=== PATIENT | female | born 1965 | race Caucasian/White ===

== ENCOUNTER 2017-05-17 16:46 | Inpatient (IN) | payer OTHER, MEDICAID, MEDICARE ==
[~2017-05-17] VITALS: Ht 165.1 cm; Wt 69.5 kg
[2017-05-17] VITALS (8 sets, daily range): BP systolic 84–124; BP diastolic 50–63; PULSE 72–106; RESP 16–18; TEMP 98.8; O2SAT 90–98
[~2017-05-17 16:46] MED LIST: AMINOCAPROIC ACID INJ 250 MG/ML 20 ML VIAL IV ONE; AMIT50TA3 PO; ARMO120T PO; ARMO60TA PO; CALCIUM CHLORIDE 10% SOLN 1 GRAM/10 ML SYR IV ONE; HEPARIN SODIUM - SQ 10,000 UNITS/ML VIAL SQ ONE; LYRI150C PO; MAGNESIUM SULFATE 1000 MG/2 ML VIAL (PED) IV ONE; MORP1TAB27 PO; NITROGLYCERIN 50 MG/DEXTROSE 5% SOLN 250 ML BTL IV ONE; OXYC30TA PO; PHENYLEPH/NS 1000 MCG/10 ML SYR IV ONE; PHENYLEPHRINE HCL 10 MG/ML VIAL IV ONE; PROTAMINE SULFATE 250 MG/25 ML VIAL IV ONE; SODIUM BICARBONATE 8.4% INJ 50 MEQ/50 ML SYR IV ONE; VECURONIUM BROMIDE 10 MG VIAL IV ONE; ePHEDrine/NS 25 MG/5 ML SYR IV ONE
[2017-05-17] MEDS ORDERED: FLUT1SPR5 EACH NARE (17:21)
[2017-05-17] MEDS ORDERED: SYMB160A INH (17:21)
--- NOTE | 2017-05-17 17:39 | PD ---
HPI Chief Complaint: Respiratory Symptoms Time Seen by Provider: 17:28 Travel History International Travel<30 days: No Contact w/Intl Traveler<30days: No Traveled to known affect area: No History of Present Illness HPI 52-year-old female with a history of COPD presents to the emergency room for evaluation of blood-tinged sputum for the past 2 days. States she does have a cough but it is no worse than her typical cough. She noticed that whenever she coughs there is brownish-red blood-tinged sputum. Patient smokes 1.5 pack cigarettes per day. She denies chest pain, shortness breath, difficulty breathing, fever, chills, nausea, vomiting, or upper respiratory symptoms. She has history of fibromyalgia and takes amitriptyline, morphine ER, oxycodone, and Lyrica. PFSH Past Medical History Arthritis: Yes Blood Disorders: No Anxiety: Yes Depression: Yes Cancer: No Cardiovascular Problems: No Cerebrovascular Accident: Yes (JUL 2016) Diabetes: No Diminished Hearing: No Endocrine: Yes Fibromyalgia: Yes Gastrointestinal Disorders: No Genitourinary: No Hepatitis: No Hiatal Hernia: No Immune Disorder: No Implanted Vascular Access Dvce: No Kidney Stones: No Musculoskeletal: Yes (degenerative disc disease "L4,L5 S1,bone on bone"; NEEDS RT HIP REPLACE ) Neurologic: Yes (NEUROPATHY/FIBROMYALGIA) Psychiatric: No Reproductive: No Respiratory: Yes (COPD) Immunizations Current: Yes Renal Failure: No Thyroid Disease: Yes (HYPERTHYROIDISM) Influenza Vaccination: No ?: Not Menopausal: Yes : 3 Para: 1 : 2 Past Surgical History Abdominal Surgery: Yes (appendectomy) AICD: No Appendectomy: Yes Cardiac Surgery: No Section: Yes (2005) Ear Surgery: No Endocrine Surgery: No Eye Surgery: No Genitourinary Surgery: No Gynecologic Surgery: Yes (c section) Joint Replacement: No Neurologic Surgery: No Oral Surgery: Yes Pacemaker: No Thoracic Surgery: No Tonsillectomy: Yes Other Surgery: Yes Social History Alcohol Use: No Tobacco Use: Yes (08/22 PPD) Substance Use: No Allergies-Medications (Allergen,Severity, Reaction): Coded Allergies: No Known Allergies (Verified , 05/17/17) Reported Meds & Prescriptions Reported Meds & Active Scripts Active Reported Symbicort Inh (Budesonide/Formoterol Fumarate) 160-4.5 Mcg/Act Aero 2 Puff INH Q12HR Flonase Nasal [place] (Fluticasone Nasal [place]) 50 Mcg/Act [place] 100 Mcg EACH NARE BID Amitriptyline (Amitriptyline HCl) 50 Mg Tab 50 Mg PO BID [place] Thyroid (Thyroid) 60 Mg Tab 60 Mg PO DAILY Lyrica (Pregabalin) 150 Mg Cap 150 Mg PO TID Morphine ER (Morphine Sulfate) 100 Mg Tab 100 Mg PO Q8H [place] Thyroid (Thyroid) 120 Mg Tab 120 Mg PO DAILY Oxycodone (Oxycodone HCl) 30 Mg Tab 30 Mg PO FIVE TIMES A DAY Review of Systems Except as stated in HPI: all other systems reviewed are Neg Physical Exam Narrative GENERAL: Well-nourished, well-developed female in no acute distress. Afebrile. Ambulatory. SKIN: Focused skin assessment warm/dry. HEAD: Normocephalic. EYES: No scleral icterus. No injection or drainage. NECK: Supple, trachea midline. No JVD or lymphadenopathy. ENT: Mucosa pink and moist. No erythema or exudates. No uvular edema. No uvular , palatal, or tonsillar deviation. Airway patent. Nasal turbinates appear normal without nasal blood, purulent drainage or septal hematoma. EARS: Bilateral pinnae and external canals appear within normal limits. Bilateral tympanic membranes without erythema, dullness or perforation. CARDIOVASCULAR: Regular rate and rhythm without murmurs, gallops, or rubs. RESPIRATORY: Breath sounds equal bilaterally. No accessory muscle use. No crackles, rales, wheezes. Mild rhonchi on the left lower lung field. Data Data Last Documented VS Vital Signs Date Time Temp Pulse Resp B/P (MAP) Pulse Ox O2 Delivery O2 Flow Rate FiO2 05/17/17 19:18 84 18 98/57 (71) 95 Room Air 05/17/17 16:52 98.8 Orders Orders Complete Blood Count With Diff (05/17/17 17:28) Comprehensive Metabolic Panel (05/17/17 17:28) D-Dimer (05/17/17 17:28) Act Partial Throm Time (Ptt) (05/17/17 17:28) Prothrombin Time / Inr (Pt) (05/17/17 17:28) Iv Access Insert/Monitor (05/17/17 17:28) Ecg Monitoring (05/17/17 17:28) Oximetry (05/17/17 17:28) Chest, Pa & Lat (05/17/17 17:28) Ct Pulmonary Angiogram (05/17/17 18:32) Iohexol 350 Inj (Omnipaque 350 Inj) (05/17/17 19:05) Electrocardiogram (05/17/17 19:43) B-Type Natriuretic Peptide (05/17/17 19:43) Troponin I (05/17/17 18:00) Admit Order (Ed Use Only) (05/17/17 20:47) Labs Laboratory Tests Test 05/17/17 18:00 White Blood Count 7.8 TH/MM3 Red Blood Count 4.04 MIL/MM3 Hemoglobin 11.7 GM/DL Hematocrit 36.0 % Mean Corpuscular Volume 88.9 FL Mean Corpuscular Hemoglobin 29.0 PG Mean Corpuscular Hemoglobin Concent 32.6 % Red Cell Distribution Width 13.5 % Platelet Count 328 TH/MM3 Mean Platelet Volume 8.0 FL Neutrophils (%) (Auto) 68.4 % Lymphocytes (%) (Auto) 23.3 % Monocytes (%) (Auto) 5.2 % Eosinophils (%) (Auto) 1.6 % Basophils (%) (Auto) 1.5 % Neutrophils # (Auto) 5.4 TH/MM3 Lymphocytes # (Auto) 1.8 TH/MM3 Monocytes # (Auto) 0.4 TH/MM3 Eosinophils # (Auto) 0.1 TH/MM3 Basophils # (Auto) 0.1 TH/MM3 CBC Comment DIFF FINAL Differential Comment Prothrombin Time 11.3 SEC Prothromb Time International Ratio 1.0 RATIO Activated Partial Thromboplast Time 26.8 SEC D-Dimer Quantitative (PE/DVT) 1.46 MG/L FEU Blood Urea Nitrogen 4 MG/DL Creatinine 0.52 MG/DL Random Glucose 95 MG/DL Total Protein 7.8 GM/DL Albumin 3.1 GM/DL Calcium Level 8.9 MG/DL Alkaline Phosphatase 85 U/L Aspartate Amino Transf (AST/SGOT) 21 U/L Alanine Aminotransferase (ALT/SGPT) 16 U/L Total Bilirubin 0.2 MG/DL Sodium Level 137 MEQ/L Potassium Level 3.9 MEQ/L Chloride Level 102 MEQ/L Carbon Dioxide Level 27.7 MEQ/L Anion Gap 7 MEQ/L Estimat Glomerular Filtration Rate 124 ML/MIN Troponin I LESS THAN 0.02 NG/ML B-Type Natriuretic Peptide 40 PG/ML MDM Medical Decision Making Medical Screen Exam Complete: Yes Emergency Medical Condition: Yes Medical Record Reviewed: Yes Differential Diagnosis PE, pneumonia, allergies, or respiratory infection, nosebleed, tumor Narrative Course 52-year-old female presents to the emergency room for evaluation of hemoptysis for the past 2 days. Patient has chronic cough and history of COPD. States her cough is no worse than normal. She denies fever, chills, nausea, vomiting, chest pain, shortness of breath, or difficulty breathing. She is slightly tachycardic. CBC and CMP are completely unremarkable. D-dimer is elevated at 1.46. Chest x-ray shows possible pneumonia in the left lung field. Given patient's tachycardia and elevated d-dimer, CTA was ordered. CT shows no evidence of PE but there is a large filling defect of 3.9 cm in the left atrium , presumably thrombus. There are bilateral perihilar infiltrates most likely pulmonary edema. Pulmonary hemorrhage and infectious as well as inflammatory etiologies are not excludable. At this time EKG, BNP, and troponin were ordered. EKG shows. BNP and troponin are unremarkable. Care was transferred to Dr. Iglesias. Please see his note for disposition. Diagnosis Primary Impression: Hemoptysis Additional Impression: Left atrial mass Condition: Stable Ayse Holman May 17, 2017 17:39
--- NOTE | 2017-05-17 17:57 | RADRPT ---
EXAM DATE/TIME: 05/17/2017 17:40 [facility] COMPARISON: CHEST SINGLE AP, August 13, 2016, 21:18. INDICATIONS : Hemoptysis for 2 days MEDICAL HISTORY : None. SURGICAL HISTORY : None. ENCOUNTER: Initial ACUITY: 2 days PAIN SCORE: 0/10 LOCATION: Bilateral chest FINDINGS: The exam demonstrates basilar infiltrate on the left concerning for a pneumonia. There are chronic-ap pearing interstitial changes throughout the remainder of the pulmonary parenchyma. The heart is edward l in size. The mediastinal contours are within normal limits. CONCLUSION: 1. Left basilar infiltrate concerning for a pneumonia. John Robertson MD on May 17, 2017 at 17:55 Board Certified Radiologist. This report was verified electronically.
[2017-05-17 18:09] LABS: AUTOMATED NEUTROPHIL # 5.4 TH/MM3 (1.8-7.7); BASOPHIL # 0.1 TH/MM3 (0-0.2); BASOPHIL % 1.5 % (0.0-2.0); EOSINOPHIL # 0.1 TH/MM3 (0-0.4); EOSINOPHIL % 1.6 % (0.0-4.0); HEMO FLAGS DIFF FINAL; LYMPH % 23.3 % (9.0-44.0); LYMPHOCYTE # 1.8 TH/MM3 (1.0-4.8); MEAN CELL VOLUME 88.9 FL (80.0-100.0); MEAN CORPUSCULAR HGB CONC 32.6 % (32.0-36.0); MONO % 5.2 % (0.0-8.0); NEUT % 68.4 % (16.0-70.0); PLATELET COUNT 328 TH/MM3 (150-450); RED BLOOD COUNT 4.04 MIL/MM3 (4.00-5.30); RED CELL DISTRIBUTION WIDTH 13.5 % (11.6-17.2); WHITE BLOOD COUNT 7.8 TH/MM3 (4.0-11.0)
[2017-05-17 18:18] LABS: CHLORIDE 102 MEQ/L (98-107); POTASSIUM 3.9 MEQ/L (3.5-5.1); SODIUM (NA) 137 MEQ/L (136-145)
[2017-05-17 18:22] LABS: ANION GAP 7 MEQ/L (5-15); BICARBONATE 27.7 MEQ/L (21.0-32.0); BLOOD UREA NITROGEN 4 MG/DL (7-18)
[2017-05-17 18:25] LABS: ALT (GPT) 16 U/L (10-53); APTT (PATIENT) 26.8 SEC (24.3-30.1); AST (GOT) 21 U/L (15-37); GLOMERULAR FILTRATION RATE 124 ML/MIN (>89); PROTHROMBIN TIME - PATIENT 11.3 SEC (9.8-11.6)
[2017-05-17 18:26] LABS: TOTAL BILIRUBIN ADULT 0.2 MG/DL (0.2-1.0)
[2017-05-17 18:28] LABS: ALKALINE PHOSPHATASE 85 U/L (45-117)
[2017-05-17] MEDS ORDERED: IOHEXOL 350 MG/ML 10 ML VIAL (for RAD DIAG) IVCONTRAST ONE (19:05)
--- NOTE | 2017-05-17 19:20 | RADRPT ---
EXAM DATE/TIME: 05/17/2017 19:00 [facility] COMPARISON: CHEST PA & LAT, May 17, 2017, 17:40. INDICATIONS : Blood in phlegm. Elevated d-dimer. IV CONTRAST: 65 cc Omnipaque 350 (iohexol) IV RADIATION DOSE: 6.76 CTDIvol (mGy) MEDICAL HISTORY : Chronic obstructive pulmonary disease. SURGICAL HISTORY : None. ENCOUNTER: Initial ACUITY: 1 day PAIN SCALE: 0/10 LOCATION: chest TECHNIQUE: Volumetric scanning of the chest was performed using a pulmonary embolism protocol MIP images were re constructed. Using automated exposure control and adjustment of the mA and/or kV according to patien t size, radiation dose was kept as low as reasonably achievable to obtain optimal diagnostic quality images. DICOM format image data is available electronically for review and comparison. Follow-up recommendations for detected pulmonary nodules are based at a minimum on nodule size and pa tient risk factors according to Fleischner Society Guidelines. FINDINGS: There is no pulmonary embolus. Perihilar predominant bilateral alveolar infiltrates are present, nonspecific but could be on the bas is of pulmonary edema or hemorrhage. No pleural effusion. No pneumothorax. There is a 3.9 cm filling defect in the left atrium. Normal heart size. No perceptible coronary a rtery calcification. Esophagus appears patulous. There is no mediastinal, hilar or axillary lymphadenopathy. CONCLUSION: 1. No pulmonary embolus. 2. Large filling defect in the left atrium, presumably thrombus. 3. Bilateral perihilar infiltrates most likely pulmonary edema. Pulmonary hemorrhage and infectious a s well as inflammatory etiologies are not excludable. 4. Patulous appearing esophagus. Popeye Curran MD on May 17, 2017 at 19:16 Board Certified Radiologist. This report was verified electronically.
--- NOTE | 2017-05-17 19:57 | PD ---
HPI Chief Complaint: Respiratory Symptoms Time Seen by Provider: 17:28 Travel History International Travel<30 days: No Contact w/Intl Traveler<30days: No Traveled to known affect area: No History of Present Illness HPI This 52-year-old female came to the emergency department because she noted she was coughing up some blood. This started yesterday. She has not been short of breath. 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 She walks with a walker. She has no history of heart disease. She smokes one to one and a half packs of cigarettes per day. She does have a history of neuropathy in her legs. She says she had a stroke last July. She is not on any blood thinners. She has no history of heart disease. She does take pain medications. She says her legs are always cold due to bad circulation PFSH Past Medical History Arthritis: Yes Blood Disorders: No Anxiety: Yes Depression: Yes Cancer: No Cardiovascular Problems: No Cerebrovascular Accident: Yes (JUL 2016) Diabetes: No Diminished Hearing: No Endocrine: Yes Fibromyalgia: Yes Gastrointestinal Disorders: No Genitourinary: No Hepatitis: No Hiatal Hernia: No Immune Disorder: No Implanted Vascular Access Dvce: No Kidney Stones: No Musculoskeletal: Yes (degenerative disc disease "L4,L5 S1,bone on bone"; NEEDS RT HIP REPLACE ) Neurologic: Yes (NEUROPATHY/FIBROMYALGIA) Psychiatric: No Reproductive: No Respiratory: Yes (COPD) Immunizations Current: Yes Renal Failure: No Thyroid Disease: Yes (HYPERTHYROIDISM) Influenza Vaccination: No ?: Not Menopausal: Yes : 3 Para: 1 : 2 Past Surgical History Abdominal Surgery: Yes (appendectomy) AICD: No Appendectomy: Yes Cardiac Surgery: No Section: Yes (2005) Ear Surgery: No Endocrine Surgery: No Eye Surgery: No Genitourinary Surgery: No Gynecologic Surgery: Yes (c section) Joint Replacement: No Neurologic Surgery: No Oral Surgery: Yes Pacemaker: No Thoracic Surgery: No Tonsillectomy: Yes Other Surgery: Yes Social History Alcohol Use: No Tobacco Use: Yes (08/22 PPD) Substance Use: No Allergies-Medications (Allergen,Severity, Reaction): Coded Allergies: No Known Allergies (Verified , 05/17/17) Reported Meds & Prescriptions Reported Meds & Active Scripts Active Reported Symbicort Inh (Budesonide/Formoterol Fumarate) 160-4.5 Mcg/Act Aero 2 Puff INH Q12HR Flonase Nasal [place] (Fluticasone Nasal [place]) 50 Mcg/Act [place] 100 Mcg EACH NARE BID Amitriptyline (Amitriptyline HCl) 50 Mg Tab 50 Mg PO BID [place] Thyroid (Thyroid) 60 Mg Tab 60 Mg PO DAILY Lyrica (Pregabalin) 150 Mg Cap 150 Mg PO TID Morphine ER (Morphine Sulfate) 100 Mg Tab 100 Mg PO Q8H [place] Thyroid (Thyroid) 120 Mg Tab 120 Mg PO DAILY Oxycodone (Oxycodone HCl) 30 Mg Tab 30 Mg PO FIVE TIMES A DAY Review of Systems General / Constitutional: No: Fever, Chills Eyes: No: Diploplia HENT: No: Headaches, Vertigo Cardiovascular: No: Chest Pain or Discomfort, Palpitations Respiratory: Positive: Cough, Hemoptysis, No: Shortness of Breath Gastrointestinal: No: Vomiting, Diarrhea Genitourinary: No: Urgency, Frequency Neurologic: No: Weakness, Dizziness Physical Exam Narrative GENERAL: Well-developed female SKIN: Focused skin assessment warm/dry. HEAD: Atraumatic. Normocephalic. EYES: Pupils equal and round. No scleral icterus. No injection or drainage. ENT: No nasal bleeding or discharge. Mucous membranes pink and moist. NECK: Trachea midline. No JVD. CARDIOVASCULAR: Regular rate and rhythm. No murmur appreciated. RESPIRATORY: No accessory muscle use. Clear to auscultation. Breath sounds equal bilaterally. GASTROINTESTINAL: Abdomen soft, non-tender, nondistended. Hepatic and splenic margins not palpable. MUSCULOSKELETAL: No obvious deformities. No clubbing. Right leg is slightly dusky. There are good bilateral pedal pulses NEUROLOGICAL: Awake and alert. No obvious cranial nerve deficits. Motor grossly within normal limits. Normal speech. PSYCHIATRIC: Appropriate mood and affect; insight and judgment normal. Data Data Last Documented VS Vital Signs Date Time Temp Pulse Resp B/P (MAP) Pulse Ox O2 Delivery O2 Flow Rate FiO2 05/17/17 19:18 84 18 98/57 (71) 95 Room Air 05/17/17 16:52 98.8 Orders Orders Complete Blood Count With Diff (05/17/17 17:28) Comprehensive Metabolic Panel (05/17/17 17:28) D-Dimer (05/17/17 17:28) Act Partial Throm Time (Ptt) (05/17/17 17:28) Prothrombin Time / Inr (Pt) (05/17/17 17:28) Iv Access Insert/Monitor (05/17/17 17:28) Ecg Monitoring (05/17/17 17:28) Oximetry (05/17/17 17:28) Chest, Pa & Lat (05/17/17 17:28) Ct Pulmonary Angiogram (05/17/17 18:32) Iohexol 350 Inj (Omnipaque 350 Inj) (05/17/17 19:05) Electrocardiogram (05/17/17 19:43) B-Type Natriuretic Peptide (05/17/17 19:43) Troponin I (05/17/17 18:00) Labs Laboratory Tests Test 05/17/17 18:00 White Blood Count 7.8 TH/MM3 Red Blood Count 4.04 MIL/MM3 Hemoglobin 11.7 GM/DL Hematocrit 36.0 % Mean Corpuscular Volume 88.9 FL Mean Corpuscular Hemoglobin 29.0 PG Mean Corpuscular Hemoglobin Concent 32.6 % Red Cell Distribution Width 13.5 % Platelet Count 328 TH/MM3 Mean Platelet Volume 8.0 FL Neutrophils (%) (Auto) 68.4 % Lymphocytes (%) (Auto) 23.3 % Monocytes (%) (Auto) 5.2 % Eosinophils (%) (Auto) 1.6 % Basophils (%) (Auto) 1.5 % Neutrophils # (Auto) 5.4 TH/MM3 Lymphocytes # (Auto) 1.8 TH/MM3 Monocytes # (Auto) 0.4 TH/MM3 Eosinophils # (Auto) 0.1 TH/MM3 Basophils # (Auto) 0.1 TH/MM3 CBC Comment DIFF FINAL Differential Comment Prothrombin Time 11.3 SEC Prothromb Time International Ratio 1.0 RATIO Activated Partial Thromboplast Time 26.8 SEC D-Dimer Quantitative (PE/DVT) 1.46 MG/L FEU Blood Urea Nitrogen 4 MG/DL Creatinine 0.52 MG/DL Random Glucose 95 MG/DL Total Protein 7.8 GM/DL Albumin 3.1 GM/DL Calcium Level 8.9 MG/DL Alkaline Phosphatase 85 U/L Aspartate Amino Transf (AST/SGOT) 21 U/L Alanine Aminotransferase (ALT/SGPT) 16 U/L Total Bilirubin 0.2 MG/DL Sodium Level 137 MEQ/L Potassium Level 3.9 MEQ/L Chloride Level 102 MEQ/L Carbon Dioxide Level 27.7 MEQ/L Anion Gap 7 MEQ/L Estimat Glomerular Filtration Rate 124 ML/MIN Troponin I LESS THAN 0.02 NG/ML B-Type Natriuretic Peptide 40 PG/ML MDM Medical Decision Making Medical Screen Exam Complete: Yes Emergency Medical Condition: Yes Medical Record Reviewed: Yes Differential Diagnosis Differential includes hemoptysis, pneumonia, PE, tumor Narrative Course Chest x-ray shows left basilar infiltrate concerning for pneumonia. D-dimer has been ordered and came back at 1.46. Because of the elevation in the d- dimer a CT pulmonary angiogram was ordered. It shows no pulmonary embolus. There is a large filling defect in the left atrium which is 3.9 cm in size which may represent thrombus. There are bilateral perihilar infiltrates most likely pulmonary edema, pulmonary hemorrhage and infectious as well as inflammatory etiologies are not excludable. I have reviewed the patient's previous charts and there has not been a previous CT scan of the thorax nor has she had an echocardiogram. Case discussed with Dr. BRITO and she will be admitted to [facility]. Also discussed the case with Dr. Garcia. Anticoagulation will be withheld at this time Diagnosis Primary Impression: Hemoptysis Additional Impression: Left atrial mass Admitting Information Admitting Physician Requests: Admit Disposition: 01 DISCHARGE HOME Condition: Stable Miko Velazquez MD May 17, 2017 19:57
[2017-05-18] VITALS (60 sets, daily range): BP systolic 89–139; BP diastolic 51–89; PULSE 70–113; RESP 9–58; TEMP 98; O2SAT 79–100
[2017-05-18] MEDS: CHLORHEXIDINE GLUCONATE 2 % 1 PACK (2 CLOTHS) TOP SCH (00:12)
[2017-05-18] MEDS ORDERED: SENNOSIDES 8.6 MG TAB PO PRN (01:00)
[2017-05-18] MEDS ORDERED: ONDANSETRON HCL 4 MG/2 ML VIAL IV PUSH PRN ×2 (01:00→10:30)
[2017-05-18] MEDS ORDERED: CHLORHEXIDINE GLUCONATE 2 % 1 PACK (2 CLOTHS) TOP PRN (01:00)
[2017-05-18] MEDS ORDERED: LACTULOSE SYRUP 20 GM/30 ML CUP PO PRN (01:00)
[2017-05-18] MEDS ORDERED: MISCELLANEOUS NURSING INFORMATION XX SCH (01:00)
[2017-05-18] MEDS ORDERED: RESP: ALBUTEROL 2.5 MG/IPRATROPIUM 0.5 MG NEB (PRN) INH (01:00)
[2017-05-18] MEDS ORDERED: SODIUM CHLOR 0.9% 1000 ML INJ 1,000 ML IV SCH ×3 (01:00→10:21)
[2017-05-18] MEDS ORDERED: BISACODYL 10 MG SUPP RECTAL PRN (01:00)
[2017-05-18] MEDS ORDERED: MAGNESIUM HYDROXIDE SUSP 30 ML CUP PO PRN (01:00)
[2017-05-18] MEDS: MORPHINE SULFATE 100 MG CONTROLLED RELEASE TAB PO SCH ×3 (01:00→16:49)
[2017-05-18] MEDS ORDERED: SODIUM CHLORIDE 0.9% FLUSH 10 ML FLUSH PRN (01:00)
[2017-05-18] MEDS ORDERED: MORPHINE SULFATE 4 MG/ML INJ IV PUSH PRN (01:00)
[2017-05-18] MEDS ORDERED: ACETAMINOPHEN 325 MG TAB PO PRN (01:00)
--- NOTE | 2017-05-18 01:00 | HHI.HP ---
[facility] Service Critical Care Medicine Primary Care Physician Oseas Lizarraga MD Admission Diagnosis HEMOPTYSIS, LEFT ATRIAL MASS Diagnosis: Travel History International Travel<30 Days: No Contact w/Intl Traveler <30 Da: No Traveled to Known Affected Are: No History of Present Illness 52-year-old female with a history of COPD , chronic pain disease, fibromyalgia, presents to the emergency room for evaluation of blood-tinged sputum for the past 2 days. States she does have a cough but it is no worse than her typical cough. Her sputum has been recently brownish-red blood-tinged sputum. Patient smokes 1.5 pack cigarettes per day. She denies chest pain, shortness breath, difficulty breathing, fever, chills, nausea, vomiting, or upper respiratory symptoms. She has history of fibromyalgia and takes amitriptyline, morphine ER , oxycodone, and Lyrica. Review of Systems Constitutional: DENIES: Diaphoretic episodes, Fatigue, Fever, Weight gain, Weight loss, Chills, Dizziness, Change in appetite, Night Sweats Endocrine: DENIES: Abnorml menstrual pattern, Heat/cold intolerance, Polydipsia , Polyuria, Polyphagia Eyes: DENIES: Blurred vision, Diplopia, Eye inflammation, Eye pain, Vision loss , Photosensitivity, Double Vision Ears, nose, mouth, throat: DENIES: Tinnitus, Hearing loss, Vertigo, Nasal discharge, Oral lesions, Throat pain, Hoarseness, Ear Pain, Running Nose, Epistaxis, Sinus Pain, Toothache, Odynophagia Respiratory: COMPLAINS OF: Cough, Hemoptysis, Sputum production, DENIES: Apneas , Snoring, Wheezing, Shortness of breath Cardiovascular: DENIES: Chest pain, Palpitations, Syncope, Dyspnea on Exertion , PND, Lower Extremity Edema, Orthopnea, Claudication Gastrointestinal: DENIES: Abdominal pain, Black stools, Bloody stools, Constipation, Diarrhea, Nausea, Vomiting, Difficulty Swallowing, Anorexia Genitourinary: DENIES: Abnormal vaginal bleeding, Dysmenorrhea, Dyspareunia, Sexual dysfunction, Urinary frequency, Urinary incontinence, Urgency, Hematuria , Dysuria, Nocturia, Vaginal discharge Musculoskeletal: DENIES: Joint pain, Muscle aches, Stiffness, Joint Swelling, Back pain, Neck pain Integumentary: DENIES: Abnormal pigmentation, Pruritus, Rash, Nail changes, Breast masses, Breast skin changes, Nipple discharge Hematologic/lymphatic: DENIES: Bruising, Lymphadenopathy Immunologic/allergic: DENIES: Eczema, Urticaria Neurologic: DENIES: Abnormal gait, Headache, Localized weakness, Paresthesias, Seizures, Speech Problems, Tremor, Poor Balance Psychiatric: DENIES: Anxiety, Confusion, Mood changes, Depression, Hallucinations, Agitation, Suicidal Ideation, Homicidal Ideation, Delusions Past Family Social History Allergies: Coded Allergies: No Known Allergies (Verified , 05/17/17) Past Medical History Fibromyalgia COPD Chronic pain syndrome Hypothyroidism Tobacco use disorder Past Surgical History Back surgery Reported Medications Reported Meds & Active Scripts Active Reported Symbicort Inh (Budesonide/Formoterol Fumarate) 160-4.5 Mcg/Act Aero 2 Puff INH Q12HR Flonase Nasal [place] (Fluticasone Nasal [place]) 50 Mcg/Act [place] 100 Mcg EACH NARE BID Amitriptyline (Amitriptyline HCl) 50 Mg Tab 50 Mg PO BID [place] Thyroid (Thyroid) 60 Mg Tab 60 Mg PO DAILY Lyrica (Pregabalin) 150 Mg Cap 150 Mg PO TID Morphine ER (Morphine Sulfate) 100 Mg Tab 100 Mg PO Q8H [place] Thyroid (Thyroid) 120 Mg Tab 120 Mg PO DAILY Oxycodone (Oxycodone HCl) 30 Mg Tab 30 Mg PO FIVE TIMES A DAY Active Ordered Medications Current Medications Medications (Trade) Dose Ordered Sig/Wendy Route PRN Reason Start Time Stop Time Status Last Admin Dose Admin Amitriptyline HCl (Elavil) 50 mg BID PO 05/18/17 09:00 Budesonide/ Formoterol Fumarate (Symbicort 160-4.5 Inh) 2 puff Q12HR INH 05/18/17 09:00 Morphine Sulfate (Oramorph Sr) 100 mg Q8H PO 05/18/17 01:00 Pregabalin (Lyrica) 150 mg TID PO 05/18/17 09:00 Thyroid ([place] Thyroid) 60 mg DAILY PO 05/18/17 09:00 Thyroid ([place] Thyroid) 120 mg DAILY PO 05/18/17 09:00 Fluticasone Propionate (Flonase David Spr) 2 spray BID EACH NARE 05/18/17 09:00 Oxycodone HCl (Roxicodone) 30 mg 5 TIMES A DAY PO 05/18/17 06:00 Sodium Chloride 1,000 ml @ 84 mls/hr [id number] IV 05/18/17 01:00 05/18/17 02:12 Sodium Chloride (NS Flush) 2 ml UNSCH PRN .XX FLUSH AFTER USING IV ACCESS 05/18/17 01:00 Sodium Chloride (NS Flush) 2 ml BID .XX 05/18/17 09:00 Acetaminophen (Tylenol) 650 mg Q6H PRN PO PAIN 1-10 AND/OR FEVER >101F 05/18/17 01:00 Morphine Sulfate (Morphine Inj) 2 mg Q2H PRN IV PUSH PAIN SCALE 6 TO 10 05/18/17 01:00 Ondansetron HCl (Zofran Inj) 4 mg Q6H PRN IV PUSH NAUSEA OR VOMITING 05/18/17 01:00 Albuterol/ Ipratropium (Duoneb Neb) 1 ampule Q2HR NEB PRN INH WHEEZING 05/18/17 01:00 Miscellaneous Information 1 [id number] XX 05/18/17 01:00 05/18/17 01:00 Chlorhexidine Gluconate (Chlorhexidine 2% Cloth) 3 pack Taper DAILY@04 TOP 05/18/17 04:00 05/14/18 03:59 05/18/17 00:12 Chlorhexidine Gluconate (Chlorhexidine 2% Cloth) 3 pack UNSCH PRN TOP HYGIENIC CARE 05/18/17 01:00 Senna/Docusate Sodium (Tere-Colace) 1 tab BID PO 05/18/17 09:00 Magnesium Hydroxide (Milk Of Magnesia Liq) 30 ml Q12H PRN PO MILD - MODERATE CONSTIPATION 05/18/17 01:00 Sennosides (Senokot) 17.2 mg Q12H PRN PO MODERATE - SEVERE CONSTIPATION 05/18/17 01:00 Bisacodyl (Dulcolax Supp) 10 mg DAILY PRN RECTAL SEVERE CONSITIPATION 05/18/17 01:00 Lactulose (Lactulose Liq) 30 ml DAILY PRN PO SEVERE CONSITIPATION 05/18/17 01:00 Family History No family history significant for coronary coronary artery disease or cancer Social History Smokes one half pack per day lifelong Denies history of alcohol or illicit drug abuse Physical Exam Vital Signs Vital Signs Date Time Temp Pulse Resp B/P (MAP) Pulse Ox O2 Delivery O2 Flow Rate FiO2 05/17/17 23:50 84 18 105/63 (77) 100 05/17/17 22:20 72 16 84/53 (63) 98 Nasal Cannula 2.00 05/17/17 21:58 16 90 Nasal Cannula 2.00 05/17/17 21:48 80 18 86/50 (62) 94 Room Air 05/17/17 19:18 84 18 98/57 (71) 95 Room Air 05/17/17 18:08 92 18 93/58 (70) 94 Room Air 05/17/17 18:05 18 95 Room Air 05/17/17 17:21 18 Room Air 05/17/17 16:52 98.8 106 16 124/57 (79) 96 Physical Exam GENERAL: Well-nourished, well-developed patient. SKIN: Warm and dry. HEAD: Normocephalic. EYES: No scleral icterus. No injection or drainage. NECK: Supple, trachea midline. No JVD or lymphadenopathy. CARDIOVASCULAR: Regular rate and rhythm without murmurs, gallops, or rubs. RESPIRATORY: Breath sounds equal bilaterally. No accessory muscle use. GASTROINTESTINAL: Abdomen soft, non-tender, nondistended. MUSCULOSKELETAL: No cyanosis, or edema. BACK: Nontender without obvious deformity. NEURO EXAM: GCS: M 6 V 5 E 4 Mental Status: The patient is alert and oriented to person, place, and time with normal speech. Cranial Nerves: Pupils are round, reactive to light. Extraocular movements are intact without ptosis. Hearing is normal bilaterally. Voice is normal. Tongue protrudes midline and moves symmetrically. Reflexes: Biceps, patellar, and Achilles are 2/4 bilaterally. No clonus. Sensation: Sensation is intact bilaterally to pain and light touch. Two-point discrimination is intact. Laboratory Laboratory Tests Test 05/17/17 18:00 White Blood Count 7.8 Red Blood Count 4.04 Hemoglobin 11.7 Hematocrit 36.0 Mean Corpuscular Volume 88.9 Mean Corpuscular Hemoglobin 29.0 Mean Corpuscular Hemoglobin Concent 32.6 Red Cell Distribution Width 13.5 Platelet Count 328 Mean Platelet Volume 8.0 Neutrophils (%) (Auto) 68.4 Lymphocytes (%) (Auto) 23.3 Monocytes (%) (Auto) 5.2 Eosinophils (%) (Auto) 1.6 Basophils (%) (Auto) 1.5 Neutrophils # (Auto) 5.4 Lymphocytes # (Auto) 1.8 Monocytes # (Auto) 0.4 Eosinophils # (Auto) 0.1 Basophils # (Auto) 0.1 CBC Comment DIFF FINAL Differential Comment Prothrombin Time 11.3 Prothromb Time International Ratio 1.0 Activated Partial Thromboplast Time 26.8 D-Dimer Quantitative (PE/DVT) 1.46 Blood Urea Nitrogen 4 Creatinine 0.52 Random Glucose 95 Total Protein 7.8 Albumin 3.1 Calcium Level 8.9 Alkaline Phosphatase 85 Aspartate Amino Transf (AST/SGOT) 21 Alanine Aminotransferase (ALT/SGPT) 16 Total Bilirubin 0.2 Sodium Level 137 Potassium Level 3.9 Chloride Level 102 Carbon Dioxide Level 27.7 Anion Gap 7 Estimat Glomerular Filtration Rate 124 Troponin I LESS THAN 0.02 B-Type Natriuretic Peptide 40 Result Diagram: 05/17/17 1800 05/17/17 1800 Imaging Last [address] Angiography 05/17/17 1832 Signed Impressions: Service Date/Time: Wednesday, May 17, 2017 19:00 - CONCLUSION: 1. No pulmonary embolus. 2. Large filling defect in the left atrium, presumably thrombus. 3. Bilateral perihilar infiltrates most likely pulmonary edema. Pulmonary hemorrhage and infectious as well as inflammatory etiologies are not excludable. 4. Patulous appearing esophagus. Popeye Curran MD Chest X-Ray 05/17/17 1728 Signed Impressions: Service Date/Time: Wednesday, May 17, 2017 17:40 - CONCLUSION: 1. Left basilar infiltrate concerning for a pneumonia. John Robertson MD Caprini VTE Risk Assessment Caprini VTE Risk Assessment: No/Low Risk (score <= 1) Caprini Risk Assessment Model Point Value = 1 Point Value = 2 Point Value = 3 Point Value = 5 Age 41-60 Minor surgery BMI > 25 kg/m2 Swollen legs Varicose veins or History of unexplained or recurrent spontaneous Oral contraceptives or hormone replacement Sepsis (< 1 month) Serious lung disease, including pneumonia (< 1 month) Abnormal pulmonary function Acute myocardial infarction Congestive heart failure (< 1 month) History of inflammatory bowel disease Medical patient at bed rest Age 61-74 Arthroscopic surgery Major open surgery (> 45 min) Laparoscopic surgery (> 45 min) Malignancy Confined to bed (> 72 hours) Immobilizing plaster cast Central venous access Age >= 75 History of VTE Family history of VTE Factor V Leiden Prothrombin [id number] Lupus anticoagulant Anticardiolipin antibodies Elevated serum homocysteine Heparin-induced thrombocytopenia Other congenital or acquired thrombophilia Stroke (< 1 month) Elective arthroplasty Hip, pelvis, or leg fracture Acute spinal cord injury (< 1 month) Prophylaxis Regimen Total Risk Factor Score Risk Level Prophylaxis Regimen 0-1 Low Early ambulation 2 Moderate Order ONE of the following: *Sequential Compression Device (SCD) *Heparin 5000 units SQ BID 3-4 Higher Order ONE of the following medications: *Heparin 5000 units SQ TID *Enoxaparin/Lovenox 40 mg SQ daily (WT < 150 kg, CrCl > 30 mL/min) *Enoxaparin/Lovenox 30 mg SQ daily (WT < 150 kg, CrCl > 10-29 mL/min) *Enoxaparin/Lovenox 30 mg SQ BID (WT < 150 kg, CrCl > 30 mL/min) AND/OR *Sequential Compression Device (SCD) 5 or more Highest Order ONE of the following medications: *Heparin 5000 units SQ TID (Preferred with Epidurals) *Enoxaparin/Lovenox 40 mg SQ daily (WT < 150 kg, CrCl > 30 mL/min) *Enoxaparin/Lovenox 30 mg SQ daily (WT < 150 kg, CrCl > 10-29 mL/min) *Enoxaparin/Lovenox 30 mg SQ BID (WT < 150 kg, CrCl > 30 mL/min) AND *Sequential Compression Device (SCD) Assessment and Plan Assessment and Plan Atrial thrombus - Case discussed with Dr. Yun by ED attending - No anticoagulation at this time concerning of hemoptysis - Further management per cardiology Hemoptysis - Underlying pulmonary infarcts - Pulmonary consult COPD - DuoNeb's scheduled and when necessary - No steroids at this time Fibromyalgia - Amitriptyline Chronic pain syndrome - Morphine and oxycodone DVT GI prophylaxis - Teds SCDs - Pepcid - No pharmacological DVT prophylaxis due to hemoptysis Critical Care: The total critical care time was 35 minutes. Time to perform other separately billable procedures was not included in the critical care time. Montana Boone MD May 18, 2017 01:00
--- NOTE | 2017-05-18 07:39 | EKG ---
Date Performed: 05/17/2017 Time Performed: 20:07:07 PTAGE: 52 years EKG: Sinus rhythm LEFT ATRIAL ENLARGEMENT ABNORMAL ECG Since PREVIOUS TRACING , no significant change noted PREVIOUS TRACIN11/16/2015 23.48 DOCTOR: Roopa Patel Interpretating Date/Time 05/18/2017 07:37:50
--- NOTE | 2017-05-18 08:37 | MB ---
cc: LEANN CARROLL M.D. DATE OF CONSULTATION: 05/18/2017 REASON FOR CONSULTATION Evaluation left atrial mass. HISTORY OF PRESENT ILLNESS Graciela Dolan is a 52-year-old woman with COPD, one and a half pack per day ongoing smoking history. She came in with some cough and blood-tinged sputum. Denies any chest pain. She states she had a stroke in July but I do not see any records confirming that. History of fibromyalgia on amitriptyline, she has horrible back pain. She states she is not able to put her legs out straight when she lies down. Echo is just done and shows an obvious large left atrial myxoma and I am planning to go ahead and do a cardiac cath on her this morning. She has no typical angina. Denies any major problems of shortness of breath but she does use an inhaler daily. MEDICATION Pain medications, Lyrica. PAST MEDICAL HISTORY 1. COPD. 2. Fibromyalgia. 3. Chronic pain syndrome. 4. Hypothyroidism. 5. Tobacco use disorder. PAST SURGICAL HISTORY 1. Back surgery. 2. Appendectomy. 3. L4, L5 laminectomy. 4. . REVIEW OF SYSTEMS She has severe hip and back pain. SOCIAL HISTORY She is . Denies alcohol. Smokes one and half packs per day. Has one child. MEDICATIONS PRIOR TO ADMISSION 1. Symbicort. 2. Flonase. 3. Amitriptyline. 4. [place] Thyroid. 5. Lyrica. 6. Oxycodone. FAMILY HISTORY Negative for heart disease. PHYSICAL EXAMINATION GENERAL: Well-developed, well-nourished female, in no acute distress. VITAL SIGNS: Charted. HEENT: Exam unremarkable. NECK: No JVD or bruits. CHEST: Shows a few expiratory wheezes. CARDIAC: S1-S2, regular rate and rhythm without murmurs, gallops. ABDOMEN: Soft, nontender. No masses, organomegaly. EXTREMITIES: No clubbing, cyanosis or edema. NEUROLOGIC: She is alert and oriented and nonfocal. LABORATORY DATA Testing at this point shows hematocrit 36, creatinine 0.52. Troponins negative x2. IMAGING STUDIES CT scan shows no pulmonary embolism, bilateral perihilar infiltrates, most likely pulmonary edema, patulous appearing esophagus. Echo shows a very large myxoma, possible that it is intermittently obstructing the mitral valve orifice. 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 Cannot Confirm the prior stroke history, I am not sure if that is accurate or not. She needs a heart catheterization, CT surgery consult. Informed consent was obtained for cardiac cath this morning. I am going to go ahead and get this arranged now. Will go ahead and consult CT surgery. Informed consent has been obtained. MD GALA Mukherjee/TLL /8:08 AM /8:16 AM
[2017-05-18] MEDS ORDERED: MIDAZOLAM HCL 2 MG/2 ML VIAL ONE ×2 (08:47→09:23)
[2017-05-18] MEDS ORDERED: HEPARIN SODIUM - IV 10,000 UNITS/10 ML VIAL ONE (08:47)
[2017-05-18] MEDS ORDERED: NITROGLYCERIN INJ 5 ML ONE (08:47)
[2017-05-18] MEDS ORDERED: VERAPAMIL HCL 5 MG/2 ML VIAL ONE (08:47)
[2017-05-18] MEDS ORDERED: HEPARIN-NS/PF INJ 500 ML ONE (08:47)
[2017-05-18] MEDS: THYROID 60 MG TAB PO SCH ×2 (09:00→11:26)
[2017-05-18] MEDS: SODIUM CHLORIDE 0.9% FLUSH 10 ML FLUSH SCH ×2 (09:00→21:00)
[2017-05-18] MEDS: DOCUSATE SODIUM 50 MG/SENNA 8.6 MG TAB PO SCH ×2 (10:19→21:10)
[2017-05-18] MEDS: PREGABALIN 75 MG CAP PO SCH ×3 (10:19→16:50)
[2017-05-18] MEDS ORDERED: MISC INFORMATION XX ONE (10:30)
[2017-05-18] MEDS ORDERED: BACITRACIN OINT 0.9 GM PKT TOP ONE (10:30)
--- NOTE | 2017-05-18 10:31 | CATHPROC ---
[facility] HIS Report Study Information Study Number Admission Scheduled Start Study Start [id number] May 17 2017 8:49PM 05/18/2017 May 18 2017 8:28AM [facility] Service Cardiac Catheterization Admit Source Facility Department Emergency department [facility] - Technical Data Analyst Physician and Clinical Staff Initial Hussein Zuñiga Vocational Ed Instructor So Hannon,RN Recorder Juan Ricketts,RT(R) Scrub Alex Bernal RCIS(BS) Procedures Performed Procedure Location (Site) Vessel Name Coronary Angiograms LCA Left Coronary Coronary Angiograms RCA Right Coronary Equipment Time Primary Care Coordinator Description Size Mfg Part Number Used/Scraped TRANSDUCER, TRUWAVE [id number] 09:11 GALEANO ALONZO * Used W/STOCKCOCK *[id number] *[id number] *[id number] 09:58 DAIG/ST. MIKEY MEDICAL ANGIOSEAL, FR6 VIP FR 6 Used *[id number] 09:11 MALLINCKRODT SYRINGE, ANGIOMAT 150ML 150ML *[id number] Used 2SUB [id number] 09:11 Prime Grid PACK, CCL CUSTOM * Used *[id number] 09:11 Prime Grid SUPPORT, ARTERIAL ADULT 74545 *[id number] Used [id number] 09:11 Cuculus PACER PEN, SKIN DUAL W/ RULER * Used *[id number] 09:48 Lotaris MEDICAL SHEATH, FR6.5 PRELUDE 11CM FR 6.5 038ACT Used *[id number] 09:11 Lotaris MEDICAL WIRE, EXCHANGE 260CM 3MMJ 260CM Used *[id number] 09:11 NAMIC MANIFOLD, 4 PORT * Used *[id number] 09:11 NYCOMED OMNIPAQUE, 350 MG, 100ML 100ML [id number] Used [id number] 09:11 Physician Referral Network (PRN) MEDICAL BLANKET,WARM AIR CCL * Used *[id number] 09:11 CNS Response JELCO NEEDLE 4056 *[id number] Used SHEATH, FR6 TRANSRADIAL RM*[id number] 09:11 Trendslide MEDICAL FR 6 Used SLENDER 10CM *[id number] History: Allergies Allergy Reaction No Known Allergies History: Risk Factors Family History of Hypertension Dyslipidemia Previous [place] Previous Heart Failure Premature CAD No No Yes No No Prior Valve Prior PCI Prior CABG Surgery No No No Cerebrovascular Peripheral Artery Chronic Lung On Dialysis Diabetes Disease Disease Disease No Yes Yes Yes No History: Stress Tests Stress or Imaging Studies Performed No History: Other Current Smoker Method Packs a Day Years Used Pack Years Yes Cigarettes 1 35 35 Labs Hgb (g/dl) Hct (%) WBC (l/cumm) Platelets (thousands) 11.60-17.00 35.00-51.00 4.00-11.00 150.00-450.00 11.7 36 7.8 328 Glucose (mg/dl) BUN (mg/dl) Creatinine (mg/dl) BUN:Creatinine (1:x) 74.00-106.00 7.00-18.00 0.50-1.30 10.00-20.00 95 7 0.5 14 Na (meq/l) K (meq/l) 136.00-145.00 3.50-5.10 137 3.9 INR (PTT:PT) 0.90-1.10 1 Troponin I (ng/ml) CPK-MB (ng/ML) 0.02-0.05 0.50-3.60 0.02 Not Drawn Medication Medication Total Dose (Bolus/Oral) Medication Total Dosage/Unit 1% XYLOCAINE 25 mL FENTANYL 100 mcg VERSED 3 mg Medications (Bolus/Oral) Medication Time Given Dosage/Unit Administered By Reason VERSED 05/18/2017 9:21:48 AM 2 mg So Hannon 2 mg VERSED given in lab by So Hannon, RN in Right Antecubital via Peripheral IV. Ordered by Hussein Carrero. 1% XYLOCAINE 05/18/2017 9:22:49 AM 5 mL Hussein Gibson 5 mL 1% XYLOCAINE given in lab by Hussein Gibson in Right Radial via Subcutaneous. Ordered by Hussein Gibson. FENTANYL 05/18/2017 9:22:59 AM 50 mcg So Hannon 50 mcg FENTANYL given in lab by So Hannon, RN in Right Antecubital via Peripheral IV. Ordered b y Hussein Gibson. VERSED 05/18/2017 9:24:21 AM 1 mg Hussein Gibson Patient arrived on 1 mg VERSED given by Hussein Gibson in Right Antecubital via Peripheral IV. Ordered by Hussein Gibson. 1% XYLOCAINE 05/18/2017 9:46:06 AM 20 mL Hussein Gibson 20 mL 1% XYLOCAINE given in lab by Hussein Gibson in Right Groin via Subcutaneous. Ordered by Hussein Gibson. FENTANYL 05/18/2017 9:46:22 AM 50 mcg So Hannon 50 mcg FENTANYL given in lab by So Hannon, RN in Right Antecubital via Peripheral IV. Ordered Hussein New. Medication (Drip) Medication Time Given Dosage/Unit Concentration/Unit Diluent (ml) Solution IV Solutions 05/18/2017 8:48:39 AM 0 mL (IV) 500 NaCl .9 Patient arrived on IV Solutions given by Hussein Gibson in Right Antecubital via Peripheral IV. Pump/D rip Flow = 20 ml/hr using NaCl .9. Ordered by Hussein Gibson. Initial Case Assessment Cardiovascular HR Rhythm NIBP Chest Pain 86 sr 133/81 0 Edema Present Skin color Skin None Normal Warm Dry Circulatory - Right Pulses Dorsalis Pedis Femoral Radial 3 3 3 Scale (0,1,2,3,4,d) Scale (0,1,2,3,4,d) Neurological State Oriented to time-place- Alert Moves all extremities person Respiration - General Respiration Rate SpO2 (%) O2 (lpm) (B/min) 18 100 0 Final Case Assessment Cardiovascular HR Rhythm NIBP Chest Pain 90 sr 128/82 0 Edema Present Skin color Skin None Normal Warm Dry Circulatory - Right Pulses Dorsalis Pedis Femoral Radial 3 3 3 Scale (0,1,2,3,4,d) Scale (0,1,2,3,4,d) Neurological State Oriented to time-place- Alert Moves all extremities person Respiration - General Respiration Rate SpO2 (%) O2 (lpm) (B/min) 18 96 0 Chronological Log Time Study Chronological Log 8:33:01 Patient arrived via Bed. 8:33:03 Patient Name, D.O.B, / Armband Verified By R.N. 8:33:04 Consent signed by the physician and the patient and verified by the Technical Data Analyst staff. 8:33:05 Pre-op and post- op instructions given; patient acknowledges understanding of instructions. 8:33:43 Verbal Stimulation=2 Physical Stimulation=2 Airway=2 Respiration=2 TOTAL=8. (0=absent, 1=mcintyre ited, 2=present) 8:33:53 Presedation assessment performed by Technical Data Analyst RN. 8:44:19 Reference ECG taken 8:45:31 Patient has been NPO for More than 6Hrs. 8:45:33 Skin Breakdown-none present per patient. 8:45:48 Patient Warmer Placed on the Table. 8:45:51 A # 20 IV was noted in the Antecubital (right). Grade = 0 Patient arrived on IV Solutions given by Hussein Gibson in Right Antecubital via Peripheral IV. P ump/Drip Flow = 20 8:48:39 ml/hr using NaCl .9. Ordered by Hussein Gibson. 8:49:24 History and physical on the chart or being dictated. Vitals capture started with the following parameters, Patient=Adult, Interval=5 min, Initial Pre rwyhk=170 mmHg, 8:49:26 Deflation Rate=5 mmHg, Cuff placed on Left Ankle 8:50:01 HR=88 bpm, ODOB=668/81 mmhg, PxM7=848.0 %, Resp=22 B/min, Coughlin=2 Assessment: Initial Case, HR=86 BPM, Rhythm=sr, YKHL=881/81 mmhg, Chest Pain=0, Edema=None, [place] r=Normal, Skin = Warm, Dry 8:50:23 Right Pulses: Jose Ped=3, Femoral=3, Radial=3 Neurological: State=Alert, Ox3, FISCHER Respiration: Resp=18 B/min, XhZ9=071 %, O2=0 lpm 8:51:02 Right groin and right radial prepped with 2% chlorhexidine, and with a 3 min. waiting time. 8:55:02 HR=86 bpm, BIDF=979/83 mmhg, Resp=15 B/min, Coughlin=2 9:00:01 HR=86 bpm, FGBJ=707/88 mmhg, RuG5=853.0 %, Resp=12 B/min, Coughlin=2 9:04:58 HR=96 bpm, VQVD=454/88 mmhg, IpZ7=552.0 %, Resp=13 B/min, Coughlin=2 9:07:11 Pressure channel 1 zeroed. 9:09:57 HR=89 bpm, XZPM=766/81 mmhg, Resp=11 B/min, Coughlin=2 9:14:59 HR=92 bpm, JCCS=838/82 mmhg, Resp=13 B/min, Coughlin=2 9:20:00 HR=93 bpm, JEUO=617/84 mmhg, PaS2=350.0 %, Resp=12 B/min, Coughlin=2 Time Out. Correct patient, correct procedure,correct physician, ,power injector not loaded with contrast with surgical 9:21:02 team present. Time Out Concurred by MD, individual staff and TREKKING GUIDE in procedure. Not loaded at th is time. 9:21:30 Presedation re-assessment performed by Technical Data Analyst RN. 9:21:31 Case Start 9:21:32 Verbal Stimulation=2 Physical Stimulation=2 Airway=2 Respiration=2 TOTAL=8. (0=absent, 1=mcintyre ited, 2=present) 9:21:48 2 mg VERSED given in lab by So Hannon, YELENA in Right Antecubital via Peripheral IV. Orde red by Hussein Gibson. 9:22:49 5 mL 1% XYLOCAINE given in lab by Hussein Gibson in Right Radial via Subcutaneous. Ordered by Hussein Gibson. 9:22:59 50 mcg FENTANYL given in lab by So Hannon, YELENA in Right Antecubital via Peripheral IV. Ordered by Hussein Gibson. Patient arrived on 1 mg VERSED given by Hussein Gibson in Right Antecubital via Peripheral IV. Or dered by Arthur, 9:24:21 Hussein. 9:25:03 HR=92 bpm, NQAU=143/84 mmhg, UzZ4=929.0 %, Resp=12 B/min, Coughlin=2 9:30:02 HR=92 bpm, PTAH=181/84 mmhg, RzJ7=538.0 %, Resp=13 B/min, Coughlin=2 9:30:31 Attempting Ultrasound access at this time. 9:35:38 HR=91 bpm, KUPU=359/87 mmhg, CpA8=987.0 %, Resp=9 B/min, Coughlin=2 9:40:02 HR=92 bpm, WLOZ=970/89 mmhg, GwW6=861.0 %, Resp=14 B/min, Coughlin=2 9:44:11 CX radial access. Attempting right groin. 9:45:03 HR=98 bpm, PEQU=687/104 mmhg, SpO2=93.0 %, Resp=23 B/min, Coughlin=2 9:46:06 20 mL 1% XYLOCAINE given in lab by Hussein Gibson in Right Groin via Subcutaneous. Ordered b y Hussein Gibson. 9:46:22 50 mcg FENTANYL given in lab by So Hannon, YELENA in Right Antecubital via Peripheral IV. Ordered by Hussein Gibson. 9:47:50 Access site was Right Femoral Artery. right art 9:48:00 A SHEATH, FR6.5 PRELUDE 11CM FR 6.5 was advanced into the Fem Art (right) using the Percuta neous technique. A JL 4.0 INFINITI CATHETER FR 6 was advanced over a wire. OMNIPAQUE, 350 MG, 100ML 100ML was us ed for 9:49:25 injections. Recorded Pressure: Ao, HR=87, Condition=Condition 1 9:49:59 (Aorta) Ao 120/72/92 9:50:08 HR=89 bpm, BPFP=733/81 mmhg, SpO2=87.0 %, Resp=7 B/min, Coughlin=2 9:50:34 The LCA was injected and visualized at various angles. OMNIPAQUE, 350 MG, 100ML 100ML used . 9:51:28 Catheter was removed A [facility] GUIDE CATHETER FR 6 was advanced over a wire. OMNIPAQUE, 350 MG, 100ML 100ML was used fo r 9:52:44 injections. 9:53:22 The RCA was injected and visualized at various angles. OMNIPAQUE, 350 MG, 100ML 100ML used . 9:54:18 Catheter was removed 9:55:07 HR=93 bpm, LGVX=674/78 mmhg, SpO2=97.0 %, Resp=12 B/min, Coughlin=2 9:56:32 Case End 9:56:44 An injection in the Fem Art (right) was made through the SHEATH, FR6.5 PRELUDE 11CM FR 6.5. 9:57:43 ANGIOSEAL, FR6 VIP FR 6 placement in the Fem Art (right) 9:58:59 Sterile dressing applied to site Assessment: Final Case, HR=90 BPM, Rhythm=sr, SJDJ=122/82 mmhg, Chest Pain=0, Edema=None, Color =Normal, Skin = Warm, Dry 9:59:17 Right Pulses: Jose Ped=3, Femoral=3, Radial=3 Neurological: State=Alert, Ox3, FISCHER Respiration: Resp=18 B/min, SpO2=96 %, O2=0 lpm 10:00:06 HR=93 bpm, TUEN=474/82 mmhg, TmA7=315.0 %, Resp=11 B/min, Coughlin=2 10:00:34 Catheter(s) removed without difficulty 10:00:44 No case complications noted. 10:05:07 HR=92 bpm, RTPA=723/82 mmhg, SpO2=97.0 %, Resp=10 B/min, Coughlin=2 10:09:57 Vitals capture stopped. End Study - Contrast Media Used In Study Contrast Total Opened (mL) Total Used (mL) Total Wasted (mL) Omnipaque 55 55 0 End Study - Maximum Contrast Load Max Contrast Load (mL) 615.0 End Study - Radiation Exposure Fluoro Time (minutes) 1.4 End Study - Patient Disposition Complications Transferred To Telemetry Bed
[2017-05-18] MEDS ORDERED: IOHEXOL 350 MG/ML 50 ML BTL (for Cath Lab) OTHER ONE (10:43)
--- NOTE | 2017-05-18 10:52 | MA ---
cc: LEANN CARROLL M.D. DATE 05/18/2017 PREOPERATIVE DIAGNOSIS Presented with left atrial myxoma. POSTOPERATIVE DIAGNOSIS Normal coronary arteries. PROCEDURE PERFORMED Coronary angiography DESCRIPTION OF PROCEDURE The patient was brought to the supervisor labor gang in a fasting state. The right groin and right wrist were prepped and draped in a sterile fashion. Using 1% lidocaine for local anesthesia, I was able to puncture the right radial artery, but not able to feed a guidewire. Even using ultrasound guidance, the radial artery appears extremely small. I was not able to get access so I went to the right groin. Access was obtained on the first poke and a 6-1/2 Khmer sheath placed. Coronary angiography was then performed using a left 4 and a 3DRC catheter. Coronary arteries appear normal. Angiography was then obtained of the right femoral artery via the sheath followed by an uncomplicated Angio-Seal placement. There were no complications. FINDINGS 1. Hemodynamics. The aortic pressure was 120/70 with mean of 92. 2. Coronary angiography coronary circulation is right-dominant. All three coronary arteries appear normal. There is a prominent bridge in the proximal to midportion of the LAD. The myxoma was well-visualized with branches coming off the circumflex vessel. CONCLUSION Normal coronary arteries, left atrial myxoma. PLAN Cardiac surgery has been consulted for myxoma resection. MD GALA Mukherjee/CAIN /10:12 AM /10:38 AM
[2017-05-18] MEDS: BUDESONIDE-FORMOTEROL 160/4.5 MCG INHALER INH SCH ×2 (11:26→21:11)
[2017-05-18] MEDS: AMITRIPTYLINE HCL 50 MG TAB PO SCH ×2 (11:26→21:14)
[2017-05-18] MEDS: FLUTICASONE PROPIONATE 50 MCG/ACT 16 GM NASAL SPRAY EACH NARE SCH ×2 (12:57→21:10)
--- NOTE | 2017-05-18 13:37 | ECHRPT ---
Indication: SOB/ LEFT ATRIAL CLOT OR MASS CONCLUSIONS Normal left ventricular size. Wall thickness is normal. The left ventricular systolic function is low normal with an estimated ejection fraction in the rang e of 50- 55%. The left atrial size is upper limits of normal. There is a mass (4.4cm X 2.9 cm) noted in the left atrial cavity consistent with a myxoma. The tumor is partially obstructing the mitral valve. Mbqom-bb-wlie mitral valve regurgitation. There is trace tricuspid valve regurgitation. BP: / HR: Rhythm: Sinus MEASUREMENTS (Male / Female) Normal Values Technical Quality:Good 2D ECHO LV Diastolic Diameter PLAX 4.7 cm 4.2 - 5.9 / 3.9 - 5.3 cm LV Systolic Diameter PLAX 3.5 cm IVS Diastolic Thickness 1.1 cm 0.6 - 1.0 / 0.6 - 0.9 cm LVPW Diastolic Thickness 0.9 cm 0.6 - 1.0 / 0.6 - 0.9 cm LV Relative Wall Thickness 0.4 RV Internal Dim ED PLAX 2.3 cm LA Systolic Diameter LX 5.1 cm 3.0 - 4.0 / 2.7 - 3.8 cm M-MODE Aortic Root Diameter MM 3.4 cm AV Cusp Separation MM 2.3 cm DOPPLER MR Peak Velocity 526.0 cm/s MR Peak Gradient 110.7 mmHg Mitral E Point Velocity 190.0 cm/s Mitral A Point Velocity 248.0 cm/s Mitral E to A Ratio 0.8 TR Peak Velocity 240.0 cm/s TR Peak Gradient 23.0 mmHg Right Atrial Pressure 10.0 mmHg Pulmonary Artery Systolic Pressu 33.0 mmHg Right Ventricular Systolic Press 33.0 mmHg FINDINGS LEFT VENTRICLE Normal left ventricular size. Wall thickness is normal. The left ventricular systolic function is low normal with an estimated ejection fraction in the rang e of 50- 55%. RIGHT VENTRICLE Normal right ventricular size and systolic function. LEFT ATRIUM The left atrial size is upper limits of normal. There is a mass (4.4cm X 2.9 cm) noted in the left atrial cavity consistent with a myxoma. The tumor is partially obstructing the mitral valve. RIGHT ATRIUM The right atrial size is normal. ATRIAL SEPTUM Normal atrial septal thickness without atrial level shunting by limited color doppler interrogation. AORTA The aortic root and proximal ascending aorta are normal in size on limited imaging. MITRAL VALVE Hbjaf-lv-rmyj mitral valve regurgitation. AORTIC VALVE Trileaflet aortic valve. No aortic valve stenosis or regurgitation. TRICUSPID VALVE There is trace tricuspid valve regurgitation. PULMONARY VALVE No pulmonary valve regurgitation or stenosis. VESSELS The inferior vena cava is normal in size. PERICARDIUM No pericardial effusion. Hussein Gibson MD (Electronically Signed) Final Date:18 May 2017 13:36
[2017-05-18 13:39] LABS: BLOOD GAS BASE EXCESS 3.9 mmol/L (-2-2); BLOOD GAS CARBOXYHEMOGLOBIN 2.7 % (0-4); BLOOD GAS HCO3 28 mmol/L (22-26); BLOOD GAS METHEMOGLOBIN 1.1 % (0-2); BLOOD GAS O2 HGB SATURATION 88 % (90-100); BLOOD GAS OXYGEN CONTENT 13.5 Vol % (12.0-20.0); BLOOD GAS PCO2 45 mmHg (38-42); BLOOD GAS PO2 62 mmHg (61-120); BLOOD GAS TOTAL HGB 10.8 G/DL (12.0-16.0); CRITICAL VALUE YES; DRAW SITE LT RADIAL; FIO2 21 %; NUMBER OF ARTERIAL PUNCTURES 1; STAT NO; TEMP CORR TO 98.6; ULNAR PULSE PRESENT
[2017-05-18] MEDS: NICOTINE 14 MG/24 HR PATCH T-DERMAL SCH (14:18)
--- NOTE | 2017-05-18 14:44 | RADRPT ---
EXAM DATE/TIME: 05/18/2017 13:29 [facility] COMPARISON: CHEST PA & LAT, May 17, 2017, 17:40. CT PULMONARY ANGIOGRAM, May 17, 2017, 19:00. CHEST SINGLE AP, August 13, 2016, 21:18. INDICATIONS : F/o hemoptsis. MEDICAL HISTORY : Chronic obstructive pulmonary disease. Fibromyalgia, mass in her heart SURGICAL HISTORY : None. ENCOUNTER: Initial ACUITY: 1 day PAIN SCORE: 0/10 LOCATION: Bilateral chest FINDINGS: Stable patchy perihilar central bilateral airspace opacities. Cardiomediastinal contours are within n ormal limits. Bony thorax is intact. CONCLUSION: 1. Stable patchy perihilar central bilateral airspace disease. Differential considerations include in fectious, inflammatory, and autoimmune etiologies in this patient with history of hemoptysis. Miguel Sprague MD on May 18, 2017 at 14:39 Board Certified Radiologist. This report was verified electronically.
[2017-05-18] MEDS ORDERED: ceFAZolin 2 GM PREMIX 50 ML IV SCH (15:00)
[2017-05-18] MEDS ORDERED: SODIUM CHLORIDE 0.9% FLUSH 10 ML FLUSH IV FLUSH PRN (15:00)
[2017-05-18] MEDS ORDERED: CHLORHEXIDINE GLUCONATE 4% SOLN 120 ML BTL TOPICAL SCH (15:00)
[2017-05-18] MEDS ORDERED: INSULIN REGULAR (IV INFUSION) 100 UNITS in SODIUM CHLORIDE 0.9% INJ 100 ML IV SCH (15:00)
--- NOTE | 2017-05-18 15:50 | MB ---
cc: PARIS SERRANO DATE OF CONSULTATION: 05/18/2017 1965 HISTORY OF PRESENT ILLNESS A 52-year-old with significant history of COPD, continues to smoke, has been smoking over 30 some odd years, continues to smoke a pack and a half per day. She has Symbicort inhaler at home but does not use a nebulizer or O2. She has apparently had some cough with some blood-tinged sputum. Denies having any chest pain, states that she came into the emergency room back in July, said she had a stroke at that time. She was admitted at that time because she was very lethargic and that she had slipped and fell. She does take a lot of pain medications. They did an EEG that showed some mild encephalopathy. Head CT was unremarkable. There was no mention of any stroke. Reason for our consultation, they did a 2-D echo which showed an EF of 50-55%, showed a mass a 4 x 4 cm x 2.9 cm mass in the left atrial cavity consistent with a myxoma. The tumor is partially obstructing the mitral valve. There was some trace to mild mitral regurgitation, trace tricuspid regurgitation. We were consulted to evaluate for resection of the atrial myxoma. PAST MEDICAL HISTORY Significant for: 1. COPD. 2. Fibromyalgia. 3. Chronic pain syndrome. 4. Hypothyroidism. 5. Tobacco abuse. PAST SURGICAL HISTORY 1. Back surgery L4-L5 laminectomy. 2. . 3. Appendectomy. 4. Left ankle surgery with plates and rods. ALLERGIES She has no known allergies. MEDICATION She takes a large amount of pain medication to include: 1. Morphine extended release 100 p.o. q.8 hours. 2. Oxycodone 30 mg five times a day. 3. Lyrica 150 t.i.d. 4. Amitriptyline 50 mg b.i.d. 5. Symbicort 2 puffs q. 12. 6. Flonase inhaler. 7. Rachel Thyroid 180 mg p.o. daily. FAMILY HISTORY Father . Mother has supposedly some kind of aneurysm behind her heart, she is quite unsure of that. She is disabled due to her neuropathy. She is . She has one child. She still continues to smoke a pack and a half. No alcohol. REVIEW OF SYSTEMS GENERAL: No night sweats, fever, heat and cold intolerance. SKIN: No psoriasis, itching or hives. HEENT: No blurred vision, hearing loss. RESPIRATORY: Chronic shortness of breath, cough with some episode of some blood-tinged sputum. CARDIOVASCULAR: No chest pain. No paroxysmal nocturnal dyspnea. No orthopnea. GASTROINTESTINAL: No diarrhea, vomiting. GENITOURINARY: No burning, frequency, urgency. TAKER OFF DRYING KILN: No history of TIA, CVA, seizure disorder. ENDOCRINOLOGY: No diabetes. Positive for hypothyroidism. She does use a walker to ambulate. LABORATORY FINDINGS Shows hemoglobin 11, hematocrit 37, white cell count of 7.8, platelet count 328. Sodium 137, potassium 3.9, BUN 4, creatinine 0.52, negative troponins x3, INR 1.0, D-dimer was 1.46. Blood gas on room air showed a pH of 741, CO2 45, pO2 of 62, 02 sat of 88%. MRSA screen non-detected. ECHOCARDIOGRAM As above. EKG Shows some sinus rhythm with some left atrial enlargement, otherwise unremarkable. IMPRESSION This is a 52-year-old female with significant COPD, emphysema, continues to smoke with notable large left atrial mass, probable myxoma. At this time the patient has been evaluated by pulmonology and also cardiology. PLAN Plan will be for resection of the left atrial myxoma in the a.m. Carotid ultrasound is pending. Type and cross pending for 2 units. The procedures, alternatives and risks have been discussed by Dr. Paris Serrano. The patient is willing to proceed. Will proceed in the a.m. Dictated by: VALERIO Rg MD ANANTH Gayle/MAMIE /2:53 PM /3:43 PM
--- NOTE | 2017-05-18 16:48 | RADRPT ---
EXAM DATE/TIME: 05/18/2017 15:22 [facility] COMPARISON: No previous studies available for comparison. INDICATIONS : Pre op cardiac surgery. MEDICAL HISTORY : Chronic obstructive pulmonary disease. Hyperthyroidism. Neuropathy. Fibromyalgia. Cerebrovascular a ccident. Tuberculosis. . x 2. Restless legs syndrome. Arthritis. Measles. Degenerat dre disc disease. SURGICAL HISTORY : Tonsillectomy. Appendectomy. section. Lumbar laminectomy. Left ankle surgery. ENCOUNTER: Initial ACUITY: 1 day PAIN SCORE: 0/10 LOCATION: Bilateral neck PEAK SYSTOLIC VELOCITIES (cm/sec): ICA/CCA RATIO: Right: 1.2 Left: 1.1 ICA: Right: 114 Left: 111 CCA: Right: 92 Left: 104 ECA: Right: 81 Left: 85 VERTEBRAL: Right: 51 antegrade Left: 58 antegrade Elevated flow velocities and ICA/CCA ratios have been found to correlate with increased degrees of vessel stenosis, calculated as percentage of diameter relative to a normal segment of distal ICA/CCA FINDINGS: RIGHT CAROTID: No significant stenosis is visualized. The waveforms are within normal limits. LEFT CAROTID: No significant stenosis is visualized. The waveforms are within normal limits. VERTEBRAL ARTERIES: Antegrade flow is seen in both vertebral arteries. MISCELLANEOUS: None. CONCLUSION: No evidence of hemodynamically significant carotid stenosis. Seferino Mirza MD on May 18, 2017 at 16:45 Board Certified Radiologist. This report was verified electronically.
--- NOTE | 2017-05-18 17:58 | MB ---
cc: Agnieszka MCKINNON M.D. DATE OF CONSULTATION 05/18/17 HISTORY Ms. Dolan is a 52-year-old white female who has smoked since the age of 16, one to one and a half packs per day, currently smoked right up to the time of admission. She is also on disability for musculoskeletal problems including fibromyalgia and degenerative arthritis in her back. She has been on disability. However, she was in her usual state of health until yesterday when she coughed and brought up mucus mixed with blood. This concerned her. Remarkably, she had no other symptoms. No chest pain. No fever. She had had no preceding symptoms of an upper respiratory infection. She had been in her usual state of health really with no new findings. She does have a history of COPD, although, as best I can tell she does not have pulmonary functions in the past, diagnosed on the basis of her clinical picture and she has been on Symbicort. On presentation to the emergency room she was stable, comfortable, but in light of the smoking history and the blood a CT scan was done which revealed no evidence of thromboembolic disease, bilateral perihilar infiltrates most likely pulmonary edema, although pulmonary hemorrhage and infection were possible and most notable a large filling defect in the left atrium. She was seen in consultation earlier today by Dr. Gibson. He has already performed a catheterization and an echocardiogram and she has a large left atrial myxoma. At the time of this interview the patient is awake, alert, on room air with a saturation of 93-96%. Again, reviewing her history up to the time she had some blood mixed in with mucus yesterday she had no new symptoms. There is a question of a stroke a year ago. That is not well-documented at this point. Additional past history of hypothyroidism, appendectomy. L4-L5 laminectomy and a . SOCIAL HISTORY She is , lives at home with her 11-year-old daughter. Smokes as noted above. Denies any alcohol use and denies any illicit drug use either now or in the past. MEDICATIONS Reviewed in the EMR. PHYSICAL EXAMINATION GENERAL: Awake, alert, comfortable, afebrile. VITAL SIGNS: Pulse is 80 and regular, respirations 16-20, blood pressure 100/63. HEENT: Sclerae anicteric. NECK: Neck veins are not distended. CHEST: Chest is actually completely clear. No wheezes or rales. HEART: Regular rhythm. No harsh murmur. No audible S3. ABDOMEN: Abdomen is soft. EXTREMITIES: She has no peripheral edema. No calf tenderness. No cyanosis or clubbing. IMAGING STUDIES CT scan is reviewed and as noted in the radiologist report she has perihilar ground glass infiltrates. The peripheries are spared. There are no effusions. No nodules. DISCUSSION Ms. Dolan presents with some blood mixed with sputum yesterday, although that has not been repeated. Her clinical presentation really does not sound like infection and there is nothing on the CT scan to really suggest malignancy. She has a large left atrial myxoma with perihilar ground glass infiltrates very suggestive of pulmonary edema. I reviewed the case with Dr. Gibson who agrees that the most pressing problem is the left atrial abnormality, certainly possible that this is intermittently obstructing the outflow tract there and causing pulmonary edema. Also spoke to Dr. Garcia, the cardiovascular surgeon, and I do not see any pulmonary contraindication at present to proceeding with surgery as that seems an urgent matter. I have ordered an arterial blood gas on room air to be certain she does not have CO2 retention or significant hypoxemia at rest in light of the prior smoking history. I think it is probably ill-advised to have her perform repeated forced vital capacity maneuvers in this circumstance so we are not going to do any pulmonary functions at this point which are unlikely to change the necessity for surgery. I have reviewed these findings and recommendations with the patient. She understands that she undoubtedly has some underlying lung disease as a consequence of a long history of smoking and in the event that she does proceed with surgery her risk of postoperative pulmonary complications are certainly increased. However, they certainly also do not preclude surgery. R. MD JODIE Peter/PATRICK /5:20 PM /5:39 PM
[2017-05-18 20:32] LABS: HEMOGLOBIN A1a 0.7 %; HEMOGLOBIN A1b 0.7 %; HEMOGLOBIN Ao 85.4 %; HEMOGLOBIN F 0.9 %; HEMOGLOBIN LA1C 2.1 %; HEMOGLOBIN P3 3.5 %
[2017-05-18] MEDS ORDERED: SODIUM CHLORIDE 0.9% FLUSH 10 ML FLUSH IV FLUSH SCH (21:00)
[2017-05-19] VITALS (40 sets, daily range): BP systolic 95–128; BP diastolic 50–79; PULSE 56–105; RESP 10–44; TEMP 98.1–99.2; O2SAT 68–99
[2017-05-19] MEDS: MORPHINE SULFATE 100 MG CONTROLLED RELEASE TAB PO SCH ×3 (00:20→17:13)
[2017-05-19] MEDS: CHLORHEXIDINE GLUCONATE 2 % 1 PACK (2 CLOTHS) TOP SCH (04:00)
[2017-05-19 04:05] LABS: AUTOMATED NEUTROPHIL # 6.5 TH/MM3 (1.8-7.7); BASOPHIL % 0.3 % (0.0-2.0); EOSINOPHIL # 0.1 TH/MM3 (0-0.4); EOSINOPHIL % 1.6 % (0.0-4.0); HEMATOCRIT 32.9 % (35.0-46.0); HEMO FLAGS DIFF FINAL; LYMPH % 17.5 % (9.0-44.0); LYMPHOCYTE # 1.5 TH/MM3 (1.0-4.8); MEAN CELL VOLUME 90.7 FL (80.0-100.0); MEAN CORPUSCULAR HEMOGLOBIN 29.2 PG (27.0-34.0); MEAN CORPUSCULAR HGB CONC 32.2 % (32.0-36.0); MONO % 6.7 % (0.0-8.0); NEUT % 73.9 % (16.0-70.0); PLATELET COUNT 268 TH/MM3 (150-450); RED BLOOD COUNT 3.63 MIL/MM3 (4.00-5.30); RED CELL DISTRIBUTION WIDTH 13.6 % (11.6-17.2); WHITE BLOOD COUNT 8.8 TH/MM3 (4.0-11.0)
[2017-05-19 04:17] LABS: INTERNATIONAL NORMALIZED RATIO 1.1 RATIO
[2017-05-19 04:35] LABS: ANION GAP 6 MEQ/L (5-15); AST (GOT) 9 U/L (15-37); BICARBONATE 29.7 MEQ/L (21.0-32.0); BLOOD UREA NITROGEN 5 MG/DL (7-18); CHLORIDE 101 MEQ/L (98-107); GLOMERULAR FILTRATION RATE 146 ML/MIN (>89); MAGNESIUM 2.1 MG/DL (1.5-2.5); POTASSIUM 3.6 MEQ/L (3.5-5.1); SODIUM (NA) 137 MEQ/L (136-145)
[2017-05-19 04:40] LABS: ALKALINE PHOSPHATASE 74 U/L (45-117); ALT (GPT) 6 U/L (10-53); TOTAL BILIRUBIN ADULT 0.2 MG/DL (0.2-1.0)
[2017-05-19] MEDS ORDERED: HEPARIN SODIUM - SQ 10,000 UNITS/ML VIAL ONE (06:42)
[2017-05-19] MEDS ORDERED: methylPREDNISolone SOD SUCC 125 MG/2 ML VIAL ONE (06:42)
[2017-05-19] MEDS ORDERED: VANCOMYCIN HCL 1000 MG VIAL ONE (06:43)
[2017-05-19] MEDS ORDERED: ceFAZolin 2 GM PREMIX 50 ML ONE (06:43)
[2017-05-19] MEDS ORDERED: CUSTODIOL HTK IRR SOLN 2,000 ML ONE (07:10)
[2017-05-19] MEDS ORDERED: HEPARIN SODIUM - IV 10,000 UNITS/10 ML VIAL ONE (07:10)
[2017-05-19] MEDS ORDERED: CALCIUM CHLORIDE 10% SOLN 1 GRAM/10 ML SYR ONE (07:11)
[2017-05-19] MEDS ORDERED: POTASSIUM CHLORIDE 40 MEQ/20 ML VIAL ONE (07:11)
[2017-05-19] MEDS ORDERED: ALBUMIN HUMAN 25% 12.5 GM/50 ML BAGP IV ONE (07:12)
[2017-05-19] MEDS ORDERED: SODIUM BICARBONATE 8.4% INJ 100 ML ONE (07:13)
[2017-05-19] MEDS ORDERED: DEXMEDETOMIDINE HCL 200 MCG/2 ML VIAL ONE (07:43)
[2017-05-19] MEDS ORDERED: ACETAMINOPHEN 1000 MG/100 ML 100 ML IV ONE (07:44)
[2017-05-19] MEDS ORDERED: KETAMINE HCL 500 MG/5 ML VIAL ONE (07:45)
[2017-05-19 08:06] LABS: BLOOD, URINE NEG (NEG); COMMENT (UR) CULT NOT INDICATED; CULTURE IF INDICATED CULT NOT INDICATED; GLUCOSE,URINE NEG (NEG); KETONE, URINE NEG (NEG); NITRITE,URINE NEG (NEG); PH, URINE 7.5 (5.0-8.5); SQUAMOUS EPITHELIAL CELL URINE <1 /hpf (0-5); URINE COLOR LIGHT-YELLOW (YELLW/STRAW)
[2017-05-19] MEDS: DOCUSATE SODIUM 50 MG/SENNA 8.6 MG TAB PO SCH ×2 (09:00→20:57)
[2017-05-19] MEDS: PREGABALIN 75 MG CAP PO SCH ×3 (09:00→18:21)
[2017-05-19] MEDS: THYROID 60 MG TAB PO SCH ×2 (09:00)
[2017-05-19] MEDS: NICOTINE 14 MG/24 HR PATCH T-DERMAL SCH (09:00)
[2017-05-19] MEDS: FLUTICASONE PROPIONATE 50 MCG/ACT 16 GM NASAL SPRAY EACH NARE SCH ×2 (09:00→20:59)
[2017-05-19] MEDS: REMOVE OLD PATCH T-DERMAL SCH (09:00)
[2017-05-19] MEDS: AMITRIPTYLINE HCL 50 MG TAB PO SCH ×2 (09:00→20:57)
[2017-05-19] MEDS: BUDESONIDE-FORMOTEROL 160/4.5 MCG INHALER INH SCH ×2 (09:00→20:59)
[2017-05-19] MEDS: SODIUM CHLORIDE 0.9% FLUSH 10 ML FLUSH SCH ×2 (09:00→21:00)
[2017-05-19] MEDS ORDERED: ceFAZolin INJ 1,000 MG VIAL IV ONE (09:14)
[2017-05-19] MEDS ORDERED: LIDOCAINE HCL 1% PF 5 ML AMPULE OTHER ONE (09:14)
[2017-05-19] MEDS ORDERED: PROPOFOL 200 MG/20 ML AMP IV ONE (09:14)
[2017-05-19] MEDS ORDERED: SODIUM CHLOR 0.9% 250 ML INJ 500 ML IV ONE (09:14)
[2017-05-19] MEDS ORDERED: SODIUM CHLORIDE 0.9% 20 ML VIAL IV ONE (09:14)
[2017-05-19] MEDS ORDERED: GLYCOPYRROLATE 1 MG/5 ML SYRINGE IV PUSH ONE (09:14)
[2017-05-19] MEDS ORDERED: NEOSTIGMINE 3 MG/3 ML SYR IV ONE (09:14)
[2017-05-19] MEDS ORDERED: MIDAZOLAM HCL 2 MG/2 ML VIAL IV ONE (09:14)
[2017-05-19] MEDS ORDERED: PARENTERAL ELECTROLYTES PH 7.4 1000 ML BAG IV ONE (09:14)
[2017-05-19] MEDS ORDERED: LACTATED RINGER'S 1000 ML INJ 1,000 ML IV ONE (09:14)
[2017-05-19] MEDS ORDERED: VECURONIUM BROMIDE 20 MG VIAL IV ONE (09:14)
[2017-05-19] MEDS: CEFAZOLIN INJ 500 MG in SODIUM CHLORIDE 0.9% IRR BTL 500 ML IRRIGATION SCH ×2 (10:22→11:22)
[2017-05-19] MEDS ORDERED: LACTATED RINGER'S 1000 ML INJ 500 ML IV PRN (10:24)
[2017-05-19] MEDS ORDERED: POTASSIUM CHLOR 20 MEQ PREMIX 100 ML IV PRN ×3 (10:30)
[2017-05-19] MEDS ORDERED: MAGNESIUM SULFATE INJ 2 GM in SODIUM CHLORIDE 0.9% INJ 100 ML IV PRN ×4 (10:30)
[2017-05-19] MEDS ORDERED: ALBUMIN HUMAN 5% 12.5 GM/250 ML BOTTLE IV PRN (10:30)
[2017-05-19] MEDS ORDERED: ONDANSETRON HCL 4 MG/2 ML VIAL IV PUSH PRN (10:30)
[2017-05-19] MEDS ORDERED: DEXTROSE 50% IN WATER 50 ML VIAL(D50) IV PUSH PRN (10:30)
[2017-05-19] MEDS ORDERED: SODIUM BICARBONATE 8.4% SOLN 50 MEQ/50 ML VIAL IV PUSH PRN ×2 (10:30)
[2017-05-19] MEDS ORDERED: DEXMEDETOMIDINE INJ 200 MCG in SODIUM CHLORIDE 0.9% INJ 50 ML IV PRN (10:30)
[2017-05-19] MEDS ORDERED: ACETAMINOPHEN 650 MG SUPP RECTAL PRN (10:30)
[2017-05-19] MEDS ORDERED: POTASSIUM CHLORIDE 20 MEQ CONTROLLED RELEASE TAB PO PRN ×2 (10:30)
[2017-05-19] MEDS ORDERED: RESP: ALBUTEROL 2.5 MG/IPRATROPIUM 0.5 MG NEB (PRN) NEB (10:30)
[2017-05-19] MEDS ORDERED: CALCIUM CHLORIDE INJ 1 GM in SODIUM CHLORIDE 0.9% INJ 100 ML IV PRN (10:30)
[2017-05-19] MEDS ORDERED: RESP: RACEPINEPHRINE 2.25% 0.5 ML NEB NEB PRN (10:30)
[2017-05-19] MEDS ORDERED: INSULIN REGULAR (IV INFUSION) 100 UNITS in SODIUM CHLORIDE 0.9% INJ 99 ML IV SCH (10:30)
[2017-05-19] MEDS ORDERED: Post-op Orders (for Pharmacy) MISC OTHER ONE (10:30)
[2017-05-19] MEDS ORDERED: CALCIUM CHLORIDE 10% 1 GRAM/10 ML VIAL IV PUSH PRN (10:30)
[2017-05-19] MEDS ORDERED: ACETAMINOPHEN 325 MG TAB PO PRN (10:30)
[2017-05-19] MEDS ORDERED: METOPROLOL TARTRATE 5 MG/5 ML VIAL IV PUSH PRN (10:30)
[2017-05-19] MEDS ORDERED: hydrALAZINE HCL 20 MG/ML VIAL IV PUSH PRN (10:30)
[2017-05-19] MEDS ORDERED: CLEVIDIPINE INJ 50 ML IV PRN (10:30)
[2017-05-19] MEDS ORDERED: SODIUM CHLORIDE 0.9% FLUSH 10 ML FLUSH IV FLUSH PRN (10:30)
--- NOTE | 2017-05-19 10:40 | PD.OP ---
cc: Paris Serrano MD; Hussein Gibson MD Operative Report Date of Surgery: May 19, 2017 Preoperative Diagnosis: (1) Left atrial mass Postoperative Diagnosis: same Procedure: Median sternotomy for resection left atrial mass Anesthesia: Dr. Ramos Surgeon: Paris Serrano Masking Machine Operator(s): KUMAR Flaherty Operation and Findings: The risks, benefits, complications, treatment options, and expected outcomes were discussed with the patient. The possibilities of reaction to medication, pulmonary aspiration, perforation of viscus, bleeding, recurrent infection, the need for additional procedures, failure to diagnose a condition, and creating a complication requiring transfusion or operation were discussed with the patient. The patient concurred with the proposed plan, giving informed consent. The site of surgery properly noted/marked. The patient was taken to Operating Room, identified as Graciela Dolan and the procedure verified as median sternotomy for resection left atrial mass, TRISHA. A Time Out was held and the above information confirmed. Standard monitoring lines and Rivas catheter were placed. General anesthesia was induced. The patient was prepped and draped in a sterile fashion. A median sternotomy was performed and electrocautery was used to obtain hemostasis. The pericardium was opened and a pericardial sling was created using interrupted 0 silk sutures. The patient was heparinized for cardiopulmonary bypass. The heart was instrumented for cardiopulmonary bypass in the usual manner with bicaval venous drainage. Both the IVC and SVC were encircled with umbilical tapes to isolate the heart during the procedure. Antegrade Custodiol cardioplegia was employed. The patient was placed on cardiopulmonary bypass. Custodiol cardioplegia was administered. The umbilical tapes were ensnared and the right atrium was opened widely. The fossa ovalis was identifed and opened into the left atrium. a large ~4-5 cm mass was found to be attached to the septum. The mass was resected with septum and submitted to pathology. The atrial septum was then repaired primarily with a 4-0 Prolene suture. The left atrium and right atrium were filled with saline with ventilation to express as much air as possible. The right atrium was closed using a running 4-0 Prolene suture. The patient was systemically rewarmed The heart was vigorously deaired with a clamp on. The patient was placed in Trendelenburg's position. The clamp was removed, deairing continued. Intraoperative TRISHA was used to assess intracardiac air. The heart was loaded and allowed to eject. The repair were excellent with no shunt. The patient was and weaned from cardiopulmonary bypass. Protamine was given. There was no adverse reaction. Decannulation was carried out without incident. Wound was checked for hemostasis which was obtained using electrocautery. A 36 Portuguese mediastinal chest tube was placed and secured to the skin with 0 silk suture. The sternum was closed with stainless steel wire. The fascia was closed with 1. PDS. The subcutaneous tissue was closed using a running 2-0 Vicryl suture. The skin was closed with 4-0 Monocryl. Sterile dressings were placed. At the end of the operation, all sponge, instruments, and needle counts were correct. The patient was transferred to the CVICU in stable condition. Findings: large left atrial mass attached to the atrial septum XC: 24 min CPB: 33 min Drains: mediastinal x 1 Specimens: left atrial mass Complications: none Disposition: to CVICU in stable condition Condition: stable Paris Serrano MD May 19, 2017 10:40
--- NOTE | 2017-05-19 11:40 | RADRPT ---
EXAM DATE/TIME: 05/19/2017 11:21 [facility] COMPARISON: CHEST SINGLE AP, May 18, 2017, 13:29. INDICATIONS : Post CABG MEDICAL HISTORY : Chronic obstructive pulmonary disease. Arthritis. Stroke. Fibromyalgia. Mass in heart SURGICAL HISTORY : CABG. ENCOUNTER: Subsequent ACUITY: 2 days PAIN SCORE: Non-responsive. LOCATION: Bilateral chest FINDINGS: The heart is enlarged. There is mild consolidation of the left lower lobe. The patient is post median sternotomy. The ET tube, right jugular cannula and NG tube are in good position. CONCLUSION: 1. Left lower lobe consolidation. 2. Stable support equipment. John Robertson MD on May 19, 2017 at 11:36 Board Certified Radiologist. This report was verified electronically.
[2017-05-19] MEDS: HYDROmorphone HCL PF 1 MG/ML VIAL IV PRN ×2 (13:49→21:01)
--- NOTE | 2017-05-19 13:52 | HHI.CCPN ---
Subjective Remarks/Hospital Course 05/18: 52-year-old female with a history of COPD , chronic pain disease, fibromyalgia, presents to the emergency room for evaluation of blood-tinged sputum for the past 2 days. States she does have a cough but it is no worse than her typical cough. Her sputum has been recently brownish-red blood-tinged sputum. Patient smokes 1.5 pack cigarettes per day. She denies chest pain, shortness breath, difficulty breathing, fever, chills, nausea, vomiting, or upper respiratory symptoms. She has history of fibromyalgia and takes amitriptyline, morphine ER, oxycodone, and Lyrica. 05/19: Patient was found to have a left atrial myxoma and underwent resection of left atrial myxoma under general anesthesia by Dr. Garcia from CT surgery on 05/19 , tolerated procedure well and was subsequently transferred to CVICU when I evaluated the patient immediately following her arrival. At that time she was sedated, orally intubated on mechanical ventilation. Objective Vital Signs Date Time Temp Pulse Resp B/P (MAP) Pulse Ox O2 Delivery O2 Flow Rate FiO2 05/19/17 12:32 98.7 05/19/17 12:28 97 Simple Mask 6.00 05/19/17 12:26 70 05/19/17 11:24 10 95/50 (65) 05/19/17 11:10 50 Intake and Output 05/19/17 05/19/17 05/20/17 08:00 16:00 00:00 Intake Total 400 ml 2510 ml Output Total 1400 ml 1900 ml Balance -1000 ml 610 ml Result Diagram: 05/19/17 0353 05/19/17 0353 Imaging Last [address] Angiography 05/17/17 1832 Signed Impressions: Service Date/Time: Wednesday, May 17, 2017 19:00 - CONCLUSION: 1. No pulmonary embolus. 2. Large filling defect in the left atrium, presumably thrombus. 3. Bilateral perihilar infiltrates most likely pulmonary edema. Pulmonary hemorrhage and infectious as well as inflammatory etiologies are not excludable. 4. Patulous appearing esophagus. Popeye Curran MD Chest X-Ray 05/17/17 5868 Signed Impressions: Service Date/Time: Wednesday, May 17, 2017 17:40 - CONCLUSION: 1. Left basilar infiltrate concerning for a pneumonia. John Robertson MD Objective Remarks HEENT/ Neuro: Sedated, orally intubated, Pallor present, no icterus, tongue/ mucosa dry Neck: No JVD Chest/Pulm: on mech vent, good air entry bilaterally, no wheezing or crackles. Dressing or sternotomy site noted. Mediastinal tube in place. CVS: S1-S2 regular, no murmur GI/abdomen: soft, nontender, bowel sounds sluggish Extremities: warm bilaterally, no edema A/P Assessment and Plan Left atrial myxoma -Underwent cardiac catheterization after evaluation by Dr. Hussein Gibson from cardiology. Coronaries were clean. Patient was evaluated by CT surgery Dr. Garcia who performed a resection of left atrial myxoma on 05/19. Patient undergoing C Pap trials and to be extubated. - Further management per cardiology, CT surgery Hemoptysis - Underlying pulmonary infarcts - Pulmonary consult noted - Dr. Brice Faye COPD - DuoNeb's scheduled and when necessary - No steroids at this time Fibromyalgia - Amitriptyline Chronic pain syndrome - Morphine and oxycodone DVT GI prophylaxis - Teds SCDs - Pepcid - No pharmacological DVT prophylaxis due to hemoptysis Critical Care: The total critical care time was 35 minutes. Time to perform other separately billable procedures was not included in the critical care time. Richar Nj MD May 19, 2017 13:52
[2017-05-19] MEDS ORDERED: KETOROLAC TROMETHAMINE 30 MG/ML (IVP) VIAL IV PUSH PRN (14:00)
[2017-05-19] MEDS: ACETAMINOPHEN 1000 MG/100 ML 100 ML IV SCH ×2 (14:02→20:57)
[2017-05-19] MEDS ORDERED: RESP: ALBUTEROL 2.5 MG/IPRATROPIUM 0.5 MG NEB (SCH) NEB (16:00)
[2017-05-19] MEDS: RESP: IPRATROPIUM 0.5 MG/2.5 ML NEB NEB SCH ×2 (16:10→21:21)
[2017-05-19] MEDS ORDERED: SODIUM CHLORIDE 0.9% FLUSH 10 ML FLUSH IV FLUSH SCH (21:00)
[2017-05-19] MEDS ORDERED: DEXTROSE 50% IN WATER 50 ML SYRINGE ONE (22:49)
[2017-05-20] VITALS (13 sets, daily range): BP systolic 102–144; BP diastolic 70–87; PULSE 75–88; RESP 18–20; TEMP 98.5–99.6; O2SAT 92–96
[2017-05-20] MEDS: MORPHINE SULFATE 100 MG CONTROLLED RELEASE TAB PO SCH ×3 (01:29→17:52)
[2017-05-20] MEDS: ACETAMINOPHEN 1000 MG/100 ML 100 ML IV SCH ×2 (02:00→08:39)
[2017-05-20] MEDS: RESP: IPRATROPIUM 0.5 MG/2.5 ML NEB NEB SCH ×3 (02:57→21:54)
[2017-05-20] MEDS: HYDROmorphone HCL PF 1 MG/ML VIAL IV PRN ×5 (03:10→20:50)
[2017-05-20] MEDS: CHLORHEXIDINE GLUCONATE 2 % 1 PACK (2 CLOTHS) TOP SCH (04:00)
[2017-05-20 04:53] LABS: HEMATOCRIT 35.5 % (35.0-46.0); MEAN CELL VOLUME 89.8 FL (80.0-100.0); MEAN CORPUSCULAR HEMOGLOBIN 29.2 PG (27.0-34.0); MEAN CORPUSCULAR HGB CONC 32.5 % (32.0-36.0); PLATELET COUNT 206 TH/MM3 (150-450); RED BLOOD COUNT 3.96 MIL/MM3 (4.00-5.30); RED CELL DISTRIBUTION WIDTH 13.7 % (11.6-17.2); REVIEW FLAG FINAL; WHITE BLOOD COUNT 13.2 TH/MM3 (4.0-11.0)
[2017-05-20 05:31] LABS: BICARBONATE 30.7 MEQ/L (21.0-32.0); MAGNESIUM 2.2 MG/DL (1.5-2.5); POTASSIUM 3.9 MEQ/L (3.5-5.1)
[2017-05-20] MEDS: PANTOPRAZOLE SOD 40 MG DELAYED RELEASE TAB PO SCH (05:38)
--- NOTE | 2017-05-20 06:08 | RADRPT ---
EXAM DATE/TIME: 05/20/2017 05:01 [facility] COMPARISON: CHEST SINGLE AP, May 19, 2017, 11:21. INDICATIONS : Chest pain- post CABG MEDICAL HISTORY : Chronic obstructive pulmonary disease. Stroke. Fibromyalgia SURGICAL HISTORY : CABG. ENCOUNTER: Subsequent ACUITY: 3 days PAIN SCORE: 8/10 LOCATION: Bilateral chest FINDINGS: A single view of the chest demonstrates removal of endotracheal tube and nasogastric tube since Apre mber . Chest tube remains in place anteriorly with drain or gastrostomy overlying the left upper qu adrant. Basilar airspace disease similar to May 19. CONCLUSION: 1. Interval extubation. Basilar airspace disease similar to prior exam. No pneumothorax identified. Jacob Gee MD on May 20, 2017 at 6:04 Board Certified Radiologist. This report was verified electronically.
--- NOTE | 2017-05-20 08:17 | EKG ---
Date Performed: 05/20/2017 Time Performed: 05:21:28 PTAGE: 52 years EKG: Sinus rhythm with 1st degree A-V block Possible early repolarization abnormality Abnormal ECG PREVIOUS TRACING : 05/17/2017 20.07 Compared to previous tracing, possible early repolarization is now present. DOCTOR: Luis Call Interpretating Date/Time 05/20/2017 08:16:15
[2017-05-20] MEDS: ACETAMINOPHEN 500 MG CPLT PO SCH ×4 (08:42→21:00)
[2017-05-20] MEDS: REMOVE OLD PATCH T-DERMAL SCH (08:43)
[2017-05-20] MEDS ORDERED: BISACODYL 10 MG SUPP RECTAL PRN (08:45)
[2017-05-20] MEDS ORDERED: GLUCAGON 1 MG/ML VIAL OTHER PRN (08:45)
[2017-05-20] MEDS ORDERED: SOD PHOSPHATE/SOD BIPHOSPHATE (ADULT) ENEMA 133ML RECTAL PRN (08:45)
[2017-05-20] MEDS ORDERED: DEXTROSE 50% IN WATER 50 ML VIAL(D50) IV PUSH PRN (08:45)
[2017-05-20] MEDS: NICOTINE 14 MG/24 HR PATCH T-DERMAL SCH (08:51)
[2017-05-20] MEDS: THYROID 60 MG TAB PO SCH ×2 (08:51→08:52)
[2017-05-20] MEDS: AMITRIPTYLINE HCL 50 MG TAB PO SCH ×2 (08:52→21:00)
[2017-05-20] MEDS: PREGABALIN 75 MG CAP PO SCH ×3 (08:52→17:52)
--- NOTE | 2017-05-20 08:52 | PD.CAR.PN ---
CVT Progress Note CVT: POD #: 1 Subjective/Hospital Course: c/o incisional pain Objective: Vital Signs Date Time Temp Pulse Resp B/P (MAP) Pulse Ox O2 Delivery O2 Flow Rate FiO2 05/20/17 07:48 98.9 84 18 127/72 (90) 95 05/20/17 07:46 94 Room Air 05/20/17 07:17 75 05/20/17 03:27 99.6 84 18 144/87 (106) 95 05/20/17 03:27 97 Nasal Cannula 2.00 05/20/17 03:00 81 05/19/17 23:31 95 Nasal Cannula 3.00 05/19/17 23:31 98.9 72 16 126/68 (87) 95 05/19/17 23:00 71 05/19/17 20:00 97 Nasal Cannula 3.00 05/19/17 20:00 99.1 69 18 125/63 (83) 97 05/19/17 20:00 97 Nasal Cannula 3.00 05/19/17 19:00 67 05/19/17 18:26 75 05/19/17 18:24 19 05/19/17 16:24 95 Nasal Cannula 3.00 05/19/17 16:24 69 05/19/17 15:13 99.2 73 17 128/50 (76) 94 05/19/17 14:26 17 05/19/17 14:26 17 05/19/17 14:13 99.2 05/19/17 14:12 70 05/19/17 14:12 17 05/19/17 12:32 98.7 05/19/17 12:28 97 Simple Mask 6.00 05/19/17 12:26 70 05/19/17 12:07 98 Mask 6 05/19/17 11:34 64 05/19/17 11:24 98.7 56 10 95/50 (65) 96 05/19/17 11:10 95 50 Labs: Laboratory Tests Test 05/20/17 04:16 White Blood Count 13.2 TH/MM3 (4.0-11.0) Red Blood Count 3.96 MIL/MM3 (4.00-5.30) Hemoglobin 11.6 GM/DL (11.6-15.3) Hematocrit 35.5 % (35.0-46.0) Mean Corpuscular Volume 89.8 FL (80.0-100.0) Mean Corpuscular Hemoglobin 29.2 PG (27.0-34.0) Mean Corpuscular Hemoglobin Concent 32.5 % (32.0-36.0) Red Cell Distribution Width 13.7 % (11.6-17.2) Platelet Count 206 TH/MM3 (150-450) Mean Platelet Volume 8.3 FL (7.0-11.0) Blood Urea Nitrogen 11 MG/DL (7-18) Creatinine 0.46 MG/DL (0.50-1.00) Random Glucose 111 MG/DL (74-106) Calcium Level 8.3 MG/DL (8.5-10.1) Magnesium Level 2.2 MG/DL (1.5-2.5) Sodium Level 135 MEQ/L (136-145) Potassium Level 3.9 MEQ/L (3.5-5.1) Chloride Level 100 MEQ/L (98-107) Carbon Dioxide Level 30.7 MEQ/L (21.0-32.0) Anion Gap 4 MEQ/L (5-15) Estimat Glomerular Filtration Rate 143 ML/MIN (>89) Result Diagram: 05/20/17 0416 05/20/17 0416 Cardiovascular: RRR Telemetry: NSR Pulmonary: CTA GI/: +BS Incision: dry and intact CT: 60ml/12hrs Plan: Transfer to stepdown Advance diet Encourage ambulation/up to chair D/C chest tube/Paris Araujo MD May 20, 2017 08:52
[2017-05-20] MEDS: DOCUSATE SODIUM 50 MG/SENNA 8.6 MG TAB PO SCH ×2 (08:53→21:00)
[2017-05-20] MEDS: ASPIRIN 81 MG CHEW TAB PO SCH (08:53)
[2017-05-20] MEDS ORDERED: MULTIVITAMIN INJ 10 ML, THIAMINE INJ 500 MG, FOLIC ACID INJ 1 MG in SODIUM CHLORID 0.9%... IV SCH (09:00)
[2017-05-20] MEDS: FLUTICASONE PROPIONATE 50 MCG/ACT 16 GM NASAL SPRAY EACH NARE SCH ×2 (09:00→21:00)
[2017-05-20] MEDS: SODIUM CHLORIDE 0.9% FLUSH 10 ML FLUSH SCH ×2 (09:00→21:00)
[2017-05-20] MEDS: BUDESONIDE-FORMOTEROL 160/4.5 MCG INHALER INH SCH ×2 (09:00→21:00)
[2017-05-20] MEDS: MAGNESIUM HYDROXIDE SUSP 30 ML CUP PO SCH (12:29)
[2017-05-20] MEDS: MULTIVITAMINS/MINERALS THERAPEUTIC TAB PO SCH (12:29)
--- NOTE | 2017-05-20 16:23 | HHI.CCPN ---
Subjective Remarks/Hospital Course 05/18: 52-year-old female with a history of COPD , chronic pain disease, fibromyalgia, presents to the emergency room for evaluation of blood-tinged sputum for the past 2 days. States she does have a cough but it is no worse than her typical cough. Her sputum has been recently brownish-red blood-tinged sputum. Patient smokes 1.5 pack cigarettes per day. She denies chest pain, shortness breath, difficulty breathing, fever, chills, nausea, vomiting, or upper respiratory symptoms. She has history of fibromyalgia and takes amitriptyline, morphine ER, oxycodone, and Lyrica. 05/19: Patient was found to have a left atrial myxoma and underwent resection of left atrial myxoma under general anesthesia by Dr. Garcia from CT surgery on 05/19 , tolerated procedure well and was subsequently transferred to CVICU when I evaluated the patient immediately following her arrival. At that time she was sedated, orally intubated on mechanical ventilation. 05/20: Patient seen this morning around 7:00 AM. Awake and alert. Laying in bed , in no acute distress. Objective Vital Signs Date Time Temp Pulse Resp B/P (MAP) Pulse Ox O2 Delivery O2 Flow Rate FiO2 05/20/17 16:07 83 05/20/17 15:00 96 Room Air 05/20/17 13:00 98.9 18 118/74 (89) 05/20/17 12:02 21 05/20/17 03:27 2.00 Intake and Output 05/20/17 05/20/17 05/21/17 08:00 16:00 00:00 Intake Total 932 ml 625 ml Output Total 706 ml 0 ml Balance 226 ml 625 ml Result Diagram: 05/20/17 0416 05/20/17 0416 Imaging Last [address] Angiography 05/17/17 183 Signed Impressions: Service Date/Time: Wednesday, May 17, 2017 19:00 - CONCLUSION: 1. No pulmonary embolus. 2. Large filling defect in the left atrium, presumably thrombus. 3. Bilateral perihilar infiltrates most likely pulmonary edema. Pulmonary hemorrhage and infectious as well as inflammatory etiologies are not excludable. 4. Patulous appearing esophagus. Popeye Curran MD Chest X-Ray 05/17/17 4153 Signed Impressions: Service Date/Time: Wednesday, May 17, 2017 17:40 - CONCLUSION: 1. Left basilar infiltrate concerning for a pneumonia. John Robertson MD Objective Remarks HEENT/ Neuro: Awake alert oriented 3, no pallor or icterus Neck: No JVD Chest/Pulm: good air entry bilaterally, no wheezing or crackles. Dressing over sternotomy site noted. Mediastinal tube in place. CVS: S1-S2 regular, no murmur GI/abdomen: soft, nontender, bowel sounds sluggish Extremities: warm bilaterally, no edema A/P Assessment and Plan Left atrial myxoma -Underwent cardiac catheterization after evaluation by Dr. Hussein Gibson from cardiology. Coronaries were clean. Patient was evaluated by CT surgery Dr. Serrano who performed a resection of left atrial myxoma on 05/19. Patient extubated on 05/19, tolerating nasal cannula - Further management per cardiology, CT surgery Hemoptysis - Underlying pulmonary infarcts - Pulmonary consult noted - Dr. Brice Faye COPD - DuoNeb's scheduled and when necessary - No steroids at this time Fibromyalgia - Amitriptyline Chronic pain syndrome - Morphine and oxycodone DVT GI prophylaxis - Teds SCDs - Pepcid - No pharmacological DVT prophylaxis due to hemoptysis Patient being transferred out of ICU. Will consult and transfer to hospitalist service for further medical management. Critical care signing off at this time. Richar Nj MD May 20, 2017 16:23
[2017-05-20] MEDS: SENNOSIDES 8.6 MG TAB PO SCH (20:50)
[2017-05-20] MEDS: DOCUSATE SODIUM 100 MG CAP PO SCH (20:50)
[2017-05-20] MEDS: RESP: ALBUTEROL 2.5 MG/IPRATROPIUM 0.5 MG NEB (SCH) NEB (21:35)
[2017-05-21] VITALS (22 sets, daily range): BP systolic 99–118; BP diastolic 61–77; PULSE 79–92; RESP 18–20; TEMP 97.8–98.4; O2SAT 92–96
[2017-05-21] MEDS: MORPHINE SULFATE 100 MG CONTROLLED RELEASE TAB PO SCH ×3 (01:02→17:27)
[2017-05-21] MEDS: HYDROmorphone HCL PF 1 MG/ML VIAL IV PRN ×3 (04:04→20:31)
[2017-05-21] MEDS: PANTOPRAZOLE SOD 40 MG DELAYED RELEASE TAB PO SCH (05:56)
[2017-05-21 08:09] LABS: BASOPHIL % 0.4 % (0.0-2.0); EOSINOPHIL % 0.4 % (0.0-4.0); HEMATOCRIT 35.1 % (35.0-46.0); HEMO FLAGS DIFF FINAL; LYMPH % 17.2 % (9.0-44.0); LYMPHOCYTE # 1.8 TH/MM3 (1.0-4.8); MEAN CORPUSCULAR HEMOGLOBIN 29.8 PG (27.0-34.0); MEAN CORPUSCULAR HGB CONC 33.1 % (32.0-36.0); MONO % 6.8 % (0.0-8.0); NEUT % 75.2 % (16.0-70.0); PLATELET COUNT 213 TH/MM3 (150-450); RED CELL DISTRIBUTION WIDTH 13.8 % (11.6-17.2); WHITE BLOOD COUNT 10.7 TH/MM3 (4.0-11.0)
[2017-05-21 08:34] LABS: BICARBONATE 32.1 MEQ/L (21.0-32.0); MAGNESIUM 2.2 MG/DL (1.5-2.5)
[2017-05-21] MEDS: FLUTICASONE PROPIONATE 50 MCG/ACT 16 GM NASAL SPRAY EACH NARE SCH ×2 (09:00→20:44)
[2017-05-21] MEDS: REMOVE OLD PATCH T-DERMAL SCH (09:00)
[2017-05-21] MEDS: ACETAMINOPHEN 500 MG CPLT PO SCH ×4 (09:22→20:36)
[2017-05-21] MEDS: PREGABALIN 75 MG CAP PO SCH ×3 (09:23→17:26)
[2017-05-21] MEDS: THYROID 60 MG TAB PO SCH ×2 (09:23→09:24)
[2017-05-21] MEDS: MULTIVITAMINS/MINERALS THERAPEUTIC TAB PO SCH (09:23)
[2017-05-21] MEDS: MAGNESIUM HYDROXIDE SUSP 30 ML CUP PO SCH (09:24)
[2017-05-21] MEDS: DOCUSATE SODIUM 100 MG CAP PO SCH ×2 (09:24→20:44)
[2017-05-21] MEDS: AMITRIPTYLINE HCL 50 MG TAB PO SCH ×2 (09:24→20:44)
[2017-05-21] MEDS: ASPIRIN 81 MG CHEW TAB PO SCH (09:24)
[2017-05-21] MEDS: BUDESONIDE-FORMOTEROL 160/4.5 MCG INHALER INH SCH ×2 (09:24→20:36)
[2017-05-21] MEDS: POLYETHYLENE GLYCOL 17 GM PKG PO SCH (09:24)
[2017-05-21] MEDS: DOCUSATE SODIUM 50 MG/SENNA 8.6 MG TAB PO SCH ×2 (09:24→20:44)
[2017-05-21] MEDS: SODIUM CHLORIDE 0.9% FLUSH 10 ML FLUSH SCH ×2 (09:25→20:37)
[2017-05-21] MEDS: NICOTINE 14 MG/24 HR PATCH T-DERMAL SCH (09:25)
[2017-05-21] MEDS: RESP: IPRATROPIUM 0.5 MG/2.5 ML NEB NEB SCH (10:00)
[2017-05-21] MEDS: RESP: ALBUTEROL 2.5 MG/IPRATROPIUM 0.5 MG NEB (SCH) NEB ×3 (10:00→20:19)
--- NOTE | 2017-05-21 10:19 | PD.CAR.PN ---
CVT Progress Note CVT: POD #: 2 Subjective/Hospital Course: c/o incisional pain Objective: Vital Signs Date Time Temp Pulse Resp B/P (MAP) Pulse Ox O2 Delivery O2 Flow Rate FiO2 05/21/17 09:57 93 21 05/21/17 09:00 90 05/21/17 08:00 86 05/21/17 07:00 97.8 90 18 114/70 (85) 93 05/21/17 07:00 92 05/21/17 07:00 93 Room Air 05/21/17 06:00 84 05/21/17 04:00 98.0 92 20 118/77 (91) 92 05/21/17 04:00 92 Room Air 05/21/17 00:00 94 Room Air 05/21/17 00:00 98.2 89 20 115/61 (79) 94 05/20/17 21:36 93 21 05/20/17 20:00 93 Room Air 05/20/17 20:00 98.5 88 20 108/78 (88) 93 05/20/17 17:00 84 05/20/17 16:07 83 05/20/17 15:00 96 Room Air 05/20/17 15:00 84 05/20/17 15:00 98.7 82 18 102/70 (81) 96 05/20/17 13:00 98.9 80 18 118/74 (89) 96 05/20/17 12:02 92 21 05/20/17 11:06 94 Room Air 05/20/17 11:05 98.6 83 18 128/72 (90) 95 05/20/17 11:00 83 Labs: Laboratory Tests Test 05/21/17 07:49 White Blood Count 10.7 TH/MM3 (4.0-11.0) Red Blood Count 3.90 MIL/MM3 (4.00-5.30) Hemoglobin 11.6 GM/DL (11.6-15.3) Hematocrit 35.1 % (35.0-46.0) Mean Corpuscular Volume 90.0 FL (80.0-100.0) Mean Corpuscular Hemoglobin 29.8 PG (27.0-34.0) Mean Corpuscular Hemoglobin Concent 33.1 % (32.0-36.0) Red Cell Distribution Width 13.8 % (11.6-17.2) Platelet Count 213 TH/MM3 (150-450) Mean Platelet Volume 8.4 FL (7.0-11.0) Neutrophils (%) (Auto) 75.2 % (16.0-70.0) Lymphocytes (%) (Auto) 17.2 % (9.0-44.0) Monocytes (%) (Auto) 6.8 % (0.0-8.0) Eosinophils (%) (Auto) 0.4 % (0.0-4.0) Basophils (%) (Auto) 0.4 % (0.0-2.0) Neutrophils # (Auto) 8.0 TH/MM3 (1.8-7.7) Lymphocytes # (Auto) 1.8 TH/MM3 (1.0-4.8) Monocytes # (Auto) 0.7 TH/MM3 (0-0.9) Eosinophils # (Auto) 0.0 TH/MM3 (0-0.4) Basophils # (Auto) 0.0 TH/MM3 (0-0.2) CBC Comment DIFF FINAL Differential Comment Blood Urea Nitrogen 6 MG/DL (7-18) Creatinine 0.43 MG/DL (0.50-1.00) Random Glucose 116 MG/DL (74-106) Calcium Level 8.3 MG/DL (8.5-10.1) Magnesium Level 2.2 MG/DL (1.5-2.5) Sodium Level 136 MEQ/L (136-145) Potassium Level 4.0 MEQ/L (3.5-5.1) Chloride Level 99 MEQ/L (98-107) Carbon Dioxide Level 32.1 MEQ/L (21.0-32.0) Anion Gap 5 MEQ/L (5-15) Estimat Glomerular Filtration Rate 154 ML/MIN (>89) Result Diagram: 05/21/17 0749 05/21/17 0749 Cardiovascular: RRR Telemetry: NSR Pulmonary: CTA GI/: NABS Incision: dry and intact Plan: Stim BM Possible home tomorrow Should postpone hip surgery at least 6 weeks. Paris Serrano MD May 21, 2017 10:19
--- NOTE | 2017-05-21 10:22 | HHI.FF ---
Face to Face Verification Diagnosis: (1) Left atrial mass Physical Therapy Order: Improve ambulation, Strength and gait training Occupational Therapy Order: Evaluate and Treat Home Health Nursing Order: Medical education Medication education-adverse effect Nursing assessment with vital signs I have seen patient Graciela Dolan on 05/21/17. My clinical findings support the need for the requested home health care services because: Deconditioned w/ increased weakness Limited ability to care for self High risk of falls I certify that my clinical findings support that this patient is homebound because: Post-op weakness Unsteady gait/balance Paris Serrano MD May 21, 2017 10:21
--- NOTE | 2017-05-21 11:14 | HHI.PR ---
Subjective Remarks Patient reports she is feeling much better. She is looking forward to going home tomorrow. No chest pressure or shortness of breath. Objective Vitals Vital Signs Date Time Temp Pulse Resp B/P (MAP) Pulse Ox O2 Delivery O2 Flow Rate FiO2 05/21/17 10:00 92 05/21/17 09:57 93 21 05/21/17 09:00 90 05/21/17 08:00 86 05/21/17 07:00 97.8 90 18 114/70 (85) 93 05/21/17 07:00 92 05/21/17 07:00 93 Room Air 05/21/17 06:00 84 05/21/17 04:00 98.0 92 20 118/77 (91) 92 05/21/17 04:00 92 Room Air 05/21/17 00:00 94 Room Air 05/21/17 00:00 98.2 89 20 115/61 (79) 94 05/20/17 21:36 93 21 05/20/17 20:00 93 Room Air 05/20/17 20:00 98.5 88 20 108/78 (88) 93 05/20/17 17:00 84 05/20/17 16:07 83 05/20/17 15:00 96 Room Air 05/20/17 15:00 84 05/20/17 15:00 98.7 82 18 102/70 (81) 96 05/20/17 13:00 98.9 80 18 118/74 (89) 96 05/20/17 12:02 92 21 I/O 05/20/17 05/20/17 05/20/17 05/21/17 05/21/17 05/21/17 07:00 15:00 23:00 07:00 15:00 23:00 Intake Total 932 ml 625 ml 580 ml 570 ml Output Total 706 ml 0 ml 500 ml 1700 ml Balance 226 ml 625 ml 80 ml -1130 ml Intake Oral 750 ml 625 ml 480 ml 420 ml IV Total 182 ml 100 ml 150 ml Output Urine Total 640 ml 0 ml 500 ml 1700 ml Chest Tube Drainage Total 66 ml # Bowel Movements 0 0 Result Diagram: 05/21/17 0749 05/21/1749 Objective Remarks GENERAL: This is a well-nourished, well-developed patient, in no apparent distress. CARDIOVASCULAR: Normal rate and regular rhythm without murmurs, gallops, or rubs. Sternotomy site appears clean. Mediastinal tube in place. RESPIRATORY: Good respiratory efforts. Breath sounds equal and clear to auscultation bilaterally. GASTROINTESTINAL: Abdomen soft, non-tender, non-distended. Normal active bowel sounds MUSCULOSKELETAL: Extremities without cyanosis, or edema. NEURO: Alert & Oriented x4 to person, place, time, situation. Moves all ext x4 PSYCH: Appropriate mood and affect. A/P Assessment and Plan 52-year-old female presented to the hospital with hemoptysis. 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 Hussein Gibson from cardiology. Coronaries were clean. Patient was evaluated by CT surgery Dr. Serrano who performed a resection of left atrial myxoma on 05/19. Patient extubated on 05/19, tolerating nasal cannula - Further management per cardiology, CT surgery Hemoptysis - Underlying pulmonary infarcts. Patient evaluated by pulmonology, Dr. steel. Hemoptysis resolved. COPD - DuoNeb's scheduled and when necessary - Supplemental oxygen as needed Fibromyalgia - Amitriptyline Chronic pain syndrome - Morphine and oxycodone DVT GI prophylaxis - Teds SCDs - Pepcid - No pharmacological DVT prophylaxis due to hemoptysis Discharge Planning Plan for discharge tomorrow. Bryce Garrett MD May 21, 2017 11:14
[2017-05-21] MEDS: SENNOSIDES 8.6 MG TAB PO SCH (20:44)
[2017-05-22] VITALS (17 sets, daily range): BP systolic 92–99; BP diastolic 55–59; PULSE 72–86; RESP 16–18; TEMP 98.1–98.7; O2SAT 95–97
[2017-05-22] MEDS: MORPHINE SULFATE 100 MG CONTROLLED RELEASE TAB PO SCH ×2 (01:00→09:00)
[2017-05-22] MEDS: HYDROmorphone HCL PF 1 MG/ML VIAL IV PRN ×2 (05:11→13:03)
[2017-05-22] MEDS: PANTOPRAZOLE SOD 40 MG DELAYED RELEASE TAB PO SCH (05:23)
--- NOTE | 2017-05-22 06:02 | RADRPT ---
EXAM DATE/TIME: 05/22/2017 04:58 [facility] COMPARISON: CHEST SINGLE AP, May 20, 2017, 5:01. INDICATIONS : Shortness of breath, possible pulmonary disease. MEDICAL HISTORY : Chronic obstructive pulmonary disease. Stroke. SURGICAL HISTORY : CABG. ENCOUNTER: Subsequent ACUITY: 4 - 6 days PAIN SCORE: 8/10 LOCATION: Bilateral chest FINDINGS: There is mild bibasilar consolidation not significantly changed. No large effusion seen. No pneumotho rax. Heart size stable, within normal limits. Patient has had previous median sternotomy. CONCLUSION: Mild bibasilar consolidation not significantly changed. Popeye Curran MD on May 22, 2017 at 6:00 Board Certified Radiologist. This report was verified electronically.
[2017-05-22] MEDS: RESP: ALBUTEROL 2.5 MG/IPRATROPIUM 0.5 MG NEB (SCH) NEB ×2 (08:04→12:34)
[2017-05-22] MEDS: REMOVE OLD PATCH T-DERMAL SCH (09:00)
[2017-05-22] MEDS: THYROID 60 MG TAB PO SCH ×2 (09:00→09:02)
[2017-05-22] MEDS: SODIUM CHLORIDE 0.9% FLUSH 10 ML FLUSH SCH (09:00)
[2017-05-22] MEDS: ACETAMINOPHEN 500 MG CPLT PO SCH ×2 (09:00→13:12)
[2017-05-22] MEDS: PREGABALIN 75 MG CAP PO SCH ×2 (09:02→13:13)
[2017-05-22] MEDS: ASPIRIN 81 MG CHEW TAB PO SCH (09:02)
[2017-05-22] MEDS: DOCUSATE SODIUM 100 MG CAP PO SCH (09:02)
[2017-05-22] MEDS: MULTIVITAMINS/MINERALS THERAPEUTIC TAB PO SCH (09:03)
[2017-05-22] MEDS: POLYETHYLENE GLYCOL 17 GM PKG PO SCH (09:03)
[2017-05-22] MEDS: NICOTINE 14 MG/24 HR PATCH T-DERMAL SCH (09:03)
[2017-05-22] MEDS: MAGNESIUM HYDROXIDE SUSP 30 ML CUP PO SCH (09:03)
[2017-05-22] MEDS: FLUTICASONE PROPIONATE 50 MCG/ACT 16 GM NASAL SPRAY EACH NARE SCH (09:04)
[2017-05-22] MEDS: BUDESONIDE-FORMOTEROL 160/4.5 MCG INHALER INH SCH (09:04)
[2017-05-22] MEDS: AMITRIPTYLINE HCL 50 MG TAB PO SCH (09:12)
[2017-05-22] MEDS: DOCUSATE SODIUM 50 MG/SENNA 8.6 MG TAB PO SCH (09:12)
[2017-05-22] MEDS ORDERED: ASPI81CH25 PO (10:15)
[2017-05-22] MEDS ORDERED: NICO14DI23 T-DERMAL (10:15)
[2017-05-22] MEDS ORDERED: THERM PO (10:15)
[2017-05-22] MEDS ORDERED: PANT40TA3 PO (10:15)
--- NOTE | 2017-05-22 10:25 | HHI.DS ---
Discharge Summary Admission Date May 17, 2017 at 20:49 Discharge Date: May 22, 2017 Admitting Diagnosis HEMOPTYSIS, LEFT ATRIAL MASS (1) Left atrial mass Diagnosis: Principal ICD Codes: I51.9 - Heart disease, unspecified Status: Acute (2) Hemoptysis Diagnosis: Secondary ICD Codes: R04.2 - Hemoptysis Status: Acute (3) COPD (chronic obstructive pulmonary disease) Diagnosis: Secondary ICD Codes: J44.9 - Chronic obstructive pulmonary disease, unspecified (4) Tobacco abuse Diagnosis: Secondary ICD Codes: Z72.0 - Tobacco use (5) Chronic pain Diagnosis: Secondary ICD Codes: G89.29 - Other chronic pain Procedures Median sternotomy for resection of left atrial mass Brief History 52 y/o female presented to [place] ED with hemoptysis. She was found to have perihilar infiltrates and a large left atrial mass. CBC/BMP: 05/21/17 0749 05/21/17 0749 Significant Findings Laboratory Tests Test 05/20/17 04:16 05/21/17 07:49 White Blood Count 13.2 TH/MM3 (4.0-11.0) Red Blood Count 3.96 MIL/MM3 (4.00-5.30) 3.90 MIL/MM3 (4.00-5.30) Creatinine 0.46 MG/DL (0.50-1.00) 0.43 MG/DL (0.50-1.00) Random Glucose 111 MG/DL (74-106) 116 MG/DL (74-106) Calcium Level 8.3 MG/DL (8.5-10.1) 8.3 MG/DL (8.5-10.1) Sodium Level 135 MEQ/L (136-145) Anion Gap 4 MEQ/L (5-15) Neutrophils (%) (Auto) 75.2 % (16.0-70.0) Neutrophils # (Auto) 8.0 TH/MM3 (1.8-7.7) Blood Urea Nitrogen 6 MG/DL (7-18) Carbon Dioxide Level 32.1 MEQ/L (21.0-32.0) Imaging Last Impressions Chest X-Ray 05/20/17 0500 Signed Impressions: Service Date/Time: Saturday, May 20, 2017 05:01 - CONCLUSION: 1. Interval extubation. Basilar airspace disease similar to prior exam. No pneumothorax identified. Jacob Gee MD Carotid Artery Ultrasound 05/18/17 0000 Signed Impressions: Service Date/Time: April 15:22 - CONCLUSION: No evidence of hemodynamically significant carotid stenosis. Seferino Mirza MD CT Angiography 05/17/17 1832 Signed Impressions: Service Date/Time: Wednesday, May 17, 2017 19:00 - CONCLUSION: 1. No pulmonary embolus. 2. Large filling defect in the left atrium, presumably thrombus. 3. Bilateral perihilar infiltrates most likely pulmonary edema. Pulmonary hemorrhage and infectious as well as inflammatory etiologies are not excludable. 4. Patulous appearing esophagus. Popeye Curran MD PE at Discharge chest - CTA COR - RRR ABD - NABS wound - dry and intact Hospital Course Patient underwent resection of left atrial mass on 05/19/17. She spent one night in the CVICU and has done well postoperatively. She has been advised to stop smoking. She will need to postpone her hip replacement surgery for 6-8 weeks. She will have to follow-up with her pain management provider for any further pain medicine refills. Discharge Disposition: Disch w/ Home Health Serv Discharge Instructions DIET: Follow Instructions for: Heart Healthy Diet Activities you can perform: Weight Bearing as Frances, Shower Only-No Bath Activities to avoid: Lifting/Bending, Strenuous Activity Follow up Referrals: Appointment for Follow Up - 3 Weeks with Paris Serrano MD Cardiology - 4 Weeks @ [facility] with Hussein Gibson MD PCP Follow-up - 3 Weeks New Medications: Aspirin (Aspirin Low Strength) 81 Mg Chew 81 MG PO DAILY for Blood Clot Prevention for 90 Days, #100 EA 3 Refills Multiple Vitamins W/ Minerals (Thera M Plus) 1 Tab 1 TAB PO DAILY for Nutritional Supplement for 90 Days, #90 TAB 3 Refills Nicotine (Eq Nicotine) 14 Mg/24 Hour Dis 1 PATCH T-DERMAL DAILY for Agitation for 30 Days, #30 PATCH 1 Refill Pantoprazole (Pantoprazole) 40 Mg Tab 40 MG PO DAILY@06 for Prevent Stress Ulcers for 14 Days, #14 TAB 0 Refills Continued Medications: Amitriptyline (Amitriptyline) 50 Mg Tab 50 MG PO BID for Control Depression, #30 TAB 0 Refills Budesonide-Formoterol Inh (Symbicort Inh) 160-4.5 Mcg/Act Aero 2 PUFF INH Q12HR, #1 INHALER 0 Refills Fluticasone Nasal [place] (Flonase Nasal [place]) 50 Mcg/Act [place] 100 MCG EACH NARE BID for Allergies, #1 BOTTLE 0 Refills Morphine ER (Morphine ER) 100 Mg Tab 100 MG PO Q8H for Pain Management, TAB 0 Refills Oxycodone (Oxycodone) 30 Mg Tab 30 MG PO FIVE TIMES A DAY, TAB 0 Refills Pregabalin (Lyrica) 150 Mg Cap 150 MG PO TID, #90 CAP 0 Refills Thyroid ([place] Thyroid) 120 Mg Tab 120 MG PO DAILY for Thyroid Supplement, #30 TAB 0 Refills Discontinued Medications: Thyroid ([place] Thyroid) 60 Mg Tab 60 MG PO DAILY for Thyroid Supplement, #30 TAB 0 Refills Paris Serrano MD May 22, 2017 10:25
--- NOTE | 2017-05-22 10:43 | HHI.PR ---
Subjective Remarks Patient reports feeling great. Ready for discharge. Objective Vitals Vital Signs Date Time Temp Pulse Resp B/P (MAP) Pulse Ox O2 Delivery O2 Flow Rate FiO2 05/22/17 08:05 97 21 05/22/17 06:00 72 05/22/17 05:00 82 05/22/17 04:00 82 05/22/17 03:30 98.7 82 18 99/57 (71) 97 05/22/17 03:29 96 Room Air 05/22/17 03:00 82 05/22/17 02:00 77 05/22/17 01:00 77 05/22/17 00:00 98.7 79 18 97/59 (72) 95 05/22/17 00:00 79 05/22/17 00:00 79 05/21/17 23:00 96 Room Air 05/21/17 23:00 82 05/21/17 22:00 80 05/21/17 21:00 79 05/21/17 20:19 92 21 05/21/17 20:00 84 05/21/17 20:00 98.4 83 20 103/63 (76) 96 05/21/17 20:00 96 Room Air 05/21/17 19:00 83 05/21/17 18:00 87 05/21/17 17:00 80 05/21/17 16:00 86 05/21/17 15:00 98.0 85 18 99/64 (76) 94 05/21/17 15:00 81 05/21/17 15:00 94 Room Air 05/21/17 14:00 84 05/21/17 13:00 81 05/21/17 12:00 80 05/21/17 11:00 98.0 84 18 111/67 (82) 96 05/21/17 11:00 96 Room Air 05/21/17 11:00 92 I/O 05/21/17 05/21/17 05/21/17 05/22/17 05/22/17 05/22/17 07:00 15:00 23:00 07:00 15:00 23:00 Intake Total 570 ml 720 ml 420 ml Output Total 1700 ml 1800 ml 1600 ml Balance -1130 ml -1080 ml -1180 ml Intake Oral 420 ml 720 ml 420 ml IV Total 150 ml Output Urine Total 1700 ml 1800 ml 1600 ml # Bowel Movements 0 1 Result Diagram: 05/21/17 0749 05/21/17 0749 Objective Remarks GENERAL: This is a well-nourished, well-developed patient, in no apparent distress. CARDIOVASCULAR: Normal rate and regular rhythm without murmurs, gallops, or rubs. Sternotomy site appears clean. Mediastinal tube in place. RESPIRATORY: Good respiratory efforts. Breath sounds equal and clear to auscultation bilaterally. GASTROINTESTINAL: Abdomen soft, non-tender, non-distended. Normal active bowel sounds MUSCULOSKELETAL: Extremities without cyanosis, or edema. NEURO: Alert & Oriented x4 to person, place, time, situation. Moves all ext x4 PSYCH: Appropriate mood and affect. A/P Problem List: (1) Left atrial mass ICD Code: I51.9 - Heart disease, unspecified Status: Acute (2) Hemoptysis ICD Code: R04.2 - Hemoptysis Status: Acute (3) COPD (chronic obstructive pulmonary disease) ICD Code: J44.9 - Chronic obstructive pulmonary disease, unspecified (4) Tobacco abuse ICD Code: Z72.0 - Tobacco use (5) Chronic pain ICD Code: G89.29 - Other chronic pain Assessment and Plan 52-year-old female presented to the hospital with hemoptysis. 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 Hussein Gibson from cardiology. Coronaries were clean. Patient was evaluated by CT surgery Dr. Serrano who performed a resection of left atrial myxoma on 05/19. Patient extubated on 05/19, tolerating nasal cannula -She cleared for discharge. She will have home health care. Hemoptysis - Underlying pulmonary infarcts. Patient evaluated by pulmonology, Dr. steel. Hemoptysis resolved. COPD - DuoNeb's scheduled and when necessary - Supplemental oxygen as needed Fibromyalgia - Amitriptyline Chronic pain syndrome - Morphine and oxycodone Discharge today Bryce Garrett MD May 22, 2017 10:43
[2017-05-22] MEDS ORDERED: WALKER WHEELS/F1 MIS (13:35)
[2017-05-22] MEDS ORDERED: BEDSIDE COMMODE1 MI1 (14:11)
== END 2017-05-22 15:00 | disposition home health service (06) | DRG 229 ==
LOC: PHEFT 16:46 → PHEDA 20:49 → HIMW 05-18 00:10 → HCVI 05-19 10:50 → HCPC 05-20 12:48
PROVIDERS: ADMIT Family Medicine; ATTEND Family Medicine
PROC: B2111ZZ Fluoroscopy of Multiple Coronary Arteries using Low Osmolar Contrast (ICD-10-PCS; 2017-05-18)
PROC: B41FZZZ Fluoroscopy of Right Lower Extremity Arteries (ICD-10-PCS; 2017-05-18)
PROC: 5A1221Z Performance of Cardiac Output, Continuous (ICD-10-PCS; 2017-05-19)
PROC: 02B50ZZ Excision of Atrial Septum, Open Approach (ICD-10-PCS; principal; 2017-05-19 07:13)
PROC: B246ZZ4 Ultrasonography of Right and Left Heart, Transesophageal (ICD-10-PCS; 2017-05-19 07:13)
DX: D15.1 Benign neoplasm of heart (principal); J81.1 Chronic pulmonary edema; R04.2 Hemoptysis; J43.9 Emphysema, unspecified; G62.9 Polyneuropathy, unspecified; M79.7 Fibromyalgia; G89.4 Chronic pain syndrome; M51.36 Other intervertebral disc degeneration, lumbar region; M51.37 Other intervertebral disc degeneration, lumbosacral region; E03.9 Hypothyroidism, unspecified; F17.210 Nicotine dependence, cigarettes, uncomplicated; F32.9 Major depressive disorder, single episode, unspecified; Z86.73 Personal history of transient ischemic attack (TIA), and cerebral infarction without residual deficits
CPT/HCPCS: 36600; 71010; 71020; 71275; 76937; 80048; 80053; 81001; 82805; 82948; 83036; 83735; 83880; 84100; 84484; 85014; 85025; 85027; 85379; 85610; 85730; 86850; 86900; 86901; 86920; 87641; 88305; 88307; 93005; 93306; 93318; 93454; 93880; 94002; 94150; 94640; 94664; C1760; C1769; C1893; G0269; J0131; J0690; J1170; J1644; J1817; J1885; J2250; J2370; J2710; J2720; J2930; J3010; J3370; J3475; J3480; J7030; J7050; J7120; J7644; P9047; Q9967

== ENCOUNTER 2017-05-28 19:00 | Inpatient (IN) | payer OTHER, MEDICAID, MEDICARE ==
[~2017-05-28] VITALS: Ht 165.1 cm; Wt 70.9 kg
[~2017-05-28 19:00] MED LIST changes: -AMINOCAPROIC ACID INJ 250 MG/ML 20 ML VIAL IV ONE; -ARMO60TA PO; +ASPI81CH25 PO; +BEDSIDE COMMODE1 MI1; -CALCIUM CHLORIDE 10% SOLN 1 GRAM/10 ML SYR IV ONE; +FLUT1SPR5 EACH NARE; -HEPARIN SODIUM - SQ 10,000 UNITS/ML VIAL SQ ONE; -MAGNESIUM SULFATE 1000 MG/2 ML VIAL (PED) IV ONE; +NICO14DI23 T-DERMAL; -NITROGLYCERIN 50 MG/DEXTROSE 5% SOLN 250 ML BTL IV ONE; +PANT40TA3 PO; -PHENYLEPH/NS 1000 MCG/10 ML SYR IV ONE; -PHENYLEPHRINE HCL 10 MG/ML VIAL IV ONE; -PROTAMINE SULFATE 250 MG/25 ML VIAL IV ONE; -SODIUM BICARBONATE 8.4% INJ 50 MEQ/50 ML SYR IV ONE; +SYMB160A INH; +THERM PO; -VECURONIUM BROMIDE 10 MG VIAL IV ONE; +WALKER WHEELS/F1 MIS; -ePHEDrine/NS 25 MG/5 ML SYR IV ONE
[2017-05-28 19:03] VITALS: BP 118/54; PULSE 84; RESP 16; TEMP 99; O2SAT 99
[2017-05-28 20:15] VITALS: BP 119/67; PULSE 80; RESP 16; O2SAT 97
--- NOTE | 2017-05-28 20:22 | PD ---
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 The patient reports that she has been doing well postop. She is currently residing at home and has home health coming out daily to assist her. She reports that today she became concerned when she coughed up some phlegm with blood. She reports that she had similar symptoms prior to being admitted to the hospital and diagnosed with a myxoma. She also reports that today she has newly been experiencing again dyspnea on exertion when walking with her walker. Finally, during further questioning the patient does report having a chronic history of left ankle edema related to a prior ankle surgery, however the swelling has extended up into her leg below the knee. She denies having any pain associated with this. She reports that the swelling in the leg began 2 days ago. She reports that she has had an elevated temperature today which is new for her with a Tmax of 99.3. She denies having any nausea, vomiting, or diarrhea. She does suffer with chronic constipation and uses stool softeners for this. She attributes this to her chronic pain management regimen. She reports that she last moved her bowels 3 days ago. She denies having any abdominal pain. She denies having any prior history of coronary artery disease although she does have a family history of this. She cannot recall when she last had a stress test. The patient reports that she quit smoking when she was admitted to the hospital last. On review of systems otherwise, up until today she had not had any significant cough, neck pain, urinary symptoms, or neurologic symptoms. She reports having some burning sensation along her postop chest wound, however no swelling, bleeding, or drainage. [facility] Past Medical History Narrative Medical The patient's past medical history is significant for COPD, fibromyalgia, history of chronic pain syndrome, history of hypothyroid disorder, history of an atrial myxoma status post surgical removal by Dr. Serrano Arthritis: Yes Blood Disorders: No Anxiety: Yes Depression: Yes Cancer: No Cardiovascular Problems: No COPD: Yes Cerebrovascular Accident: Yes (JUL 2016-no deficit) Diabetes: No Diminished Hearing: No Endocrine: Yes Fibromyalgia: Yes Gastrointestinal Disorders: No Genitourinary: No Hepatitis: No Hiatal Hernia: No Immune Disorder: No Implanted Vascular Access Dvce: No Kidney Stones: No Musculoskeletal: Yes (degenerative disc disease; NEEDS RT HIP REPLACE ) Neurologic: Yes (NEUROPATHY) Psychiatric: Yes Reproductive: No Respiratory: Yes Immunizations Current: Yes Renal Failure: No Thyroid Disease: Yes (HYPERTHYROIDISM) ?: Not Menopausal: Yes : 3 Para: 1 : 2 Past Surgical History Narrative Surgical The patient's past surgical history is significant for back surgery L4-L5 laminectomy, , appendectomy, left ankle surgery, open heart surgery to remove an atrial myxoma. Abdominal Surgery: Yes (appendectomy) AICD: No Appendectomy: Yes Cardiac Surgery: Yes (TUMOR REMOVED FROM LEFT ATRIUM) Section: Yes (2005) Coronary Artery Bypass Graft: Yes Ear Surgery: No Endocrine Surgery: No Eye Surgery: No Genitourinary Surgery: No Gynecologic Surgery: Yes () Joint Replacement: No Neurologic Surgery: No Oral Surgery: Yes Pacemaker: No Thoracic Surgery: No Tonsillectomy: Yes Other Surgery: Yes Social History Alcohol Use: No Tobacco Use: No (quit end of April 2017) Substance Use: No Allergies-Medications (Allergen,Severity, Reaction): Coded Allergies: No Known Allergies (Verified , 05/28/17) Reported Meds & Prescriptions Reported Meds & Active Scripts Active Thera M Plus (Multivitamins/Minerals Therapeutic) 1 Tab 1 Tab PO DAILY 90 Days Pantoprazole (Pantoprazole Sodium) 40 Mg Tab 40 Mg PO DAILY@06 14 Days Aspirin Low Strength (Aspirin) 81 Mg Chew 81 Mg PO DAILY 90 Days Eq Nicotine (Nicotine) 14 Mg/24 Hour Dis 1 Patch T-DERMAL DAILY 30 Days Reported Symbicort Inh (Budesonide/Formoterol Fumarate) 160-4.5 Mcg/Act Aero 2 Puff INH Q12HR Flonase Nasal Taylor (Fluticasone Nasal Taylor) 50 Mcg/Act Taylor 100 Mcg EACH NARE BID Amitriptyline (Amitriptyline HCl) 50 Mg Tab 50 Mg PO BID Lyrica (Pregabalin) 150 Mg Cap 150 Mg PO TID Morphine ER (Morphine Sulfate) 100 Mg Tab 100 Mg PO Q8H [place] Thyroid (Thyroid) 120 Mg Tab 120 Mg PO DAILY Oxycodone (Oxycodone HCl) 30 Mg Tab 30 Mg PO FIVE TIMES A DAY Review of Systems Except as stated in HPI: all other systems reviewed are Neg General / Constitutional: No: Fever Eyes: No: Visual changes HENT: No: Headaches Cardiovascular: Positive: Chest Pain or Discomfort, Dyspnea on exertion, Edema Respiratory: Positive: Cough, Shortness of Breath, Hemoptysis Gastrointestinal: No: Abdominal Pain Genitourinary: No: Dysuria Musculoskeletal: No: Pain Skin: No Rash Neurologic: No: Weakness, Focal Abnormalities, Change in Mentation, Slurred Speech, Sensory Disturbance Psychiatric: No: Depression Endocrine: No: Polydipsia Hematologic/Lymphatic: No: Easy Bruising Physical Exam Narrative General: The patient is well-developed well-nourished female in no acute distress. Head and Neck exam: Head is normocephalic atraumatic. Eyes: EOMI, pupils are equal round and reactive to light. Nose: Midline septum with pink mucous membranes Mouth: Dentition unremarkable. Moist mucus membranes. Posterior oropharynx is not erythematous. No tonsillar hypertrophy. Uvula midline. Airway patent. Neck: No palpable lymphadenopathy. No nuchal rigidity. No thyromegaly. Cardiovascular: Regular rate and rhythm without murmurs, gallops, or rubs. No pulse deficit to the extremities simultaneously auscultation and palpation of the radial artery. On examination of the patient's chest wall the patient has a postoperative wound that appears to be healing well without any surrounding erythema, edema, or drainage. Lungs: Clear to auscultation bilaterally. No wheezes, rhonchi, or rales. Abdomen: Soft, without tenderness to palpation in all 4 quadrants of the abdomen. No guarding, rebound, or rigidity. Normal bowel sounds are audible. No tenderness on palpation of McBurney's point. Extremities: No clubbing or cyanosis. The patient has 1+ pitting edema left lower extremity. 2+ pulses in all 4 extremities. No calf tenderness on palpation. Back: No costovertebral angle tenderness to palpation. Neurologic Exam: Grossly nonfocal. Skin Exam: No rash noted. Intact skin that is warm and dry. Data Data Last Documented VS Vital Signs Date Time Temp Pulse Resp B/P (MAP) Pulse Ox O2 Delivery O2 Flow Rate FiO2 05/28/17 22:00 75 16 109/69 (82) 97 Room Air 05/28/17 19:03 99.0 Orders Orders Us Leg Venous Doppler (05/28/17 20:16) Electrocardiogram (05/28/17 20:16) Complete Blood Count With Diff (05/28/17 20:16) Comprehensive Metabolic Panel (05/28/17 20:16) Creatine Kinase (Cpk) (05/28/17 20:16) Ckmb (Isoenzyme) Profile (05/28/17 20:16) Troponin I (05/28/17 20:16) B-Type Natriuretic Peptide (05/28/17 20:16) Prothrombin Time / Inr (Pt) (05/28/17 20:16) Act Partial Throm Time (Ptt) (05/28/17 20:16) Lipase (05/28/17 20:16) Urinalysis - C+S If Indicated (05/28/17 20:16) Magnesium (Mg) (05/28/17 20:16) Chest, Single Ap (05/28/17 20:16) Iv Access Insert/Monitor (05/28/17 20:16) Ecg Monitoring (05/28/17 20:16) Oximetry (05/28/17 20:16) Ct Pulmonary Angiogram (05/28/17 20:16) Admit Order (Ed Use Only) (05/28/17 22:19) Labs Laboratory Tests Test 05/28/17 20:55 05/28/17 22:00 White Blood Count 11.3 TH/MM3 Red Blood Count 2.93 MIL/MM3 Hemoglobin 8.6 GM/DL Hematocrit 26.1 % Mean Corpuscular Volume 88.8 FL Mean Corpuscular Hemoglobin 29.3 PG Mean Corpuscular Hemoglobin Concent 33.0 % Red Cell Distribution Width 13.7 % Platelet Count 395 TH/MM3 Mean Platelet Volume 7.9 FL Neutrophils (%) (Auto) 71.5 % Lymphocytes (%) (Auto) 19.4 % Monocytes (%) (Auto) 7.9 % Eosinophils (%) (Auto) 0.6 % Basophils (%) (Auto) 0.6 % Neutrophils # (Auto) 8.1 TH/MM3 Lymphocytes # (Auto) 2.2 TH/MM3 Monocytes # (Auto) 0.9 TH/MM3 Eosinophils # (Auto) 0.1 TH/MM3 Basophils # (Auto) 0.1 TH/MM3 CBC Comment DIFF FINAL Differential Comment Prothrombin Time 13.0 SEC Prothromb Time International Ratio 1.2 RATIO Activated Partial Thromboplast Time 33.7 SEC Blood Urea Nitrogen 8 MG/DL Creatinine 0.54 MG/DL Random Glucose 119 MG/DL Total Protein 7.0 GM/DL Albumin 2.6 GM/DL Calcium Level 8.2 MG/DL Magnesium Level 2.1 MG/DL Alkaline Phosphatase 145 U/L Aspartate Amino Transf (AST/SGOT) 32 U/L Alanine Aminotransferase (ALT/SGPT) 30 U/L Total Bilirubin 0.3 MG/DL Sodium Level 135 MEQ/L Potassium Level 3.7 MEQ/L Chloride Level 98 MEQ/L Carbon Dioxide Level 28.5 MEQ/L Anion Gap 9 MEQ/L Estimat Glomerular Filtration Rate 119 ML/MIN Total Creatine Kinase 80 U/L Troponin I 0.17 NG/ML B-Type Natriuretic Peptide 390 PG/ML Lipase 91 U/L Urine Color LIGHT-YELLOW Urine Turbidity CLEAR Urine pH 6.0 Urine Specific [place] 1.004 Urine Protein NEG mg/dL Urine Glucose (UA) NEG mg/dL Urine Ketones NEG mg/dL Urine Occult Blood NEG Urine Nitrite NEG Urine Bilirubin NEG Urine Urobilinogen LESS THAN 2.0 MG/DL Urine Leukocyte Esterase NEG Urine WBC LESS THAN 1 /hpf Urine Squamous Epithelial Cells <1 /hpf Microscopic Urinalysis Comment CULT NOT INDICATED MDM Medical Decision Making Medical Screen Exam Complete: Yes Emergency Medical Condition: Yes Medical Record Reviewed: Yes Interpretation(s) Last Impressions Lower Extremity Ultrasound 05/28/172015 Signed Impressions: Service Date/Time: Sunday, May 28, 2017 20:30 - CONCLUSION: Normal examination. Trey Lynn MD Chest X-Ray 05/28/172015 Signed Impressions: Service Date/Time: Sunday, May 28, 2017 21:36 - CONCLUSION: Cardiomegaly and basilar airspace disease. Trey Lynn MD CT Angiography 05/28/172015 Signed Impressions: Service Date/Time: Sunday, May 28, 2017 23:26 - CONCLUSION: No evidence of pulmonary embolism. Persistent infiltrates, left worse than right. New left pleural effusion. Small pericardial effusion. Increasing prominence of mediastinal lymph nodes. Popeye Grider MD Differential Diagnosis Pulmonary embolism postop, versus postop pneumonia, versus congestive heart failure, versus hemoptysis related to throat irritation and cough, versus lung mass Narrative Course During the course of the patients emergency department visit, the patients history, examination, and differential diagnosis were reviewed with the patient. The patient had IV access obtained and blood work sent for analysis. The patient was placed on a fluid dynamicist with oximetry and blood pressure monitoring. An ECG was done on arrival. The patient's ECG reveals a sinus rhythm heart rate of 80, no acute ST segment elevation or depression. QRS duration is 89 ms, QTC 388 ms. Chest x-ray, CTA of the chest was ordered to rule out PE, ultrasound left lower extremity was ordered to evaluating for possible DVT. The patients laboratory studies were reviewed and remarkable for white count of 11.3, hemoglobin 8.6 which is newly decreased compared to previously at 11.6 postop. Platelets are 398 with 71.5 neutrophils. CMP is remarkable for a glucose of 119, alkaline phosphatase 145, troponin I is elevated at 0.17, however review of the record reveals that she had normal coronary arteries on a cardiac catheterization during her last hospitalization, BNP is 390, lipase 91, PT 13, PTT 33.7 Radiology studies were reviewed and remarkable for an ultrasound that is negative for DVT a chest x-ray shows cardiomegaly and bibasilar air space disease. A CTA to rule out PE that shows no evidence of pulmonary embolism, persistent infiltrates left worse than the right, new left pleural effusion, small pericardial effusion, increasing prominence of mediastinal lymph nodes. The patient's case was discussed with Dr. Clayton the covering physician for the patient's cardiothoracic surgeon, . He did agree to see the patient in consultation. Given the patient's new anemia, a rectal examination was done. There was minimal stool present in the rectal vault. The stool was brown and Hemoccult negative. The patients results were discussed with the patient, including the plan of care. I explained that further testing and/ or monitoring is indicated based on the patients history, examination, and/ or laboratory findings. Therefore, I recommended admission for additional evaluation. The patient expressed understanding and was agreeable with this plan. The patient was admitted to the hospital in stable condition and [facility] Physician Communication Physician Communication At approximately 9:48 PM I did speak to Dr. Clayton regarding this patient's case is discussed over in for . He reports that the cardiothoracic service will see the patient in consultation. The patient's case was discussed with Dr. Frank who did agree to admit the patient for further evaluation and treatment at this time. Diagnosis Primary Impression: Shortness of breath Additional Impression: Anemia Qualified Codes: D64.9 - Anemia, unspecified Admitting Information Admitting Physician Requests: it Inez Gibson MD May 28, 2017 20:22
--- NOTE | 2017-05-28 21:06 | RADRPT ---
EXAM DATE/TIME: 05/28/2017 20:30 [facility] COMPARISON: No previous studies available for comparison. INDICATIONS : Left leg swelling. MEDICAL HISTORY : Chronic obstructive pulmonary disease. Hyperthyroidism. Neuropathy.Fibromyalgia. Cerebrovascular acci dent. Tuberculosis. . x 2. Restless legs syndrome.Arthritis. Measles. Degenerative disc disease. SURGICAL HISTORY : Tonsillectomy. Appendectomy. section. Lumbar laminectomy. Left ankle surgery. ENCOUNTER: Initial ACUITY: 2 day PAIN SCORE: 3/10 LOCATION: Left leg. TECHNIQUE: Venous ultrasound of the leg was performed from the inguinal ligament to the proximal calf. Real-delma e, color Doppler and spectral tracing, compression and augmentation techniques were used. FINDINGS: There is normal compressibility of the deep venous system from the inguinal region to the proximal ca lf. No echogenic clot is seen in the lumen of the common femoral, femoral, popliteal, and posterior tibial veins. There is a normal response of the venous system to proximal and distal augmentation an d respiration. CONCLUSION: Normal examination. Trey Lynn MD on May 28, 2017 at 21:05 Board Certified Radiologist. This report was verified electronically.
[2017-05-28 21:35] LABS: AUTOMATED NEUTROPHIL # 8.1 TH/MM3 (1.8-7.7); BASOPHIL # 0.1 TH/MM3 (0-0.2); BASOPHIL % 0.6 % (0.0-2.0); EOSINOPHIL # 0.1 TH/MM3 (0-0.4); EOSINOPHIL % 0.6 % (0.0-4.0); HEMATOCRIT 26.1 % (35.0-46.0); HEMO FLAGS DIFF FINAL; LYMPH % 19.4 % (9.0-44.0); LYMPHOCYTE # 2.2 TH/MM3 (1.0-4.8); MEAN CELL VOLUME 88.8 FL (80.0-100.0); MEAN CORPUSCULAR HEMOGLOBIN 29.3 PG (27.0-34.0); MONO % 7.9 % (0.0-8.0); NEUT % 71.5 % (16.0-70.0); PLATELET COUNT 395 TH/MM3 (150-450); RED BLOOD COUNT 2.93 MIL/MM3 (4.00-5.30); RED CELL DISTRIBUTION WIDTH 13.7 % (11.6-17.2); WHITE BLOOD COUNT 11.3 TH/MM3 (4.0-11.0)
--- NOTE | 2017-05-28 21:54 | RADRPT ---
EXAM DATE/TIME: 05/28/2017 21:36 [facility] COMPARISON: CHEST SINGLE AP, May 22, 2017, 4:58. INDICATIONS : Coughing up blood. MEDICAL HISTORY : Chronic obstructive pulmonary disease. Stroke. Hypothyroidism. SURGICAL HISTORY : Cardiac surgery tumor removal ENCOUNTER: Initial ACUITY: 1 day PAIN SCORE: 0/10 LOCATION: Bilateral chest FINDINGS: Cardiomegaly, sternotomy wires. Mild basilar airspace disease left greater than right. No effusions. Osseous structures are intact. CONCLUSION: Cardiomegaly and basilar airspace disease. Trey Lynn MD on May 28, 2017 at 21:52 Board Certified Radiologist. This report was verified electronically.
[2017-05-28 22:00] VITALS: BP 109/69; PULSE 75; RESP 16; O2SAT 97
[2017-05-28 22:01] LABS: ALT (GPT) 30 U/L (10-53)
[2017-05-28 22:06] LABS: ALKALINE PHOSPHATASE 145 U/L (45-117); ANION GAP 9 MEQ/L (5-15); AST (GOT) 32 U/L (15-37); BICARBONATE 28.5 MEQ/L (21.0-32.0); BLOOD UREA NITROGEN 8 MG/DL (7-18); CHLORIDE 98 MEQ/L (98-107); GLOMERULAR FILTRATION RATE 119 ML/MIN (>89); MAGNESIUM 2.1 MG/DL (1.5-2.5); SODIUM (NA) 135 MEQ/L (136-145); TOTAL BILIRUBIN ADULT 0.3 MG/DL (0.2-1.0)
[2017-05-28 22:09] LABS: CREATINE KINASE 80 U/L (26-192); POTASSIUM 3.7 MEQ/L (3.5-5.1)
[2017-05-28 22:15] LABS: APTT (PATIENT) 33.7 SEC (24.3-30.1); INTERNATIONAL NORMALIZED RATIO 1.2 RATIO
[2017-05-28] MEDS ORDERED: IOHEXOL 350 MG/ML 10 ML VIAL (for RAD DIAG) IVCONTRAST ONE (22:22)
[2017-05-28 22:36] LABS: BLOOD, URINE NEG (NEG); GLUCOSE,URINE NEG (NEG); KETONE, URINE NEG (NEG); NITRITE,URINE NEG (NEG); SQUAMOUS EPITHELIAL CELL URINE <1 /hpf (0-5); URINE COLOR LIGHT-YELLOW (YELLW/STRAW)
[2017-05-28 22:37] LABS: COMMENT (UR) CULT NOT INDICATED; CULTURE IF INDICATED CULT NOT INDICATED
--- NOTE | 2017-05-28 22:57 | HHI.HP ---
HPI Service [facility] Primary Care Physician Oseas Lizarraga MD Admission Diagnosis Shortness of breath, New Anemia Diagnoses: (1) Anemia Diagnosis: Principal (2) Elevated troponin Diagnosis: Principal (3) COPD (chronic obstructive pulmonary disease) Diagnosis: Principal (4) Tobacco abuse Diagnosis: Principal (5) PNA (pneumonia) Diagnosis: Principal Travel History International Travel<30 Days: No Contact w/Intl Traveler <30 Da: No Traveled to Known Affected Are: No History of Present Illness This is a 52-year-old female with a PMH of HTN, COPD, Fibromyalgia, Anxiety, Depression, Chronic Pain and h/o Atrial Myxoma s/p Resection who presented to the ER w/ c/p SOB and cough w/ blood-tinged sputum starting earlier today. Denies fever, chills, chest pain or sick contacts. Recent admit 05/17-05/22/17 for Hemoptysis and COPD, found to have Atrial Myxoma s/p Resection by Dr. Serrano on 05/19/17. Was doing well post-discharge until today when she developed SOB and episode of hemoptysis. On arrival, BP 118/54, HR 84, O2 sat 99% on RA, Temp 99.0. WBC 11.3. Hemoglobin 8.6, previously 11.6 on 05/21/17. Chemistry essentially unremarkable. Troponin 0.17. BNP 390. INR 1.2. UA negative. CXR with cardiomegaly and basilar airspace disease. CTA Pulm negative for PE, infiltrates left worse than right, left pleural effusion, small pericardial effusion. Dr. Clayton consulted by ER physician, no surgical intervention indicated at this time, will eval in am. Hemoccult (-) on exam. C /o left ankle edema, however states chronic. LE Doppler negative for DVT Review of Systems Except as stated in HPI: all other systems reviewed are Neg ROS: 14 point review of systems otherwise negative. Past Family Social History Past Medical History PMH: HTN, COPD, Fibromyalgia, Anxiety, Depression, Chronic Pain and h/o Atrial Myxoma s/p Resection Past Surgical History PAST SURGICAL HISTORY: Lumbar Laminectomy, , Appendectomy, Left Ankle Surgery, Atrial Myxoma Resection Allergies: Coded Allergies: No Known Allergies (Verified , 05/28/17) Family History PAST FAMILY HISTORY: Reviewed. No h/o DM or CAD Social History PAST SOCIAL HISTORY: Negative for alcohol or drugs. States she quit smoking last month. Physical Exam Vital Signs Vital Signs Date Time Temp Pulse Resp B/P (MAP) Pulse Ox O2 Delivery O2 Flow Rate FiO2 05/28/17 22:00 75 16 109/69 (82) 97 Room Air 05/28/17 20:15 80 16 119/67 (84) 97 Room Air 05/28/17 19:03 99.0 84 16 118/54 (75) 99 Room Air Physical Exam PE: GENERAL: Middle-aged white female in no acute distress. HEENT: PERRLA, EOMI. No scleral icterus or conjunctival pallor. No lid lag or facial droop. CARDIOVASCULAR: Regular rate and rhythm. No obvious murmurs to auscultation. No chest tenderness to palpation. RESPIRATORY: No obvious rhonchi or wheezing. Clear to auscultation. Breath sounds equal bilaterally. GASTROINTESTINAL: Abdomen soft, non-tender, nondistended. BS normal. MUSCULOSKELETAL: Extremities without clubbing, cyanosis. +LLE edema. No obvious deformities. NEUROLOGICAL: Awake, alert and oriented x4. No focal neurologic deficits. Moving both upper and lower extremities spontaneously. Laboratory Laboratory Tests Test 05/28/17 20:55 05/28/17 22:00 White Blood Count 11.3 Red Blood Count 2.93 Hemoglobin 8.6 Hematocrit 26.1 Mean Corpuscular Volume 88.8 Mean Corpuscular Hemoglobin 29.3 Mean Corpuscular Hemoglobin Concent 33.0 Red Cell Distribution Width 13.7 Platelet Count 395 Mean Platelet Volume 7.9 Neutrophils (%) (Auto) 71.5 Lymphocytes (%) (Auto) 19.4 Monocytes (%) (Auto) 7.9 Eosinophils (%) (Auto) 0.6 Basophils (%) (Auto) 0.6 Neutrophils # (Auto) 8.1 Lymphocytes # (Auto) 2.2 Monocytes # (Auto) 0.9 Eosinophils # (Auto) 0.1 Basophils # (Auto) 0.1 CBC Comment DIFF FINAL Differential Comment Prothrombin Time 13.0 Prothromb Time International Ratio 1.2 Activated Partial Thromboplast Time 33.7 Blood Urea Nitrogen 8 Creatinine 0.54 Random Glucose 119 Total Protein 7.0 Albumin 2.6 Calcium Level 8.2 Magnesium Level 2.1 Alkaline Phosphatase 145 Aspartate Amino Transf (AST/SGOT) 32 Alanine Aminotransferase (ALT/SGPT) 30 Total Bilirubin 0.3 Sodium Level 135 Potassium Level 3.7 Chloride Level 98 Carbon Dioxide Level 28.5 Anion Gap 9 Estimat Glomerular Filtration Rate 119 Total Creatine Kinase 80 Troponin I 0.17 B-Type Natriuretic Peptide 390 Lipase 91 Urine Color LIGHT-YELLOW Urine Turbidity CLEAR Urine pH 6.0 Urine Specific [place] 1.004 Urine Protein NEG Urine Glucose (UA) NEG Urine Ketones NEG Urine Occult Blood NEG Urine Nitrite NEG Urine Bilirubin NEG Urine Urobilinogen LESS THAN 2.0 Urine Leukocyte Esterase NEG Urine WBC LESS THAN 1 Urine Squamous Epithelial Cells <1 Microscopic Urinalysis Comment CULT NOT INDICATED Result Diagram: 05/28/17205405/28/172054 Caprini VTE Risk Assessment Caprini VTE Risk Assessment: No/Low Risk (score <= 1) VTE Pharm Contraindication: High risk for bleeding Caprini Risk Assessment Model Point Value = 1 Point Value = 2 Point Value = 3 Point Value = 5 Age 41-60 Minor surgery BMI > 25 kg/m2 Swollen legs Varicose veins or History of unexplained or recurrent spontaneous Oral contraceptives or hormone replacement Sepsis (< 1 month) Serious lung disease, including pneumonia (< 1 month) Abnormal pulmonary function Acute myocardial infarction Congestive heart failure (< 1 month) History of inflammatory bowel disease Medical patient at bed rest Age 61-74 Arthroscopic surgery Major open surgery (> 45 min) Laparoscopic surgery (> 45 min) Malignancy Confined to bed (> 72 hours) Immobilizing plaster cast Central venous access Age >= 75 History of VTE Family history of VTE Factor V Leiden Prothrombin [id number] Lupus anticoagulant Anticardiolipin antibodies Elevated serum homocysteine Heparin-induced thrombocytopenia Other congenital or acquired thrombophilia Stroke (< 1 month) Elective arthroplasty Hip, pelvis, or leg fracture Acute spinal cord injury (< 1 month) Prophylaxis Regimen Total Risk Factor Score Risk Level Prophylaxis Regimen 0-1 Low Early ambulation 2 Moderate Order ONE of the following: *Sequential Compression Device (SCD) *Heparin 5000 units SQ BID 3-4 Higher Order ONE of the following medications: *Heparin 5000 units SQ TID *Enoxaparin/Lovenox 40 mg SQ daily (WT < 150 kg, CrCl > 30 mL/min) *Enoxaparin/Lovenox 30 mg SQ daily (WT < 150 kg, CrCl > 10-29 mL/min) *Enoxaparin/Lovenox 30 mg SQ BID (WT < 150 kg, CrCl > 30 mL/min) AND/OR *Sequential Compression Device (SCD) 5 or more Highest Order ONE of the following medications: *Heparin 5000 units SQ TID (Preferred with Epidurals) *Enoxaparin/Lovenox 40 mg SQ daily (WT < 150 kg, CrCl > 30 mL/min) *Enoxaparin/Lovenox 30 mg SQ daily (WT < 150 kg, CrCl > 10-29 mL/min) *Enoxaparin/Lovenox 30 mg SQ BID (WT < 150 kg, CrCl > 30 mL/min) AND *Sequential Compression Device (SCD) Assessment and Plan Problem List: (1) Anemia ICD Code: D64.9 - Anemia, unspecified (2) Elevated troponin ICD Code: R74.8 - Abnormal levels of other serum enzymes (3) PNA (pneumonia) ICD Code: J18.9 - Pneumonia, unspecified organism (4) COPD (chronic obstructive pulmonary disease) ICD Code: J44.9 - Chronic obstructive pulmonary disease, unspecified (5) Tobacco abuse ICD Code: Z72.0 - Tobacco use Assessment and Plan A/P: 1. Anemia: Hgb 8.6, previously 11.6 on 05/25/17, no active bleeding noted, Hemoccult negative. Will monitor, repeat labs in am. 2. Elevated Trop: Trop 0.17, EKG w/ no acute ischemia, likely secondary to recent cardiothoracic surgery, s/p Resection of Atrial Myxoma by Dr. Serrano. Cardiac Cath 05/18/17 w/ normal coronaries. Elevated trop not secondary to coronary disease. Will check serial enzymes for trend. 3. PNA: c/o SOB w/ one episode of hemoptysis. CXR w/ cardiomegaly, CTA Pulm negative for PE, +infiltrates, images reviewed by me. Rocephin/Zithro, DuoNeb prn as needed. 4. COPD: Chronic Respiratory Failure. Stable. No wheezing on exam. Resume home Symbicort. DuoNeb prn. 5. Tobacco Abuse: states quit after last admission in [place], NicoDerm prn if needed for withdrawal. 6. DVT Prophylaxis: SCD/Teds. 7. Social work for d/c planning as needed. 8. Case discussed w/ ER physician at length. Amrita Frank MD May 28, 2017 22:57
[2017-05-28] MEDS ORDERED: ACETAMINOPHEN 325 MG TAB PO PRN (23:00)
[2017-05-28] MEDS ORDERED: SODIUM CHLORIDE 0.9% FLUSH 10 ML FLUSH IV FLUSH PRN (23:00)
[2017-05-28] MEDS ORDERED: SENNOSIDES 8.6 MG TAB PO PRN (23:00)
[2017-05-28] MEDS ORDERED: BISACODYL 10 MG SUPP RECTAL PRN (23:00)
[2017-05-28] MEDS ORDERED: LACTULOSE SYRUP 20 GM/30 ML CUP PO PRN (23:00)
[2017-05-28] MEDS ORDERED: MAGNESIUM HYDROXIDE SUSP 30 ML CUP PO PRN (23:00)
[2017-05-28] MEDS ORDERED: ONDANSETRON HCL 4 MG/2 ML VIAL IVP PRN (23:00)
--- NOTE | 2017-05-28 23:52 | RADRPT ---
EXAM DATE/TIME: 05/28/2017 23:26 [place] COMPARISON: CT PULMONARY ANGIOGRAM, May 17, 2017, 19:00. INDICATIONS : Hemoptysis. IV CONTRAST: 70 cc Omnipaque 350 (iohexol) IV RADIATION DOSE: 23.04 CTDIvol (mGy) MEDICAL HISTORY : Cardiovascular disease. Cerebrovascular disease. SURGICAL HISTORY : CABG Appendectomy. ENCOUNTER: Initial ACUITY: 1 day PAIN SCALE: 5/10 LOCATION: Bilateral chest TECHNIQUE: Volumetric scanning of the chest was performed using a pulmonary embolism protocol MIP images were re constructed. Using automated exposure control and adjustment of the mA and/or kV according to patien t size, radiation dose was kept as low as reasonably achievable to obtain optimal diagnostic quality images. DICOM format image data is available electronically for review and comparison. Follow-up recommendations for detected pulmonary nodules are based at a minimum on nodule size and pa tient risk factors according to Fleischner Society Guidelines. FINDINGS: PULMONARY ARTERIES: No filling defects are seen in the pulmonary arteries through the segmental level. LUNGS: There is patchy minimal airspace infiltrates in the right lung, mainly middle and lower lobes. Modera te persistent perihilar and patchy peripheral infiltrate is present in the left lung. PLEURAE: Small left pleural effusion is new. MEDIASTINUM: Increasingly prominent upper mediastinal zach enlargement. Pericardial effusion. MUSCULOSKELETAL: Within normal limits for patient age. CONCLUSION: No evidence of pulmonary embolism. Persistent infiltrates, left worse than right. New left pleural effusion. Small pericardial effusion. Increasing prominence of mediastinal lymph nodes. Popeye Grider MD on May 28, 2017 at 23:43 Board Certified Radiologist. This report was verified electronically.
[2017-05-29] VITALS (9 sets, daily range): BP systolic 97–110; BP diastolic 47–59; PULSE 59–77; RESP 16–24; TEMP 97.6–100; O2SAT 94–98
[2017-05-29] MEDS: MORPHINE SULFATE 100 MG CONTROLLED RELEASE TAB PO SCH ×3 (00:35→16:38)
[2017-05-29] MEDS: PANTOPRAZOLE SOD 40 MG DELAYED RELEASE TAB PO SCH (05:10)
[2017-05-29] MEDS ORDERED: AZITHROMYCIN INJ 500 MG in SODIUM CHLOR 0.9% 250 ML INJ 250 ML IV SCH (06:00)
[2017-05-29] MEDS ORDERED: cefTRIAXone INJ 1,000 MG in SODIUM CHLORIDE 0.9% INJ 100 ML IV SCH (06:00)
[2017-05-29] MEDS: REMOVE OLD PATCH T-DERMAL SCH (09:00)
[2017-05-29] MEDS: SODIUM CHLORIDE 0.9% FLUSH 10 ML FLUSH IV FLUSH SCH ×2 (09:00→22:02)
[2017-05-29] MEDS: NICOTINE 14 MG/24 HR PATCH T-DERMAL SCH (09:09)
[2017-05-29] MEDS: MULTIVITAMINS/MINERALS THERAPEUTIC TAB PO SCH (09:09)
[2017-05-29] MEDS ORDERED: Vancomycin Consult Pharmacy 1 EA OTHER SCH (10:00)
[2017-05-29] MEDS ORDERED: VANCOMYCIN INJ 1,000 MG in SODIUM CHLOR 0.9% 250 ML INJ 250 ML IV ONE (10:00)
--- NOTE | 2017-05-29 10:12 | HHI.PR ---
Subjective Remarks Follow-up for hemoptysis. 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 She had been doing well at home for the past 7 days except for dry cough until yesterday morning. Yesterday morning her cough became productive and was grossly bloody per patient. She had associated chest burning and tightness. Overnight her cough remains dry and no further chest pain. She does report a fever of 100 last night, denies any chills. She states that she is feeling much better that her baseline except that she was a little short of breath when she tried to ambulate to the restroom and has not been short of breath with exertion at home. She has chronic left ankle edema after ankle surgery with hardware placement in the past, reports edema better today than yesterday. Objective Vitals Vital Signs Date Time Temp Pulse Resp B/P (MAP) Pulse Ox O2 Delivery O2 Flow Rate FiO2 05/29/17 07:51 63 05/29/17 07:25 97.6 59 16 99/58 (72) 94 05/29/17 03:36 98.1 66 18 98/47 (64) 94 05/29/17 00:18 100.0 77 19 99/59 (72) 95 05/28/17 23:54 05/28/17 22:00 75 16 109/69 (82) 97 Room Air 05/28/17 20:15 80 16 119/67 (84) 97 Room Air 05/28/17 19:03 99.0 84 16 118/54 (75) 99 Room Air I/O 05/28/17 05/28/17 05/28/17 05/29/17 05/29/17 05/29/17 07:00 15:00 23:00 07:00 15:00 23:00 Intake Total 250 ml Output Total 100 ml Balance 150 ml Intake IV Total 250 ml Output Urine Total 100 ml Result Diagram: 05/28/17205405/28/172054 Imaging Last Impressions Lower Extremity Ultrasound 05/28/172015 Signed Impressions: Service Date/Time: Sunday, May 28, 2017 20:30 - CONCLUSION: Normal examination. Trey Lynn MD Chest X-Ray 05/28/172015 Signed Impressions: Service Date/Time: Sunday, May 28, 2017 21:36 - CONCLUSION: Cardiomegaly and basilar airspace disease. Trey Lynn MD CT Angiography 05/28/172015 Signed Impressions: Service Date/Time: Sunday, May 28, 2017 23:26 - CONCLUSION: No evidence of pulmonary embolism. Persistent infiltrates, left worse than right. New left pleural effusion. Small pericardial effusion. Increasing prominence of mediastinal lymph nodes. Popeye Grider MD Objective Remarks GENERAL: Well-developed well-nourished. In no acute distress. SKIN: Warm and dry. Healing midline sternotomy incision. HEENT: Normocephalic. Pupils equal and round. Mucous membranes pink and moist. CARDIOVASCULAR: Regular rate and rhythm. No murmur appreciated. RESPIRATORY: No accessory muscle use. Clear to auscultation. Occasional expiratory wheeze. GASTROINTESTINAL: Abdomen soft, non-tender, nondistended. Bowel sounds x4. MUSCULOSKELETAL: No obvious deformities. No clubbing or cyanosis. Left ankle 1 + edema, trace on the right. NEUROLOGICAL: Awake and alert. No focal neurological deficits. Moves upper and lower extremities spontaneously. Normal speech. PSYCHIATRIC: Appropriate mood and affect; insight and judgment normal. A/P Problem List: (1) Anemia ICD Code: D64.9 - Anemia, unspecified Status: Acute (2) Elevated troponin ICD Code: R74.8 - Abnormal levels of other serum enzymes Status: Acute (3) PNA (pneumonia) ICD Code: J18.9 - Pneumonia, unspecified organism Status: Acute (4) COPD (chronic obstructive pulmonary disease) ICD Code: J44.9 - Chronic obstructive pulmonary disease, unspecified Status: Chronic Assessment and Plan 52-year-old female with a PMH of HTN, COPD, Fibromyalgia, Anxiety, Depression, Chronic Pain and recent Atrial Myxoma Resection who presented w/ c/p SOB and cough w/ bloody sputum Acute normocytic anemia: Hgb 8.6, previously 11.6 on 05/25/17. Likely secondary to blood loss from recent surgery. No active bleeding noted, Hemoccult negative. -Repeat CBC pending. -Transfuse if indicated Elevated Trop: Trop 0.17, 0.16. EKG w/ no acute ischemia. Likely secondary to recent cardiothoracic surgery, s/p Resection of Atrial Myxoma by Dr. Serrano. Cardiac Cath 05/18/17 w/ normal coronaries. Doubt elevated trop secondary to coronary disease. -Trending enzymes. HCAP: WBC 11.3. Tmax 100.0. Complains of dry cough with w/ one episode of hemoptysis. Reviewed: Chest CT shows no PE, persistent infiltrates left worse than right, and new left pleural effusion, small pericardial effusion, increasing prominence of mediastinal lymph nodes. -Treatment for HCAP With IV vancomycin and Zosyn for now -Sputum culture -Incentive spirometer S/P atrial myxoma resection: Last week with Dr. Serrano. -Dr. Serrano consulted for evaluation with chest pain and hemoptysis as above. COPD: Possible mild exacerbation secondary to pneumonia as above. -Continue home Symbicort. -Start scheduled DuoNeb -Consider pulmonology consult if no improvement Tobacco Abuse: states quit after last admission in April -NicoDerm prn if needed for withdrawal. Chronic pain: -Continue home morphine and oxycodone DVT Prophylaxis: SCD/Teds. Discharge Planning Follow-up cardiothoracic surgery recommendations. Follow up repeat labs today. Monitor for clinical improvement. Problem Qualifiers (1) PNA (pneumonia): Qualified Codes: J18.1 - Lobar pneumonia, unspecified organism (2) COPD (chronic obstructive pulmonary disease): Qualified Codes: J44.1 - Chronic obstructive pulmonary disease with (acute) exacerbation David López May 29, 2017 10:12
[2017-05-29] MEDS: DOCUSATE SODIUM 50 MG/SENNA 8.6 MG TAB PO SCH ×2 (10:50→21:24)
[2017-05-29] MEDS: PIPERACIL-TAZO 3.375 GM PREMIX 50 ML IV SCH ×3 (10:50→23:04)
[2017-05-29] MEDS: AMITRIPTYLINE HCL 50 MG TAB PO SCH ×2 (10:50→21:24)
[2017-05-29] MEDS: PREGABALIN 75 MG CAP PO SCH ×3 (10:51→17:38)
[2017-05-29] MEDS: BUDESONIDE-FORMOTEROL 160/4.5 MCG INHALER INH SCH ×2 (10:52→22:02)
[2017-05-29] MEDS: FLUTICASONE PROPIONATE 50 MCG/ACT 16 GM NASAL SPRAY NASAL SCH ×2 (10:52→22:02)
[2017-05-29] MEDS: RESP: ALBUTEROL 2.5 MG/IPRATROPIUM 0.5 MG NEB (SCH) NEB ×3 (11:19→19:27)
--- NOTE | 2017-05-29 12:27 | EKG ---
Date Performed: 05/28/2017 Time Performed: 20:11:30 PTAGE: 52 years EKG: NORMAL Sinus rhythm NONSPECIFIC T-WAVE ABNORMALITY BORDERLINE ECG Compared to prior tracing early repolarization is no l onger seen PREVIOUS TRACING : 05/20/2017 05.21 DOCTOR: Elias Puckett Interpretating Date/Time 05/29/2017 12:25:10
[2017-05-29] MEDS: VANCOMYCIN 1,000 MG/NS 250 ML IV SCH ×2 (14:12)
[2017-05-29 15:59] LABS: BASOPHIL % 0.5 % (0.0-2.0); EOSINOPHIL # 0.1 TH/MM3 (0-0.4); EOSINOPHIL % 1.1 % (0.0-4.0); HEMATOCRIT 29.1 % (35.0-46.0); HEMO FLAGS DIFF FINAL; LYMPH % 21.5 % (9.0-44.0); LYMPHOCYTE # 1.5 TH/MM3 (1.0-4.8); MEAN CELL VOLUME 89.6 FL (80.0-100.0); MEAN CORPUSCULAR HEMOGLOBIN 29.2 PG (27.0-34.0); MEAN CORPUSCULAR HGB CONC 32.6 % (32.0-36.0); MONO % 5.5 % (0.0-8.0); NEUT % 71.4 % (16.0-70.0); PLATELET COUNT 381 TH/MM3 (150-450); RED BLOOD COUNT 3.24 MIL/MM3 (4.00-5.30); RED CELL DISTRIBUTION WIDTH 13.8 % (11.6-17.2)
[2017-05-29 16:31] LABS: ANION GAP 8 MEQ/L (5-15); AST (GOT) 25 U/L (15-37); BLOOD UREA NITROGEN 7 MG/DL (7-18); CHLORIDE 102 MEQ/L (98-107); GLOMERULAR FILTRATION RATE 107 ML/MIN (>89); POTASSIUM 3.3 MEQ/L (3.5-5.1); SODIUM (NA) 138 MEQ/L (136-145)
[2017-05-29 16:37] LABS: ALKALINE PHOSPHATASE 137 U/L (45-117); ALT (GPT) 30 U/L (10-53); TOTAL BILIRUBIN ADULT 0.3 MG/DL (0.2-1.0)
[2017-05-29] MEDS ORDERED: POTASSIUM CHLORIDE 20 MEQ CONTROLLED RELEASE TAB PO ONE (17:00)
[2017-05-30] MEDS: MORPHINE SULFATE 100 MG CONTROLLED RELEASE TAB PO SCH ×2 (00:07→09:42)
[2017-05-30 00:50] VITALS: PULSE 61
[2017-05-30 02:45] VITALS: BP 106/61; PULSE 69; RESP 17; TEMP 96.3; O2SAT 97
[2017-05-30] MEDS: VANCOMYCIN 1,000 MG/NS 250 ML IV SCH ×2 (02:56)
[2017-05-30 04:16] VITALS: PULSE 74
[2017-05-30] MEDS: PIPERACIL-TAZO 3.375 GM PREMIX 50 ML IV SCH ×2 (05:18→09:43)
[2017-05-30] MEDS: PANTOPRAZOLE SOD 40 MG DELAYED RELEASE TAB PO SCH (05:46)
[2017-05-30 08:00] VITALS: BP 93/58; PULSE 60; RESP 18; TEMP 96.7; O2SAT 93
[2017-05-30] MEDS: RESP: ALBUTEROL 2.5 MG/IPRATROPIUM 0.5 MG NEB (SCH) NEB ×2 (08:00→13:06)
--- NOTE | 2017-05-30 08:07 | MB ---
cc: [facility] ROM[facility] DATE OF CONSULTATION 05/29/2017 DATE OF A 52-year-old female, 1965 HISTORY OF THE PRESENT ILLNESS This is a patient of Dr. Oseas Lizarraga who recently underwent an median sternotomy excision of left atrial myxoma on 05/19/2017. The patient did well postoperatively and discharged on the second. She had some perihilar infiltrates prior to surgery and she had presented to [place] ED with hemoptysis for a couple of episodes where she had a cough and then she had some bloody streaked sputum. The pathology report just showed a myoxma, no evidence of malignancy. Again she was discharged without difficulty. Then she came back into the emergency room on the for complaint of some shortness of breath, cough, blood-tinged sputum which concerned her again since her recent surgery. She has a significant history of COPD. On arrival blood pressure was stable. Her O2 sat was 99 on room air. She had a low grade temperature of 99. She says it went up to 100 last evening. White cell count was 11. It was noted that her hemoglobin however was 8.6 on this admission, previously was 11.6 on 05/21. Troponin was mildly elevated however she just had undergone surgery, probably surgery related. Her repeat hemoglobin this morning was 9.5. White cell count of 7. Platelet count was stable. INR was 1.2. She was admitted. They did a CTA of the chest which showed no evidence of pulmonary emboli, however, she had some persistent infiltrates left greater than the right. She has been treated for pneumonia. She is now on Zosyn. She did receive a dose of vancomycin, Rocephin and Zithromax. They also did a lower extremity Doppler which was negative for DVT. PAST MEDICAL HISTORY The patient's past medical history: 1. Hypertension. 2. Chronic obstructive pulmonary disease. 3. Fibromyalgia. 4. Anxiety. 5. Depression. 6. Chronic pain. 7. History of lumbar laminectomy. 8. . 9. Appendectomy. 10. Left ankle surgery. 11. Recent atrial myxoma resection which the path showed just myxoma. ALLERGIES NO KNOWN ALLERGIES. MEDICATIONS Home meds include: 1. Nicotine patch. 2. Aspirin 81 mg. 3. Morphine extended release 100 q.8h. 4. Oxycodone 30. She takes five x a day. 5. Lyrica. 6. Amitriptyline. 7. Symbicort. 8. Flonase. 9. Protonix. 10. She takes [place] Thyroid. 11. Multivitamin. FAMILY HISTORY Noncontributory. SOCIAL HISTORY She says she quit smoking last month. REVIEW OF SYSTEMS GENERAL: No night sweats, fever, heat and cold intolerance. SKIN: No psoriasis, itching or hives. HEENT: No blurred vision, hearing loss. RESPIRATORY: Positive for shortness of breath, cough. CARDIOVASCULAR: No chest pain. No paroxysmal nocturnal dyspnea. GASTROINTESTINAL: No diarrhea, vomiting. GENITOURINARY: No burning, frequency, urgency. CENTRAL NERVOUS SYSTEM: No history of TIA, CVA, seizure disorder. PHYSICAL EXAMINATION VITAL SIGNS: Blood pressure 102/60, heart rate 70, afebrile. GENERAL: Patient is awake, alert in no acute distress. HEENT: Head is normocephalic and atraumatic. Pupils equal and reactive. Oral mucosa pink, moist. NECK: Supple. No JVD. CARDIOVASCULAR: Heart sounds S1-S2. Regular rate and rhythm. No audible rubs, murmurs or gallops. LUNGS: She has few coarse scattered breath sounds otherwise clear to auscultation, the left worse than the right. No wheezing noted. ABDOMEN: Soft, nontender. No masses or organomegaly. EXTREMITIES: No cyanosis, clubbing or edema. Sternal incision is intact well-approximated sternum is stable. There is no crepitus. LABORATORY FINDINGS Shows urinalysis unremarkable. Hemoglobin now 9.5 and 29. White cell count 7. Platelet count 381. Sodium 138, potassium 3.3, BUN 7, creatinine 0.59, glucose 147, AST 25, ALT 30. Troponin 0.17 down to 0.14. INR 1.2. IMAGING STUDIES As above. IMPRESSION This is a very pleasant 52-year-old female that just recently underwent left atrial myxoma excision with the pathology being myxoma. Surgery was on the . I would continue sternal precautions, pulmonary toileting, to use her incentive spirometry. She in the meantime is being treated for apparently a pneumonia with Zosyn. Continue her antibiotic therapy and she has followup appointment scheduled with us on the . DICTATED BY: VALERIO Rg [place] HMD ASHISH Tobin /5:11 PM /8:03 AM
[2017-05-30] MEDS: REMOVE OLD PATCH T-DERMAL SCH (09:00)
[2017-05-30] MEDS: SODIUM CHLORIDE 0.9% FLUSH 10 ML FLUSH IV FLUSH SCH (09:00)
[2017-05-30] MEDS: MULTIVITAMINS/MINERALS THERAPEUTIC TAB PO SCH (09:42)
[2017-05-30] MEDS: PREGABALIN 75 MG CAP PO SCH (09:42)
[2017-05-30] MEDS: AMITRIPTYLINE HCL 50 MG TAB PO SCH (09:42)
[2017-05-30] MEDS: DOCUSATE SODIUM 50 MG/SENNA 8.6 MG TAB PO SCH (09:42)
[2017-05-30] MEDS: FLUTICASONE PROPIONATE 50 MCG/ACT 16 GM NASAL SPRAY NASAL SCH (09:43)
[2017-05-30] MEDS: BUDESONIDE-FORMOTEROL 160/4.5 MCG INHALER INH SCH (09:43)
[2017-05-30] MEDS: NICOTINE 14 MG/24 HR PATCH T-DERMAL SCH (09:44)
[2017-05-30] MEDS ORDERED: LEVA750T9 PO (09:56)
--- NOTE | 2017-05-30 09:56 | HHI.DCPOC ---
Discharge Care Plan Diagnosis: (1) PNA (pneumonia) Goals to Promote Your Health * To prevent worsening of your condition and complications * To maintain your health at the optimal level Directions to Meet Your Goals Take your medications as prescribed Follow your dietary instruction Follow activity as directed Keep your appointments as scheduled Take your immunizations and boosters as scheduled If your symptoms worsen call your PCP, if no PCP go to Urgent Care Center or Emergency Room Smoking is Dangerous to Your Health. Avoid second hand smoke Call the 24-hour hour crisis hotline for domestic abuse at Bekah Mitchell MD May 30, 2017 09:56
--- NOTE | 2017-05-30 09:58 | HHI.DS ---
Discharge Summary Admission Date May 29, 2017 at 12:19 Discharge Date: May 30, 2017 Admitting Diagnosis Shortness of breath, New Anemia (1) PNA (pneumonia) ICD Code: J18.9 - Pneumonia, unspecified organism Diagnosis: Principal Status: Acute (2) Anemia ICD Code: D64.9 - Anemia, unspecified Diagnosis: Secondary Status: Acute (3) Elevated troponin ICD Code: R74.8 - Abnormal levels of other serum enzymes Diagnosis: Secondary Status: Acute (4) COPD (chronic obstructive pulmonary disease) ICD Code: J44.9 - Chronic obstructive pulmonary disease, unspecified Diagnosis: Secondary Status: Chronic Procedures See hospital course Brief History - From Admission This is a 52-year-old female with a PMH of HTN, COPD, Fibromyalgia, Anxiety, Depression, Chronic Pain and h/o Atrial Myxoma s/p Resection who presented to the ER w/ c/p SOB and cough w/ blood-tinged sputum starting earlier today. Denies fever, chills, chest pain or sick contacts. Recent admit 05/17-05/22/17 for Hemoptysis and COPD, found to have Atrial Myxoma s/p Resection by Dr. Serrano on 05/19/17. Was doing well post-discharge until today when she developed SOB and episode of hemoptysis. On arrival, BP 118/54, HR 84, O2 sat 99% on RA, Temp 99.0. WBC 11.3. Hemoglobin 8.6, previously 11.6 on 05/21/17. Chemistry essentially unremarkable. Troponin 0.17. BNP 390. INR 1.2. UA negative. CXR with cardiomegaly and basilar airspace disease. CTA Pulm negative for PE, infiltrates left worse than right, left pleural effusion, small pericardial effusion. Dr. Clayton consulted by ER physician, no surgical intervention indicated at this time, will eval in am. Hemoccult (-) on exam. C /o left ankle edema, however states chronic. LE Doppler negative for DVT CBC/BMP: 05/29/17 1449 05/30/17 0620 Significant Findings Laboratory Tests Test 05/28/17 20:55 05/28/17 22:00 05/29/17 05:40 05/29/17 14:49 White Blood Count 11.3 TH/MM3 (4.0-11.0) Red Blood Count 2.93 MIL/MM3 (4.00-5.30) 3.24 MIL/MM3 (4.00-5.30) Hemoglobin 8.6 GM/DL (11.6-15.3) 9.5 GM/DL (11.6-15.3) Hematocrit 26.1 % (35.0-46.0) 29.1 % (35.0-46.0) Neutrophils (%) (Auto) 71.5 % (16.0-70.0) 71.4 % (16.0-70.0) Neutrophils # (Auto) 8.1 TH/MM3 (1.8-7.7) Prothrombin Time 13.0 SEC (9.8-11.6) Activated Partial Thromboplast Time 33.7 SEC (24.3-30.1) Random Glucose 119 MG/DL (74-106) 147 MG/DL (74-106) Albumin 2.6 GM/DL (3.4-5.0) 2.4 GM/DL (3.4-5.0) Calcium Level 8.2 MG/DL (8.5-10.1) 8.2 MG/DL (8.5-10.1) Alkaline Phosphatase 145 U/L (45-117) 137 U/L (45-117) Sodium Level 135 MEQ/L (136-145) Troponin I 0.17 NG/ML (0.02-0.05) 0.16 NG/ML (0.02-0.05) 0.14 NG/ML (0.02-0.05) B-Type Natriuretic Peptide 390 PG/ML (0-100) Potassium Level 3.3 MEQ/L (3.5-5.1) Test 05/30/17 06:20 Imaging Last Impressions Lower Extremity Ultrasound 05/28/172015 Signed Impressions: Service Date/Time: Sunday, May 28, 2017 20:30 - CONCLUSION: Normal examination. Trey Lynn MD Chest X-Ray 05/28/172015 Signed Impressions: Service Date/Time: Sunday, May 28, 2017 21:36 - CONCLUSION: Cardiomegaly and basilar airspace disease. Trey Lynn MD CT Angiography 05/28/172015 Signed Impressions: Service Date/Time: Sunday, May 28, 2017 23:26 - CONCLUSION: No evidence of pulmonary embolism. Persistent infiltrates, left worse than right. New left pleural effusion. Small pericardial effusion. Increasing prominence of mediastinal lymph nodes. Popeye Grider MD PE at Discharge GENERAL: Well-developed well-nourished. In no acute distress. SKIN: Warm and dry. Healing midline sternotomy incision. HEENT: Normocephalic. Pupils equal and round. Mucous membranes pink and moist. CARDIOVASCULAR: Regular rate and rhythm. No murmur appreciated. RESPIRATORY: No accessory muscle use. Clear to auscultation. GASTROINTESTINAL: Abdomen soft, non-tender, nondistended. Bowel sounds x4. MUSCULOSKELETAL: No obvious deformities. No clubbing or cyanosis. Left ankle 1 + edema, trace on the right. Pt update on day of discharge Follow-up pneumonia Patient is very anxious to go home. She states she feels a lot better. Denied any shortness of breathing or cough. She remains afebrile. Her nurse is at the bedside during the interview. Hospital Course 52-year-old female with a PMH of HTN, COPD, Fibromyalgia, Anxiety, Depression, Chronic Pain and recent Atrial Myxoma Resection who presented w/ c/p SOB and cough w/ bloody sputum who was found to have a pneumonia which was shown on the CTA of the chest showed persistent infiltrate left worse than right with a new left pleural effusion, small pericardial effusion and increasing prominence of mediastinal lymph nodes. She was treated empirically for hospital-acquired pneumonia with Zosyn and vancomycin but symptoms improved very quickly in less than 1 day. Very unlikely patient had hospital-acquired pneumonia most likely patient had community-acquired pneumonia. She was transitioned to oral Levaquin. Dr. Garcia patient's cardiothoracic surgeon was also consulted and she was cleared from a cardiac perspective. Patient did well during her hospital course. Pt Condition on Discharge: Good Discharge Disposition: Discharge Home Discharge Time: > 30 minutes Discharge Instructions DIET: Follow Instructions for: Heart Healthy Diet Activities you can perform: See Additionl Instruction Other Activity Instructions: Per cardiothoracic surgeon continue sternal precautions, pulmonary toileting, and use incentive spirometry. Follow up Referrals: PCP Follow-up - 1 Week SNF/[facility]/ with [facility] New Medications: Levofloxacin (Levaquin) 750 Mg Tablet 750 MG PO DAILY for Infection, #9 TAB 0 Refills Continued Medications: Amitriptyline (Amitriptyline) 50 Mg Tab 50 MG PO BID for Control Depression, #30 TAB 0 Refills Aspirin (Aspirin Low Strength) 81 Mg Chew 81 MG PO DAILY for Blood Clot Prevention for 90 Days, #100 EA 3 Refills Budesonide-Formoterol Inh (Symbicort Inh) 160-4.5 Mcg/Act Aero 2 PUFF INH Q12HR, #1 INHALER 0 Refills Fluticasone Nasal [place] (Flonase Nasal [place]) 50 Mcg/Act [place] 100 MCG EACH NARE BID for Allergies, #1 BOTTLE 0 Refills Morphine ER (Morphine ER) 100 Mg Tab 100 MG PO Q8H for Pain Management, TAB 0 Refills Multiple Vitamins W/ Minerals (Thera M Plus) 1 Tab 1 TAB PO DAILY for Nutritional Supplement for 90 Days, #90 TAB 3 Refills Nicotine (Eq Nicotine) 14 Mg/24 Hour Dis 1 PATCH T-DERMAL DAILY for Agitation for 30 Days, #30 PATCH 1 Refill Oxycodone (Oxycodone) 30 Mg Tab 30 MG PO FIVE TIMES A DAY, TAB 0 Refills Pantoprazole (Pantoprazole) 40 Mg Tab 40 MG PO DAILY@06 for Prevent Stress Ulcers for 14 Days, #14 TAB 0 Refills Pregabalin (Lyrica) 150 Mg Cap 150 MG PO TID, #90 CAP 0 Refills Thyroid ([place] Thyroid) 120 Mg Tab 120 MG PO DAILY for Thyroid Supplement, #30 TAB 0 Refills Bekah Mitchell MD May 30, 2017 09:58
[2017-05-30] MEDS ORDERED: PNEUMOCOCCAL POLYVALENT INJ 25 MCG/0.5 ML SYR IM ONE (10:00)
[2017-05-30] MEDS ORDERED: INFLUENZA VIRUS VACCINE (QUADRIVALENT) 0.5 ML SYR IM ONE (10:00)
--- NOTE | 2017-05-30 10:08 | HHI.FF ---
Face to Face Verification Diagnosis: (1) Atrial myxoma (2) PNA (pneumonia) (3) COPD (chronic obstructive pulmonary disease) (4) Physical deconditioning (5) Fall (6) Chronic pain Physical Therapy Order: Evaluate and Treat, Improve ambulation, Strength and gait training Home Health Nursing Order: Medical education Signs/symptoms of disease process Wound care and dressing changes I have seen patient Graciela Dolan on 05/30/17. My clinical findings support the need for the requested home health care services because: Ltd mobility - disease progression Patient has SOB Deconditioned w/ increased weakness I certify that my clinical findings support that this patient is homebound because: Post-op weakness Bekah Mitchell MD May 30, 2017 10:08
[2017-05-30] MEDS ORDERED: POTASSIUM CHLORIDE 20 MEQ CONTROLLED RELEASE TAB PO ONE (10:30)
[2017-05-30 12:00] VITALS: BP 92/55; PULSE 78; RESP 18; TEMP 96.5; O2SAT 97
[2017-05-31] MEDS ORDERED: PHARMACY ORDERED LAB ONE (01:45)
== END 2017-05-30 13:19 | disposition home health service (06) | DRG 190 ==
LOC: NEPC 19:00 → NEDA 22:21 → NEPHCDU 23:50 → OBSVTOIN 05-29 12:19 → N06B 05-30 02:00
PROVIDERS: ADMIT Family Medicine; ATTEND Family Medicine
DX: J44.0 Chronic obstructive pulmonary disease with (acute) lower respiratory infection (principal); J18.9 Pneumonia, unspecified organism; J96.10 Chronic respiratory failure, unspecified whether with hypoxia or hypercapnia; J90 Pleural effusion, not elsewhere classified; I31.3 Pericardial effusion (noninflammatory); R04.2 Hemoptysis; D62 Acute posthemorrhagic anemia; M79.7 Fibromyalgia; F32.9 Major depressive disorder, single episode, unspecified; F41.9 Anxiety disorder, unspecified; G89.29 Other chronic pain; Y95 Nosocomial condition; J44.1 Chronic obstructive pulmonary disease with (acute) exacerbation; E03.9 Hypothyroidism, unspecified; I10 Essential (primary) hypertension; K59.09 Other constipation; G62.9 Polyneuropathy, unspecified; M19.90 Unspecified osteoarthritis, unspecified site; R60.0 Localized edema; Z95.1 Presence of aortocoronary bypass graft; Z86.73 Personal history of transient ischemic attack (TIA), and cerebral infarction without residual deficits; Z87.891 Personal history of nicotine dependence
CPT/HCPCS: 71010; 71275; 80053; 81001; 82550; 82565; 83690; 83735; 83880; 84484; 85025; 85610; 85730; 93005; 93971; 94150; 94640; 94664; G0378; J0456; J0696; J2543; J3370; J7050; Q9967

== ENCOUNTER 2017-06-13 09:00 | Inpatient (IN) | payer OTHER, MEDICAID, MEDICARE ==
[~2017-06-13] VITALS: Ht 160 cm; Wt 67.0 kg
[~2017-06-13 09:00] MED LIST changes: -AMIT50TA3 PO; -ARMO120T PO; -ASPI81CH25 PO; -BEDSIDE COMMODE1 MI1; -LYRI150C PO; -MORP1TAB27 PO; -NICO14DI23 T-DERMAL; -PANT40TA3 PO; -THERM PO; -WALKER WHEELS/F1 MIS
[2017-07-25] MEDS ORDERED: LYRI200C PO (09:20)
[2017-07-25] MEDS ORDERED: ARMO180T PO (09:20)
[2017-09-15] MEDS ORDERED: AMIT25TA9 PO (12:03)
[2017-09-15] MEDS ORDERED: MORP1TAB27 PO (12:03)
[2017-09-15] MEDS ORDERED: ASPI1TAB73 PO (12:04)
[2017-09-26] VITALS (8 sets, daily range): BP systolic 87–96; BP diastolic 49–63; PULSE 52–72; RESP 14–18; TEMP 97.4–97.7; O2SAT 93–100
[2017-09-26] MEDS ORDERED: SODIUM CHLORID 0.9% 500 ML IV PRN (05:45)
[2017-09-26] MEDS ORDERED: POVIDONE IODINE 5% (ANTISEPSIS KIT) 4 APPLICATIONS EACH NARE PRN (05:45)
[2017-09-26] MEDS ORDERED: TRANEXAMIC ACID INJ 1,000 MG in SODIUM CHLORIDE 0.9% INJ 100 ML IV SCH (05:45)
[2017-09-26] MEDS ORDERED: CHLORHEXIDINE GLUCONATE 4% SOLN 120 ML BTL TOPICAL SCH (05:45)
[2017-09-26] MEDS ORDERED: LACTATED RINGER'S 1000 ML IV PRN (05:45)
[2017-09-26] MEDS ORDERED: VANCOMYCIN 1000 MG/NS 250 ML (for <70 kg) IV SCH ×2 (05:45)
[2017-09-26] MEDS ORDERED: ceFAZolin 2 GM PREMIX 50 ML IV SCH (05:45)
[2017-09-26] MEDS ORDERED: METOPROLOL TARTRATE 25 MG TAB PO PRN (05:45)
[2017-09-26] MEDS ORDERED: CHLORHEXIDINE GLUCONATE 2 % 1 PACK (2 CLOTHS) TOPICAL PRN (05:45)
[2017-09-26] MEDS ORDERED: GENTAMICIN SULFATE 80 MG/2 ML VIAL ONE (06:06)
[2017-09-26] MEDS ORDERED: VANCOMYCIN 1 GM/200 ML INJ 200 ML IV ONE (06:20)
[2017-09-26] MEDS ORDERED: DEXAMETHASONE SOD PHOS 20 MG/5 ML VIAL ONE (06:24)
[2017-09-26] MEDS ORDERED: DEXAMETHASONE SOD PHOS 20 MG/5 ML VIAL IV PRN (06:30)
[2017-09-26] MEDS ORDERED: CELECOXIB 200 MG CAP PO SCH (06:30)
[2017-09-26] MEDS ORDERED: ACETAMINOPHEN 1000 MG/100 ML 100 ML IV ONE (06:35)
[2017-09-26] MEDS ORDERED: BUPIVACAINE/EPINEPHRINE 0.25% 50 ML VIAL ONE (06:45)
[2017-09-26] MEDS ORDERED: HYDROmorphone HCL PF 2 MG/ML VIAL ONE (07:35)
[2017-09-26] MEDS: EXPAREL PERI-ARTICULAR INJECTION (TOTAL VOL. 60 ML) P-ARTICULR SCH ×2 (08:31)
[2017-09-26] MEDS ORDERED: ACETAMINOPHEN/HYDROcodone 325 MG/7.5 MG TAB PO PRN (08:45)
[2017-09-26] MEDS ORDERED: Post-op Orders (for Pharmacy) XX ONE (08:45)
[2017-09-26] MEDS ORDERED: ACETAMINOPHEN/HYDROcodone 325 MG/10 MG TAB PO PRN (08:45)
[2017-09-26] MEDS ORDERED: KETOROLAC TROMETHAMINE 30 MG/ML (IVP) VIAL IV PUSH SCH (08:45)
[2017-09-26] MEDS ORDERED: NALOXONE HCL 0.4 MG/ML AMP IV PUSH PRN (08:45)
[2017-09-26] MEDS ORDERED: ACETAMINOPHEN/HYDROcodone 325 MG/5 MG TAB PO PRN (08:45)
[2017-09-26] MEDS ORDERED: MORPHINE SULFATE 4 MG/ML INJ IV PUSH PRN (08:45)
--- NOTE | 2017-09-26 08:49 | PD.OP ---
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 Surgeon: Bishop Horton Carrier Operator(s): NAZ Corado PA-C The surgical procedure was assisted by my physician marketing support assistant. My P.A. presence was necessary throughout this case for the manipulation and positioning of the surgical extremity. My P.A. was assisting me throughout the duration of this procedure. The skill set of a physician marketing support assistant was medically necessary to complete this procedure. During the surgical case the surgical endoscopist was working at the back table and the physician marketing support assistant was directly assisting me. Operation and Findings: PLAN OF ACTIVITY Weight bear as tolerated. DRAINS: 7-mm ANA drain. IMPLANTS USED DePuy Corail size [10] collared stem with a size 52 [place] Gription cup, 52 / 32 Altrx poly liner, and a [32+5] ceramic Biolox ceramic head. DETAILS OF PROCEDURE: This patient has a long history of hip pain. Patient was found to have severe osteoarthritis. The patient had radiographic evidence of joint space narrowing with [id number] arthritis and osteophytes around the acetabulum as well as the femoral head. There was also some cystic changes. The patient failed conservative treatment with pain medications, anti-inflammatories, physical therapy, assistive devices including a cane, as well as therapeutic injection of the hip. Patient's hip arthritis was limiting his ability to ambulate and perform activities of daily living. The patient wished to proceed with surgery and informed consent was obtained. Operative site was marked. I discussed both posterior approach and anterior approach with the patient and decision was made for anterior approach. Patient was brought to OR and placed on OR table. IV sedation and general anesthesia was administered by anesthesiologist. Patient positioned on a Teagan table and was given IV antibiotics. Time-out procedure was performed. The hip and thigh were prepped with alcohol followed by Hibiclens. The thigh was draped in the usual sterile fashion. Clean Air Suite was used for this procedure. The procedure began with a 5-inch incision over the anterolateral thigh. Subcutaneous tissue was dissected with Bovie. The fascia over the tensa fasciae latae was incised. Care was taken to avoid injury to the lateral femoral cutaneous nerve. The tensor muscle was retracted laterally. Sartorius was retracted medially. Retractors were now placed. The reflected head of the rectus is now elevated. A capsulotomy was performed over the anterior head capsule. Sutures were placed to help retract the capsule. At this point the femoral head and neck were identified. With soft tissue protected, oscillating saw was used to make a cut through the femoral neck, the femoral head was now removed. At this point attention was turned to preparation of the acetabulum. The labrum was excised. The acetabulum was sequentially reamed up to size [52]. A [place] cup was now placed. Fluoroscopy was used to aid in identification of appropriate version. Cup was fully impacted and found to have excellent fit. Hole eliminator was now placed. The liner was now impacted into the cup. At this point the hip was externally rotated. A hook was placed around the proximal femur. The capsule was released off the lateral and medial femur. The hip was now extended and adducted. Retractors were placed around the proximal femur to allow for exposure. A box osteotome was used to remove the lateral cortex of the femoral neck. A broach was used to help lateralize the prosthesis. Canal finder was used to create a path down the canal. Next, the canal was sequentially broached up to size [10]. This was found to be an excellent fit. Calcar planer was placed. A standard head was placed, and the hip was reduced. The hip was found to have excellent stability with good range of motion. The leg lengths were measured under fluoroscopy and found to be equal compared to preoperatively. Trial broach was removed. The Corail stem was opened. Stem was fully impacted into the proximal femur in appropriate version. The femoral head was placed. The hip was again reduced. Fluoroscopy confirmed excellent alignment of prosthesis. The wound was thoroughly irrigated and capsule was closed with #1 Vicryl. The fascia over the tensor fasciae muscle was closed with #1 Vicryl, subcutaneous tissue was closed with 3-0 Vicryl and the skin was closed with bhaskar and Dermabond skin closure. The capsule layers, muscle, and subcutaneous tissue were injected with a mixture of saline and bupivicaine. Dressings were applied. The patient was transferred to Recovery Room in stable condition. Bishop Horton MD Sep 26, 2017 08:49
[2017-09-26] MEDS: AMITRIPTYLINE HCL 25 MG TAB PO SCH ×3 (09:00→18:02)
--- NOTE | 2017-09-26 09:08 | RADRPT ---
EXAM DATE/TIME: 09/26/2017 07:13 [facility] COMPARISON: No previous studies available for comparison. INDICATIONS : Post-op total right hip arthroplasty. MEDICAL HISTORY : None. SURGICAL HISTORY : None. ENCOUNTER: Initial ACUITY: 1 day PAIN SCORE: Non-responsive. LOCATION: Right HIP. FINDINGS: 3 fluoroscopic views of the right hip demonstrates right hip arthroplasty well-positioned and in manuel sly anatomic alignment. No gross acute bony fractures. CONCLUSION: 1. Right hip arthroplasty in anatomic alignment without significant fracture. Miguel Sprague MD on September 26, 2017 at 9:03 Board Certified Radiologist. This report was verified electronically.
[2017-09-26] MEDS ORDERED: MORPHINE SULFATE 4 MG/ML INJ ONE (09:29)
[2017-09-26] MEDS ORDERED: MIDAZOLAM HCL 2 MG/2 ML VIAL ONE (09:29)
[2017-09-26] MEDS: ASPIRIN 81 MG CHEW TAB CHEW SCH ×2 (10:00→21:00)
[2017-09-26] MEDS: MORPHINE SULFATE 100 MG CONTROLLED RELEASE TAB PO SCH ×3 (10:00→23:13)
[2017-09-26] MEDS: PREGABALIN 100 MG CAP PO SCH ×3 (10:00→17:53)
[2017-09-26] MEDS: LACTATED RINGER'S 1000 ML INJ 1,000 ML IV SCH ×2 (10:00→21:30)
[2017-09-26] MEDS: THYROID 60 MG TAB PO SCH (10:00)
[2017-09-26] MEDS: FLUTICASONE PROPIONATE 50 MCG/ACT 16 GM NASAL SPRAY NASAL SCH ×2 (10:00→21:00)
[2017-09-26] MEDS ORDERED: TRANEXAMIC ACID INJ 1,000 MG in SODIUM CHLORIDE 0.9% INJ 100 ML IV ONE (10:00)
[2017-09-26 10:10] LABS: HEMATOCRIT 31.2 % (35.0-46.0); HEMOGLOBIN 10.1 GM/DL (11.6-15.3)
--- NOTE | 2017-09-26 10:48 | RADRPT ---
EXAM DATE/TIME: 09/26/2017 10:01 [facility] COMPARISON: No previous studies available for comparison. INDICATIONS : Post-op right hip. MEDICAL HISTORY : Chronic obstructive pulmonary disease. Stroke. Hypothyroidism SURGICAL HISTORY : Cardiac surgery, tumor removed. ENCOUNTER: Initial ACUITY: 1 day PAIN SCORE: 0/10 LOCATION: Right Hip. FINDINGS: Right hip replacement is noted with prosthesis in good position. Severe osteoarthritis is noted invol ving the left hip joint. No acute fracture or dislocation is noted. CONCLUSION: Status post right hip replacement with prosthesis in good position. Severe osteoarthr itis involving the left hip. No acute fracture or dislocation. Remberto Adkins MD on September 26, 2017 at 10:44 Board Certified Radiologist. This report was verified electronically.
[2017-09-26] MEDS ORDERED: ROCURONIUM INJ 50 MG/5 ML SYRINGE IV PUSH ONE (12:00)
[2017-09-26] MEDS ORDERED: LIDOCAINE HCL 1% PF 5 ML SYRINGE OTHER ONE (12:00)
[2017-09-26] MEDS ORDERED: PROPOFOL 200 MG/20 ML AMP IV ONE (12:00)
[2017-09-26] MEDS ORDERED: GLYCOPYRROLATE 1 MG/5 ML SYRINGE IV PUSH ONE (12:00)
[2017-09-26] MEDS ORDERED: ONDANSETRON HCL 4 MG/2 ML VIAL IV ONE (12:00)
[2017-09-26] MEDS ORDERED: NEOSTIGMINE 5 MG/5 ML SYRINGE IV PUSH ONE (12:00)
[2017-09-26 12:14] LABS: BICARBONATE 27.4 MEQ/L (21.0-32.0); CALCIUM 8.2 MG/DL (8.5-10.1); CREATININE 0.69 MG/DL (0.50-1.00)
[2017-09-26] MEDS ORDERED: DO NOT ADM ANY ANTICOAGULANT DRUGS PRN (12:30)
[2017-09-26] MEDS: BUDESONIDE-FORMOTEROL 160/4.5 MCG INHALER INH SCH ×2 (14:18→21:00)
--- NOTE | 2017-09-26 16:08 | EKG ---
Date Performed: 09/26/2017 Time Performed: 11:22:22 PTAGE: 52 years EKG: Sinus rhythm WITH SINUS ARRHYTHMIA LEFT ATRIAL ENLARGEMENT ABNORMAL ECG Since the prior tracing, there has been n o significant change PREVIOUS TRACING : 09/26/2017 11.19 DOCTOR: Koby Crawford Interpretating Date/Time 09/26/2017 16:06:30
[2017-09-26] MEDS: CELECOXIB 200 MG CAP PO SCH (21:00)
[2017-09-26] MEDS: ACETAMINOPHEN 1000 MG/100 ML 100 ML IV SCH (21:13)
[2017-09-26] MEDS: VANCOMYCIN INJ 1,000 MG in SODIUM CHLOR 0.9% 250 ML INJ 250 ML IV SCH (21:14)
[2017-09-27] VITALS (13 sets, daily range): BP systolic 89–104; BP diastolic 54–59; PULSE 42–90; RESP 16–17; TEMP 97.8–97.9; O2SAT 96–97
[2017-09-27] MEDS: MORPHINE SULFATE 100 MG CONTROLLED RELEASE TAB PO SCH ×2 (03:32→09:38)
[2017-09-27 05:54] LABS: HEMATOCRIT 24.8 % (35.0-46.0); HEMOGLOBIN 8.3 GM/DL (11.6-15.3)
[2017-09-27] MEDS: THYROID 60 MG TAB PO SCH (06:37)
--- NOTE | 2017-09-27 07:09 | PD.ORT.PN ---
Subjective Subjective Remarks POD 1 s/p Right hip ALFREDO doing well. states no pain in hip. out of bed on own. reports was held due to low heart rate Objective Vitals Vital Signs Date Time Temp Pulse Resp B/P (MAP) Pulse Ox O2 Delivery O2 Flow Rate FiO2 09/27/17 03:00 97.8 44 16 104/59 (74) 97 09/27/17 01:00 50 09/27/17 00:00 48 09/26/17 23:00 52 09/26/17 23:00 97.4 52 14 87/54 (65) 93 09/26/17 22:00 54 09/26/17 21:00 66 09/26/17 20:00 66 09/26/17 19:00 54 09/26/17 19:00 97.7 55 14 96/49 (65) 94 09/26/17 18:46 69 09/26/17 18:01 97.7 60 18 94/63 (73) 100 09/26/17 17:38 72 09/26/17 17:08 98.2 54 16 98/50 (66) 98 Nasal Cannula 3 09/26/17 15:00 52 16 106/58 (74) 98 Nasal Cannula 3 09/26/17 14:00 58 16 108/61 (77) 98 Nasal Cannula 3 09/26/17 14:00 15 09/26/17 13:00 60 18 106/61 (76) 100 Nasal Cannula 3 09/26/17 12:30 55 16 95/56 (69) 100 Nasal Cannula 3 09/26/17 12:00 53 17 109/61 (77) 99 Nasal Cannula 3 09/26/17 11:30 52 15 104/63 (77) 100 Nasal Cannula 3 09/26/17 11:00 54 15 107/63 (78) 100 Nasal Cannula 3 09/26/17 10:55 56 15 106/55 (72) 100 Nasal Cannula 3 09/26/17 10:50 55 15 87/48 (61) 100 Nasal Cannula 3 09/26/17 10:45 58 16 91/53 (66) 100 Nasal Cannula 3 09/26/17 10:30 58 16 137/62 (87) 100 Nasal Cannula 3 09/26/17 10:15 97 17 113/52 (72) 100 Nasal Cannula 3 09/26/17 10:00 61 17 127/71 (89) 100 Nasal Cannula 3 09/26/17 09:45 52 15 115/58 (77) 100 Nasal Cannula 3 09/26/17 09:30 58 15 124/60 (81) 100 Nasal Cannula 3 09/26/17 09:15 98.5 61 14 125/62 (83) 100 Nasal Cannula 3 I/O 09/26/17 09/26/17 09/26/17 09/27/17 09/27/17 09/27/17 07:00 15:00 23:00 07:00 15:00 23:00 Intake Total 1150 ml 1205 ml Output Total 3850 ml Balance -2700 ml 1205 ml Intake Oral 480 ml IV Total 1150 ml 725 ml Output Estimated Blood Loss 850 ml Other 3000 ml Result Diagram: 09/27/17 0504 09/26/17 1150 Imaging Last 24 hours Impressions Hip and Pelvis X-Ray 09/26/17 0842 Signed Impressions: Service Date/Time: Tuesday, September 26, 2017 10:01 - CONCLUSION: Status post right hip replacement with prosthesis in good position. Severe osteoarthritis involving the left hip. No acute fracture or dislocation. Remberto Adkins MD Objective Remarks RLE: dressings clean and dry. intact. NVI. neg rajan Assessment & Plan Assessment and Plan 1) Right Anterior ALFREDO - POD 1 -WBAT -daily dressing changes with [place] beginning POD 2 -plan for DC home today with C if cardiac cleared -f/u with Dr Robles or PA in 2 weeks Arnaud Cook/Gastroenterologist PA Sep 27, 2017 07:09
--- NOTE | 2017-09-27 07:17 | HHI.DS ---
Discharge Summary Admission Date Sep 26, 2017 at 05:18 Discharge Date: Sep 27, 2017 Admitting Diagnosis Right hip avascular necrosis Diagnosis: (1) Avascular necrosis of bone of right hip Diagnosis: Principal ICD Codes: M87.051 - Idiopathic aseptic necrosis of right femur (2) Status post total hip replacement, right Diagnosis: Principal ICD Codes: Z96.641 - Presence of right artificial hip joint Procedures Right anterior total hip arthroplasty CBC/BMP: 09/27/17 0504 09/26/17 1150 Significant Findings Laboratory Tests Test 09/26/17 09:50 09/26/17 11:50 09/27/17 05:04 Hemoglobin 10.1 GM/DL (11.6-15.3) 8.3 GM/DL (11.6-15.3) Hematocrit 31.2 % (35.0-46.0) 24.8 % (35.0-46.0) Random Glucose 111 MG/DL (74-106) Calcium Level 8.2 MG/DL (8.5-10.1) Sodium Level 135 MEQ/L (136-145) PE at Discharge RLE: dressings clean and dry. intact. NVI. neg rajan Hospital Course Patient admitted to the hospital from outpatient setting for elective right total hip arthroplasty. She has significant avascular necrosis of the right hip. She had failed conservative treatment which included activity modification , steroid injections, and anti-inflammatory medications. She tolerated the procedure well. During the procedure and postoperatively, she had cardiac complications with bradycardia. She was admitted to the cardiac floor overnight for monitoring. On postop day 1, the patient reported that she felt great. She denied any pain in her hip. She reports she has been out of bed and ambulating on her own with a walker. She states that she feels as if she is ready to go home. Will plan for discharge home today with home health care assuming she has cardiac clearance. She will remain fully weight-bearing. She will daily dressing changes once home with home health care. She will resume full diet. She will follow-up with us on the office in 2 weeks for repeat exam. Pt Condition on Discharge: Good Discharge Disposition: Disch w/ Home Health Serv Discharge Instructions Diet Instructions: As Tolerated, No Restrictions Activities You Can Perform: Full Weight Bearing Follow up Referrals: Orthopedics - 2 Weeks @ [facility] with RoblesBishop jimenez MD, Trenton Youngs PA/Family Day Care Worker PA Sep 27, 2017 07:17
[2017-09-27] MEDS: VANCOMYCIN INJ 1,000 MG in SODIUM CHLOR 0.9% 250 ML INJ 250 ML IV SCH (07:33)
[2017-09-27] MEDS: ACETAMINOPHEN 1000 MG/100 ML 100 ML IV SCH (08:55)
[2017-09-27] MEDS: PREGABALIN 100 MG CAP PO SCH ×2 (08:56→13:44)
[2017-09-27] MEDS: CELECOXIB 200 MG CAP PO SCH (08:56)
[2017-09-27] MEDS: ASPIRIN 81 MG CHEW TAB CHEW SCH (08:56)
[2017-09-27] MEDS: AMITRIPTYLINE HCL 25 MG TAB PO SCH ×2 (08:57→13:44)
[2017-09-27] MEDS: FLUTICASONE PROPIONATE 50 MCG/ACT 16 GM NASAL SPRAY NASAL SCH (08:57)
[2017-09-27] MEDS: BUDESONIDE-FORMOTEROL 160/4.5 MCG INHALER INH SCH (08:58)
[2017-09-27] MEDS: LACTATED RINGER'S 1000 ML INJ 1,000 ML IV SCH (10:00)
--- NOTE | 2017-09-27 10:31 | HHI.PR ---
Subjective Remarks Feeling better Objective Vital Signs Date Time Temp Pulse Resp B/P (MAP) Pulse Ox O2 Delivery O2 Flow Rate FiO2 09/27/17 10:09 65 09/27/17 10:09 101/54 (70) 09/27/17 09:16 59 09/27/17 08:15 55 09/27/17 08:00 56 09/27/17 07:00 97.9 90 17 89/59 (69) 96 09/27/17 06:00 60 09/27/17 05:00 42 09/27/17 04:00 44 09/27/17 03:00 47 09/27/17 03:00 97.8 44 16 104/59 (74) 97 09/27/17 02:00 46 09/27/17 01:00 50 09/27/17 00:00 48 09/26/17 23:00 52 09/26/17 23:00 97.4 52 14 87/54 (65) 93 09/26/17 22:00 54 09/26/17 21:00 66 09/26/17 20:00 66 09/26/17 19:00 54 09/26/17 19:00 97.7 55 14 96/49 (65) 94 09/26/17 18:46 69 09/26/17 18:01 97.7 60 18 94/63 (73) 100 09/26/17 17:38 72 09/26/17 17:08 98.2 54 16 98/50 (66) 98 Nasal Cannula 3 09/26/17 15:00 52 16 106/58 (74) 98 Nasal Cannula 3 09/26/17 14:00 58 16 108/61 (77) 98 Nasal Cannula 3 09/26/17 14:00 15 09/26/17 13:00 60 18 106/61 (76) 100 Nasal Cannula 3 09/26/17 12:30 55 16 95/56 (69) 100 Nasal Cannula 3 09/26/17 12:00 53 17 109/61 (77) 99 Nasal Cannula 3 09/26/17 11:30 52 15 104/63 (77) 100 Nasal Cannula 3 09/26/17 11:00 54 15 107/63 (78) 100 Nasal Cannula 3 09/26/17 10:55 56 15 106/55 (72) 100 Nasal Cannula 3 09/26/17 10:50 55 15 87/48 (61) 100 Nasal Cannula 3 09/26/17 10:45 58 16 91/53 (66) 100 Nasal Cannula 3 09/26/17 10:30 58 16 137/62 (87) 100 Nasal Cannula 3 I/O 09/26/17 09/26/17 09/26/17 09/27/17 09/27/17 09/27/17 07:00 15:00 23:00 07:00 15:00 23:00 Intake Total 1150 ml 1205 ml 480 ml Output Total 3850 ml 1300 ml Balance -2700 ml 1205 ml -820 ml Intake Oral 480 ml 480 ml IV Total 1150 ml 725 ml Output Urine Total 1300 ml Estimated Blood Loss 850 ml Other 3000 ml Result Diagram: 09/27/17 0504 09/26/17 1150 Imaging Alert, fully oriented Lungs: ventilated Heart: S1, S2 regular Abdomen: soft, no mass Ext: no edema Last Impressions Hip and Pelvis X-Ray 09/26/17 0842 Signed Impressions: Service Date/Time: Tuesday, September 26, 2017 10:01 - CONCLUSION: Status post right hip replacement with prosthesis in good position. Severe osteoarthritis involving the left hip. No acute fracture or dislocation. Remberto Adkins MD Hip X-Ray 09/26/17 0000 Signed Impressions: Service Date/Time: Tuesday, September 26, 2017 07:13 - CONCLUSION: 1. Right hip arthroplasty in anatomic alignment without significant fracture. Miguel Sprague MD Current Medications Medications (Trade) Dose Ordered Sig/Wendy Route Start Time Stop Time Status Last Admin (Lopressor) 25 mg CLINICAL CYTOGENETICS DIRECTOR PRN PO 09/26/17 05:45 09/29/17 05:44 (Betadine 5% Antisepsis Kit) 1 applic CLINICAL CYTOGENETICS DIRECTOR PRN EACH NARE 09/26/17 05:45 09/29/17 05:44 09/26/17 06:15 (Chlorhexidine 2% Cloth) 3 pack CLINICAL CYTOGENETICS DIRECTOR PRN TOPICAL 09/26/17 05:45 09/29/17 05:44 09/26/17 05:35 (Hibiclens 4% Top Soln) 1 applic ONCE TOPICAL 09/26/17 05:45 09/29/17 05:44 Cefazolin Sodium/ Dextrose 50 ml @ 100 mls/hr CLINICAL CYTOGENETICS DIRECTOR IV 09/26/17 05:45 09/29/17 05:44 09/26/17 07:35 Vancomycin HCl 1000 mg/Sodium Chloride 250 ml @ 250 mls/hr CLINICAL CYTOGENETICS DIRECTOR IV 09/26/17 05:45 09/29/17 05:44 09/26/17 06:35 (Kiron 5-325 Mg) 1 tab Q3H PRN PO 09/26/17 08:45 (Kiron 7.5-325 Mg) 1 tab Q3H PRN PO 09/26/17 08:45 (Kiron 10-325 Mg) 1 tab Q3H PRN PO 09/26/17 08:45 (Narcan Inj) 0.4 mg UNSCH PRN IV PUSH 09/26/17 08:45 Lactated Ringer's 1,000 ml @ 80 mls/hr [id number] IV 09/26/17 09:00 09/27/17 10:00 (Morphine Inj) 3 mg Q3H PRN IV PUSH 09/26/17 08:45 (Aspirin Chew) 81 mg BID CHEW 09/26/17 10:00 09/27/17 08:56 (CeleBREX) 200 mg BID PO 09/26/17 21:00 09/27/17 08:56 Acetaminophen 100 ml @ 400 mls/hr Q12H IV 09/26/17 20:00 09/28/17 08:14 09/27/17 08:55 (Elavil) 25 mg TID PO 09/26/17 09:00 09/27/17 08:57 (Symbicort 160-4.5 Mcg Inh) 2 puff Q12HR INH 09/26/17 10:00 09/27/17 08:58 (Oramorph Sr) 100 mg Q8H PO 09/26/17 10:00 09/27/17 09:38 (Lyrica) 200 mg TID PO 09/26/17 10:00 09/27/17 08:56 ([place] Thyroid) 180 mg DAILY@0600 PO 09/26/17 10:00 09/27/17 06:37 (Flonase David Spr) 2 spray BID NASAL 09/26/17 10:00 09/27/17 08:57 (Roxicodone) 30 mg 5 TIMES A DAY PO 09/26/17 10:00 09/27/17 09:37 Miscellaneous Information ALL NURSING DEPARTPR... UNSCH PRN .XX 09/26/17 12:30 09/27/17 12:29 Assessment and Plan Problem List: (1) Bradycardia ICD Codes: R00.1 - Bradycardia, unspecified Plan: Asymptomatic Junctional No need for pacing for now (2) Atrial flutter ICD Codes: I48.92 - Unspecified atrial flutter Plan: In sinus rhythm Amado Aguilar MD Sep 27, 2017 10:31
--- NOTE | 2017-09-27 11:08 | MB ---
cc: AUDIE HUNT HANSCY M.D. DATE OF CONSULTATION 09/26/2017 REASON FOR CONSULTATION Junctional rhythm. HISTORY OF PRESENT ILLNESS Mrs. Dolan is a 52-year-old female with a history of atrial flutter, previous ablation on July 25, 2017. The patient who has a history of junctional rhythm but asymptomatic went for hip surgery. She had severe bradycardia. Blood pressure was adequate. I was consulted for further evaluation and management. The chart was reviewed. The patient was evaluated. ALLERGIES None. SOCIAL HISTORY Currently negative for smoking and drinking. FAMILY HISTORY Noncontributory to her current medical condition. MEDICATIONS 1. Ancef. 2. She was on vancomycin for the surgery. 3. Celebrex. 4. Oxycodone. 5. Lyrica. 6. Thyroid. REVIEW OF SYSTEMS She refers no chest pain or chest discomfort, no dizziness or fever. PHYSICAL EXAMINATION GENERAL: Alert, fully oriented. VITAL SIGNS: Blood pressure on evaluation 108/61, pulse 58, respiratory rate 18. LUNGS: Ventilated. CARDIOVASCULAR: S1, S2. No gallop. No murmur. ABDOMEN: Soft. No mass. No bruit. EXTREMITIES: Immobilization due to surgery. TELEMETRY Telemetry shows a junctional rhythm. LABORATORY Hemoglobin before surgery was 10.1. ASSESSMENT AND RECOMMENDATION Mrs. Dolan has junctional rhythm. She is asymptomatic. Heart rate is in the 50s, blood pressure 90-100. This is normal for the patient. At this point my recommendation is observation. If there is any severe bradyarrhythmia then pacing support will be considered. The case was discussed extensively with the patient. MD LUPIS Parada/NICKOLAS /10:25 AM /10:48 AM
--- NOTE | 2017-09-27 12:55 | HHI.FF ---
Face to Face Verification Diagnosis: (1) Status post total hip replacement, right Physical Therapy Gait training Hip: Total hip, Protocol: Right, Progress to weight bearing Right LE Weight Bearing: WB as tolerated Nursing Dressing Changes: Do not change dressing (for 5 days), Daily dressing change ( begin day 6 with [place] dressings. be careful while removing silver dressings not to remove dermabond tape. ) I have seen patient Graciela Dolan on 09/27/17. My clinical findings support the need for the requested home health care services because: Ltd mobility - disease progression I certify that my clinical findings support that this patient is homebound because: Post-op weakness Arnaud Cook/First Jose G CAI Sep 27, 2017 12:55
== END 2017-09-27 14:58 | disposition home health service (06) | DRG 470 ==
LOC: HSDI 09-26 05:18 → HCIS 09-26 17:30
PROVIDERS: ADMIT Orthopaedic Surgery Orthopaedic Trauma; ATTEND Orthopaedic Surgery Orthopaedic Trauma
PROC: 0SR904A Replacement of Right Hip Joint with Ceramic on Polyethylene Synthetic Substitute, Uncemented, Open Approach (ICD-10-PCS; principal; 2017-09-26 06:43)
DX: M87.9 Osteonecrosis, unspecified (principal); I48.92 Unspecified atrial flutter; M16.11 Unilateral primary osteoarthritis, right hip; J44.9 Chronic obstructive pulmonary disease, unspecified; E03.9 Hypothyroidism, unspecified; F32.9 Major depressive disorder, single episode, unspecified; M79.7 Fibromyalgia; D64.9 Anemia, unspecified; R00.1 Bradycardia, unspecified; Z86.73 Personal history of transient ischemic attack (TIA), and cerebral infarction without residual deficits; F17.210 Nicotine dependence, cigarettes, uncomplicated; G89.4 Chronic pain syndrome
CPT/HCPCS: 73501; 73502; 76000; 80048; 83735; 85014; 85018; 86850; 86900; 86901; 88304; 88305; 88311; 93005; C1776; C9290; J0131; J0690; J1100; J1170; J1580; J2250; J2270; J2405; J2710; J3010; J3370; J7050; J7120

== ENCOUNTER 2017-07-25 08:33 | Day surgery (SDC) | payer OTHER, MEDICAID ==
[2017-07-25] VITALS (7 sets, daily range): BP systolic 101–111; BP diastolic 51–77; PULSE 62–113; RESP 18–20; TEMP 97.5–98.6; O2SAT 95–99
[~2017-07-25] VITALS: Ht 160 cm; Wt 65.3 kg
[~2017-07-25 08:33] MED LIST changes: +AMIT50TA3 PO; +ARMO120T PO; +ASPI81CH25 PO; +LEVA750T9 PO; +LYRI150C PO; +MORP1TAB27 PO; +NICO14DI23 T-DERMAL; +PANT40TA3 PO; +THERM PO
[2017-07-25] MEDS ORDERED: LYRI200C PO (09:20)
[2017-07-25] MEDS ORDERED: ARMO180T PO (09:20)
[2017-07-25] MEDS ORDERED: MORP1CAP PO (09:20)
[2017-07-25] MEDS ORDERED: FURO40TA PO (09:20)
[2017-07-25] MEDS ORDERED: DILT0.05 PO (09:20)
[2017-07-25] MEDS ORDERED: APIX5TAB PO (09:20)
[2017-07-25 09:44] LABS: AUTOMATED NEUTROPHIL # 4.6 TH/MM3 (1.8-7.7); BASOPHIL # 0.1 TH/MM3 (0-0.2); BASOPHIL % 0.8 % (0.0-2.0); EOSINOPHIL # 0.1 TH/MM3 (0-0.4); EOSINOPHIL % 1.9 % (0.0-4.0); HEMATOCRIT 36.9 % (35.0-46.0); HEMO FLAGS DIFF FINAL; LYMPH % 25.3 % (9.0-44.0); LYMPHOCYTE # 1.7 TH/MM3 (1.0-4.8); MEAN CELL VOLUME 86.7 FL (80.0-100.0); MEAN CORPUSCULAR HEMOGLOBIN 28.4 PG (27.0-34.0); MEAN CORPUSCULAR HGB CONC 32.7 % (32.0-36.0); MONO % 6.2 % (0.0-8.0); NEUT % 65.8 % (16.0-70.0); PLATELET COUNT 350 TH/MM3 (150-450); RED BLOOD COUNT 4.26 MIL/MM3 (4.00-5.30); RED CELL DISTRIBUTION WIDTH 15.7 % (11.6-17.2); WHITE BLOOD COUNT 6.9 TH/MM3 (4.0-11.0)
[2017-07-25 09:54] LABS: APTT (PATIENT) 29.8 SEC (24.3-30.1); INTERNATIONAL NORMALIZED RATIO 1.2 RATIO; PROTHROMBIN TIME - PATIENT 12.1 SEC (9.8-11.6)
[2017-07-25 10:11] LABS: BICARBONATE 30.5 MEQ/L (21.0-32.0)
[2017-07-25] MEDS ORDERED: HEPARIN-NS/PF INJ 1,000 ML ONE (11:10)
[2017-07-25] MEDS ORDERED: KETAMINE HCL 500 MG/5 ML VIAL ONE (11:17)
[2017-07-25] MEDS ORDERED: ISOPROTERENOL HCL 1 MG/5 ML AMP ONE (11:44)
--- NOTE | 2017-07-25 12:15 | CATHPROC ---
Sequence HIS Report Study Information Study Number Admission Scheduled Start Study Start [id number] Jul 25 2017 8:33AM 07/25/2017 Jul 25 2017 10:37AM [place] [facility] Electrophysiology Study Admit Source Facility Department Other [facility] - Lay Out Machine Operator Physician and Clinical Staff Initial Amado Patiño Brick Off Bearer HeberDemi,RT(R) TECH2 Brick Off Bearer Marbin Fong,RT(R) Other Anesthesia, PREPARER MAKING DEPARTMENT Recorder Georgiana Leon,YELENA Recorder Yvonne Dumont BSRJori Recorder So Hannon,YELENA Scrub Estella Centeno,LOU Procedures Performed Procedure Location (Site) Vessel Name Ablation Procedure RF Ablation Isthmus Other Equipment Time [employer] Supervisor Description Size Mfg Part Number Used/Scraped BIOSENSE BEYER CATHETER, NAVISTAR 8MM F- [id number] 11:15 8MM Used INC. CURVE *[id number] 10:38 [employer] INDUSTRIES PACK, CCL CUSTOM * Used *[id number] 10:38 [employer] PACER PEARCE, LIMB * 2530 *[id number] Used [id number] 11:35 NAMIC TUBING, HIGH PRESSURE 48" 48" Used *[id number] 10:38 [employer] BL[employer]ET,WARM AIR CCL * Used *[id number] 11:17 [employer] MED[employer] CATHETER, JSN, QUAD FR 5 Used *[id number] 11:17 [employer] MEDICAL CATHETER, JSN, QUAD FR 5 Used *[id number] 042705 11:17 [employer] MEDICAL CATHETER, JSN, QUAD FR 5 Used *[id number] 098667 11:17 [employer] MEDICAL CATHETER, JSN, QUAD FR 5 Used *[id number] 10:38 [employer] MEDICAL ELECTRODE KIT, FEI X SURFACE * Used *[id number] 937271 11:17 [employer] MED[employer] SHEATH, EPS, FR5 FAST CATH FR 5 Used *[id number] 11:17 [employer] MED[employer] SHEATH, EPS, FR5 FAST CATH FR 5 Used *[id number] [id number] 11:17 [employer] MEDICAL SHEATH, EPS, FR5 FAST CATH FR 5 Used *[id number] 260678 11:17 [employer] MEDICAL SHEATH, EPS, FR6 FAST CATH FR 6 Used *[id number] 901509 11:17 [employer] MEDICAL SHEATH, EPS, FR8 FAST CATH FR 8 Used *[id number] 053742 11:26 [employer] MEDICAL SHEATH, EPS, FR8 FAST CATH FR 8 Used *[id number] [facility] PAD, ELECTROSURGICAL 10:38 * [id number] *[id number] Used SURGICAL GROUNDING (BLUE) History: Current Medications Medication Dosage/Unit Route Frequency Last Date/Time Taken ASA ELIQUIS CARDIZEM History: Allergies Allergy Reaction No Known Allergies History: Risk Factors Hypertension Yes Cerebrovascular Chronic Lung Disease Disease Labs Hgb (g/dl) Hct (%) RBC (MIL/MM3) WBC (l/cumm) Platelets (thousands) 11.60-17.00 35.00-51.00 4.00-5.90 4.00-11.00 150.00-450.00 12.1 36.9 4.2 6.9 350 Glucose (mg/dl) BUN (mg/dl) Creatinine (mg/dl) BUN:Creatinine (1:x) 74.00-106.00 7.00-18.00 0.50-1.30 10.00-20.00 80 5 0.5 10 Na (meq/l) K (meq/l) Cl (meq/l) CO2 (mmol/L) Ca (mg/dl) 136.00-145.00 3.50-5.10 98.00-107.00 21.00-32.00 8.50-10.10 137 4 100 30.5 8.9 PT (sec) PTT (sec) INR (PTT:PT) 9.80-11.60 24.30-30.10 0.90-1.10 12.1 29.8 1.2 Medication Medication Total Dose (Bolus/Oral) Medication Total Dosage/Unit 1% XYLOCAINE 40 mL Medications (Bolus/Oral) Medication Time Given Dosage/Unit Administered By Reason 1% XYLOCAINE 07/25/2017 11:30:01 AM 20 mL Amado Aguilar 20 mL 1% XYLOCAINE given in lab by Amado Aguilar in Left Groin via Subcutaneous. Ordered by Maxi Aguilar. 1% XYLOCAINE 07/25/2017 11:32:26 AM 20 mL Amado Aguilar 20 mL 1% XYLOCAINE given in lab by Amado Aguilar in Right Groin via Subcutaneous. Ordered by Loida Aguilar. Medication (Drip) Medication Time Given Dosage/Unit Concentration/Unit Diluent (ml) Solution ISUPREL 07/25/2017 12:00:35 PM 5 mcg/min 1 mg 250 NaCl .9 5 mcg/min ISUPREL given in lab by Anesthesia, PREPARER MAKING DEPARTMENT in Right Groin via Peripheral IV. Pump/Drip Flow = 75 ml/hr using NaCl .9 with a concentration of 1 mg in 250 ml. Ordered by Amado Aguilar. IV Solutions 07/25/2017 10:57:22 AM 0 mL (IV) NaCl .9 IV Solutions given in lab by Anesthesia, PREPARER MAKING DEPARTMENT in Right Hand via Peripheral IV. Pump/Drip Flow = 50 ml /hr using NaCl .9. Ordered by Amado Aguilar. Reason: As per physicians verbal order. Initial Case Assessment Cardiovascular HR NIBP Chest Pain 107 109/76 0 Edema Present Skin color Skin None Normal Warm Dry Circulatory - Right Pulses Dorsalis Pedis 1 Scale (0,1,2,3,4,d) Circulatory - Left Pulses Dorsalis Pedis 1 Scale (0,1,2,3,4,d) Circulatory - Lower Extremities Color Lower Right Color Lower Left Normal Normal Neurological State Oriented to time-place- Alert Moves all extremities person Respiration - General Respiration Rate SpO2 (%) (B/min) 18 100 Final Case Assessment Cardiovascular HR Rhythm NIBP 100 Reg 110/56 Edema Present Skin color Skin None Normal Warm Dry Circulatory - Right Pulses Dorsalis Pedis 1 Scale (0,1,2,3,4,d) Circulatory - Left Pulses Dorsalis Pedis 1 Scale (0,1,2,3,4,d) Circulatory - Lower Extremities Color Lower Right Color Lower Left Normal Normal Neurological State Oriented to time-place- Lethargic Moves all extremities person Respiration - General Respiration Rate SpO2 (%) (B/min) 20 99 Chronological Log Time Study Chronological Log 10:54:41 Patient arrived via Bed. 10:54:44 Patient Name, D.O.B, / Armband Verified By R.N. 10:54:49 Consent signed by the physician and the patient and verified by the Lay Out Machine Operator staff. 10:55:07 History and physical on the chart. 10:56:28 Pre-op and post- op instructions given; patient acknowledges understanding of instructions. 10:56:31 Verbal Stimulation=2 Physical Stimulation=2 Airway=2 Respiration=2 TOTAL=10. (0=absent, 1=l imited, 2=present) 10:56:46 Presedation assessment performed by Lay Out Machine Operator RN. 10:56:49 Patient has been NPO for More than 6Hrs. 10:56:53 Skin Breakdown- none 10:57:03 Patient Warmer Placed on the Table. 10:57:07 Disposable Defibrillator Pads Placed On Patient. 10:57:09 Lupe Prominences Protected 10:57:13 A # 22 IV was noted in the Hand (right). Grade = 0 0.9% NACL at KVO. IV Solutions given in lab by Anesthesia, PREPARER MAKING DEPARTMENT in Right Hand via Peripheral IV. Pump/Drip Flow = 50 ml/hr using NaCl 10:57:22 .9. Ordered by Amado Aguilar. Reason: As per physicians verbal order. Assessment: Initial Case, XI=446 BPM, WESP=170/76 mmhg, Chest Pain=0, Edema=None, Color=Normal, Skin = Warm, Dry Right Pulses: Jose Ped=1 Left Pulses: Jose Ped=1 10:57:51 Lower Right Extremities: Color=Normal Lower Left Extremities: Color=Normal Neurological: State=Alert, Ox3, FISCHER Respiration: Resp=18 B/min, HpZ0=356 % 11:07:47 Reference ECG taken 11:21:55 Right groin prepped with 2% chlorhexidine, and draped after a 3 min. waiting time. 11:21:58 Left groin prepped with 2% chlorhexidine, and draped after a 3 min. waiting time. 11:26:39 MD arrived. Time Out. Correct patient, procedure, procedure equipment, site and side verified with physicia n present. Time 11:28:13 concurred by MD, individual staff and PREPARER MAKING DEPARTMENT. Time Out #2 - Consents verified, patient in correct position, all results are labled and displa yed, safety precautions 11:29:21 taken, antibiotics administered. Time out concurred by MD, individual staff and PREPARER MAKING DEPARTMENT in procedu re 11:29:32 Case Start 11:30:01 20 mL 1% XYLOCAINE given in lab by Amado Aguilar in Left Groin via Subcutaneous. Ordered by Amado Aguilar. 11:30:22 Vascular access was obtained in the Fem Vein (left). 11:30:25 Vascular access was obtained in the Fem Vein (left). 11:30:26 Vascular access was obtained in the Fem Vein (left). 11:31:20 A SHEATH, EPS, FR5 FAST CATH FR 5 was advanced into the Fem Vein (left) using the Modified Seldinger technique. 11:31:51 A SHEATH, EPS, FR5 FAST CATH FR 5 was advanced into the Fem Vein (left) using the Modified Seldinger technique. 11:32:01 A SHEATH, EPS, FR5 FAST CATH FR 5 was advanced into the Fem Art (right) using the Modified Seldinger technique. 11:32:26 20 mL 1% XYLOCAINE given in lab by Amado Aguilar in Right Groin via Subcutaneous. Ordered b y Amado Aguliar. 11:32:34 Vascular access was obtained in the Fem Vein (right). 11:32:39 Vascular access was obtained in the Fem Vein (right). 11:32:41 Vascular access was obtained in the Fem Vein (right). 11:32:47 A SHEATH, EPS, FR6 FAST CATH FR 6 was advanced into the Fem Vein (right) using the Modified Seldinger technique. 11:33:02 A SHEATH, EPS, FR8 FAST CATH FR 8 was advanced into the Fem Vein (right) using the Modified Seldinger technique. A SHEATH, EPS, FR8 FAST CATH FR 8 was advanced into the Fem Vein (right) using the Modified Urmila edouard technique 11:33:13 for anesthesia venous access. 0.9% NACL at kvo. A CATHETER, JSN, QUAD FR 5 was advanced vis Fem Vein (right) and placed in the HIS. Placement w as visually 11:37:31 confirmed under fluoroscopy. A CATHETER, JSN, QUAD FR 5 was advanced vis Fem Vein (right) and placed in the CS. Placement wa s visually 11:37:34 confirmed under fluoroscopy. A CATHETER, JSN, QUAD FR 5 was advanced vis Fem Vein (right) and placed in the RVA. Placement w as visually 11:37:35 confirmed under fluoroscopy. A CATHETER, JSN, QUAD FR 5 was advanced vis Fem Vein (right) and placed in the HRA. Placement w as visually 11:37:37 confirmed under fluoroscopy. A CATHETER, NAVISTAR 8MM F-CURVE 8MM was advanced vis Fem Vein (right) and placed in the Isthmu s. Placement 11:38:13 was visually confirmed under fluoroscopy. 11:40:51 RF Ablation of the Isthmus with a CATHETER, NAVISTAR 8MM F-CURVE 8MM. 11:42:03 Ablation in progress. 11:47:40 EP study in progress. 11:49:25 Rhythm switched to NSR. 11:50:53 Rhythm back to aflutter. Ablation resumed. 5 mcg/min ISUPREL given in lab by Anesthesia, PREPARER MAKING DEPARTMENT in Right Groin via Peripheral IV. Pump/Drip Flow = 75 ml/hr 12:00:35 using NaCl .9 with a concentration of 1 mg in 250 ml. Ordered by Amado Aguilar. 12:09:47 Isuprel stopped. EP study complete. 12:09:52 Ablation procedure performed: Aflutter. 12:10:01 EP Procedure was performed. 12:10:10 Catheter(s) removed without difficulty 12:10:15 Sheath(s) left in place, will be removed in Holding Area 12:10:23 Sterile dressing applied to site 12:10:28 No case complications noted. 12:10:32 Cine recording checked. 12:10:34 Holding Area notified of successful intervention. 12:10:38 Bedside Report will be given. 12:10:46 Defibrillator and ground pads removed. Skin intact. Assessment: Final Case, LM=767 BPM, Rhythm=Reg, KYBP=920/56 mmhg, Edema=None, Color=Normal, Sk in = Warm, Dry Right Pulses: Jose Ped=1 Left Pulses: Jose Ped=1 12:10:52 Lower Right Extremities: Color=Normal Lower Left Extremities: Color=Normal Neurological: State=Lethargic, Ox3, FISCHER Respiration: Resp=20 B/min, SpO2=99 % 12:11:43 Case End 12:13:05 DOCU called. Spoke to Catherine. 12:30:00 Patient moved to [facility] and transported to DOCU in stable condition. End Study - Contrast Media Used In Study Contrast Total Opened (mL) Total Used (mL) Total Wasted (mL) Unspecified 0 0 0 End Study - Maximum Contrast Load Max Contrast Load (mL) 654.1 End Study - Radiation Exposure Fluoro Time (minutes) 4.8 End Study - Patient Disposition Complications Transferred To Interventional Outcome No Telemetry Bed successful
[2017-07-25] MEDS ORDERED: METOCLOPRAMIDE HCL 10 MG/2 ML VIAL IV PUSH PRN (12:30)
[2017-07-25] MEDS ORDERED: oxyCODONE/ACETAMINOPHEN 5 MG/325 MG TAB PO PRN (12:30)
--- NOTE | 2017-07-25 12:32 | PD.CARD ---
Atrial Flutter PROCEDURE DATE: Jul 25, 2017 PROCEDURE PERFORMED Electrophysiology study, CS cannulation, 3-D mapping, radiofrequency ablation of atrial flutter, repeat electrophysiology study on Isuprel infusion. INDICATIONS FOR PROCEDURE Ms. Dolna is a 52-year-old female with history of cardiac myxoma resection, atrial flutter, on anticoagulation admits for electrophysiology study and ablation. The risks, the nature and the benefit of the procedure are clearly stated to her. The risks include pneumothorax, cardiac perforation, stroke and even . The patient understood and agreed to proceed. PROCEDURE After written informed consent was obtained, the patient was brought to the EP lab where she was prepped and draped in the usual sterile fashion. Conscious sedation was initiated and maintained throughout the procedure by the anesthesiologist. Once sedation was verified, the left and right inguinal area was anesthetized with 2% Xylocaine. Using modified Seldinger technique, the left femoral vein was cannulated on three occasions, three guidewires were advanced over the wire. Three 5-Qatari Hemaquets were advanced. Then the right femoral vein was cannulated on two occasions; two guidewire were advanced over the wire. A 6 and an 8-Qatari Hemaquet were advanced. Then under fluoroscopic guidance through the 5-Qatari Hemaquet, four 5-Qatari Ravindra curved quadripolar electrophysiology catheters were advanced and placed and the His, upper right atrium, coronary sinus and right ventricular apex. Basic interval was measured. The patient was in atrial flutter. Cycle length was around 280 milliseconds. Then through the 8-Qatari Hemaquet, a Cordis Melgar 8-mm F-curved mapping and radiofrequency ablation catheter was advanced. Using Carto XT mapping system, a three-dimensional configuration of the right atrium was obtained. Points were taken at the SVC, IVC, TV6, CS and His. Then the catheter was placed at the critical isthmus. Radiofrequency energy was delivered. Cycle length prolonged, subsequently converted into sinus rhythm. Further burn was delivered in the area. Then atrial pacing protocol was repeated. Atrial flutter was induced. It was mapped and entrained. Ablation was performed. Patient converted back into sinus rhythm. Then atrial pacing protocol was reaped again at the CS. No tachycardia was induced Then Isuprel infusion was initiated. No tachyarrhythmia was induced. At that point the procedure was complete. All catheters were removed. The patient is going to be transferred to the recovery room. That was a very difficult case. The patient unable to tolerate flat bed. Blood loss minimal. 1. Electrocardiogram: At baseline the patient was in atrial flutter. Postprocedure the patient is in sinus rhythm. 2. Basic Interval: Base cycle length was around 680 milliseconds. Post- ablation it was around 1100 seconds. AH, was around 68, HV was around 40 milliseconds. 3. Atrial Pacing Protocol: No tachyarrhythmia was induced post ablation. 4. Tachyarrhythmia: Atrial flutter was mapped and ablated. Ablation was successful. CONCLUSION Successful electrophysiology study, mapping, radiofrequency of atrial flutter. COMMENT AND RECOMMENDATIONS The patient is going to be transferred to the recovery room. She will be observed, when stable can be discharged home. Amado Aguilar MD Jul 25, 2017 12:32
[2017-07-25] MEDS: PREGABALIN 100 MG CAP PO SCH ×2 (13:00→17:51)
[2017-07-25] MEDS ORDERED: ONDANSETRON HCL 4 MG/2 ML VIAL IV PUSH PRN (13:30)
[2017-07-25] MEDS ORDERED: LIDOCAINE HCL 1% 50 ML VIAL INFIL PRN (13:30)
[2017-07-25] MEDS ORDERED: SODIUM CHLOR 0.9% 250 ML INJ 250 ML IV PRN (13:30)
[2017-07-25] MEDS ORDERED: ATROPINE SULFATE 1 MG/ML VIAL IV PUSH PRN (13:30)
[2017-07-25] MEDS ORDERED: BACITRACIN OINT 0.9 GM PKT TOP ONE (13:30)
[2017-07-25] MEDS ORDERED: LORazepam 2 MG/ML VIAL IV PUSH PRN (13:30)
[2017-07-25] MEDS ORDERED: DO NOT ADM ANY ANTICOAGULANT DRUGS PRN (15:15)
[2017-07-25] MEDS ORDERED: MORPHINE SULFATE 60 MG CONTROLLED RELEASE TAB PO ONE (19:00)
[2017-07-25] MEDS: FLUTICASONE PROPIONATE 50 MCG/ACT 16 GM NASAL SPRAY EACH NARE SCH (21:00)
[2017-07-25] MEDS: BUDESONIDE-FORMOTEROL 160/4.5 MCG INHALER INH SCH (21:00)
[2017-07-25] MEDS: APIXABAN 5 MG TABLET PO SCH (21:11)
--- NOTE | 2017-07-25 21:44 | EKG ---
Date Performed: 07/25/2017 Time Performed: 16:25:46 PTAGE: 52 years EKG: Sinus arrhythmia. Septal T wave changes are nonspecific Borderline ECG PREVIOUS TRACING : 07/25/2017 09.47 Compared to the previous tracing atrial flutter no longer p resent DOCTOR: Akila Hays Interpretating Date/Time 07/25/2017 21:42:36
[2017-07-25] MEDS: oxyCODONE/ACETAMINOPHEN 5 MG/325 MG TAB PO PRN (22:19)
--- NOTE | 2017-07-25 22:27 | EKG ---
Date Performed: 07/25/2017 Time Performed: 09:47:48 PTAGE: 52 years EKG: Atrial flutter with block Possible septal infarct - age undetermined Abnormal ECG PREVIOUS TRACING : 05/28/2017 20.11 Compared to the previous tracing a flutter now present DOCTOR: Akila Hays Interpretating Date/Time 07/25/2017 22:26:30
[2017-07-26] VITALS (9 sets, daily range): BP systolic 95–101; BP diastolic 58–68; PULSE 55–64; RESP 14–20; TEMP 98.1–98.5; O2SAT 96–98
[2017-07-26 05:29] LABS: APTT (PATIENT) 30.5 SEC (24.3-30.1); INTERNATIONAL NORMALIZED RATIO 1.3 RATIO; PROTHROMBIN TIME - PATIENT 12.7 SEC (9.8-11.6)
[2017-07-26] MEDS: oxyCODONE/ACETAMINOPHEN 5 MG/325 MG TAB PO PRN (08:21)
[2017-07-26] MEDS ORDERED: THYROID 60 MG TAB PO SCH (09:00)
[2017-07-26] MEDS: BUDESONIDE-FORMOTEROL 160/4.5 MCG INHALER INH SCH (09:00)
[2017-07-26] MEDS ORDERED: FUROSEMIDE 40 MG TAB PO SCH (09:00)
[2017-07-26] MEDS ORDERED: DILTIAZEM-CD 180 MG CAP ER PO SCH (09:00)
[2017-07-26] MEDS ORDERED: MORPHINE PO SCH (09:00)
[2017-07-26] MEDS: FLUTICASONE PROPIONATE 50 MCG/ACT 16 GM NASAL SPRAY EACH NARE SCH (09:00)
--- NOTE | 2017-07-26 09:35 | PD.CARD.PN ---
Subjective Subjective Remarks Feels okay. Objective Medications Current Medications Medications (Trade) Dose Ordered Sig/Wendy Route Start Time Stop Time Status Last Admin (Percocet 5-325 Mg) 1 tab Q4H PRN PO 07/25/17 12:30 (Percocet 5-325 Mg) 2 tab Q4H PRN PO 07/25/17 12:30 07/26/17 08:21 (Ativan Inj) 0.5 mg UNSCH PRN IV PUSH 07/25/17 13:30 07/26/17 13:29 (Atropine Inj) 0.5 mg UNSCH PRN IV PUSH 07/25/17 13:30 Sodium Chloride 250 ml @ 500 mls/hr ONCE PRN IV 07/25/17 13:30 07/26/17 13:29 (Reglan Inj) 10 mg Q4H PRN IV PUSH 07/25/17 12:30 (Zofran Inj) 4 mg Q4H PRN IV PUSH 07/25/17 13:30 (Xylocaine 1% Inj (50 ml)) 10 ml UNSCH PRN INFIL 07/25/17 13:30 07/26/17 13:29 (Eliquis) 5 mg BID PO 07/25/17 21:00 07/25/17 21:11 (Symbicort 160-4.5 Mcg Inh) 2 puff Q12HR INH 07/25/17 21:00 (Cardizem Cd) 180 mg DAILY PO 07/26/17 09:00 (Lasix) 20 mg DAILY PO 07/26/17 09:00 (Lyrica) 200 mg TID PO 07/25/17 13:00 07/25/17 17:51 (Jasper Thyroid) 180 mg DAILY PO 07/26/17 09:00 (Flonase David Spr) 2 spray BID EACH NARE 07/25/17 21:00 Patient Own Medication PT OWN MED: 50MG BY MO... DAILY PO 07/26/17 09:00 Future Hold (Roxicodone) 30 mg 5 TIMES A DAY PO 07/25/17 14:00 07/25/17 21:11 Miscellaneous Information ALL NURSING DEPARTME... UNSCH PRN .XX 07/25/17 15:15 07/26/17 15:14 Vital Signs / I&O Vital Signs Date Time Temp Pulse Resp B/P (MAP) Pulse Ox O2 Delivery O2 Flow Rate FiO2 07/26/17 07:00 55 07/26/17 07:00 98.1 64 14 95/58 (70) 98 07/26/17 07:00 Room Air 07/26/17 06:00 56 07/26/17 05:00 56 07/26/17 04:00 58 07/26/17 04:00 98.4 57 20 101/68 (79) 96 07/26/17 04:00 Room Air 07/26/17 03:00 62 07/26/17 02:00 58 07/26/17 01:00 60 07/26/17 00:00 63 07/26/17 00:00 Room Air 07/26/17 00:00 98.5 61 20 100/65 (77) 96 07/25/17 23:19 20 07/25/17 23:00 62 07/25/17 22:11 20 07/25/17 22:00 66 07/25/17 21:00 68 07/25/17 20:19 20 07/25/17 20:00 98.6 113 20 101/56 (71) 95 07/25/17 20:00 66 07/25/17 20:00 Room Air 07/25/17 19:00 68 07/25/17 16:45 98.6 67 18 101/51 (68) 99 07/25/17 13:06 97 Room Air I/O 07/25/17 07/25/17 07/25/17 07/26/17 07/26/17 07/26/17 07:00 15:00 23:00 07:00 15:00 23:00 Intake Total 240 ml 250 ml Output Total 350 ml Balance -110 ml 250 ml Intake Oral 240 ml 250 ml Output Urine Total 350 ml # Voids 1 2 Physical Exam GENERAL: Well-nourished, well-developed patient. SKIN: Warm and dry. Groin sites soft without bruising or bleeding. HEAD: Normocephalic. EYES: No scleral icterus. No injection or drainage. NECK: Supple, trachea midline. No JVD or lymphadenopathy. CARDIOVASCULAR: Regular rate and rhythm without murmurs, gallops, or rubs. RESPIRATORY: Breath sounds equal bilaterally. No accessory muscle use. GASTROINTESTINAL: Abdomen soft, non-tender, nondistended. EXTREMITIES: No cyanosis, or edema. NEUROLOGICAL: Awake, alert, and oriented x 3. Non-focal. Laboratory Laboratory Tests Test 07/26/17 04:47 Prothrombin Time 12.7 SEC Prothromb Time International Ratio 1.3 RATIO Activated Partial Thromboplast Time 30.5 SEC Assessment and Plan Problem List: (1) Atrial flutter ICD Codes: I48.92 - Unspecified atrial flutter Plan: Normal sinus rhythm on telemetry. Resume home medications. (2) S/P ablation of atrial flutter ICD Codes: Z98.890 - Other specified postprocedural states; Z86.79 - Personal history of other diseases of the circulatory system Plan: Groin sites stable. Discharge home. Follow-up with Dr. Aguilar in 3 weeks per my discussion with him. Problem Qualifiers (1) Atrial flutter: Qualified Codes: I48.92 - Unspecified atrial flutter Kayleen Dawkins Jul 26, 2017 09:35
[2017-07-26] MEDS: APIXABAN 5 MG TABLET PO SCH (10:02)
[2017-07-26] MEDS: PREGABALIN 100 MG CAP PO SCH (10:03)
--- NOTE | 2017-07-26 10:10 | EKG ---
Date Performed: 07/26/2017 Time Performed: 04:55:18 PTAGE: 52 years EKG: Junctional rhythm Low QRS voltages in limb leads Abnormal ECG PREVIOUS TRACING : 07/25/2017 16.25 Compared to the previous tracing junctional rhythm now pres ent DOCTOR: Akila Hays Interpretating Date/Time 07/26/2017 10:10:04
== END 2017-07-26 11:20 | disposition home or self-care (01) ==
LOC: HDOC 08:33 → HDIC 08:34 → HCIS 17:06 → HDOC 07-26 11:20
PROVIDERS: ATTEND Internal Medicine Interventional Cardiology
DX: I48.92 Unspecified atrial flutter (principal); D15.1 Benign neoplasm of heart; J44.9 Chronic obstructive pulmonary disease, unspecified; I10 Essential (primary) hypertension; R94.31 Abnormal electrocardiogram [ECG] [EKG]; Z79.01 Long term (current) use of anticoagulants
CPT/HCPCS: 00537; 80048; 85025; 85610; 85730; 86850; 86900; 86901; 93005; 93613; 93623; 93653; C1730; C1732; C2630; J1644

== ENCOUNTER → 2017-09-15 | Outpatient (CLI) | payer OTHER, MEDICAID ==
[~2017-09-15] MED LIST changes: +AMIT25TA9 PO; -AMIT50TA3 PO; +APIX5TAB PO; -ARMO120T PO; +ARMO180T PO; +ASPI1TAB73 PO; -ASPI81CH25 PO; +DILT0.05 PO; +FURO40TA PO; -LEVA750T9 PO; -LYRI150C PO; +LYRI200C PO; +MORP1CAP PO; -NICO14DI23 T-DERMAL; -PANT40TA3 PO; -THERM PO
== END ==
LOC: CPRE 11:40
PROVIDERS: ATTEND Orthopaedic Surgery Orthopaedic Trauma
DX: Z01.818 Encounter for other preprocedural examination (principal); Z01.810 Encounter for preprocedural cardiovascular examination; Z01.811 Encounter for preprocedural respiratory examination; Z01.812 Encounter for preprocedural laboratory examination; Z96.60 Presence of unspecified orthopedic joint implant; Z79.01 Long term (current) use of anticoagulants; Z13.9 Encounter for screening, unspecified; M79.609 Pain in unspecified limb

== ENCOUNTER 2017-09-22 16:45 | Emergency (ER) | payer OTHER, MEDICAID ==
[~2017-09-22 16:45] MED LIST changes: -APIX5TAB PO; -DILT0.05 PO; -FURO40TA PO; -MORP1CAP PO
[2017-09-22 17:00] VITALS: O2SAT 94
[2017-09-22] MEDS ORDERED: SODIUM CHLORIDE 0.9% FLUSH 10 ML FLUSH IVF PRN (17:00)
[2017-09-22 17:07] LABS: BASOPHIL # 0.4 TH/MM3 (0-0.2); BASOPHIL % 2.6 % (0.0-2.0); EOSINOPHIL % 0.1 % (0.0-4.0); HEMATOCRIT 38.6 % (35.0-46.0); HEMOGLOBIN 12.6 GM/DL (11.6-15.3); LYMPH % 8.3 % (9.0-44.0); LYMPHOCYTE # 1.4 TH/MM3 (1.0-4.8); MEAN CELL VOLUME 84.7 FL (80.0-100.0); MEAN CORPUSCULAR HEMOGLOBIN 27.5 PG (27.0-34.0); MEAN CORPUSCULAR HGB CONC 32.5 % (32.0-36.0); MEAN PLATELET VOLUME 7.1 FL (7.0-11.0); MONO % 3.6 % (0.0-8.0); MONOCYTE # 0.6 TH/MM3 (0-0.9); NEUT % 85.4 % (16.0-70.0); PLATELET COUNT 329 TH/MM3 (150-450); RED BLOOD COUNT 4.56 MIL/MM3 (4.00-5.30); RED CELL DISTRIBUTION WIDTH 14.1 % (11.6-17.2); WHITE BLOOD COUNT 16.4 TH/MM3 (4.0-11.0)
[2017-09-22 17:17] LABS: CHLORIDE 99 MEQ/L (98-107); SODIUM (NA) 133 MEQ/L (136-145)
--- NOTE | 2017-09-22 17:18 | RADRPT ---
EXAM DATE/TIME: 09/22/2017 16:43 [place] COMPARISON: CT BRAIN W/O CONTRAST, August 13, 2016, 22:04. INDICATIONS : Stroke alert. Left facial droop. Left sided weakness. Slurred speech. RADIATION DOSE: 60.23 CTDIvol (mGy) This report was called by Dr Blake to Dr Davila at 1710 MEDICAL HISTORY : Non-responsive. SURGICAL HISTORY : Non-responsive. ENCOUNTER: Initial ACUITY: 1 day PAIN SCALE: Non-responsive LOCATION: cranial TECHNIQUE: Multiple contiguous axial images were obtained of the head. Using automated exposure control and adj ustment of the mA and/or kV according to patient size, radiation dose was kept as low as reasonably a chievable to obtain optimal diagnostic quality images. DICOM format image data is available electro nically for review and comparison. FINDINGS: CEREBRUM: The ventricles are normal for age. No evidence of midline shift, mass lesion, hemorrhage or acute in farction. No extra-axial fluid collections are seen. POSTERIOR FOSSA: The cerebellum and brainstem are intact. The 4th ventricle is midline. The cerebellopontine angle i s unremarkable. EXTRACRANIAL: The visualized portion of the orbits is intact. SKULL: The calvaria is intact. No evidence of skull fracture. CONCLUSION: No acute disease. Kojo Blake Jr., MD on September 22, 2017 at 17:09 Board Certified Radiologist. This report was verified electronically.
[2017-09-22 17:20] LABS: CALCIUM 8.4 MG/DL (8.5-10.1)
[2017-09-22 17:21] LABS: ALBUMIN 3.4 GM/DL (3.4-5.0); BICARBONATE 29.1 MEQ/L (21.0-32.0); BLOOD UREA NITROGEN 10 MG/DL (7-18); GLUCOSE,RANDOM 96 MG/DL (74-106)
[2017-09-22 17:24] LABS: ALT (GPT) 20 U/L (10-53); AST (GOT) 19 U/L (15-37); CREATININE 0.85 MG/DL (0.50-1.00); GLOMERULAR FILTRATION RATE 70 ML/MIN (>89)
[2017-09-22 17:25] LABS: TOTAL BILIRUBIN ADULT 0.5 MG/DL (0.2-1.0); TOTAL PROTEIN 8.1 GM/DL (6.4-8.2)
[2017-09-22 17:27] LABS: ALKALINE PHOSPHATASE 92 U/L (45-117)
[2017-09-22 17:29] LABS: TROPONIN I LESS THAN 0.02 NG/ML (0.02-0.05)
[2017-09-22 17:39] LABS: BILIRUBIN, URINE NEG (NEG); BLOOD, URINE TRACE (NEG); GLUCOSE,URINE NEG (NEG); KETONE, URINE NEG (NEG); NITRITE,URINE NEG (NEG); URINE LEUKOCYTE ESTERASE NEG (NEG)
[2017-09-22 17:47] LABS: SQUAMOUS EPITHELIAL CELL URINE 0-5 /hpf (0-5); URINE COLOR YELLOW (YELLW/STRAW)
[2017-09-22 17:48] LABS: AMORPHOUS SEDIMENT, URINE FEW
--- NOTE | 2017-09-22 17:49 | PD ---
HPI . Stroke alert. Chief Complaint: Stroke Alert Time Seen by Provider: 16:48 Travel History International Travel<30 days: No Contact w/Intl Traveler<30days: No Traveled to known affect area: No History of Present Illness HPI Patient was brought to us as a stroke alert by [facility]. They reported that the patient was last seen normal 4-1/2 hours prior to presentation. They reported left facial droop, left-sided body weakness and slurred speech. The patient has a family member here now who states that the patient felt very dizzy and subsequently had a syncopal episode. The patient has now returned to normal. The patient has no complaints at this time. PFSH Past Medical History Arthritis: Yes Asthma: No Autoimmune Disease: Yes (FIBROMYALGIA) Blood Disorders: No Anxiety: Yes Depression: Yes Heart Rhythm Problems: No Cancer: No Cardiovascular Problems: Yes (A-FLUTTER,HX OF ATRIAL MYXOMA) High Cholesterol: No Chemotherapy: No Chest Pain: No Congestive Heart Failure: No COPD: Yes Cerebrovascular Accident: Yes (JUL 2016-no deficit) Diabetes: No Diminished Hearing: No Endocrine: No Fibromyalgia: Yes Gastrointestinal Disorders: No Glaucoma: No Genitourinary: No Hepatitis: No Hiatal Hernia: No Hypertension: No Immune Disorder: No Implanted Vascular Access Dvce: Yes Kidney Stones: No Medical other: No Musculoskeletal: Yes (bilateral hip pain, left ankle, arthritis) Neurologic: Yes (tia 08/13/16) Psychiatric: Yes (anx/dep) Reproductive: No Respiratory: Yes (COPB) Integumentary: No Immunizations Current: Yes Radiation Therapy: No Renal Failure: No Sleep Apnea: No Thyroid Disease: Yes (HYPOTHYROID) ?: Not Menopausal: Yes : 3 Para: 1 : 2 Past Surgical History Abdominal Surgery: Yes (appendectomy) AICD: No Appendectomy: Yes Body Medical Devices: metal plate in left ankle Cardiac Surgery: Yes (TUMOR REMOVED FROM LEFT ATRIUM) Section: Yes (2005) Coronary Artery Bypass Graft: Yes Ear Surgery: No Endocrine Surgery: No Eye Surgery: No Genitourinary Surgery: No Gynecologic Surgery: Yes () Joint Replacement: No Neurologic Surgery: No Oral Surgery: Yes (tonsillectomy) Pacemaker: No Thoracic Surgery: No Tonsillectomy: Yes Other Surgery: Yes (spinal surgery, , ankle surgery, cardiac surgery) Social History Alcohol Use: No Tobacco Use: No (quit end of April 2017) Substance Use: No Allergies-Medications (Allergen,Severity, Reaction): Coded Allergies: No Known Allergies (Verified Adverse Reaction, Unknown, 07/31/17) Reported Meds & Prescriptions Reported Meds & Active Scripts Active Reported Jaime Aspirin EC Low Dose (Aspirin) 81 Mg Tabdr 1 Tab PO DAILY Amitriptyline (Amitriptyline HCl) 25 Mg Tab 25 Mg PO TID Morphine ER (Morphine Sulfate) 100 Mg Tab 100 Mg PO Q8H Lyrica (Pregabalin) 200 Mg Cap 200 Mg PO TID [place] Thyroid (Thyroid) 180 Mg Tab 180 Mg PO DAILY Symbicort Inh (Budesonide/Formoterol Fumarate) 160-4.5 Mcg/Act Aero 2 Puff INH Q12HR Flonase Nasal [place] (Fluticasone Nasal [place]) 50 Mcg/Act [place] 100 Mcg EACH NARE BID Oxycodone (Oxycodone HCl) 30 Mg Tab 30 Mg PO FIVE TIMES A DAY Review of Systems Except as stated in HPI: all other systems reviewed are Neg General / Constitutional: No: Fever, Chills Eyes: No: Blurred Vision HENT: No: Headaches Cardiovascular: No: Chest Pain or Discomfort Respiratory: No: Shortness of Breath Neurologic: Positive: Dizziness, Syncope, Change in Mentation, Slurred Speech, No: Headache Physical Exam Narrative GENERAL: On initial presentation, the patient was lying on the stretcher with her eyes closed not moving anything. SKIN: warm/dry. Normal color and turgor. HEAD: Normocephalic. Atraumatic. EYES: Pupils equal and round. No scleral icterus. No injection or drainage. ENT: No nasal bleeding or discharge. Mucous membranes pink and moist. NECK: Trachea midline. Full range of motion without pain.. CARDIOVASCULAR: Regular rate and rhythm. RESPIRATORY: No accessory muscle use. Clear to auscultation. Breath sounds equal bilaterally. GASTROINTESTINAL: Abdomen soft. Nontender. Bowel sounds present. Nondistended. Delayed MUSCULOSKELETAL: No obvious deformities. NEUROLOGICAL: Patient was initially lying on the stretcher with her eyes closed. She would follow commands to smile and close her eyes but would not follow commands to check peripheral muscle tone. She was not moving any of her extremities. However, on return from CT, she is awake and alert and moving all 4 extremities equally. PSYCHIATRIC: Appropriate mood and affect; insight and judgment normal. Data Data Last Documented VS Vital Signs Date Time Temp Pulse Resp B/P (MAP) Pulse Ox O2 Delivery O2 Flow Rate FiO2 09/22/17 17:12 74 16 97 Nasal Cannula 2.00 09/22/17 17:00 21 Orders Orders Electrocardiogram (09/22/17 16:55) Complete Blood Count With Diff (09/22/17 16:55) Comprehensive Metabolic Panel (09/22/17 16:55) Drug Screen, Random Urine (09/22/17 16:55) Troponin I (09/22/17 16:55) Urinalysis - C+S If Indicated (09/22/17 16:55) Ct Brain W/O Iv Contrast(Rout) (09/22/17 16:55) Ecg Monitoring (09/22/17 16:55) Iv Access Insert/Monitor (09/22/17 16:55) Oximetry (09/22/17 16:55) Sodium Chloride 0.9% Flush (Ns Flush) (09/22/17 17:00) Labs Laboratory Tests Test 09/22/17 17:00 09/22/17 17:27 White Blood Count 16.4 TH/MM3 Red Blood Count 4.56 MIL/MM3 Hemoglobin 12.6 GM/DL Hematocrit 38.6 % Mean Corpuscular Volume 84.7 FL Mean Corpuscular Hemoglobin 27.5 PG Mean Corpuscular Hemoglobin Concent 32.5 % Red Cell Distribution Width 14.1 % Platelet Count 329 TH/MM3 Mean Platelet Volume 7.1 FL Neutrophils (%) (Auto) 85.4 % Lymphocytes (%) (Auto) 8.3 % Monocytes (%) (Auto) 3.6 % Eosinophils (%) (Auto) 0.1 % Basophils (%) (Auto) 2.6 % Neutrophils # (Auto) 14.0 TH/MM3 Lymphocytes # (Auto) 1.4 TH/MM3 Monocytes # (Auto) 0.6 TH/MM3 Eosinophils # (Auto) 0.0 TH/MM3 Basophils # (Auto) 0.4 TH/MM3 CBC Comment DIFF FINAL Differential Comment Blood Urea Nitrogen 10 MG/DL Creatinine 0.85 MG/DL Random Glucose 96 MG/DL Total Protein 8.1 GM/DL Albumin 3.4 GM/DL Calcium Level 8.4 MG/DL Alkaline Phosphatase 92 U/L Aspartate Amino Transf (AST/SGOT) 19 U/L Alanine Aminotransferase (ALT/SGPT) 20 U/L Total Bilirubin 0.5 MG/DL Sodium Level 133 MEQ/L Potassium Level 4.5 MEQ/L Chloride Level 99 MEQ/L Carbon Dioxide Level 29.1 MEQ/L Anion Gap 5 MEQ/L Estimat Glomerular Filtration Rate 70 ML/MIN Troponin I LESS THAN 0.02 NG/ML Urine Collection Type CATH Urine Color YELLOW Urine Turbidity CLEAR Urine pH 6.0 Urine Specific [place] 1.014 Urine Protein NEG mg/dL Urine Glucose (UA) NEG mg/dL Urine Ketones NEG mg/dL Urine Occult Blood TRACE Urine Nitrite NEG Urine Bilirubin NEG Urine Leukocyte Esterase NEG Urine Squamous Epithelial Cells 0-5 /hpf Urine Amorphous Sediment FEW Microscopic Urinalysis Comment CATH-CULT NOT IND Urine Opiates Screen POS Urine Barbiturates Screen NEG Urine Amphetamines Screen NEG Urine Benzodiazepines Screen NEG Urine Cocaine Screen NEG Urine Cannabinoids Screen NEG MDM Medical Decision Making Medical Screen Exam Complete: Yes Emergency Medical Condition: Yes Medical Record Reviewed: Yes (This patient has been seen here in the past for overdoses. She also has a history of COPD and hypertension. She had an atrial myxoma which was resected a few months ago. She also had cardiac ablation for AF.) Interpretation(s) EKG shows a sinus rhythm with left atrial enlargement. No acute ischemic changes. Differential Diagnosis Differential diagnosis of altered mental status includes but is not limited to infection, electrolyte abnormality, neurological event, intoxication Narrative Course Patient presented to us with an altered mental status. She was advertised as a stroke alert by [facility]. Her symptomatology does not correlate with a stroke. Last Impressions Head CT 09/22/17 3142 Signed Impressions: Service Date/Time: Friday, September 22, 2017 16:43 - CONCLUSION: No acute disease. Kojo Blake Jr., MD CBC & BMP Diagram 09/22/17 17:00 Total Protein 8.1, Albumin 3.4, Calcium Level 8.4 L, Alkaline Phosphatase 92, Aspartate Amino Transf (AST/SGOT) 19, Alanine Aminotransferase (ALT/SGPT) 20, Total Bilirubin 0.5 trop < 0.02 UA neg Drug screen positive for opiates This patient presented to us with an altered level of consciousness. Her level of consciousness quickly returned to baseline. She is stable for discharge to home. Diagnosis Primary Impression: Altered level of consciousness Patient Instructions: Altered Mental Status (ED), General Instructions Disposition: 01 DISCHARGE HOME Condition: Stable Eliza Davila MD Sep 22, 2017 17:49
[2017-09-22 18:36] VITALS: BP 123/56; PULSE 75; RESP 18; O2SAT 96
--- NOTE | 2017-09-23 13:57 | EKG ---
Date Performed: 09/22/2017 Time Performed: 16:57:22 PTAGE: 52 years EKG: Sinus rhythm LEFT ATRIAL ENLARGEMENT LOW QRS VOLTAGE IN EXTREMITY LEADS When compared to previous tracing, previo us rhythm was Junctional rhythm, rhythm is now sinus rhythm. ABNORMAL ECG PREVIOUS TRACING : 07/26/2017 04.55 DOCTOR: Don Camarillo Interpretating Date/Time 09/23/2017 13:55:56
== END 2017-09-22 19:20 | disposition home or self-care (01) ==
LOC: PHED 16:45
DX: R40.4 Transient alteration of awareness (principal); E03.9 Hypothyroidism, unspecified; M79.7 Fibromyalgia; R55 Syncope and collapse
CPT/HCPCS: 70450; 80053; 80307; 81001; 84484; 85025; 93005; 99284

== ENCOUNTER 2017-12-09 14:09 | Inpatient (IN) | payer OTHER, MEDICAID, MEDICARE ==
[~2017-12-09] VITALS: Ht 162.6 cm; Wt 72.4 kg
[2017-12-09 14:19] VITALS: BP 129/62; PULSE 91; RESP 19; TEMP 98.1; O2SAT 96
[2017-12-09 16:13] LABS: AUTOMATED NEUTROPHIL # 14.9 TH/MM3 (1.8-7.7); BASOPHIL # 0.1 TH/MM3 (0-0.2); BASOPHIL % 0.4 % (0.0-2.0); EOSINOPHIL % 0.3 % (0.0-4.0); HEMATOCRIT 37.7 % (35.0-46.0); HEMOGLOBIN 12.3 GM/DL (11.6-15.3); LYMPH % 8.7 % (9.0-44.0); LYMPHOCYTE # 1.5 TH/MM3 (1.0-4.8); MEAN CELL VOLUME 88.3 FL (80.0-100.0); MEAN CORPUSCULAR HEMOGLOBIN 28.8 PG (27.0-34.0); MEAN CORPUSCULAR HGB CONC 32.6 % (32.0-36.0); MEAN PLATELET VOLUME 7.8 FL (7.0-11.0); MONO % 2.9 % (0.0-8.0); MONOCYTE # 0.5 TH/MM3 (0-0.9); NEUT % 87.7 % (16.0-70.0); PLATELET COUNT 267 TH/MM3 (150-450); RED BLOOD COUNT 4.27 MIL/MM3 (4.00-5.30); RED CELL DISTRIBUTION WIDTH 15.4 % (11.6-17.2); WHITE BLOOD COUNT 16.9 TH/MM3 (4.0-11.0)
[2017-12-09 16:35] LABS: ALBUMIN 3.3 GM/DL (3.4-5.0); ALT (GPT) 35 U/L (10-53); AST (GOT) 43 U/L (15-37); BICARBONATE 27.7 MEQ/L (21.0-32.0); BLOOD UREA NITROGEN 10 MG/DL (7-18); CALCIUM 8.5 MG/DL (8.5-10.1); CHLORIDE 101 MEQ/L (98-107); CREATININE 0.66 MG/DL (0.50-1.00); GLOMERULAR FILTRATION RATE 94 ML/MIN (>89); GLUCOSE,RANDOM 129 MG/DL (74-106); SODIUM (NA) 136 MEQ/L (136-145)
[2017-12-09 16:38] LABS: ALKALINE PHOSPHATASE 99 U/L (45-117); TOTAL BILIRUBIN ADULT 0.5 MG/DL (0.2-1.0); TOTAL PROTEIN 7.8 GM/DL (6.4-8.2)
--- NOTE | 2017-12-09 17:04 | RADRPT ---
EXAM DATE/TIME: 12/09/2017 16:12 [facility] COMPARISON: CT PULMONARY ANGIOGRAM, May 28, 2017, 23:26. INDICATIONS : Fall, coughing up blood. RADIATION DOSE: 20.18 CTDIvol (mGy) MEDICAL HISTORY : Cardiovascular disease. SURGICAL HISTORY : CABG ENCOUNTER: Initial ACUITY: 1 day PAIN SCALE: 4/10 LOCATION: chest TECHNIQUE: Volumetric scanning of the chest was performed. Using automated exposure control and adjustment of t he mA and/or kV according to patient size, radiation dose was kept as low as reasonably achievable to obtain optimal diagnostic quality images. DICOM format image data is available electronically for r eview and comparison. Follow-up recommendations for detected pulmonary nodules are based at a minimum on nodule size and pa tient risk factors according to Fleischner Society Guidelines. FINDINGS: LUNGS: Bilateral symmetric perihilar patchy airspace disease. PLEURAE: There is no pleural thickening or pleural effusion. MEDIASTINUM: The heart and great vessels demonstrate no acute abnormality. There is no mediastinal or hilar lymph adenopathy. AXILLAE: Within normal limits. No lymphadenopathy. MUSCULOSKELETAL: Within normal limits for patient age. MISCELLANEOUS: The visualized upper abdominal organs demonstrate no acute abnormality. CONCLUSION: Bilateral, symmetric perihilar patchy airspace disease. In the clinical setting of hemoptysis, f indings are most characteristic of acute diffuse alveolar hemorrhage. Ridge Cuellar MD on December 09, 2017 at 16:37 Board Certified Radiologist. This report was verified electronically.
--- NOTE | 2017-12-09 17:33 | PD ---
HPI Chief Complaint: Fall Time Seen by Provider: 15:38 Travel History International Travel<30 days: No Contact w/Intl Traveler<30days: No Traveled to known affect area: No History of Present Illness HPI Patient is a 52 year old female who comes in complaining of coughing up blood. She says it started after she tripped and fell onto her walker. She says she tripped on a dog toy. She also complains of a bruise to her right arm, but denies any pain here. She denies shortness of breath, but feels pain when she takes a deep breath. She is not on any blood thinners. She denies hitting her head or any LOC. She says she has been sick with a cold for the past 2 weeks and the cough seems to be getting worse. She denies fever or chills. Severity is mild to moderate. PFSH Past Medical History Arthritis: Yes Asthma: No Autoimmune Disease: Yes (FIBROMYALGIA) Blood Disorders: No Anxiety: Yes Depression: Yes Heart Rhythm Problems: No Cancer: No Cardiovascular Problems: Yes (A-FLUTTER,HX OF ATRIAL MYXOMA) High Cholesterol: No Chemotherapy: No Chest Pain: No Congestive Heart Failure: No COPD: Yes Cerebrovascular Accident: Yes (JUL 2016-no deficit) Diabetes: No Diminished Hearing: No Endocrine: No Fibromyalgia: Yes Gastrointestinal Disorders: No Glaucoma: No Genitourinary: No Hepatitis: No Hiatal Hernia: No Hypertension: No Immune Disorder: No Implanted Vascular Access Dvce: Yes Kidney Stones: No Musculoskeletal: Yes (bilateral hip pain, left ankle, arthritis) Neurologic: Yes (tia 08/13/16) Psychiatric: Yes (anx/dep) Reproductive: No Respiratory: Yes (COPD) Integumentary: No Immunizations Current: Yes Radiation Therapy: No Renal Failure: No Sleep Apnea: No Thyroid Disease: Yes (HYPOTHYROID) ?: Not Menopausal: Yes : 3 Para: 1 : 2 Past Surgical History Abdominal Surgery: Yes (appendectomy) AICD: No Appendectomy: Yes Body Medical Devices: metal plate in left ankle Cardiac Surgery: Yes (TUMOR REMOVED FROM LEFT ATRIUM) Section: Yes (2005) Coronary Artery Bypass Graft: Yes Ear Surgery: No Endocrine Surgery: No Eye Surgery: No Genitourinary Surgery: No Gynecologic Surgery: Yes () Joint Replacement: No Neurologic Surgery: No Oral Surgery: Yes (tonsillectomy) Pacemaker: No Thoracic Surgery: No Tonsillectomy: Yes Other Surgery: Yes (spinal surgery, , ankle surgery, cardiac surgery) Social History Alcohol Use: No Tobacco Use: No (quit end of April 2017) Substance Use: No Allergies-Medications (Allergen,Severity, Reaction): Coded Allergies: No Known Allergies (Verified Allergy, Unknown, 12/09/17) Reported Meds & Prescriptions Reported Meds & Active Scripts Active Reported Jaime Aspirin EC Low Dose (Aspirin) 81 Mg Tabdr 1 Tab PO DAILY Amitriptyline (Amitriptyline HCl) 25 Mg Tab 25 Mg PO TID Morphine ER (Morphine Sulfate) 100 Mg Tab 100 Mg PO Q8H Lyrica (Pregabalin) 200 Mg Cap 200 Mg PO TID [place] Thyroid (Thyroid) 180 Mg Tab 180 Mg PO DAILY Symbicort Inh (Budesonide/Formoterol Fumarate) 160-4.5 Mcg/Act Aero 2 Puff INH Q12HR Flonase Nasal [place] (Fluticasone Nasal [place]) 50 Mcg/Act [place] 100 Mcg EACH NARE BID Oxycodone (Oxycodone HCl) 30 Mg Tab 30 Mg PO FIVE TIMES A DAY Review of Systems Except as stated in HPI: all other systems reviewed are Neg General / Constitutional: No: Fever, Chills HENT: No: Headaches, Lightheadedness Respiratory: Positive: Cough Gastrointestinal: No: Nausea, Vomiting Musculoskeletal: No: Myalgias, Edema Skin: No Rash, No Change in Pigmentation Neurologic: No: Weakness, Dizziness Physical Exam Narrative GENERAL: Awake and alert, in no acute distress. SKIN: Focused skin assessment warm/dry. No wounds or signs of infection. HEAD: Atraumatic. Normocephalic. EYES: Pupils equal and round. No scleral icterus. EOMI. ENT: Mucous membranes pink and moist. NECK: Trachea midline. No JVD. CARDIOVASCULAR: Regular rate and rhythm. No murmur appreciated. RESPIRATORY: No accessory muscle use. Clear to auscultation. Breath sounds equal bilaterally. GASTROINTESTINAL: Abdomen soft, non-tender, nondistended. MUSCULOSKELETAL: No obvious deformities. No clubbing. No cyanosis. No edema. NEUROLOGICAL: Awake and alert. No obvious cranial nerve deficits. Motor grossly within normal limits. Normal speech. PSYCHIATRIC: Appropriate mood and affect; insight and judgment normal. Data Data Last Documented VS Vital Signs Date Time Temp Pulse Resp B/P (MAP) Pulse Ox O2 Delivery O2 Flow Rate FiO2 12/09/17 15:42 16 Room Air 12/09/17 14:19 98.1 91 129/62 (84) 96 Orders Orders Iv Access Insert/Monitor (12/09/17 15:44) Complete Blood Count With Diff (12/09/17 15:44) Comprehensive Metabolic Panel (12/09/17 15:44) Ct Thorax/ Chest Wo Iv [place] (12/09/17 ) Act Partial Throm Time (Ptt) (12/09/17 17:14) Prothrombin Time / Inr (Pt) (12/09/17 17:14) Vascular Access Team Consult/P PRN (12/09/17 17:21) Vascular Poc Ultrasound (12/09/17 ) Labs Laboratory Tests Test 12/09/17 15:55 White Blood Count 16.9 TH/MM3 Red Blood Count 4.27 MIL/MM3 Hemoglobin 12.3 GM/DL Hematocrit 37.7 % Mean Corpuscular Volume 88.3 FL Mean Corpuscular Hemoglobin 28.8 PG Mean Corpuscular Hemoglobin Concent 32.6 % Red Cell Distribution Width 15.4 % Platelet Count 267 TH/MM3 Mean Platelet Volume 7.8 FL Neutrophils (%) (Auto) 87.7 % Lymphocytes (%) (Auto) 8.7 % Monocytes (%) (Auto) 2.9 % Eosinophils (%) (Auto) 0.3 % Basophils (%) (Auto) 0.4 % Neutrophils # (Auto) 14.9 TH/MM3 Lymphocytes # (Auto) 1.5 TH/MM3 Monocytes # (Auto) 0.5 TH/MM3 Eosinophils # (Auto) 0.0 TH/MM3 Basophils # (Auto) 0.1 TH/MM3 CBC Comment DIFF FINAL Differential Comment Blood Urea Nitrogen 10 MG/DL Creatinine 0.66 MG/DL Random Glucose 129 MG/DL Total Protein 7.8 GM/DL Albumin 3.3 GM/DL Calcium Level 8.5 MG/DL Alkaline Phosphatase 99 U/L Aspartate Amino Transf (AST/SGOT) 43 U/L Alanine Aminotransferase (ALT/SGPT) 35 U/L Total Bilirubin 0.5 MG/DL Sodium Level 136 MEQ/L Potassium Level 3.6 MEQ/L Chloride Level 101 MEQ/L Carbon Dioxide Level 27.7 MEQ/L Anion Gap 7 MEQ/L Estimat Glomerular Filtration Rate 94 ML/MIN MDM Medical Decision Making Medical Screen Exam Complete: Yes Emergency Medical Condition: Yes Medical Record Reviewed: Yes Differential Diagnosis pneumonia vs rib fracture vs lung injury Narrative Course Patient is a 52-year-old female who comes in complaining of coughing up blood after she fell onto her walker. Exam shows some tenderness to palpation of her chest wall. I establish, labs sent. Labs show a white blood cell count of 16.9. CT of the chest concerning for bilateral airspace disease versus alveolar hemorrhage. I spoke with Dr. Pagan of trauma surgery who believes this is related to lung disease, not trauma. Patient given antibiotics and will be admitted for observation to ensure her bleeding does not worsen. Last [address] 12/09/17 0000 Signed Impressions: Service Date/Time: Monday, December 09, 2017 16:12 - CONCLUSION: Bilateral, symmetric perihilar patchy airspace disease. In the clinical setting of hemoptysis, findings are most characteristic of acute diffuse alveolar hemorrhage. Ridge Cuellar MD Diagnosis Primary Impression: PNA (pneumonia) Qualified Codes: J18.1 - Lobar pneumonia, unspecified organism Admitting Information Admitting Physician Requests: Admit Katherine Fine MD Dec 09, 2017 17:33
[2017-12-09] MEDS ORDERED: AZITHROMYCIN INJ 500 MG in SODIUM CHLOR 0.9% 250 ML INJ 250 ML IV ONE (17:45)
[2017-12-09] MEDS ORDERED: CEFEPIME INJ 1,000 MG in SODIUM CHLORIDE 0.9% INJ 100 ML IV ONE (17:45)
--- NOTE | 2017-12-09 17:56 | HHI.HP ---
[facility] No Primary Care Physician Admission Diagnosis pneumonia, hemoptysis Diagnoses: (1) Pneumonia of both lower lobes Diagnosis: Principal (2) Hemoptysis Diagnosis: Principal (3) Fall (4) COPD (chronic obstructive pulmonary disease) (5) Tobacco abuse Chief Complaint: Coughing up blood Travel History International Travel<30 Days: No Contact w/Intl Traveler <30 Da: No Traveled to Known Affected Are: No Sepsis Criteria SIRS Criteria (2 or more): Heart rate over 90, WBC > 88449, < 4000 or > 10% bands Sepsis Criteria (SIRS+source): Infect source susp/known Criteria Outcome: Meets sepsis criteria History of Present Illness Written by Johny Jones, acting as scribe for Dr. Horne on 12/09/17 at 17:53. 52-year-old female with past medical history significant for hypertension, COPD , fibromyalgia, anxiety, depression, chronic pain who presents to the emergency department s/p mechanical fall yesterday and has now developed hemoptysis. States that she was reaching over her dog toy when she fell and caught herself hitting her chest. Chart was reviewed, no reports of head injury or LOC. Patient reports that she has been sick for approximately the past 2 weeks with cough, believe that this was just a cold. She denies any fevers although does admit to chills today. She reports that cough is productive and sputum does have blood in it. She denies any nausea, vomiting, diarrhea, constipation, shortness of breath, or chest pain. She reports that she had a CABG done by Dr. Mckay August of this year and was previously taking Plavix however this was discontinued, has only been taking aspirin at home. She points out right arm ecchymotic area along with right arm rash which patient states she first noticed today during her physical therapy session. She denies any itching but does report that it is sore, is not sure if she might of done this yesterday during fall. She reports a history of chronic pain and states that she takes morphine 300 mg daily. Review of Systems Constitutional: COMPLAINS OF: Chills, DENIES: Fever Ears, nose, mouth, throat: DENIES: Vertigo, Running Nose, Epistaxis, Odynophagia Respiratory: COMPLAINS OF: Cough, Hemoptysis, DENIES: Shortness of breath Cardiovascular: DENIES: Chest pain, Syncope Gastrointestinal: DENIES: Abdominal pain, Black stools, Diarrhea, Nausea, Vomiting Neurologic: DENIES: Headache Except as stated in HPI: all other systems reviewed are Neg Past Family Social History Past Medical History Hypertension COPD Fibromyalgia Anxiety Depression Chronic pain treated by Dr. May Atrial Myxoma s/p Resection Past Surgical History Lumbar laminectomy Appendectomy Left ankle surgery Atrial myxoma resection CABG done by Dr. Mckay August of this year Right hip replacement Allergies: Coded Allergies: No Known Allergies (Verified Allergy, Unknown, 12/09/17) Family History Father: lung [place] (smoker) Social History Alcohol use: Denies Illicit drug use: Denies Tobacco: ciggs a day Physical Exam Vital Signs Vital Signs Date Time Temp Pulse Resp B/P (MAP) Pulse Ox O2 Delivery O2 Flow Rate FiO2 12/09/17 15:42 16 Room Air 12/09/17 14:19 98.1 91 19 129/62 (84) 96 Physical Exam GENERAL: This is a well-nourished, well-developed patient, in no apparent distress. SKIN: Cool and dry. Right forearm and wrist abrasion noted, no open skin. Midsternal scar. No chest ecchymosis. HEAD: Atraumatic. Normocephalic. No temporal or scalp tenderness. EYES: Pupils equal round and reactive. Extraocular motions intact. No scleral icterus. No injection or drainage. ENT: Nose without bleeding, purulent drainage or septal hematoma. Throat without erythema. Airway patent. NECK: Trachea midline. No JVD CARDIOVASCULAR: Regular rate and rhythm without murmurs, gallops, or rubs. RESPIRATORY: Bilateral lower crackles with decreased breath sounds. No wheezes, rales, or rhonchi. GASTROINTESTINAL: Abdomen soft, non-tender, nondistended. No palpable masses. No guarding. MUSCULOSKELETAL: Extremities without clubbing, cyanosis, or edema. No joint tenderness, effusion, or edema noted. No calf tenderness. NEUROLOGICAL: Awake and alert. Cranial nerves II through XII intact. Motor and sensory grossly within normal limits. Five out of 5 muscle strength in all muscle groups. Normal speech. Laboratory Laboratory Tests Test 12/09/17 15:55 White Blood Count 16.9 Red Blood Count 4.27 Hemoglobin 12.3 Hematocrit 37.7 Mean Corpuscular Volume 88.3 Mean Corpuscular Hemoglobin 28.8 Mean Corpuscular Hemoglobin Concent 32.6 Red Cell Distribution Width 15.4 Platelet Count 267 Mean Platelet Volume 7.8 Neutrophils (%) (Auto) 87.7 Lymphocytes (%) (Auto) 8.7 Monocytes (%) (Auto) 2.9 Eosinophils (%) (Auto) 0.3 Basophils (%) (Auto) 0.4 Neutrophils # (Auto) 14.9 Lymphocytes # (Auto) 1.5 Monocytes # (Auto) 0.5 Eosinophils # (Auto) 0.0 Basophils # (Auto) 0.1 CBC Comment DIFF FINAL Differential Comment Blood Urea Nitrogen 10 Creatinine 0.66 Random Glucose 129 Total Protein 7.8 Albumin 3.3 Calcium Level 8.5 Alkaline Phosphatase 99 Aspartate Amino Transf (AST/SGOT) 43 Alanine Aminotransferase (ALT/SGPT) 35 Total Bilirubin 0.5 Sodium Level 136 Potassium Level 3.6 Chloride Level 101 Carbon Dioxide Level 27.7 Anion Gap 7 Estimat Glomerular Filtration Rate 94 Result Diagram: 12/09/17 1555 12/09/17 1555 Imaging Last Impressions Chest CT 12/09/17 0000 Signed Impressions: Service Date/Time: Saturday, December 09, 2017 16:12 - CONCLUSION: Bilateral, symmetric perihilar patchy airspace disease. In the clinical setting of hemoptysis, findings are most characteristic of acute diffuse alveolar hemorrhage. Ridge Cuellar MD Caprini VTE Risk Assessment Caprini VTE Risk Assessment: Mod/High Risk (score >= 2) Caprini Risk Assessment Model Point Value = 1 Point Value = 2 Point Value = 3 Point Value = 5 Age 41-60 Minor surgery BMI > 25 kg/m2 Swollen legs Varicose veins or History of unexplained or recurrent spontaneous Oral contraceptives or hormone replacement Sepsis (< 1 month) Serious lung disease, including pneumonia (< 1 month) Abnormal pulmonary function Acute myocardial infarction Congestive heart failure (< 1 month) History of inflammatory bowel disease Medical patient at bed rest Age 61-74 Arthroscopic surgery Major open surgery (> 45 min) Laparoscopic surgery (> 45 min) Malignancy Confined to bed (> 72 hours) Immobilizing plaster cast Central venous access Age >= 75 History of VTE Family history of VTE Factor V Leiden Prothrombin [id number] Lupus anticoagulant Anticardiolipin antibodies Elevated serum homocysteine Heparin-induced thrombocytopenia Other congenital or acquired thrombophilia Stroke (< 1 month) Elective arthroplasty Hip, pelvis, or leg fracture Acute spinal cord injury (< 1 month) Prophylaxis Regimen Total Risk Factor Score Risk Level Prophylaxis Regimen 0-1 Low Early ambulation 2 Moderate Order ONE of the following: *Sequential Compression Device (SCD) *Heparin 5000 units SQ BID 3-4 Higher Order ONE of the following medications: *Heparin 5000 units SQ TID *Enoxaparin/Lovenox 40 mg SQ daily (WT < 150 kg, CrCl > 30 mL/min) *Enoxaparin/Lovenox 30 mg SQ daily (WT < 150 kg, CrCl > 10-29 mL/min) *Enoxaparin/Lovenox 30 mg SQ BID (WT < 150 kg, CrCl > 30 mL/min) AND/OR *Sequential Compression Device (SCD) 5 or more Highest Order ONE of the following medications: *Heparin 5000 units SQ TID (Preferred with Epidurals) *Enoxaparin/Lovenox 40 mg SQ daily (WT < 150 kg, CrCl > 30 mL/min) *Enoxaparin/Lovenox 30 mg SQ daily (WT < 150 kg, CrCl > 10-29 mL/min) *Enoxaparin/Lovenox 30 mg SQ BID (WT < 150 kg, CrCl > 30 mL/min) AND *Sequential Compression Device (SCD) Assessment and Plan Assessment and Plan 52-year-old female with past medical history significant for hypertension, COPD , fibromyalgia, anxiety, depression, chronic pain who presents to the emergency department s/p mechanical fall yesterday and has now developed hemoptysis. Bilateral lobe pneumonia Meets sepsis criteria -CT scan showing perihilar patchy airspace disease. -CBC with leukocytosis w/ shift, WBCs 16.9 with neutrophils 87.7, check lactic acid -Heart rate 91, respiratory rate stable, O2 saturation stable on room air. -Given cefepime 1 g and azithromycin 500 mg IV in the ED. -Continue cefepime 1 g IV every 24 hours, and azithromycin 500 mg every 24 hours. 1L NS IV bolus - Check sputum gram stain, urine for pneumococcal antigen, and legionella Hemoptysis -Chest CT scan reviewed, bilateral symmetric perihilar patchy airspace disease. Findings most consistent with acute diffuse alveolar hemorrhage in the setting of hemoptysis. -Coag panel pending, H&H 12.3/37.7, platelets 267 -Hold off on any anticoagulation secondary to hemoptysis -Consult pulmonary for further recommendations, appreciate input COPD, not exacerbated -Continue Symbicort Chronic pain -Patient reports that she takes 300 mg of morphine ER a day, med reconciliation also reports oxycodone 30 mg 5 times a day, Lyrica 200 mg 3 times a day -Will need to verify morphine and oxycodone with patient's pain management doctor or pharmacy -Resume Lyrica and amitriptyline CAD s/p CABG -Normotensive, aspirin on hold secondary to hemoptysis Hypothyroidism-continue patient's [place] thyroid Tobacco abuse -Patient counseled on the importance of smoking cessation. DVT prophylaxis-SCDs and TRINO hose (chemical anticoagulation contraindicated secondary to hemoptysis) This note was transcribed by VALERIO Leong. I, Dr. Marisela Horne personally performed the history, physical exam, and medical decision making; and confirmed the accuracy of the information in the transcribed note. Authenticated by Dr. Marisela Horne on 12/09/17 at 17:53. Physician Certification 2 Midnight Certification Type: Admission for Inpatient Services Order for Inpatient Services The services are ordered in accordance with Medicare regulations or non- Medicare payer requirements, as applicable. In the case of services not specified as inpatient-only, they are appropriately provided as inpatient services in accordance with the 2-midnight benchmark. Estimated LOS (days): 3 days is the estimated time the patient will need to remain in the hospital, assuming treatment plan goals are met and no additional complications. Post-Hospital Plan: Home Johny Jones Dec 09, 2017 17:56 Marisela Horne MD Dec 09, 2017 18:02
[2017-12-09 18:00] VITALS: BP 124/58; PULSE 65; RESP 16; O2SAT 100
[2017-12-09] MEDS ORDERED: MAGNESIUM HYDROXIDE SUSP 30 ML CUP PO PRN (18:00)
[2017-12-09] MEDS ORDERED: ACETAMINOPHEN 325 MG TAB PO PRN (18:00)
[2017-12-09] MEDS ORDERED: BISACODYL 10 MG SUPP RECTAL PRN (18:00)
[2017-12-09] MEDS ORDERED: NALOXONE HCL 0.4 MG/ML AMP IV PUSH PRN (18:00)
[2017-12-09] MEDS ORDERED: ONDANSETRON HCL 4 MG/2 ML VIAL IVP PRN (18:00)
[2017-12-09] MEDS ORDERED: LACTULOSE SYRUP 20 GM/30 ML CUP PO PRN (18:00)
[2017-12-09] MEDS ORDERED: SODIUM CHLORIDE 0.9% FLUSH 10 ML FLUSH IV FLUSH PRN (18:00)
[2017-12-09] MEDS ORDERED: SENNOSIDES 8.6 MG TAB PO PRN (18:00)
[2017-12-09 18:24] LABS: INTERNATIONAL NORMALIZED RATIO 1.4 RATIO; PROTHROMBIN TIME - PATIENT 14.4 SEC (9.8-11.6)
[2017-12-09] MEDS: SODIUM CHLOR 0.9% 1000 ML INJ 1,000 ML IV SCH (18:34)
[2017-12-09] MEDS: cefTRIAXone INJ 1,000 MG in SODIUM CHLORIDE 0.9% INJ 100 ML IV SCH (18:35)
[2017-12-09 19:08] VITALS: BP 103/56; PULSE 76; RESP 20; O2SAT 96
[2017-12-09] MEDS: MORPHINE SULFATE 100 MG CONTROLLED RELEASE TAB PO SCH (20:00)
[2017-12-09] MEDS: SODIUM CHLORIDE 0.9% FLUSH 10 ML FLUSH IV FLUSH SCH (21:00)
[2017-12-09] MEDS: DOCUSATE SODIUM 50 MG/SENNA 8.6 MG TAB PO SCH (21:00)
[2017-12-09 21:30] VITALS: BP 103/58; PULSE 72; RESP 18; TEMP 97.7; O2SAT 98
[2017-12-09] MEDS ORDERED: MORPHINE SULFATE 100 MG CONTROLLED RELEASE TAB PO SCH (22:00)
[2017-12-09] MEDS: BUDESONIDE-FORMOTEROL 160/4.5 MCG INHALER INH SCH (22:17)
[2017-12-09] MEDS: FLUTICASONE PROPIONATE 50 MCG/ACT 16 GM NASAL SPRAY NASAL SCH (22:18)
[2017-12-09 22:28] VITALS: PULSE 66
[2017-12-09] MEDS: AMITRIPTYLINE HCL 25 MG TAB PO SCH (23:03)
[2017-12-09] MEDS: PREGABALIN 100 MG CAP PO SCH (23:03)
[2017-12-09 23:47] VITALS: PULSE 64
[2017-12-10] VITALS (9 sets, daily range): BP systolic 91–127; BP diastolic 51–69; PULSE 51–81; RESP 17–20; TEMP 97.4–98.2; O2SAT 95–99
[2017-12-10] MEDS: MORPHINE SULFATE 100 MG CONTROLLED RELEASE TAB PO SCH ×3 (04:35→19:48)
[2017-12-10] MEDS: SODIUM CHLOR 0.9% 1000 ML INJ 1,000 ML IV SCH ×2 (04:36→13:55)
[2017-12-10] MEDS: PREGABALIN 100 MG CAP PO SCH ×3 (06:15→21:51)
[2017-12-10] MEDS: AMITRIPTYLINE HCL 25 MG TAB PO SCH ×3 (06:15→21:51)
[2017-12-10] MEDS ORDERED: AMITRIPTYLINE HCL 25 MG TAB PO SCH (09:00)
[2017-12-10] MEDS: THYROID 60 MG TAB PO SCH (09:00)
[2017-12-10] MEDS: FLUTICASONE PROPIONATE 50 MCG/ACT 16 GM NASAL SPRAY NASAL SCH ×2 (09:00→21:53)
[2017-12-10] MEDS: BUDESONIDE-FORMOTEROL 160/4.5 MCG INHALER INH SCH ×2 (09:00→21:53)
[2017-12-10] MEDS: SODIUM CHLORIDE 0.9% FLUSH 10 ML FLUSH IV FLUSH SCH ×2 (09:00→21:52)
[2017-12-10] MEDS ORDERED: PREGABALIN 100 MG CAP PO SCH (09:00)
[2017-12-10] MEDS: DOCUSATE SODIUM 50 MG/SENNA 8.6 MG TAB PO SCH ×2 (09:00→21:51)
[2017-12-10 09:16] LABS: AUTOMATED NEUTROPHIL # 9.3 TH/MM3 (1.8-7.7); BASOPHIL % 0.3 % (0.0-2.0); EOSINOPHIL # 0.3 TH/MM3 (0-0.4); EOSINOPHIL % 2.5 % (0.0-4.0); HEMATOCRIT 31.8 % (35.0-46.0); HEMOGLOBIN 10.4 GM/DL (11.6-15.3); LYMPH % 14.5 % (9.0-44.0); LYMPHOCYTE # 1.8 TH/MM3 (1.0-4.8); MEAN CELL VOLUME 86.9 FL (80.0-100.0); MEAN CORPUSCULAR HEMOGLOBIN 28.3 PG (27.0-34.0); MEAN CORPUSCULAR HGB CONC 32.6 % (32.0-36.0); MEAN PLATELET VOLUME 8.3 FL (7.0-11.0); MONO % 5.5 % (0.0-8.0); MONOCYTE # 0.7 TH/MM3 (0-0.9); NEUT % 77.2 % (16.0-70.0); PLATELET COUNT 240 TH/MM3 (150-450); RED BLOOD COUNT 3.66 MIL/MM3 (4.00-5.30); RED CELL DISTRIBUTION WIDTH 15.4 % (11.6-17.2); WHITE BLOOD COUNT 12.1 TH/MM3 (4.0-11.0)
--- NOTE | 2017-12-10 09:31 | HHI.PR ---
Subjective Remarks This is a pleasant 52 y/o Female with COPD, Hypertension, Fibromyalgia, Anxiety disorder, Depression, Chronic pain syndrome and Narcotic dependence status post mechanical fall, developed Hemoptysis, after she hit her chest, no reports of head injury or LOC. Patient reports that she has been sick for approximately the past 2 weeks with cough, believe that this was just a cold. She denies any fevers although does admit to chills today. She reports that cough is productive and sputum does have blood in it. Has CAD status post CABG in August this year, has only been taking aspirin at home. has a right ecchymosis on right arm. 12/10: Seen in her bedroom, discussed with welding specialist asked me to leave the patient NPO at midnight for Bronchoscopy tomorrow, patient stable no respiratory insufficiency at this time, no nausea, vomit or diarrhea. Objective Vital Signs Date Time Temp Pulse Resp B/P (MAP) Pulse Ox O2 Delivery O2 Flow Rate FiO2 12/10/17 08:00 97.4 75 20 122/53 (76) 95 12/10/17 04:00 97.8 68 18 123/60 (81) 99 12/10/17 03:59 51 12/10/17 00:00 Room Air 12/10/17 00:00 98.0 67 17 91/51 (64) 98 12/09/17 23:47 64 12/09/17 22:28 66 12/09/17 21:30 97.7 72 18 103/58 (73) 98 12/09/17 21:25 Room Air 12/09/17 19:08 76 20 103/56 (72) 96 Room Air 12/09/17 18:00 65 16 124/58 (80) 100 Room Air 12/09/17 15:42 16 Room Air 12/09/17 14:19 98.1 91 19 129/62 (84) 96 I/O 12/09/17 12/09/17 12/09/17 12/10/17 12/10/17 12/10/17 06:59 14:59 22:59 06:59 14:59 22:59 Intake Total 350 ml 1550 ml Balance 350 ml 1550 ml Intake Oral 550 ml IV Total 350 ml 1000 ml # Voids 3 Result Diagram: 12/10/17 0758 12/09/17 1555 Imaging Last Impressions Chest CT 12/09/17 0000 Signed Impressions: Service Date/Time: Saturday, December 09, 2017 16:12 - CONCLUSION: Bilateral, symmetric perihilar patchy airspace disease. In the clinical setting of hemoptysis, findings are most characteristic of acute diffuse alveolar hemorrhage. Ridge Cuellar MD Procedures None Other Results Laboratory Tests Test 12/09/17 15:55 12/09/17 17:45 12/09/17 19:40 12/10/17 07:58 Estimat Glomerular Filtration Rate 94 ML/MIN Prothrombin Time 14.4 SEC Prothromb Time International Ratio 1.4 RATIO Activated Partial Thromboplast Time 33.5 SEC Lactic Acid Level 1.3 mmol/L White Blood Count 12.1 TH/MM3 Red Blood Count 3.66 MIL/MM3 Hemoglobin 10.4 GM/DL Hematocrit 31.8 % Mean Corpuscular Volume 86.9 FL Mean Corpuscular Hemoglobin 28.3 PG Mean Corpuscular Hemoglobin Concent 32.6 % Red Cell Distribution Width 15.4 % Platelet Count 240 TH/MM3 Mean Platelet Volume 8.3 FL Neutrophils (%) (Auto) 77.2 % Lymphocytes (%) (Auto) 14.5 % Monocytes (%) (Auto) 5.5 % Eosinophils (%) (Auto) 2.5 % Basophils (%) (Auto) 0.3 % Neutrophils # (Auto) 9.3 TH/MM3 Lymphocytes # (Auto) 1.8 TH/MM3 Monocytes # (Auto) 0.7 TH/MM3 Eosinophils # (Auto) 0.3 TH/MM3 Basophils # (Auto) 0.0 TH/MM3 CBC Comment DIFF FINAL Differential Comment Objective Remarks GENERAL: This is a well-nourished, well-developed patient, in no apparent distress. SKIN: Cool and dry. Right forearm and wrist abrasion noted, no open skin. Midsternal scar. No chest ecchymosis. HEAD: Atraumatic. Normocephalic. No temporal or scalp tenderness. EYES: Pupils equal round and reactive. Extraocular motions intact. No scleral icterus. No injection or drainage. ENT: Nose without bleeding, purulent drainage or septal hematoma. Throat without erythema. Airway patent. NECK: Trachea midline. No JVD CARDIOVASCULAR: Regular rate and rhythm without murmurs, gallops, or rubs. RESPIRATORY: Bilateral lower crackles with decreased breath sounds. No wheezes, rales, or rhonchi. GASTROINTESTINAL: Abdomen soft, non-tender, nondistended. No palpable masses. No guarding. MUSCULOSKELETAL: Extremities without clubbing, cyanosis, or edema. No joint tenderness, effusion, or edema noted. No calf tenderness. NEUROLOGICAL: Awake and alert. Cranial nerves II through XII intact. Motor and sensory grossly within normal limits. Five out of 5 muscle strength in all muscle groups. Normal speech. Medications and IVs Current Medications Medications (Trade) Dose Ordered Sig/Wendy Route Start Time Stop Time Status Last Admin Sodium Chloride 1,000 ml @ 100 mls/hr Q10H IV 12/09/17 18:00 12/10/17 04:36 (NS Flush) 2 ml UNSCH PRN IV FLUSH 12/09/17 18:00 (NS Flush) 2 ml BID IV FLUSH 12/09/17 21:00 (Tylenol) 650 mg Q4H PRN PO 12/09/17 18:00 (Zofran Inj) 4 mg Q6H PRN IVP 12/09/17 18:00 (Narcan Inj) 0.4 mg UNSCH PRN IV PUSH 12/09/17 18:00 (Tere-Colace) 1 tab BID PO 12/09/17 21:00 (Milk Of Magnesia Liq) 30 ml Q12H PRN PO 12/09/17 18:00 (Senokot) 17.2 mg Q12H PRN PO 12/09/17 18:00 (Dulcolax Supp) 10 mg DAILY PRN RECTAL 12/09/17 18:00 (Lactulose Liq) 30 ml DAILY PRN PO 12/09/17 18:00 Azithromycin 500 mg/Sodium Chloride 250 ml @ 250 mls/hr Q24H IV 12/10/17 18:00 Ceftriaxone Sodium 1000 mg/ Sodium Chloride 100 ml @ 200 mls/hr Q24H IV 12/09/17 18:00 12/09/17 18:35 (Symbicort 160-4.5 Mcg Inh) 2 puff Q12HR INH 12/09/17 21:00 12/09/17 22:17 ([place] Thyroid) 180 mg DAILY PO 12/10/17 09:00 (Flonase David Spr) 2 spray BID NASAL 12/09/17 21:00 12/09/17 22:18 (Roxicodone) 30 mg 5 TIMES A DAY PO 12/09/17 22:00 12/10/17 06:16 (Oramorph Sr) 100 mg Q8H PO 12/09/17 20:00 12/10/17 04:35 (Elavil) 25 mg Q8HR PO 12/09/17 22:10 12/10/17 06:15 (Lyrica) 200 mg Q8HR PO 12/09/17 22:10 12/10/17 06:15 A/P Assessment and Plan 52-year-old female with past medical history significant for hypertension, COPD , fibromyalgia, anxiety, depression, chronic pain who presents to the emergency department s/p mechanical fall yesterday and has now developed hemoptysis. Bilateral lobe pneumonia Meets sepsis criteria -CT scan showing perihilar patchy airspace disease. -CBC with leukocytosis w/ shift, WBCs 16.9 with neutrophils 87.7, lactic acid 1.3, WBC today 12.1 -Heart rate 91, respiratory rate stable, O2 saturation stable on room air. -Given cefepime 1 g and azithromycin 500 mg IV in the ED. -Continue cefepime 1 g IV every 24 hours, and azithromycin 500 mg every 24 hours. 1L NS IV bolus - Check sputum gram stain, urine for pneumococcal antigen, and legionella Hemoptysis -Chest CT scan reviewed, bilateral symmetric perihilar patchy airspace disease. Findings most consistent with acute diffuse alveolar hemorrhage in the setting of hemoptysis. -Coag panel pending, H&H 12.3/37.7, platelets 267 -Hold off on any anticoagulation secondary to hemoptysis -Discussed with welding specialist will need Bronchoscopy for tomorrow. COPD, not exacerbated -Continue Symbicort Chronic pain -Patient reports that she takes 300 mg of morphine ER a day, med reconciliation also reports oxycodone 30 mg 5 times a day, Lyrica 200 mg 3 times a day -Will need to verify morphine and oxycodone with patient's pain management doctor or pharmacy -Resume Lyrica and amitriptyline CAD s/p CABG -Normotensive, aspirin on hold secondary to hemoptysis Hypothyroidism-continue patient's [place] thyroid Tobacco abuse -Patient counseled on the importance of smoking cessation. DVT prophylaxis-SCDs and TRINO hose (chemical anticoagulation contraindicated secondary to hemoptysis) Discharge Planning Once cleared by Specialists. Connor Huffman MD Dec 10, 2017 09:31
[2017-12-10 09:51] LABS: ALBUMIN 2.5 GM/DL (3.4-5.0); ALKALINE PHOSPHATASE 77 U/L (45-117); ALT (GPT) 24 U/L (10-53); AST (GOT) 24 U/L (15-37); BICARBONATE 28.5 MEQ/L (21.0-32.0); BLOOD UREA NITROGEN 7 MG/DL (7-18); CALCIUM 8.2 MG/DL (8.5-10.1); CHLORIDE 105 MEQ/L (98-107); CREATININE 0.55 MG/DL (0.50-1.00); GLOMERULAR FILTRATION RATE 116 ML/MIN (>89); GLUCOSE,RANDOM 88 MG/DL (74-106); SODIUM (NA) 141 MEQ/L (136-145); TOTAL BILIRUBIN ADULT 0.3 MG/DL (0.2-1.0); TOTAL PROTEIN 6.5 GM/DL (6.4-8.2)
[2017-12-10] MEDS: RESP: ALBUTEROL 2.5 MG/IPRATROPIUM 0.5 MG NEB (SCH) NEB ×4 (12:00→23:41)
--- NOTE | 2017-12-10 12:54 | MB ---
cc: Concha Brown MD DATE: 12/10/2017 HISTORY OF PRESENT ILLNESS: The patient is a 52-year-old female with past medical history of hypertension, COPD, fibromyalgia, anxiety/depression, chronic pain syndrome who was admitted to the hospitalist service last night for hemoptysis. Patient states she had several episodes of hemoptysis yesterday and her mucus was mixed with blood. This morning, she noticed a small amount of blood in her mucus twice. She also reports a subjective fever, but denies any other constitutional symptoms. Patient denies any hematemesis, hematochezia, or GI symptoms. She is active smoker where she smokes 5 cigarettes a day; however, up to 4 months ago, she used to smoke 2 packs per day. On arrival to the ED, she had leukocytosis with a WBC of 16.[address] scan of the chest was obtained in the ER which showed bilateral symmetrical perihilar patchy airspace disease. Pulmonary medicine was consulted for hemoptysis. Patient was started on broad-spectrum antibiotics. She has been sick for the past 2 weeks with a cough and she believed that this was related to a cold. She had a CABG done by Dr. Garcia in August of this year and was previously taking Plavix; however, it was discontinued and has only been taking aspirin at home. PAST MEDICAL HISTORY: Significant for hypertension, COPD, fibromyalgia, anxiety, depression, chronic pain syndrome, atrial myxoma. PAST SURGICAL HISTORY: Previous CABG done by Dr. Garcia in August of this year, atrial myxoma resection, left ankle surgery, previous and appendectomy, previous right hip replacement. ALLERGIES: NO KNOWN DRUG ALLERGIES. FAMILY HISTORY: Father with lung cancer. SOCIAL HISTORY: Nondrinker. She smokes 5 cigarettes a day; however, she used to smoke 2 packs per day up until August. REPORTED MEDICATIONS: Include: 1. Aspirin. 2. Morphine. 3. Lyrica. 4. Amitriptyline. 5. Symbicort. 6. Thyroid. REVIEW OF SYSTEMS: As per HPI. Rest of review of systems unremarkable. PHYSICAL EXAMINATION: GENERAL: A 52-year-old female, lying in bed, in no acute distress. VITAL SIGNS: Temperature 97.4, pulse 75, respiratory rate 20, blood pressure 122/53, sats 95% on room air. HEENT: Atraumatic, normocephalic. Pupils equal, round, reactive to light and accommodation. Extraocular muscles intact. Conjunctivae pink, nonicteric sclerae. Oral mucosa within normal. NECK: Supple. No JVD, adenopathy, or thyromegaly. Trachea in the midline. HEART: Regular rate and rhythm. Normal S1, S2. No murmurs, rubs, or gallops noted. PULMONARY: Bilateral equal air entry. No crackles or wheezing. ABDOMEN: Soft, nontender. No distention. Positive bowel sounds. EXTREMITIES: No cyanosis, clubbing, or edema. NEUROLOGIC: No focal sensory deficit. RADIOGRAPHIC STUDIES: CT chest showed bilateral perihilar patchy airspace disease. LABORATORY DATA: WBC 12.1 today, hemoglobin 10.4, hematocrit 31, platelet count 240. Sodium 141, potassium 3.4, chloride 105, CO2 28, BUN 7, creatinine 0.55, glucose 88, albumin 2.5. IMPRESSION: 1. Hemoptysis. 2. Bilateral patchy airspace disease, probably related to pneumonia. 3. Active tobacco use. 4. Leukocytosis. 5. Chronic obstructive pulmonary disease. 6. Hypertension. 7. Coronary artery disease with previous coronary artery bypass grafting. 8. Chronic pain syndrome. RECOMMENDATIONS: 1. CT scan of the chest reviewed and I discussed the findings with the patient and she is agreeable to proceed with a bronchoscopy. Will keep the patient n.p.o. after midnight. 2. Oxygen p.r.n. to maintain sats above 92%. 3. Continue with bronchodilators in the form of DuoNeb and Symbicort. 4. Agree with broad-spectrum antibiotics. She was started on ceftriaxone and azithromycin. Monitor for signs of infection which include fever and WBC. We will obtain blood cultures x 2 sets. Sputum culture with Gram stain in addition was sent for a Strep pneumoniae and legionella urinary antigen. 5. We will send a nasal washing to rule out influenza. 6. Continue with IV fluids. 7. Continue other medical management per primary team. 8. Further recommendations will be based on hospital course. MD STU Tubbs/AMARILIS , 11:51 AM , 12:53 PM
[2017-12-10] MEDS: cefTRIAXone INJ 1,000 MG in SODIUM CHLORIDE 0.9% INJ 100 ML IV SCH (17:59)
[2017-12-10] MEDS: DEXT 5%-NACL 0.9% 1000 ML INJ 1,000 ML IV SCH (18:05)
[2017-12-10] MEDS: AZITHROMYCIN INJ 500 MG in SODIUM CHLOR 0.9% 250 ML INJ 250 ML IV SCH (19:10)
[2017-12-10] MEDS: guaiFENesin E.R. 600 MG TAB PO SCH (21:51)
[2017-12-11] VITALS (9 sets, daily range): BP systolic 85–112; BP diastolic 55–75; PULSE 51–70; RESP 16–20; TEMP 97.8–98.4; O2SAT 94–100
[2017-12-11] MEDS: MORPHINE SULFATE 100 MG CONTROLLED RELEASE TAB PO SCH ×3 (03:41→20:04)
[2017-12-11] MEDS: RESP: ALBUTEROL 2.5 MG/IPRATROPIUM 0.5 MG NEB (SCH) NEB ×6 (03:42→23:31)
[2017-12-11] MEDS: DEXT 5%-NACL 0.9% 1000 ML INJ 1,000 ML IV SCH ×2 (06:07→18:18)
[2017-12-11] MEDS: PREGABALIN 100 MG CAP PO SCH ×3 (06:07→22:02)
[2017-12-11] MEDS: AMITRIPTYLINE HCL 25 MG TAB PO SCH ×3 (06:07→22:02)
[2017-12-11] MEDS: FLUTICASONE PROPIONATE 50 MCG/ACT 16 GM NASAL SPRAY NASAL SCH ×2 (09:00→20:04)
[2017-12-11] MEDS: SODIUM CHLORIDE 0.9% FLUSH 10 ML FLUSH IV FLUSH SCH ×2 (09:00→21:00)
[2017-12-11] MEDS: BUDESONIDE-FORMOTEROL 160/4.5 MCG INHALER INH SCH ×2 (09:00→20:04)
[2017-12-11] MEDS: DOCUSATE SODIUM 50 MG/SENNA 8.6 MG TAB PO SCH ×2 (10:02→20:03)
[2017-12-11] MEDS: guaiFENesin E.R. 600 MG TAB PO SCH ×2 (10:02→20:03)
[2017-12-11] MEDS: THYROID 60 MG TAB PO SCH (10:03)
--- NOTE | 2017-12-11 15:53 | HHI.PR ---
Subjective Remarks alert no furthur hemoptysis Objective Vital Signs Date Time Temp Pulse Resp B/P (MAP) Pulse Ox O2 Delivery O2 Flow Rate FiO2 12/11/17 13:56 20 12/11/17 12:07 20 12/11/17 12:00 97.9 59 16 99/55 (70) 97 12/11/17 09:59 112/63 (79) 12/11/17 08:00 97.8 62 16 85/70 (75) 94 12/11/17 04:00 Room Air 12/11/17 04:00 98.3 70 19 99/75 (83) 100 12/11/17 03:10 59 12/11/17 00:00 98.0 64 18 108/70 (83) 99 12/11/17 00:00 Room Air 12/10/17 23:45 65 12/10/17 20:00 98.0 68 19 103/69 (80) 99 12/10/17 20:00 Room Air 12/10/17 19:46 58 12/10/17 16:00 Room Air 12/10/17 16:00 98.2 62 20 102/59 (73) 97 12/10/17 16:00 54 I/O 12/10/17 12/10/17 12/10/17 12/11/17 12/11/17 12/11/17 07:00 15:00 23:00 07:00 15:00 23:00 Intake Total 1550 ml 720 ml 952 ml 0 ml Balance 1550 ml 720 ml 952 ml 0 ml Intake Oral 550 ml 720 ml 0 ml IV Total 1000 ml 952 ml # Voids 3 6 3 # Bowel Movements 2 0 Result Diagram: 12/10/17 0758 12/10/17 0758 Procedures None Other Results GENERAL: SKIN: Warm and dry. HEAD: Atraumatic. Normocephalic. EYES: Pupils equal and round. No scleral icterus. No injection or drainage. ENT: No nasal bleeding or discharge. Mucous membranes pink and moist. NECK: Trachea midline. No JVD. CARDIOVASCULAR: Regular rate and rhythm. RESPIRATORY: No accessory muscle use. Clear to auscultation. Breath sounds equal bilaterally. GASTROINTESTINAL: Abdomen soft, non-tender, nondistended. Hepatic and splenic margins not palpable. MUSCULOSKELETAL: Extremities without clubbing, cyanosis, or edema. No obvious deformities. NEUROLOGICAL: Awake and alert. No obvious cranial nerve deficits. Motor grossly within normal limits. Five out of 5 muscle strength in the arms and legs. Normal speech. PSYCHIATRIC: Appropriate mood and affect; insight and judgment normal. Assessment and Plan Assessment and Plan respiratory failure pna hemoptysis plan Bronchoscopy today antibx bronchodilator therapy fu CXRAY Eliezer Martins MD Dec 11, 2017 15:53
[2017-12-11] MEDS ORDERED: POTASSIUM CHLORIDE 20 MEQ CONTROLLED RELEASE TAB PO ONE (16:15)
[2017-12-11] MEDS ORDERED: DO NOT ADM ANY ANTICOAGULANT DRUGS PRN (16:15)
--- NOTE | 2017-12-11 16:16 | HHI.PR ---
Subjective Remarks This is a pleasant 52 y/o Female with COPD, Hypertension, Fibromyalgia, Anxiety disorder, Depression, Chronic pain syndrome and Narcotic dependence status post mechanical fall, developed Hemoptysis, after she hit her chest, no reports of head injury or LOC. Patient reports that she has been sick for approximately the past 2 weeks with cough, believe that this was just a cold. She denies any fevers although does admit to chills today. She reports that cough is productive and sputum does have blood in it. Has CAD status post CABG in August this year, has only been taking aspirin at home. has a right ecchymosis on right arm. 12/10: Seen in her bedroom, discussed with inventory specialist manager asked me to leave the patient NPO at midnight for Bronchoscopy tomorrow, patient stable no respiratory insufficiency at this time. 12/11: Stable in her bedroom, no nausea, vomit or diarrhea, asking to be discharge as per inventory specialist manager she will have Bronchoscopy later today. Objective Vital Signs Date Time Temp Pulse Resp B/P (MAP) Pulse Ox O2 Delivery O2 Flow Rate FiO2 12/11/17 13:56 20 12/11/17 12:07 20 12/11/17 12:00 97.9 59 16 99/55 (70) 97 12/11/17 09:59 112/63 (79) 12/11/17 08:00 97.8 62 16 85/70 (75) 94 12/11/17 04:00 Room Air 12/11/17 04:00 98.3 70 19 99/75 (83) 100 12/11/17 03:10 59 12/11/17 00:00 98.0 64 18 108/70 (83) 99 12/11/17 00:00 Room Air 12/10/17 23:45 65 12/10/17 20:00 98.0 68 19 103/69 (80) 99 12/10/17 20:00 Room Air 12/10/17 19:46 58 I/O 12/10/17 12/10/17 12/10/17 12/11/17 12/11/17 12/11/17 06:59 14:59 22:59 06:59 14:59 22:59 Intake Total 1550 ml 720 ml 952 ml 0 ml Balance 1550 ml 720 ml 952 ml 0 ml Intake Oral 550 ml 720 ml 0 ml IV Total 1000 ml 952 ml # Voids 3 6 3 # Bowel Movements 2 0 Result Diagram: 12/10/17 0758 12/10/17 0758 Imaging Last Impressions Chest CT 12/09/17 0000 Signed Impressions: Service Date/Time: Saturday, December 09, 2017 16:12 - CONCLUSION: Bilateral, symmetric perihilar patchy airspace disease. In the clinical setting of hemoptysis, findings are most characteristic of acute diffuse alveolar hemorrhage. Ridge Cuellar MD Procedures None Other Results Laboratory Tests Test 12/09/17 17:45 12/09/17 19:40 12/10/17 07:58 Prothrombin Time 14.4 SEC Prothromb Time International Ratio 1.4 RATIO Activated Partial Thromboplast Time 33.5 SEC Lactic Acid Level 1.3 mmol/L White Blood Count 12.1 TH/MM3 Red Blood Count 3.66 MIL/MM3 Hemoglobin 10.4 GM/DL Hematocrit 31.8 % Mean Corpuscular Volume 86.9 FL Mean Corpuscular Hemoglobin 28.3 PG Mean Corpuscular Hemoglobin Concent 32.6 % Red Cell Distribution Width 15.4 % Platelet Count 240 TH/MM3 Mean Platelet Volume 8.3 FL Neutrophils (%) (Auto) 77.2 % Lymphocytes (%) (Auto) 14.5 % Monocytes (%) (Auto) 5.5 % Eosinophils (%) (Auto) 2.5 % Basophils (%) (Auto) 0.3 % Neutrophils # (Auto) 9.3 TH/MM3 Lymphocytes # (Auto) 1.8 TH/MM3 Monocytes # (Auto) 0.7 TH/MM3 Eosinophils # (Auto) 0.3 TH/MM3 Basophils # (Auto) 0.0 TH/MM3 CBC Comment DIFF FINAL Differential Comment Blood Urea Nitrogen 7 MG/DL Creatinine 0.55 MG/DL Random Glucose 88 MG/DL Total Protein 6.5 GM/DL Albumin 2.5 GM/DL Calcium Level 8.2 MG/DL Alkaline Phosphatase 77 U/L Aspartate Amino Transf (AST/SGOT) 24 U/L Alanine Aminotransferase (ALT/SGPT) 24 U/L Total Bilirubin 0.3 MG/DL Sodium Level 141 MEQ/L Potassium Level 3.4 MEQ/L Chloride Level 105 MEQ/L Carbon Dioxide Level 28.5 MEQ/L Anion Gap 8 MEQ/L Estimat Glomerular Filtration Rate 116 ML/MIN Objective Remarks GENERAL: This is a well-nourished, well-developed patient, in no apparent distress. SKIN: Cool and dry. Right forearm and wrist abrasion noted, no open skin. Midsternal scar. No chest ecchymosis. HEAD: Atraumatic. Normocephalic. No temporal or scalp tenderness. EYES: Pupils equal round and reactive. Extraocular motions intact. No scleral icterus. No injection or drainage. ENT: Nose without bleeding, purulent drainage or septal hematoma. Throat without erythema. Airway patent. NECK: Trachea midline. No JVD CARDIOVASCULAR: Regular rate and rhythm without murmurs, gallops, or rubs. RESPIRATORY: Bilateral lower crackles with decreased breath sounds. No wheezes, rales, or rhonchi. GASTROINTESTINAL: Abdomen soft, non-tender, nondistended. No palpable masses. No guarding. MUSCULOSKELETAL: Extremities without clubbing, cyanosis, or edema. No joint tenderness, effusion, or edema noted. No calf tenderness. NEUROLOGICAL: Awake and alert. Cranial nerves II through XII intact. Motor and sensory grossly within normal limits. Five out of 5 muscle strength in all muscle groups. Normal speech. Medications and IVs Current Medications Medications (Trade) Dose Ordered Sig/Wendy Route Start Time Stop Time Status Last Admin (NS Flush) 2 ml UNSCH PRN IV FLUSH 12/09/17 18:00 (NS Flush) 2 ml BID IV FLUSH 12/09/17 21:00 12/10/17 21:52 (Tylenol) 650 mg Q4H PRN PO 12/09/17 18:00 (Zofran Inj) 4 mg Q6H PRN IVP 12/09/17 18:00 (Narcan Inj) 0.4 mg UNSCH PRN IV PUSH 12/09/17 18:00 (Tere-Colace) 1 tab BID PO 12/09/17 21:00 12/11/17 10:02 (Milk Of Magnesia Liq) 30 ml Q12H PRN PO 12/09/17 18:00 (Senokot) 17.2 mg Q12H PRN PO 12/09/17 18:00 (Dulcolax Supp) 10 mg DAILY PRN RECTAL 12/09/17 18:00 (Lactulose Liq) 30 ml DAILY PRN PO 12/09/17 18:00 Azithromycin 500 mg/Sodium Chloride 250 ml @ 250 mls/hr Q24H IV 12/10/17 18:00 12/10/17 19:10 Ceftriaxone Sodium 1000 mg/ Sodium Chloride 100 ml @ 200 mls/hr Q24H IV 12/09/17 18:00 12/10/17 17:59 (Symbicort 160-4.5 Mcg Inh) 2 puff Q12HR INH 12/09/17 21:00 12/11/17 09:00 ([place] Thyroid) 180 mg DAILY PO 12/10/17 09:00 12/11/17 10:03 (Flonase David Spr) 2 spray BID NASAL 12/09/17 21:00 12/10/17 21:53 (Roxicodone) 30 mg 5 TIMES A DAY PO 12/09/17 22:00 12/11/17 14:00 (Oramorph Sr) 100 mg Q8H PO 12/09/17 20:00 12/11/17 12:08 (Elavil) 25 mg Q8HR PO 12/09/17 22:10 12/11/17 14:00 (Lyrica) 200 mg Q8HR PO 12/09/17 22:10 12/11/17 14:00 (Duoneb Neb) 1 ampule Q4HR NEB NEB 12/10/17 12:00 12/11/17 08:00 (Mucinex Er) 600 mg BID PO 12/10/17 21:00 12/11/17 10:02 Dextrose/Sodium Chloride 1,000 ml @ 84 mls/hr [id number] IV 12/10/17 18:00 12/11/17 06:07 A/P Assessment and Plan 52-year-old female with past medical history significant for hypertension, COPD , fibromyalgia, anxiety, depression, chronic pain who presents to the emergency department s/p mechanical fall yesterday and has now developed hemoptysis. Bilateral lobe pneumonia Meets sepsis criteria -CT scan showing perihilar patchy airspace disease. -CBC with leukocytosis w/ shift, WBCs 16.9 with neutrophils 87.7, lactic acid 1.3, WBC now 12.1 -Heart rate 91, respiratory rate stable, O2 saturation stable on room air. -Given cefepime 1 g and azithromycin 500 mg IV in the ED. -Continue cefepime 1 g IV every 24 hours, and azithromycin 500 mg every 24 hours. 1L NS IV bolus - Check sputum gram stain, urine for pneumococcal antigen, and legionella, blood culture negative in one day. Hemoptysis -Chest CT scan reviewed, bilateral symmetric perihilar patchy airspace disease. Findings most consistent with acute diffuse alveolar hemorrhage in the setting of hemoptysis. -Coag panel pending, H&H 12.3/37.7, platelets 267 -Hold off on any anticoagulation secondary to hemoptysis -Discussed with inventory specialist manager will need Bronchoscopy later today. COPD, not exacerbated -Continue Symbicort Chronic pain -Patient reports that she takes 300 mg of morphine ER a day, med reconciliation also reports oxycodone 30 mg 5 times a day, Lyrica 200 mg 3 times a day -Will need to verify morphine and oxycodone with patient's pain management doctor or pharmacy -Resume Lyrica and amitriptyline CAD s/p CABG -Normotensive, aspirin on hold secondary to hemoptysis Hypothyroidism-continue patient's [place] thyroid Tobacco abuse -Patient counseled on the importance of smoking cessation. DVT prophylaxis-SCDs and TRINO alicia (chemical anticoagulation contraindicated secondary to hemoptysis) Discharge Planning Once cleared by Specialists. Connor Huffman MD Dec 11, 2017 16:16
--- NOTE | 2017-12-11 16:24 | MR ---
cc: Eliezer Martins MD DATE: 12/11/2017 PROCEDURE: Fiberoptic bronchoscopy flexible. REASON FOR BRONCHOSCOPY: Hemoptysis. PROCEDURE PERFORMED: Fiberoptic bronchoscopy performed via LMA. Vocal cords visualized appeared intact. Trachea mildly hyperemic. Sharon is sharp. Right stem bronchus, right upper, middle and lower lobe, left main bronchus, left upper and lower lobes were inspected. No obstructive pathology or mass lesion seen. No active bleeding noted. Washings obtained from both sides of the tracheobronchial tree for routine TB, fungal cultures as well as cytological exam. Washings obtained from both sides of the tracheobronchial tree for routine TB, fungal culture and cytological exam. A brush biopsy right middle lobe appeared somewhat more hyperemic than the rest of the tracheobronchial tree taken. Procedure well tolerated. The patient was transferred to Recovery room in stable condition. IMPRESSION: 1. Mild to moderate tracheobronchitis. 2. No obstruction, no mass lesion. 3. No active bleeding. 4. Procedure well tolerated. 5. The patient transferred to Recovery in stable condition. Eliezer Martins MD [id number]/DIPIKA , 03:56 PM , 04:23 PM
[2017-12-11] MEDS: cefTRIAXone INJ 1,000 MG in SODIUM CHLORIDE 0.9% INJ 100 ML IV SCH (18:18)
[2017-12-11] MEDS: AZITHROMYCIN INJ 500 MG in SODIUM CHLOR 0.9% 250 ML INJ 250 ML IV SCH (18:18)
--- NOTE | 2017-12-11 18:35 | HHI.PR ---
Subjective Remarks alert no furthur hemoptysis Objective Vital Signs Date Time Temp Pulse Resp B/P (MAP) Pulse Ox O2 Delivery O2 Flow Rate FiO2 12/11/17 17:35 97 Room Air 12/11/17 16:15 98.1 57 18 106/66 (79) 100 Room Air 12/11/17 16:00 72 18 108/60 (76) 100 Room Air 12/11/17 15:58 98.2 72 18 112/65 (81) 100 Nasal Cannula 3 12/11/17 13:56 20 12/11/17 12:07 20 12/11/17 12:00 97.9 59 16 99/55 (70) 97 12/11/17 09:59 112/63 (79) 12/11/17 08:00 97.8 62 16 85/70 (75) 94 12/11/17 04:00 Room Air 12/11/17 04:00 98.3 70 19 99/75 (83) 100 12/11/17 03:10 59 12/11/17 00:00 98.0 64 18 108/70 (83) 99 12/11/17 00:00 Room Air 12/10/17 23:45 65 12/10/17 20:00 98.0 68 19 103/69 (80) 99 12/10/17 20:00 Room Air 12/10/17 19:46 58 I/O 12/10/17 12/10/17 12/10/17 12/11/17 12/11/17 12/11/17 07:00 15:00 23:00 07:00 15:00 23:00 Intake Total 1550 ml 720 ml 952 ml 0 ml Balance 1550 ml 720 ml 952 ml 0 ml Intake Oral 550 ml 720 ml 0 ml IV Total 1000 ml 952 ml # Voids 3 6 3 # Bowel Movements 2 0 Result Diagram: 12/10/17 0758 12/10/17 0758 Procedures None Objective Remarks GENERAL: SKIN: Warm and dry. HEAD: Atraumatic. Normocephalic. EYES: Pupils equal and round. No scleral icterus. No injection or drainage. ENT: No nasal bleeding or discharge. Mucous membranes pink and moist. NECK: Trachea midline. No JVD. CARDIOVASCULAR: Regular rate and rhythm. RESPIRATORY: No accessory muscle use. Clear to auscultation. Breath sounds equal bilaterally. GASTROINTESTINAL: Abdomen soft, non-tender, nondistended. Hepatic and splenic margins not palpable. MUSCULOSKELETAL: Extremities without clubbing, cyanosis, or edema. No obvious deformities. NEUROLOGICAL: Awake and alert. No obvious cranial nerve deficits. Motor grossly within normal limits. Five out of 5 muscle strength in the arms and legs. Normal speech. PSYCHIATRIC: Appropriate mood and affect; insight and judgment normal. Assessment and Plan Assessment and Plan respiratory failure pna hemoptysis plan Bronchoscopy today antibx bronchodilator therapy fu CXRAY Eliezer Martins MD Dec 11, 2017 18:35
[2017-12-12] VITALS (7 sets, daily range): BP systolic 102–124; BP diastolic 58–74; PULSE 49–68; RESP 16–18; TEMP 97.4–98.4; O2SAT 95–99
[2017-12-12] MEDS: RESP: ALBUTEROL 2.5 MG/IPRATROPIUM 0.5 MG NEB (SCH) NEB ×4 (03:37→15:33)
[2017-12-12] MEDS: MORPHINE SULFATE 100 MG CONTROLLED RELEASE TAB PO SCH ×2 (04:03→12:10)
[2017-12-12] MEDS: DEXT 5%-NACL 0.9% 1000 ML INJ 1,000 ML IV SCH (05:45)
[2017-12-12] MEDS: AMITRIPTYLINE HCL 25 MG TAB PO SCH ×2 (06:14→14:20)
[2017-12-12] MEDS: PREGABALIN 100 MG CAP PO SCH ×2 (06:14→14:20)
[2017-12-12 06:36] LABS: AUTOMATED NEUTROPHIL # 4.6 TH/MM3 (1.8-7.7); BASOPHIL % 0.5 % (0.0-2.0); EOSINOPHIL # 0.2 TH/MM3 (0-0.4); EOSINOPHIL % 2.4 % (0.0-4.0); HEMATOCRIT 30.2 % (35.0-46.0); HEMOGLOBIN 10.1 GM/DL (11.6-15.3); LYMPH % 27.7 % (9.0-44.0); MEAN CELL VOLUME 87.1 FL (80.0-100.0); MEAN CORPUSCULAR HEMOGLOBIN 29.1 PG (27.0-34.0); MEAN CORPUSCULAR HGB CONC 33.4 % (32.0-36.0); MEAN PLATELET VOLUME 8.4 FL (7.0-11.0); MONO % 6.6 % (0.0-8.0); MONOCYTE # 0.5 TH/MM3 (0-0.9); NEUT % 62.8 % (16.0-70.0); PLATELET COUNT 253 TH/MM3 (150-450); RED BLOOD COUNT 3.47 MIL/MM3 (4.00-5.30); WHITE BLOOD COUNT 7.3 TH/MM3 (4.0-11.0)
[2017-12-12 06:48] LABS: BICARBONATE 28.6 MEQ/L (21.0-32.0); BLOOD UREA NITROGEN 4 MG/DL (7-18); CALCIUM 8.2 MG/DL (8.5-10.1); CHLORIDE 107 MEQ/L (98-107); CHOLESTEROL 109 MG/DL (120-200); CREATININE 0.43 MG/DL (0.50-1.00); GLOMERULAR FILTRATION RATE 154 ML/MIN (>89); GLUCOSE,RANDOM 92 MG/DL (74-106); MAGNESIUM 2.3 MG/DL (1.5-2.5); SODIUM (NA) 142 MEQ/L (136-145); TRIGLYCERIDES 67 MG/DL (42-150)
[2017-12-12 07:14] LABS: CHOLESTEROL/ HDL RATIO 2.69 RATIO; FOLATE 11.6 NG/ML (3.1-17.5); FREE T4 0.83 NG/DL (0.76-1.46); HDL CHOLESTEROL 40.4 MG/DL (40.0-60.0); LDL CHOLESTEROL 55 MG/DL (0-99)
--- NOTE | 2017-12-12 08:55 | HHI.PR ---
Subjective Remarks alert no further hemoptysis Objective Vital Signs Date Time Temp Pulse Resp B/P (MAP) Pulse Ox O2 Delivery O2 Flow Rate FiO2 12/12/17 08:36 21 12/12/17 04:00 97.9 52 16 103/64 (77) 95 12/12/17 04:00 Room Air 12/12/17 03:49 49 12/12/17 00:00 97.4 68 18 124/58 (80) 97 12/12/17 00:00 Room Air 12/11/17 23:48 51 12/11/17 21:34 52 12/11/17 20:00 98.4 57 20 106/60 (75) 95 12/11/17 20:00 Room Air 12/11/17 17:35 97 Room Air 12/11/17 16:15 98.1 57 18 106/66 (79) 100 Room Air 12/11/17 16:00 72 18 108/60 (76) 100 Room Air 12/11/17 15:58 98.2 72 18 112/65 (81) 100 Nasal Cannula 3 12/11/17 13:56 20 12/11/17 12:07 20 12/11/17 12:00 97.9 59 16 99/55 (70) 97 12/11/17 09:59 112/63 (79) I/O 12/11/17 12/11/17 12/11/17 12/12/17 12/12/17 12/12/17 07:00 15:00 23:00 07:00 15:00 23:00 Intake Total 952 ml 0 ml Balance 952 ml 0 ml Intake Oral 0 ml IV Total 952 ml # Voids 3 3 # Bowel Movements 0 0 Result Diagram: 12/12/17 0450 12/12/17 0450 Procedures None Objective Remarks GENERAL: SKIN: Warm and dry. HEAD: Atraumatic. Normocephalic. EYES: Pupils equal and round. No scleral icterus. No injection or drainage. ENT: No nasal bleeding or discharge. Mucous membranes pink and moist. NECK: Trachea midline. No JVD. CARDIOVASCULAR: Regular rate and rhythm. RESPIRATORY: No accessory muscle use. Clear to auscultation. Breath sounds equal bilaterally. GASTROINTESTINAL: Abdomen soft, non-tender, nondistended. Hepatic and splenic margins not palpable. MUSCULOSKELETAL: Extremities without clubbing, cyanosis, or edema. No obvious deformities. NEUROLOGICAL: Awake and alert. No obvious cranial nerve deficits. Motor grossly within normal limits. Five out of 5 muscle strength in the arms and legs. Normal speech. PSYCHIATRIC: Appropriate mood and affect; insight and judgment normal. Assessment and Plan Assessment and Plan respiratory failure pna hemoptysis plan Bronchoscopy well tolerated antibx bronchodilator therapy fu CXRAY pending Eliezer Martins MD Dec 12, 2017 08:55
[2017-12-12] MEDS: THYROID 60 MG TAB PO SCH (09:09)
[2017-12-12] MEDS: SODIUM CHLORIDE 0.9% FLUSH 10 ML FLUSH IV FLUSH SCH (09:09)
[2017-12-12] MEDS: guaiFENesin E.R. 600 MG TAB PO SCH (09:09)
[2017-12-12] MEDS: DOCUSATE SODIUM 50 MG/SENNA 8.6 MG TAB PO SCH (09:09)
[2017-12-12] MEDS: BUDESONIDE-FORMOTEROL 160/4.5 MCG INHALER INH SCH (09:10)
[2017-12-12] MEDS: FLUTICASONE PROPIONATE 50 MCG/ACT 16 GM NASAL SPRAY NASAL SCH (09:11)
--- NOTE | 2017-12-12 10:55 | RADRPT ---
EXAM DATE/TIME: 12/12/2017 10:46 [facility] COMPARISON: CHEST PA & LAT, May 17, 2017, 17:40. INDICATIONS : Shortness of breath. MEDICAL HISTORY : Cardiovascular disease. SURGICAL HISTORY : CABG. ENCOUNTER: Subsequent ACUITY: 1 day PAIN SCORE: 0/10 LOCATION: Bilateral chest FINDINGS: PA and lateral views of the chest demonstrate the lungs to be symmetrically aerated with some mild pe rihilar interstitial prominence. The nancy may also be slightly prominent themselves. Postsurgical nikko nges with intact median sternotomy wires. Heart size is normal. Osseous structures are intact. CONCLUSION: 1. Mild hilar prominence particularly on the right. Findings could represent some prominence of the c entral pulmonary vessels or adenopathy. A contrasted CT scan of the chest could be performed for furt her characterization if clinically warranted 2. There is also some slight interstitial prominence again in a perihilar distribution. Findings coul d represent vascular congestion or volume overload. Ridge Cuellar MD on December 12, 2017 at 10:49 Board Certified Radiologist. This report was verified electronically.
[2017-12-12] MEDS ORDERED: LEVOFLOXACIN 500 MG TAB PO SCH (15:00)
--- NOTE | 2017-12-12 15:02 | HHI.PR ---
Subjective Remarks feeling better up and ambulating with her walker no further hemoptysis minimal cough states smoker- cut down to 1/2 pack Objective Vitals Vital Signs Date Time Temp Pulse Resp B/P (MAP) Pulse Ox O2 Delivery O2 Flow Rate FiO2 12/12/17 12:04 98.4 66 18 121/74 (90) 96 12/12/17 12:00 58 12/12/17 08:36 21 12/12/17 08:04 97.7 55 18 102/60 (74) 99 12/12/17 08:00 Room Air 12/12/17 08:00 58 12/12/17 04:00 97.9 52 16 103/64 (77) 95 12/12/17 04:00 Room Air 12/12/17 03:49 49 12/12/17 00:00 97.4 68 18 124/58 (80) 97 12/12/17 00:00 Room Air 12/11/17 23:48 51 12/11/17 21:34 52 12/11/17 20:00 98.4 57 20 106/60 (75) 95 12/11/17 20:00 Room Air 12/11/17 17:35 97 Room Air 12/11/17 16:15 98.1 57 18 106/66 (79) 100 Room Air 12/11/17 16:00 72 18 108/60 (76) 100 Room Air 12/11/17 15:58 98.2 72 18 112/65 (81) 100 Nasal Cannula 3 I/O 12/11/17 12/11/17 12/11/17 12/12/17 12/12/17 12/12/17 07:00 15:00 23:00 07:00 15:00 23:00 Intake Total 952 ml 0 ml Balance 952 ml 0 ml Intake Oral 0 ml IV Total 952 ml # Voids 3 3 # Bowel Movements 0 0 Result Diagram: 12/12/17 0450 12/12/17 0450 A/P Problem List: (1) Pneumonia of both lower lobes ICD Code: J18.9 - Pneumonia, unspecified organism (2) Hemoptysis ICD Code: R04.2 - Hemoptysis (3) Fall ICD Code: W19.XXXA - Unspecified fall, initial encounter Status: Acute (4) COPD (chronic obstructive pulmonary disease) ICD Code: J44.9 - Chronic obstructive pulmonary disease, unspecified Status: Chronic (5) Tobacco abuse ICD Code: Z72.0 - Tobacco use Assessment and Plan 52-year-old female with past medical history significant for hypertension, COPD , fibromyalgia, anxiety, depression, chronic pain who presents to the emergency department s/p mechanical fall yesterday and has now developed hemoptysis. Bilateral lobe pneumonia Meets sepsis criteria -CT scan showing perihilar patchy airspace disease. -CBC with leukocytosis w/ shift, WBCs 16.9 with neutrophils 87.7, lactic acid 1.3, WBC now 12.1 -Heart rate 91, respiratory rate stable, O2 saturation stable on room air. -Given cefepime 1 g and azithromycin 500 mg IV in the ED. -Continue cefepime 1 g IV every 24 hours, and azithromycin 500 mg every 24 hours. 1L NS IV bolus - Check sputum gram stain, urine for pneumococcal antigen, and legionella, blood culture negative in one day. Hemoptysis -Chest CT scan reviewed, bilateral symmetric perihilar patchy airspace disease. Findings most consistent with acute diffuse alveolar hemorrhage in the setting of hemoptysis. -Coag panel pending, H&H 12.3/37.7, platelets 267 -Hold off on any anticoagulation secondary to hemoptysis -Discussed with application specialist will need Bronchoscopy later today. COPD, not exacerbated -Continue Symbicort Chronic pain -Patient reports that she takes 300 mg of morphine ER a day, med reconciliation also reports oxycodone 30 mg 5 times a day, Lyrica 200 mg 3 times a day -Will need to verify morphine and oxycodone with patient's pain management doctor or pharmacy -Resume Lyrica and amitriptyline CAD s/p CABG -Normotensive, aspirin on hold secondary to hemoptysis Hypothyroidism-continue patient's [place] thyroid Tobacco abuse -Patient counseled on the importance of smoking cessation. DVT prophylaxis-SCDs and TRINO alicia (chemical anticoagulation contraindicated secondary to hemoptysis) Benjamin Calderon MD Dec 12, 2017 15:02
[2017-12-12] MEDS ORDERED: LEVA500T33 PO (15:06)
--- NOTE | 2017-12-12 15:11 | HHI.DS ---
Discharge Summary Admission Date Dec 09, 2017 at 17:39 Discharge Date: Dec 12, 2017 Admitting Diagnosis pneumonia, hemoptysis (1) Pneumonia of both lower lobes ICD Code: J18.9 - Pneumonia, unspecified organism Diagnosis: Principal (2) Hemoptysis ICD Code: R04.2 - Hemoptysis Diagnosis: Principal (3) Fall ICD Code: W19.XXXA - Unspecified fall, initial encounter Diagnosis: Secondary Status: Acute (4) COPD (chronic obstructive pulmonary disease) ICD Code: J44.9 - Chronic obstructive pulmonary disease, unspecified Diagnosis: Secondary Status: Chronic (5) Tobacco abuse ICD Code: Z72.0 - Tobacco use Diagnosis: Secondary Procedures bronchoscopy Brief History - From Admission Written by Johny Jones, acting as scribe for Dr. Horne on 12/09/17 at 17:53. 52-year-old female with past medical history significant for hypertension, COPD , fibromyalgia, anxiety, depression, chronic pain who presents to the emergency department s/p mechanical fall yesterday and has now developed hemoptysis. States that she was reaching over her dog toy when she fell and caught herself hitting her chest. Chart was reviewed, no reports of head injury or LOC. Patient reports that she has been sick for approximately the past 2 weeks with cough, believe that this was just a cold. She denies any fevers although does admit to chills today. She reports that cough is productive and sputum does have blood in it. She denies any nausea, vomiting, diarrhea, constipation, shortness of breath, or chest pain. She reports that she had a CABG done by Dr. Mckay August of this year and was previously taking Plavix however this was discontinued, has only been taking aspirin at home. She points out right arm ecchymotic area along with right arm rash which patient states she first noticed today during her physical therapy session. She denies any itching but does report that it is sore, is not sure if she might of done this yesterday during fall. She reports a history of chronic pain and states that she takes morphine 300 mg daily. CBC/BMP: 12/12/17 0450 12/12/17 0450 Significant Findings Laboratory Tests Test 12/09/17 15:55 12/09/17 17:45 12/09/17 19:40 12/10/17 07:58 White Blood Count 16.9 TH/MM3 (4.0-11.0) 12.1 TH/MM3 (4.0-11.0) Neutrophils (%) (Auto) 87.7 % (16.0-70.0) 77.2 % (16.0-70.0) Lymphocytes (%) (Auto) 8.7 % (9.0-44.0) Neutrophils # (Auto) 14.9 TH/MM3 (1.8-7.7) 9.3 TH/MM3 (1.8-7.7) Random Glucose 129 MG/DL (74-106) Albumin 3.3 GM/DL (3.4-5.0) 2.5 GM/DL (3.4-5.0) Aspartate Amino Transf (AST/SGOT) 43 U/L (15-37) Prothrombin Time 14.4 SEC (9.8-11.6) Activated Partial Thromboplast Time 33.5 SEC (24.3-30.1) Red Blood Count 3.66 MIL/MM3 (4.00-5.30) Hemoglobin 10.4 GM/DL (11.6-15.3) Hematocrit 31.8 % (35.0-46.0) Calcium Level 8.2 MG/DL (8.5-10.1) Potassium Level 3.4 MEQ/L (3.5-5.1) Test 12/12/17 04:50 Red Blood Count 3.47 MIL/MM3 (4.00-5.30) Hemoglobin 10.1 GM/DL (11.6-15.3) Hematocrit 30.2 % (35.0-46.0) Blood Urea Nitrogen 4 MG/DL (7-18) Creatinine 0.43 MG/DL (0.50-1.00) Calcium Level 8.2 MG/DL (8.5-10.1) Cholesterol Level 109 MG/DL (120-200) Imaging Last Impressions Chest X-Ray 12/12/17 0000 Signed Impressions: Service Date/Time: Tuesday, December 12, 2017 10:46 - CONCLUSION: 1. Mild hilar prominence particularly on the right. Findings could represent some prominence of the central pulmonary vessels or adenopathy. A contrasted CT scan of the chest could be performed for further characterization if clinically warranted 2. There is also some slight interstitial prominence again in a perihilar distribution. Findings could represent vascular congestion or volume overload. Rdige Cuellar MD Chest CT 12/09/17 0000 Signed Impressions: Service Date/Time: Saturday, December 09, 2017 16:12 - CONCLUSION: Bilateral, symmetric perihilar patchy airspace disease. In the clinical setting of hemoptysis, findings are most characteristic of acute diffuse alveolar hemorrhage. Ridge Cuellar MD Pt update on day of discharge up and ambulating with good sats at room air no wheezes, no rhonchi Hospital Course 52-year-old female with past medical history significant for hypertension, COPD , fibromyalgia, anxiety, depression, chronic pain who presents to the emergency department s/p mechanical fall yesterday and has now developed hemoptysis. Bilateral lobe pneumonia Meets sepsis criteria -CT scan showing perihilar patchy airspace disease. -CBC with leukocytosis w/ shift, WBCs 16.9 with neutrophils 87.7, lactic acid 1.3, WBC now 12.1 -Heart rate 91, respiratory rate stable, O2 saturation stable on room air. -Given cefepime 1 g and azithromycin 500 mg IV in the ED. -Continue cefepime 1 g IV every 24 hours, and azithromycin 500 mg every 24 hours. 1L NS IV bolus - Check sputum gram stain, urine for pneumococcal antigen, and legionella, blood culture negative in one day. Hemoptysis -Chest CT scan reviewed, bilateral symmetric perihilar patchy airspace disease. Findings most consistent with acute diffuse alveolar hemorrhage in the setting of hemoptysis. -Coag panel pending, H&H 12.3/37.7, platelets 267 -Hold off on any anticoagulation secondary to hemoptysis -Discussed with it communications specialist will need Bronchoscopy later today. COPD, not exacerbated -Continue Symbicort Chronic pain -Patient reports that she takes 300 mg of morphine ER a day, med reconciliation also reports oxycodone 30 mg 5 times a day, Lyrica 200 mg 3 times a day -Will need to verify morphine and oxycodone with patient's pain management doctor or pharmacy -Resume Lyrica and amitriptyline CAD s/p CABG -Normotensive, aspirin on hold secondary to hemoptysis Hypothyroidism-continue patient's Smoot thyroid Tobacco abuse -Patient counseled on the importance of smoking cessation. Pt Condition on Discharge: Stable Discharge Disposition: Discharge Home Discharge Time: > 30 minutes Discharge Instructions DIET: Follow Instructions for: As Tolerated, No Restrictions Speech Therapy-Diet Recommends: Regular Activities you can perform: Weight Bearing as Frances Activities to Avoid: Strenuous Activity Follow up Referrals: PCP Follow-up - 1 Week with [facility] - 1 Week with Eliezer Martins MD New Medications: Levofloxacin (Levaquin) 500 Mg Tablet 500 MG PO DAILY for PNA for 4 Days, #4 TAB Continued Medications: Aspirin DR (Jaime Aspirin EC Low Dose) 81 Mg Tabdr 1 TAB PO BID for 30 Days Budesonide-Formoterol Inh (Symbicort Inh) 160-4.5 Mcg/Act Aero 2 PUFF INH Q12HR, #1 INHALER 0 Refills Fluticasone Nasal [place] (Flonase Nasal [place]) 50 Mcg/Act [place] 100 MCG EACH NARE BID for Allergies, #1 BOTTLE 0 Refills Thyroid (Smoot Thyroid) 180 Mg Tab 180 MG PO DAILY for Thyroid Supplement, #30 TAB 0 Refills Benjamin Calderon MD Dec 12, 2017 15:11
[2017-12-12 15:54] LABS: HEMOGLOBIN A1C 5.7 % (4.3-6.0)
== END 2017-12-12 16:28 | disposition home or self-care (01) | DRG 194 ==
LOC: NEPD 14:09 → NEDA 17:39 → N04B 21:25
PROVIDERS: ADMIT Internal Medicine; ATTEND Internal Medicine
PROC: 0BDD8ZX Extraction of Right Middle Lung Lobe, Via Natural or Artificial Opening Endoscopic, Diagnostic (ICD-10-PCS; principal; 2017-12-09)
PROC: 0B978ZX Drainage of Left Main Bronchus, Via Natural or Artificial Opening Endoscopic, Diagnostic (ICD-10-PCS; 2017-12-09)
PROC: 0B938ZX Drainage of Right Main Bronchus, Via Natural or Artificial Opening Endoscopic, Diagnostic (ICD-10-PCS; 2017-12-09)
DX: J18.9 Pneumonia, unspecified organism (principal); R04.2 Hemoptysis; J44.0 Chronic obstructive pulmonary disease with (acute) lower respiratory infection; F11.20 Opioid dependence, uncomplicated; M79.7 Fibromyalgia; E03.9 Hypothyroidism, unspecified; I25.10 Atherosclerotic heart disease of native coronary artery without angina pectoris; I10 Essential (primary) hypertension; G89.4 Chronic pain syndrome; M19.90 Unspecified osteoarthritis, unspecified site; F17.210 Nicotine dependence, cigarettes, uncomplicated; F32.9 Major depressive disorder, single episode, unspecified; F41.9 Anxiety disorder, unspecified; Z80.1 Family history of malignant neoplasm of trachea, bronchus and lung; Z86.73 Personal history of transient ischemic attack (TIA), and cerebral infarction without residual deficits; Z95.1 Presence of aortocoronary bypass graft; Z96.641 Presence of right artificial hip joint
CPT/HCPCS: 31623; 71046; 71250; 76937; 80048; 80053; 80061; 82607; 82746; 83036; 83605; 83735; 84439; 84443; 85025; 85610; 85730; 87015; 87040; 87070; 87102; 87116; 87205; 87206; 88112; 88305; 94150; 94640; 94664; J0456; J0692; J0696; J3010; J7030; J7042; J7050

== ENCOUNTER 2018-03-16 11:06 | Inpatient (IN) ==
--- NOTE | 2018-03-16 11:38 | ED ---
HPI General Chief complaint: Seizure Stated complaint: Seizures/Evac Time Seen by Provider: 03/16/18 11:09 History of Present Illness HPI narrative: Patient 53-year-old female history of seizure disorder presents emergency department by EMS after found to have a seizure in her neurologist office. Patient found by EMS and postictal phase, she was transported in position of comfort. Arrival the patient is alert and awake and oriented but very tangential in her history. When I started asking her about her seizure she quickly change subject to a rash on her leg states her right leg is been feeling weak. She also states she has a history of fibromyalgia and takes narcotic pain medicine and always hurts all over. She is very tangential and I think that she is probably still confused in a postictal state. she denies any head or neck injury or pain. She does not remember the event. She states that she had 2 seizures in the past 12 hours and just falls out. She does not take any medications for seizures. Related Data Home Medications Medication Instructions Recorded Confirmed aspirin 81 mg PO DAILY 03/16/18 03/16/18 bupropion HCl [Wellbutrin SR] 100 mg PO BID 03/16/18 03/16/18 morphine 100 mg PO TID 03/16/18 03/16/18 oxycodone 30 mg PO Q4-6H PRN 03/16/18 03/16/18 pregabalin [Lyrica] 200 mg PO TID 03/16/18 03/16/18 rosuvastatin [Crestor] 20 mg PO DAILY 03/16/18 03/16/18 thyroid (pork) [[place] Thyroid] 60 mg PO DAILY 03/16/18 03/16/18 Allergies Allergy/AdvReac Type Severity Reaction Status Date / Time No Known Allergies Allergy Unknown Uncoded 12/09/17 14:19 Review of Systems Except as stated in HPI: all other systems reviewed are negative [facility] Medical History Medical History CVA (cerebral vascular accident) (Acute) Fibromyalgia (Acute) Hypothyroid (Acute) Pneumonia (Acute) Seizure (Acute) Syncope (Acute) Surgical History Surgical History H/O laminectomy (Acute) History of open heart surgery (Acute) Previous section (Acute) Social History Social History Substance History: No History of Abuse Second Hand Smoke Exposure: Yes Smoking Status: Current every day smoker Tobacco Type: Cigarettes How Often Do You Have a Drink Containing Alcohol: Never Recent Travel in [facility] within the Last 8 Weeks: No Recent Out of Country Travel within the Last 8 Weeks: No Exam Narrative Exam Narrative: GENERAL: Well-developed well-nourished no obvious distress SKIN: Focused skin assessment warm/dry. HEAD: Atraumatic. Normocephalic. EYES: Pupils equal and round. No scleral icterus. No injection or drainage. ENT: No nasal bleeding or discharge. Mucous membranes pink and moist. NECK: Trachea midline. No JVD. CARDIOVASCULAR: Regular rate and rhythm. No murmur appreciated. RESPIRATORY: No accessory muscle use. Clear to auscultation. Breath sounds equal bilaterally. GASTROINTESTINAL: Abdomen soft, non-tender, nondistended. Hepatic and splenic margins not palpable. MUSCULOSKELETAL: No obvious deformities. No clubbing. No cyanosis. No edema. NEUROLOGICAL: Awake and alert. Mildly confused response and tangential. Cranial nerves II through XII grossly intact and nonfocal, 5 out of 5 strength in all 4 extremities. No obvious cranial nerve deficits. Motor grossly within normal limits. PSYCHIATRIC: Appropriate mood and affect; insight and judgment normal. Course Initial Documented Vital Signs Temperature 98.4 F 03/16/18 11:27 Pulse Rate 109 H 03/16/18 11:27 Respiratory Rate 18 03/16/18 11:27 Blood Pressure 119/81 03/16/18 11:27 Pulse Oximetry 95 03/16/18 11:27 Last Documented Vital Signs Temperature 98.4 F 03/16/18 11:40 Pulse Rate 60 03/16/18 15:13 Respiratory Rate 18 03/16/18 15:13 Blood Pressure 102/66 03/16/18 15:13 Pulse Oximetry 99 03/16/18 15:13 Critical Care Time Critical Care Time: Yes Total Critical Care Time: 35 Attestation: Aggregate critical care time was 35 minutes. Time to perform other separately billable procedures was not included in the critical care time. My time did not include minutes spent treating any other patients simultaneously or on activities that did not directly contribute to the patient's treatment. The services I provided to this patient were to treat and/or prevent clinically significant deterioration that could result in: , disability, organ failure I provided critical care services requiring my management, as noted below: Chart data review, documentation time, medication orders and management, vital sign assessments/reviewing monitor data, ordering and reviewing lab tests, ordering and interpreting/reviewing x-rays and diagnostic studies, care of the patient and discussion of the patient with the admitting physicians. Medical Decision Making MDM Narrative Medical decision making narrative: Patient room to the emergency department, my initial impression of her was that she was probably still post ictal, the patient's mother arrives and states that the patient is very confused. She states that she was okay last night but today she had a seizure about 9:00 when the kitchen, states that patient's daughter describes a oral like event where the patient became stiff standing up and then "keeled over" and was caught by the patient's daughter and lowered to the ground at which point she had a generalized tonic-clonic seizure lasting for only a few moments and then had very sonorous respirations. They were concerned about the episode with the patient had an appointment with her primary care physician Dr. Crews today and they went to that appointment where the patient had a repeated episode very similar to the one that she occurred this morning. 911 was then called by their office. At [address] Crews directly and he has several concerns, the patient does not reliable for follow-up, she goes to pain management for fibromyalgia and has significant narcotic intake. She is also complaining of some right-sided weakness over the past few weeks and he had ordered an outpatient stroke workup. He states that the patient had an MRI in October which was negative, she is also supposed to follow-up with cardiology for possible sick sinus syndrome and possible need for pacemaker placement, she had been referred to Dr. Jamil in the past but never followed up. She apparently has never had an EEG. Discussed with Dr. Crews the patient certainly does seem confused and this appears to be an acute altered mental status that mother confirms by history. I had recommended that patient be observation for recurrent seizures and possible stroke and he is agreeable. CAT scan of the head was also added on. During the patient's initial postictal phase she had some bradycardic episodes and apparent QRS complex without P waves. Possible sick sinus syndrome. Mother also stated that they did consider putting a pacemaker hurting her in the past. Shortly after my conversation with Dr. Crews the patient at 1330 had a generalized tonic-clonic seizure lasting for approximately 60 seconds followed by postictal phase. This was witnessed by myself peer she was given a half a milligram Ativan and a dose of Keppra was ordered as well. patient discussed with Dr. Rodríguez. He is agreed to see patient. After discussion with [facility] patient felt to be better candidate for ICU then floor. Dr. Nye accepts. Patient reassessed at 1530, still very postictal but GCS of 13. Postictal state confounded with ativan. Patient protecting airway. Aspirin initially changed to NE, but patient appears to be able to take chew. She took 324 chewed ASA prior to transfer at 1555. Differential Diagnosis Differential Diagnosis: Seizure, electrolyte abnormality y, head injury seems unlikely, Lab Data Result diagrams: 03/16/18 12:20 03/16/18 12:20 Lab Results 03/16/18 03/16/18 03/16/18 Range/Units 12:20 12:20 12:20 CBC w Diff Auto diff final WBC 9.9 (4.0-11.0) th/mm3 RBC 4.40 (4.00-5.30) mil/mm3 Hgb 12.7 (11.6-15.3) gm/dL Hct 39.0 (35.0-46.0) % MCV 88.6 (80.0-100.0) fL MCH 28.8 (27.0-34.0) pg MCHC 32.5 (32.0-36.0) % RDW 14.6 (11.6-17.2) % Plt Count 336 (150-450) th/mm3 MPV 7.4 (7.0-11.0) fL Neut % (Auto) 73.7 H (16.0-70.0) % Lymph % (Auto) 17.0 (9.0-44.0) % [place] % (Auto) 5.3 (0.0-8.0) % Eos % (Auto) 0.3 (0.0-4.0) % Baso % (Auto) 3.7 H (0.0-2.0) % Neut # (Auto) 7.3 (1.8-7.7) th/mm3 Lymph # (Auto) 1.7 (1.0-4.8) th/mm3 [place] # (Auto) 0.5 (0.0-0.9) th/mm3 Eos # (Auto) 0.0 (0.0-0.4) th/mm3 Baso # (Auto) 0.4 H (0.0-0.2) th/mm3 WBC Differential . Differential Comment . Sodium 136 (136-145) meq/L Potassium 4.1 (3.5-5.1) meq/L Chloride 101 (98-107) meq/L Carbon Dioxide 28.4 (21.0-32.0) meq/L Anion Gap 7 (5-15) meq/L BUN 7 (7-18) mg/dL Creatinine 0.59 (0.50-1.00) mg/dL Estimated GFR Greater than 89 (>89) mL/min Random Glucose 101 (74-106) mg/dL Calcium 8.4 L (8.5-10.1) mg/dL Magnesium 2.3 (1.5-2.5) mg/dL Troponin I 0.75 H* (0.02-0.05) ng/mL Ur Collection Type Urine Color (Yellw/Straw) Urine Clarity (Clear) Urine pH (5.0-8.5) Ur Specific [place] (1.002-1.035) Urine Protein (Neg-Trace) mg/dL Urine Glucose (UA) (Negative) mg/dL Urine Ketones (Negative) mg/dL Urine Occult Blood (Negative) Urine Nitrate (Negative) Urine Bilirubin (Negative) Urine Urobilinogen (Less than 2) mg/dL Ur Leukocyte Esterase (Negative) Urine WBC (0-5) /hpf Ur Squamous Epith Cells (0-5) /hpf Micro UA Comment Urine Culture Comments Urine Opiates Screen (Neg) Ur Barbiturates Screen (Neg) Ur Amphetamines Screen (Neg) U Benzodiazepines Scrn (Neg) Urine Cocaine Screen (Neg) U Cannabinoids Screen (Neg) Serum Alcohol Less than 3 (0-5) mg/dL 03/16/18 03/16/18 Range/Units 13:15 13:15 CBC w Diff WBC (4.0-11.0) th/mm3 RBC (4.00-5.30) mil/mm3 Hgb (11.6-15.3) gm/dL Hct (35.0-46.0) % MCV (80.0-100.0) fL MCH (27.0-34.0) pg MCHC (32.0-36.0) % RDW (11.6-17.2) % Plt Count (150-450) th/mm3 MPV (7.0-11.0) fL Neut % (Auto) (16.0-70.0) % Lymph % (Auto) (9.0-44.0) % [place] % (Auto) (0.0-8.0) % Eos % (Auto) (0.0-4.0) % Baso % (Auto) (0.0-2.0) % Neut # (Auto) (1.8-7.7) th/mm3 Lymph # (Auto) (1.0-4.8) th/mm3 [place] # (Auto) (0.0-0.9) th/mm3 Eos # (Auto) (0.0-0.4) th/mm3 Baso # (Auto) (0.0-0.2) th/mm3 WBC Differential Differential Comment Sodium (136-145) meq/L Potassium (3.5-5.1) meq/L Chloride (98-107) meq/L Carbon Dioxide (21.0-32.0) meq/L Anion Gap (5-15) meq/L BUN (7-18) mg/dL Creatinine (0.50-1.00) mg/dL Estimated GFR (>89) mL/min Random Glucose (74-106) mg/dL Calcium (8.5-10.1) mg/dL Magnesium (1.5-2.5) mg/dL Troponin I (0.02-0.05) ng/mL Ur Collection Type Clean catch Urine Color Straw (Yellw/Straw) Urine Clarity Clear (Clear) Urine pH 7.0 (5.0-8.5) Ur Specific [place] Less/equal 1.005 (1.002-1.035) Urine Protein Negative (Neg-Trace) mg/dL Urine Glucose (UA) Negative (Negative) mg/dL Urine Ketones Negative (Negative) mg/dL Urine Occult Blood Negative (Negative) Urine Nitrate Negative (Negative) Urine Bilirubin Negative (Negative) Urine Urobilinogen 0.2 (Less than 2) mg/dL Ur Leukocyte Esterase Negative (Negative) Urine WBC 0-5 (0-5) /hpf Ur Squamous Epith Cells 0-5 (0-5) /hpf Micro UA Comment Culture not ind Urine Culture Comments Culture not ind Urine Opiates Screen Pos H (Neg) Ur Barbiturates Screen Neg (Neg) Ur Amphetamines Screen Neg (Neg) U Benzodiazepines Scrn Neg (Neg) Urine Cocaine Screen Neg (Neg) U Cannabinoids Screen Neg (Neg) Serum Alcohol (0-5) mg/dL Imaging Data Radiologist's impression: Head CT 03/16/18 12:53 CONCLUSION: No evidence of acute intracranial pathology. No masses are identified. . Discharge Plan Discharge Disposition Patient Disposition: 30 Still Patient Discharge Condition Condition: Stable Discharge Details Diagnosis: Generalized seizure, Bradycardia, Acute alteration in mental status, Opiate dependence, Convulsive status epilepticus Physicians Team ED Provider: Remberto Sarmiento Primary Care Provider: Primary Care Roxanna Eckert Other Providers: Luis Call ; Elias Norton Rxs /Orders / Referrals /Forms Prescriptions: No Action bupropion HCl [Wellbutrin SR] 100 mg Tablet Extended Release 12 Hr 100 mg PO BID RF: 0 morphine 100 mg Tablet Extended Release 100 mg PO TID RF: 0 aspirin 81 mg Tablet,Chewable 81 mg PO DAILY RF: 0 oxycodone 30 mg Tablet 30 mg PO Q4-6H PRN (Reason: Pain) RF: 0 rosuvastatin [Crestor] 20 mg Tablet 20 mg PO DAILY RF: 0 pregabalin [Lyrica] 200 mg Capsule 200 mg PO TID RF: 0 thyroid (pork) [[place] Thyroid] 60 mg Tablet 60 mg PO DAILY RF: 0 Status ED Status: Admitted Patient
[2018-03-16 12:24] LABS: Baso # (Auto) 0.4 th/mm3 (0.0-0.2); Baso % (Auto) 3.7 % (0.0-2.0); Eos % (Auto) 0.3 % (0.0-4.0); Hemoglobin 12.7 gm/dL (11.6-15.3); Lymph # (Auto) 1.7 th/mm3 (1.0-4.8); Mean Corpuscular HGB Conc 32.5 % (32.0-36.0); Mean Corpuscular Hemoglobin 28.8 pg (27.0-34.0); Mean Corpuscular Volume 88.6 fL (80.0-100.0); Mean Platelet Volume 7.4 fL (7.0-11.0); Mono # (Auto) 0.5 th/mm3 (0.0-0.9); Mono % (Auto) 5.3 % (0.0-8.0); Neut # (Auto) 7.3 th/mm3 (1.8-7.7); Neut % (Auto) 73.7 % (16.0-70.0); Platelet Count 336 th/mm3 (150-450); Red Cell Distribution Width 14.6 % (11.6-17.2); White Blood Count 9.9 th/mm3 (4.0-11.0)
[2018-03-16 12:36] LABS: Chloride 101 meq/L (98-107); Potassium 4.1 meq/L (3.5-5.1); Sodium 136 meq/L (136-145)
[2018-03-16 12:38] LABS: Calcium 8.4 mg/dL (8.5-10.1)
[2018-03-16 12:39] LABS: Anion Gap 7 meq/L (5-15); Blood Urea Nitrogen 7 mg/dL (7-18); Carbon Dioxide 28.4 meq/L (21.0-32.0); Glucose,Random 101 mg/dL (74-106); Magnesium 2.3 mg/dL (1.5-2.5)
[2018-03-16 12:42] LABS: Glomerular Filtration Rate Greater Than 89 mL/min (>89)
[2018-03-16] MEDS ORDERED: levETIRAcetam 1000mg/100mL Inj 100 ML IV.SIG ONE (13:33)
[2018-03-16 13:50] LABS: Bilirubin,Urine Negative (Negative); Clarity,Urine Clear (Clear); Glucose,Urine (UA) Negative (Negative); Leukocyte Esterase,Urine Negative (Negative); Nitrite,Urine Negative (Negative); Specific Gravity,Urine Less/Equal 1.005 (1.002-1.035); Urobilinogen,Urine 0.2 mg/dL (Less than 2)
[2018-03-16 13:55] LABS: Color,Urine Straw (Yellw/Straw)
[2018-03-16 13:58] LABS: Squamous Epithelial Cell,Urine 0-5 /hpf (0-5); WBC,Urine 0-5 /hpf (0-5)
[2018-03-16 13:59] LABS: Amphetamine Screen,Urine Neg (Neg); Barbiturate Screen,Urine Neg (Neg); Cannabinoid Screen,Urine Neg (Neg); Cocaine Screen,Urine Neg (Neg)
[2018-03-16 14:05] LABS: Opiate Screen,Urine Pos (Neg)
[2018-03-16 14:09] LABS: Troponin I 0.75 ng/mL (0.02-0.05)
--- NOTE | 2018-03-16 14:23 | CT ---
EXAM DATE: 03/16/2018 2:13 PM EDT AGE/SEX: 53 years / Female INDICATIONS: Altered mental status. Seizures. CLINICAL DATA: This is the patient's initial encounter. Patient reports that signs and symptoms have been present for 1 day and indicates a pain score of Nonresponsive. MEDICAL/SURGICAL HISTORY: Seizures. Cardiovascular disease. Cerebrovascular disease. sec tion. CABG. RADIATION DOSE: 58.83 CTDI (mGy) ; Patient motion COMPARISON: [facility], CT BRAIN W/O CONTRAST, 09/22/2017. . TECHNIQUE: CT of the head without contrast. Using automated exposure control and adjustment of the mA and/or kV according to patient size, radiation dose was kept as low as reasonably achievable to ob tain optimal diagnostic quality images. DICOM format image data is available electronically for revi ew and comparison. FINDINGS: Noncontrast axial head CT demonstrates the ventricles to be normal in size and configuration with a n ormal sulcal pattern. No acute intracranial hemorrhage, acute cortical infarction, mass or midline sh ift is seen. Posterior fossa structures are unremarkable. Bone windows are unremarkable. CONCLUSION: No evidence of acute intracranial pathology. No masses are identified. . Electronically signed by: Elias Quevedo MD 03/16/2018 2:21 PM EDT
[2018-03-16] MEDS ORDERED: Bisacodyl 10 MG Supp RECTAL PRN (15:12)
[2018-03-16] MEDS ORDERED: Fosphenytoin Inj 1,000 MGPE in Sodium Chlor 0.9% Inj 50 ML IV.SIG ONE (16:00)
[2018-03-16] MEDS: Sod Chloride 0.9% Inj 1,000 ML IV.CONT SCH (16:54)
[2018-03-16] MEDS: Enoxaparin Inj 40 MG/0.4 ML Syringe SQ SCH (17:28)
--- NOTE | 2018-03-16 17:59 | MB ---
cc: Elias Fajardo MD DATE: 03/16/2018 HISTORY OF PRESENT ILLNESS: A 53-year-old woman with a history of failed low back surgery, who came in with 3 witnessed seizures today, 1 of them in the ER, talked to the ER doctor, he felt it was a definite grand mal seizure and ER note says that she first had a seizure in her neurologist's office. She has a history of fibromyalgia, takes narcotics. She tells me that she has not taken Xanax for a long time, but she is somewhat confused here. She was somewhat postictal in the ER. She told the ER that she had 2 seizures in the last 12 hours at [facility] and then she had a grand mal seizure in the emergency room. She had elevated troponins and was transferred over to [facility]. According to the emergency room notes, she was doing fine last night, but she had a seizure about 9:00 a.m. in the kitchen. The patient became stiff standing up, keeled over, caught by the daughter, lowered to the ground and had a grand mal seizure, then very sonorous respirations. She went to her primary care office, had another episode and 911 was called. She had been complaining of some right-sided weakness for the last 2 weeks, going to her PCP. She had an MRI in October that was negative, possible sick sinus syndrome, possible need for pacemaker. She had some QRS complexes without P waves according to the ER note and some bradycardia, then he had another grand mal seizure of 60 seconds, followed by postictal in the ER, witnessed by the doctor, given 0.5 mg of Ativan and Keppra. MEDICATIONS AT HOME: 1. Crestor. 2. Oxycodone 30 mg q.4 hours. 3. Morphine 100 t.i.d. 4. Thyroid. 5. Lyrica 200 t.i.d. 6. Wellbutrin 100 b.i.d. 7. Aspirin. REVIEW OF SYSTEMS: I really cannot obtain from the patient, she is too confused. PAST MEDICAL HISTORY: As noted, syncope, hypothyroidism, fibromyalgia, some anxiety, depression, hemoptysis, history of CABG, had been on Plavix in the past but not recently, had been only on aspirin from a note from 12/09/2017. Hypertension, COPD, chronic pain, atrial myxoma status post resection. ALLERGIES: NO KNOWN DRUG ALLERGIES. FAMILY HISTORY: Father had lung cancer. SOCIAL HISTORY: She is a smoker, not a drinker, no drugs. PHYSICAL EXAMINATION: VITAL SIGNS: Afebrile, 60, 18, 102/66-119/81. NECK: There were no carotid bruits. HEART: Regular rhythm. I did not detect a murmur. CHEST: A well healed CABG scar is noted on the sternum. NEUROLOGIC: Pupils are equal. She did count fingers for me briefly. She initially is somewhat lethargic, but wakes up and then seems a little bit more oriented, still some postictal confusion, however. She moves both her upper extremities well and wiggles her feet well. Toes were downgoing bilaterally. No ankle clonus. 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 LABORATORY DATA: CBC is normal. Urine drug screen positive for opiates only. UA negative. Basic metabolic profile normal. Troponin 0.75. IMAGING STUDIES: CAT scan of the brain done today read as normal. Review of the films. She had a cervical and thoracic MRI which were basically negative in 2011, seen by Dr. Cruz at that time for some leg weakness. It looks like she did not stay in the hospital very long at that time. Review of the CT here does in fact look normal. IMPRESSION AND RECOMMENDATIONS: Seizures, possibly from the Wellbutrin. We will check an MRI of the brain and an EEG. Some question of weakness on one side in the past. We will check an MRA of the neck and nez perce of Cortes. Put her on seizure precautions. An echo has been ordered. Cardiology has been consulted. EEG has been ordered. I will following it while in the hospital. Continue on Keppra now and discontinue the Wellbutrin. We will also check some blood work on her. She was put on Dilantin last night. We will probably stop that in the morning. MD ROMY Wynn/PLACIDO , 05:25 PM , 05:35 PM
[2018-03-16] MEDS: levETIRAcetam 1000mg/100mL Inj 100 ML IV.SIG SCH (18:18)
[2018-03-16 19:59] LABS: T4 (Thyroxine) 7.2 mcg/dL (4.8-13.9); Thyroid Stimulating Hormone 1.25 uIU/mL (0.358-3.740)
[2018-03-16 20:13] LABS: Troponin I 0.99 ng/mL (0.02-0.05)
[2018-03-16 20:32] LABS: CKMB Percent 1.1 % (0.0-4.0)
[2018-03-16] MEDS ORDERED: buPROPion 100 MG ER 12 HR Tablet PO SCH (21:00)
[2018-03-16] MEDS: Senna/Docusate Sodium 8.6/50 MG Tablet PO SCH (21:07)
[2018-03-16] MEDS: Famotidine PF Inj 20 MG/2 ML Vial IV.PUSH SCH (21:07)
[2018-03-16] MEDS: Fosphenytoin Inj 100 MGPE in Sodium Chlor 0.9% Inj 50 ML IV.SIG SCH (21:08)
--- NOTE | 2018-03-16 22:07 | P.HPCC ---
History of Present Illness Primary Care Physician: No Primary Care Physician History of Present Illness: 53-year-old female with past medical history of seizure disorder presents after she was found to have a seizure in her neurologist office. She was transferred to [facility] by EMS for further workup and management. Patient is confused, postictal and crying during my assessment. She also states she has a history of fibromyalgia and takes narcotic pain medicine and always hurts all over. She denies any head or neck injury or pain. She does not remember the event. She states that she had 2 seizures in the past 12 hours and just falls out. She does not take any medications for seizures. Inpatient Certification: I certify that the inpatient services were ordered in accordance with Medicare regulations governing the order. This includes certification that hospital inpatient services are reasonable and necessary and in the case of services not specified as inpatient-only under 42 CFR 419.22(n), that they are appropriately provided as inpatient services in accordance to with the 2-midnight benchmark under 43 CFR 412.3(e) Estimated Total Length of Stay (Days): 5 Plans for Post Hospital Care: Not yet determined Review of Systems unobtainable due to mental condition PMFSH - History History Provided By: Patient - Medical History Medical History: Medical History (Last Updated 03/16/18 @ 11:42 by Jada Pineda RN) CVA (cerebral vascular accident) Fibromyalgia Hypothyroid Pneumonia Seizure Syncope - Surgical History Surgical History: Surgical History (Last Updated 03/16/18 @ 11:42 by Jada Pineda RN) H/O laminectomy History of open heart surgery Previous section - Tobacco History Second Hand Smoke Exposure: Yes Tobacco Use In Past 30 Days: Yes Smoking Status: Current every day smoker Tobacco Type: Cigarettes - Alcohol History How Often Do You Have a Drink Containing Alcohol: Never - Substance Use History Substance History: No History of Abuse - Travel History Recent Travel in the [place] Within the Last 8 Weeks: No Recent Travel Out of the Country Within the Last 8 Weeks: No - Immunization History Tetanus Immunization: Unsure Hx Influenza Vaccine This Season: No Medications and Allergies Active Medications: Active Medications Al Hydroxide/Mg Hydroxide (Milk Of Ranjith Liq) 30 ml PO Q12HR PRN PRN Reason: Mild Constipation Albuterol (Duoneb Neb (Prn)) 1 ampul NEB Q2HR NEB PRN PRN Reason: WHEEZING Aspirin (Aspirin Chew) 81 mg PO DAILY [facility] Atorvastatin Calcium (Lipitor) 40 mg PO DAILY [facility] Bisacodyl (Dulcolax Supp) 10 mg RECTAL DAILY PRN PRN Reason: SEVERE CONSITIPATION Chlorhexidine Gluconate (Chlorhexidine 2% Cloth) 3 pack TOPICAL DAILY@0400 [facility] Stop: 03/22/18 03:59 Chlorhexidine Gluconate (Chlorhexidine 2% Cloth) 3 pack TOPICAL DAILY@0400 PRN PRN Reason: Extra cloth needed Stop: 03/22/18 03:59 Enoxaparin Sodium (Lovenox Inj) 40 mg SQ Q24H [facility] Last Admin: 03/16/18 17:28 Dose: 40 mg Famotidine (Pepcid Pf Inj) 20 mg IV.PUSH Q12HR [facility] Last Admin: 03/16/18 21:07 Dose: 20 mg Sodium Chloride (Ns Inj) 1,000 mls @ 84 mls/hr IV.CONT .[id number] [facility] Last Admin: 03/16/18 16:54 Dose: 84 mls/hr Fosphenytoin Sodium 100 mgpe/ (Sodium Chloride) 52 mls @ 208 mls/hr IV.SIG Q8HR [facility] Last Admin: 03/16/18 21:08 Dose: 208 mls/hr Levetiracetam (Keppra 1000 Mg/100 Ml Premix) 100 mls @ 400 mls/hr IV.SIG Q12H [facility] Last Admin: 03/16/18 18:18 Dose: 400 mls/hr Lactulose (Lactulose Liq) 30 ml PO DAILY PRN PRN Reason: SEVERE CONSITIPATION Lorazepam (Ativan Inj) 2 mg IV.PUSH Q2H PRN PRN Reason: SEIZURES Oxycodone HCl (Roxicodone) 30 mg PO Q4H PRN PRN Reason: PAIN SCALE 1 TO 10 Pregabalin (Lyrica) 200 mg PO Q8HR [facility] Last Admin: 03/16/18 21:08 Dose: Not Given Senna/Docusate Sodium (Tere-Colace) 1 tab PO BID [facility] Last Admin: 03/16/18 21:07 Dose: Not Given Sennosides (Senokot) 17.2 mg PO Q12HR PRN PRN Reason: Moderate Constipation Sodium Chloride (Ns Flush) 2 ml IV.FLUSH PRN PRN PRN Reason: FLUSH AFTER USING IV ACCESS Sodium Chloride (Ns Flush) 2 ml IV.FLUSH PRN PRN PRN Reason: FLUSH AFTER USING IV ACCESS Sodium Chloride (Ns Flush) 2 ml IV.FLUSH BID [facility] Last Admin: 03/16/18 21:07 Dose: 2 ml Thyroid ([place] Thyroid) 60 mg PO DAILY@0600 [facility] Allergies Allergy/AdvReac Type Severity Reaction Status Date / Time No Known Allergies Allergy Unknown Uncoded 12/09/17 14:19 Home Medications Medication Instructions Recorded Confirmed Type aspirin 81 mg PO DAILY 03/16/18 03/16/18 History bupropion HCl [Wellbutrin SR] 100 mg PO BID 03/16/18 03/16/18 History morphine 100 mg PO TID 03/16/18 03/16/18 History oxycodone 30 mg PO Q4-6H PRN 03/16/18 03/16/18 History pregabalin [Lyrica] 200 mg PO TID 03/16/18 03/16/18 History rosuvastatin [Crestor] 20 mg PO DAILY 03/16/18 03/16/18 History thyroid (pork) [[place] Thyroid] 60 mg PO DAILY 03/16/18 03/16/18 History Results - Labs CBC & Chem 7: 03/16/18 12:20 03/16/18 12:20 Labs: Short CBC 03/16/18 Range/Units 12:20 WBC 9.9 (4.0-11.0) th/mm3 Hgb 12.7 (11.6-15.3) gm/dL Hct 39.0 (35.0-46.0) % Plt Count 336 (150-450) th/mm3 [facility] 03/16/18 12:20 Sodium 136 Potassium 4.1 Chloride 101 Carbon Dioxide 28.4 BUN 7 Creatinine 0.59 Calcium 8.4 L Cardiac Enzymes 03/16/18 03/16/18 Range/Units 12:20 19:05 Total Creatine Kinase 463 H (26-192) U/L CK-MB (CK-2) 5.0 H (0.5-3.6) ng/mL Troponin I 0.75 H* 0.99 H* D (0.02-0.05) ng/mL Urine 03/16/18 Range/Units 13:15 Urine Color Straw (Yellw/Straw) Urine Clarity Clear (Clear) Urine pH 7.0 (5.0-8.5) Ur Specific [place] Less/equal 1.005 (1.002-1.035) Urine Protein Negative (Neg-Trace) mg/dL Urine Glucose (UA) Negative (Negative) mg/dL - Imaging Impressions Head CT 03/16/18 12:53 CONCLUSION: No evidence of acute intracranial pathology. No masses are identified. . Exam Vital signs: Vital Signs 03/16/18 11:27 03/16/18 11:40 03/16/18 13:21 Temperature 98.4 F 98.4 F Pulse Rate 109 H 61 64 Respiratory Rate 18 18 16 Blood Pressure 119/81 103/57 L 101/54 L Pulse Oximetry 95 100 95 03/16/18 13:44 03/16/18 15:13 03/16/18 17:00 Temperature 98.3 F Pulse Rate 66 60 60 Respiratory Rate 18 18 21 Blood Pressure 110/56 L 102/66 144/74 H Pulse Oximetry 99 99 91 L 03/16/18 17:38 03/16/18 17:54 03/16/18 18:00 Temperature Pulse Rate 68 63 56 L Respiratory Rate 61 H 23 15 Blood Pressure 110/75 105/59 L Pulse Oximetry 84 L 79 L 87 L 03/16/18 21:41 Temperature Pulse Rate Respiratory Rate Blood Pressure Pulse Oximetry 100 Intake & Output 03/16/18 03/16/18 03/17/18 06:59 18:59 06:59 Intake Total 0 / 0 Output Total 0 / 0 Balance 0 / 0 Weight 68.492 kg Intake: Oral 0 / 0 Output: Urine 0 / 0 Other: # Bowel Movements 0 - Constitutional mild distress - Routine HEENT Exam Head: Present: normocephalic, atraumatic Eye: Present: PERRL. Absent: scleral injection, conjunctivae pink ENT: Present: mucous membranes moist - Routine Neck Exam Present: supple, full ROM. Absent: JVD, carotid bruit - Routine Respiratory Exam Absent: accessory muscle use, rhonchi, stridor, wheezes - Routine Cardiovascular Exam Present: RRR, S1, S2 - Routine Abdominal Exam Present: soft, normoactive bowel sounds. Absent: tenderness, distended - Routine Extremities Exam Absent: cyanosis, clubbing, edema - Routine Skin Exam Present: intact - Routine Neurological Exam Present: alert, CN II-XII intact. Absent: sensory deficit, motor deficit Caprini VTE Risk Assessment Caprini VTE Risk Assessment: Moderate/High Risk (score >= 2) Caprini Risk Assessment Model: Point Value = 1 Point Value = 2 Point Value = 3 Point Value = 5 Age 41-60 Minor surgery BMI > 25 kg/m2 Swollen legs Varicose veins or History of unexplained or recurrent spontaneous Oral contraceptives or hormone replacement Sepsis (< 1 month) Serious lung disease, including pneumonia (< 1 month) Abnormal pulmonary function Acute myocardial infarction Congestive heart failure (< 1 month) History of inflammatory bowel disease Medical patient at bed rest Age 61-74 Arthroscopic surgery Major open surgery (> 45 min) Laparoscopic surgery (> 45 min) Malignancy Confined to bed (> 72 hours) Immobilizing plaster cast Central venous access Age >= 75 History of VTE Family history of VTE Factor V Leiden Prothrombin [id number] Lupus anticoagulant Anticardiolipin antibodies Elevated serum homocysteine Heparin-induced thrombocytopenia Other congenital or acquired thrombophilia Stroke (< 1 month) Elective arthroplasty Hip, pelvis, or leg fracture Acute spinal cord injury (< 1 month) Prophylaxis Regimen: Total Risk Factor Score Risk Level Prophylaxis Regimen 0-1 Low Early ambulation 2 Moderate Order ONE of the following: *Sequential Compression Device (SCD) *Heparin 5000 units SQ BID 3-4 Higher Order ONE of the following medications: *Heparin 5000 units SQ TID *Enoxaparin/Lovenox 40 mg SQ daily (WT < 150 kg, CrCl > 30 mL/min) *Enoxaparin/Lovenox 30 mg SQ daily (WT < 150 kg, CrCl > 10-29 mL/min) *Enoxaparin/Lovenox 30 mg SQ BID (WT < 150 kg, CrCl > 30 mL/min) AND/OR *Sequential Compression Device (SCD) 5 or more Highest Order ONE of the following medications: *Heparin 5000 units SQ TID (Preferred with Epidurals) *Enoxaparin/Lovenox 40 mg SQ daily (WT < 150 kg, CrCl > 30 mL/min) *Enoxaparin/Lovenox 30 mg SQ daily (WT < 150 kg, CrCl > 10-29 mL/min) *Enoxaparin/Lovenox 30 mg SQ BID (WT < 150 kg, CrCl > 30 mL/min) AND *Sequential Compression Device (SCD) Assessment and Plan - Assessment and Plan Plan: Active Medications Seizure disorder -Loaded with Keppra and fosphenytoin -CT head negative -Seizure precautions -Further per neurology -Ativan as needed Non-STEMI -No ST changes on EKG -No history of chest pain -Aspirin, atorvastatin -Monitor trend of troponins and EKGs -2D echo -Cardiology consultation Fibromyalgia -Lyrica Hypothyroid -Thyroid ([place]ley Thyroid) DVT GI prophylaxis -Teds SCDs -Subcu Lovenox -Pepcid Critical Care: The total critical care time was 35 minutes. Time to perform other separately billable procedures was not included in the critical care time.
[2018-03-17] MEDS: Sod Chloride 0.9% Inj 1,000 ML IV.SIG SCH ×2 (00:33→01:37)
[2018-03-17] MEDS ORDERED: Chlorhexidine Gluconate 2% 1 Pack (2 Cloths) TOPICAL PRN (04:00)
[2018-03-17] MEDS: Chlorhexidine Gluconate 2% 1 Pack (2 Cloths) TOPICAL SCH (04:14)
[2018-03-17] MEDS: Sod Chloride 0.9% Inj 1,000 ML IV.CONT SCH ×2 (04:14→16:45)
[2018-03-17] MEDS: Thyroid 60 MG Tablet PO SCH (05:03)
[2018-03-17] MEDS: levETIRAcetam 1000mg/100mL Inj 100 ML IV.SIG SCH ×2 (05:06→18:28)
[2018-03-17] MEDS: Fosphenytoin Inj 100 MGPE in Sodium Chlor 0.9% Inj 50 ML IV.SIG SCH (05:07)
[2018-03-17 05:27] LABS: Baso # (Auto) 0.1 th/mm3 (0.0-0.2); Baso % (Auto) 0.8 % (0.0-2.0); Eos # (Auto) 0.1 th/mm3 (0.0-0.4); Eos % (Auto) 1.1 % (0.0-4.0); Hematocrit 34.8 % (35.0-46.0); Hemoglobin 11.6 gm/dL (11.6-15.3); Lymph # (Auto) 2.4 th/mm3 (1.0-4.8); Lymph % (Auto) 31.3 % (9.0-44.0); Mean Corpuscular HGB Conc 33.3 % (32.0-36.0); Mean Corpuscular Hemoglobin 29.1 pg (27.0-34.0); Mean Corpuscular Volume 87.4 fL (80.0-100.0); Mean Platelet Volume 8.1 fL (7.0-11.0); Mono # (Auto) 0.6 th/mm3 (0.0-0.9); Mono % (Auto) 8.3 % (0.0-8.0); Neut # (Auto) 4.5 th/mm3 (1.8-7.7); Neut % (Auto) 58.5 % (16.0-70.0); Platelet Count 295 th/mm3 (150-450); Red Blood Count 3.98 mil/mm3 (4.00-5.30); Red Cell Distribution Width 15.4 % (11.6-17.2); White Blood Count 7.7 th/mm3 (4.0-11.0)
[2018-03-17 05:34] LABS: Alanine Aminotransferase 28 U/L (10-53); Albumin 2.7 g/dL (3.4-5.0); Anion Gap 9 meq/L (5-15); Aspartate Aminotransferase 31 U/L (15-37); Blood Urea Nitrogen 7 mg/dL (7-18); Calcium 7.7 mg/dL (8.5-10.1); Carbon Dioxide 26.5 meq/L (21.0-32.0); Chloride 108 meq/L (98-107); Glomerular Filtration Rate Greater Than 89 mL/min (>89); Glucose,Random 84 mg/dL (74-106); Magnesium 2.1 mg/dL (1.5-2.5); Potassium 3.6 meq/L (3.5-5.1); Sodium 143 meq/L (136-145)
[2018-03-17 05:38] LABS: Alkaline Phosphatase 56 U/L (45-117); Phenytoin (Dilantin) 1.5 mcg/mL (10.0-20.0); Total Protein 6.1 g/dL (6.4-8.2)
[2018-03-17 05:45] LABS: Troponin I 0.67 ng/mL (0.02-0.05)
[2018-03-17 06:45] LABS: Bilirubin,Urine Negative (Negative); Clarity,Urine Clear (Clear); Color,Urine Yellow (Yellw/Straw); Glucose,Urine (UA) Negative (Negative); Leukocyte Esterase,Urine Negative (Negative); Nitrite,Urine Negative (Negative); Specific Gravity,Urine 1.008 (1.002-1.035)
[2018-03-17] MEDS: Isoproterenol 200mcg/50mL Bag 200 MCG/50 ML BAG IV.CONT SCH ×6 (08:17→22:19)
[2018-03-17] MEDS: Famotidine PF Inj 20 MG/2 ML Vial IV.PUSH SCH ×2 (08:30→20:10)
[2018-03-17] MEDS: Senna/Docusate Sodium 8.6/50 MG Tablet PO SCH ×2 (08:51→20:10)
--- NOTE | 2018-03-17 09:45 | MB ---
cc: Luis Call MD DATE: 03/17/2018 REASON FOR CONSULTATION: Abnormal troponin, bradycardia. HISTORY OF PRESENT ILLNESS: The patient is a 53-year-old white female with a history of CVA, fibromyalgia, hypothyroidism, seizure disorder, left atrial myxoma resection, and paroxysmal atrial flutter, who was admitted with recurrent seizures. Troponin levels were checked and found to be slightly abnormal. On monitoring here in the hospital, she has demonstrated bradycardia. The patient denies chest pain, shortness of breath, dizziness, syncope, near syncope, palpitations, pedal edema, paroxysmal nocturnal dyspnea. The patient did have a heart catheterization prior to her myxoma resection showing normal coronary arteries. PAST MEDICAL HISTORY: 1. Cerebrovascular accident. 2. Fibromyalgia. 3. Hypothyroidism. 4. Seizure disorder. 5. Left atrial myxoma, status post surgical resection 05/19/2017. 6. Paroxysmal atrial flutter, status post ablation 07/25/2017. 7. 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 8. Hypertension. PAST SURGICAL HISTORY: 1. L4-L5 laminectomy. 2. section. 3. Right total hip arthroplasty. 4. Left atrial myxoma resection. 5. Appendectomy. CARDIAC MEDICATIONS AT HOME: 1. Crestor 20 mg daily. 2. Aspirin 81 mg daily. ALLERGIES: NO KNOWN DRUG ALLERGIES. FAMILY HISTORY: There is no significant family history of early myocardial infarction. SOCIAL HISTORY: The patient smokes about a pack of cigarettes per day. She denies drug or alcohol abuse. REVIEW OF SYSTEMS: As in the history of present illness, otherwise negative or noncontributory. She also denies headache, abdominal pain, melena, dyspepsia, bright red blood per rectum, and fevers. PHYSICAL EXAMINATION: VITAL SIGNS: Blood pressure 87/54 with a pulse of 50, respirations 20. GENERAL: She is a well-developed, well-nourished white female, in no acute distress. NECK: Jugular venous pressure is normal. Carotid pulses are 2+ bilaterally and without bruits. CHEST: Reveals clear lungs benton. CARDIAC: She has a bradycardic, regular rhythm without S3, S4, or murmur. ABDOMEN: She has a soft, nontender abdomen. Bowel sounds are present. There is no definite hepatosplenomegaly. EXTREMITIES: Reveals no clubbing, cyanosis or edema. DIAGNOSTIC STUDIES: EKG from 03/16/2018 at 10:02 p.m. shows sinus rhythm, occasional junctional escape rhythm, nonspecific T-wave abnormalities. LABORATORY DATA: Includes WBC 7.7, hemoglobin 11.6, platelets 295. Potassium 3.6, BUN 7, creatinine 0.46. Troponin 0.99. CK 463, with 1.1% MB fraction. IMPRESSION: Slightly abnormal troponin levels, bradycardia in this 53-year-old white female with history of cerebrovascular accident, fibromyalgia, seizure disorder, left atrial myxoma resection, paroxysmal atrial flutter status post ablation, and hypertension. Overall, I doubt the slightly abnormal troponin levels are due to acute coronary syndrome. She has had no chest pain symptoms. Cardiac catheterization last year showed normal coronary arteries, except for a mild left anterior descending artery muscle bridge. Overall, I doubt the surgical resection of her atrial myxoma caused any mechanical obstructive problem with her coronary arteries. On the other hand, yesterday she did have EKG changes, showing minor high lateral ST elevation with possible reciprocal changes. With respect to her bradycardia, her rhythm strips have been reviewed. She appears to have predominantly sinus bradycardia with occasional junctional rhythm. The junctional rhythm has resolved with Isuprel infusion. The patient has no definite cardiovascular symptoms from the bradycardia. In addition, she has had problems with junctional rhythm in the past (09/2017), and she was recommended observation by Dr. Amado Aguilar at that time. The patient also has had mild hypotension, although there is no definitive correlation between the hypotension and bradycardia. On the other hand, on Isuprel, with heart rates in the 70's, she is consistently normotensive. RECOMMENDATIONS: 1. Check a Lexiscan nuclear stress test in light of EKG changes seen yesterday and the slightly abnormal troponin levels, despite her history of normal cardiac catheterization last year. 2. With respect to the bradycardia, would recommend considering stopping Isuprel and ruling out other causes of hypotension. Will consider permanent pacemaker implantation. MD ERASTO Chambers/PLACIDO , 09:10 AM , 09:23 AM [facility]ITALDen[facility]
--- NOTE | 2018-03-17 10:31 | P.PNCC ---
Subjective Subjective Remarks/Hospital Course: 53-year-old female with past medical history of seizure disorder presents after she was found to have a seizure in her neurologist office. She was transferred to [facility] by EMS for further workup and management. Patient is confused, postictal and crying during my assessment. She also states she has a history of fibromyalgia and takes narcotic pain medicine and always hurts all over. She denies any head or neck injury or pain. She does not remember the event. She states that she had 2 seizures in the past 12 hours and just falls out. She does not take any medications for seizures. SUBJ 03/17: Remains critical with symptomatic bradycardia down to mid 30s and hypotension associated. Troponin peaked at 0.99. I have started patient on Isuprel. Appreciate cardiology and neurology consult. MRI MRA head pending at this time. No further seizures Objective Vital Signs / I&O: Vital Signs 03/16/18 11:27 03/16/18 11:40 03/16/18 13:21 Temperature 98.4 F 98.4 F Pulse Rate 109 H 61 64 Respiratory Rate 18 18 16 Blood Pressure 119/81 103/57 L 101/54 L Pulse Oximetry 95 100 95 03/16/18 13:44 03/16/18 15:13 03/16/18 17:00 Temperature 98.3 F Pulse Rate 66 60 60 Respiratory Rate 18 18 21 Blood Pressure 110/56 L 102/66 144/74 H Pulse Oximetry 99 99 91 L 03/16/18 17:38 03/16/18 17:54 03/16/18 18:00 Temperature Pulse Rate 68 63 56 L Respiratory Rate 61 H 23 15 Blood Pressure 110/75 105/59 L Pulse Oximetry 84 L 79 L 87 L 03/16/18 19:00 03/16/18 20:00 03/16/18 21:00 Temperature 98.6 F Pulse Rate 70 70 67 Respiratory Rate 18 18 18 Blood Pressure 100/60 100/60 92/53 L Pulse Oximetry 100 100 100 03/16/18 21:41 03/16/18 22:00 03/16/18 23:00 Temperature Pulse Rate 56 L 59 L Respiratory Rate 23 15 Blood Pressure 117/58 L 106/57 L Pulse Oximetry 100 96 98 03/17/18 00:00 03/17/18 01:00 03/17/18 02:00 Temperature 98.4 F Pulse Rate 53 L 55 L 46 L Respiratory Rate 19 21 14 Blood Pressure 88/53 L 84/52 L 80/53 L Pulse Oximetry 97 98 100 03/17/18 03:00 03/17/18 04:00 03/17/18 05:00 Temperature 98.6 F Pulse Rate 46 L 45 L 44 L Respiratory Rate 23 14 16 Blood Pressure 89/60 L 82/57 L 84/51 L Pulse Oximetry 89 L 100 100 03/17/18 06:00 03/17/18 08:45 Temperature Pulse Rate 50 L Respiratory Rate 28 H Blood Pressure 87/54 L Pulse Oximetry 100 98 Intake & Output 03/16/18 03/17/18 03/17/18 18:59 06:59 18:59 Intake Total 0 / 0 3474 / 3474 Output Total 0 / 0 1250 / 1250 Balance 0 / 0 2224 / 2224 Weight 68.492 kg 73.5 kg Intake: IV 3474 / 3474 NS Inj 1,000 ML @ 84 mls/hr IV. 1000 / 1000 CONT .[id number] [facility] Rx#: [id number] Cerebyx Inj 100 MGPE In NS Inj 104 / 104 50 ML @ 208 mls/hr IV.SIG Q8HR [facility] Rx#:[id number] Cerebyx Inj 1,000 MGPE In NS 70 / 70 Inj 50 ML @ 280 mls/hr IV.SIG ONCE ONE Rx#:[id number] NS Inj 1,000 ML @ 999 mls/hr IV 1999 / 1999 .SIG .Q1H1M [facility]EUS Rx#:[id number] Keppra 1000 mg/100 mL Premix 300 / 300 100 ML @ 400 mls/hr IV.SIG Q12H [facility] Rx#:[id number] Oral 0 / 0 0 / 0 Output: Urine 0 / 0 Urine Amount (Catheter) 1250 / 1250 Indwelling Urethral Catheter 1250 / 1250 Other: # Bowel Movements 0 0 Result Diagrams: 03/17/18 04:40 03/17/18 04:40 Objective Remarks: - Constitutional mild distress, lying in bed - HEENT Exam Head: normocephalic, atraumatic Eye: PERRL. Absent: scleral injection, conjunctivae pink ENT: mucous membranes moist - Routine Neck Exam supple, full ROM. No JVD, carotid bruit - Routine Respiratory Exam No accessory muscle use, rhonchi, stridor, wheezes - Routine Cardiovascular Exam Intermittent bradycardia to mid 30's with hypotension. Started on Isuprel - Routine Abdominal Exam Soft, normoactive bowel sounds. tenderness, distended - Routine Extremities Exam No cyanosis, clubbing, edema - Routine Skin Exam Intact - Routine Neurological Exam Alert, awake, oriented. No sensory deficit, motor deficit Assessment and Plan - Assessment and Plan Plan: Active Medications Recurrent seizures Seizure disorder -Loaded with Keppra and fosphenytoin -Seizures are well controlled, continue Keppra and change Cerebyx to p.o. Dilantin -CT head negative, Await MRI/MRA -Seizure precautions -Further per neurology -Ativan as needed Non-STEMI -No ST changes on EKG -Continue Aspirin, atorvastatin -Monitor trend of troponins and EKGs -2D echo, Cardiology consultation Symptomatic bradycardia and hypotension -Heart rate drops to mid 30s with associated hypotension -Isopril started with improved heart rate and blood pressure -Discussed with Dr. Call, plan for pacemaker placement Fibromyalgia -Lyrica, as needed oxycodone Hypothyroid -Thyroid ([place] Thyroid) DVT GI prophylaxis -Teds SCDs -Subcu Lovenox -Pepcid Critical Care: The total critical care time was 35 minutes. Time to perform other separately billable procedures was not included in the critical care time. Critically ill with severe life-threatening bradycardia and hypotension, complicated with NSTEMI and seizure disorder. Continue ICU care discussed with Dr. Call Code Status: Full Discussed Condition With: Dr. Call
--- NOTE | 2018-03-17 11:28 | P.PNNEU ---
Subjective Subjective Comments: No acute events reported Active Medications: Active Medications Al Hydroxide/Mg Hydroxide (Milk Of Magnesia Liq) 30 ml PO Q12HR PRN PRN Reason: Mild Constipation Albuterol (Duoneb Neb (Prn)) 1 ampul NEB Q2HR NEB PRN PRN Reason: WHEEZING Aspirin (Aspirin Chew) 81 mg PO DAILY [facility] Last Admin: 03/17/18 08:30 Dose: 81 mg Atorvastatin Calcium (Lipitor) 40 mg PO DAILY [facility] Last Admin: 03/17/18 08:30 Dose: 40 mg Bisacodyl (Dulcolax Supp) 10 mg RECTAL DAILY PRN PRN Reason: SEVERE CONSITIPATION Chlorhexidine Gluconate (Chlorhexidine 2% Cloth) 3 pack TOPICAL DAILY@0400 [facility] Stop: 03/22/18 03:59 Last Admin: 03/17/18 04:14 Dose: 3 pack Chlorhexidine Gluconate (Chlorhexidine 2% Cloth) 3 pack TOPICAL DAILY@0400 PRN PRN Reason: Extra cloth needed Stop: 03/22/18 03:59 Enoxaparin Sodium (Lovenox Inj) 40 mg SQ Q24H [facility] Last Admin: 03/16/18 17:28 Dose: 40 mg Famotidine (Pepcid Pf Inj) 20 mg IV.PUSH Q12HR [facility] Last Admin: 03/17/18 08:30 Dose: 20 mg Sodium Chloride (Ns Inj) 1,000 mls @ 84 mls/hr IV.CONT .[id number] [facility] Last Admin: 03/17/18 04:14 Dose: 84 mls/hr Levetiracetam (Keppra 1000 Mg/100 Ml Premix) 100 mls @ 400 mls/hr IV.SIG Q12H [facility] Last Infusion: 03/17/18 05:42 Dose: Infused Isoproterenol HCl (Isuprel 200 Mcg/50 Ml Premix) 200 mcg in 50 mls @ 15 mls/hr IV.CONT .Q3H20M [facility] Last Admin: 03/17/18 11:10 Dose: 1 mcg/min, 15 mls/hr Lactulose (Lactulose Liq) 30 ml PO DAILY PRN PRN Reason: SEVERE CONSITIPATION Lorazepam (Ativan Inj) 2 mg IV.PUSH Q2H PRN PRN Reason: SEIZURES Oxycodone HCl (Roxicodone) 30 mg PO Q4H PRN PRN Reason: PAIN SCALE 1 TO 10 Last Admin: 03/17/18 08:30 Dose: 30 mg Pregabalin (Lyrica) 200 mg PO Q8HR [facility] Last Admin: 03/17/18 05:03 Dose: Not Given Senna/Docusate Sodium (Tere-Colace) 1 tab PO BID [facility] Last Admin: 03/17/18 08:51 Dose: 1 tab Sennosides (Senokot) 17.2 mg PO Q12HR PRN PRN Reason: Moderate Constipation Sodium Chloride (Ns Flush) 2 ml IV.FLUSH PRN PRN PRN Reason: FLUSH AFTER USING IV ACCESS Sodium Chloride (Ns Flush) 2 ml IV.FLUSH PRN PRN PRN Reason: FLUSH AFTER USING IV ACCESS Sodium Chloride (Ns Flush) 2 ml IV.FLUSH BID [facility] Last Admin: 03/17/18 08:00 Dose: 2 ml Thyroid (Wayzata Thyroid) 60 mg PO DAILY@0600 [facility] Last Admin: 03/17/18 05:03 Dose: Not Given Allergies/Adverse Reactions: Allergies Allergy/AdvReac Type Severity Reaction Status Date / Time No Known Allergies Allergy Unknown Uncoded 12/09/17 14:19 Physical Exam Vital signs: Vital Signs 03/16/18 11:27 03/16/18 11:40 03/16/18 13:21 Temperature 98.4 F 98.4 F Pulse Rate 109 H 61 64 Respiratory Rate 18 18 16 Blood Pressure 119/81 103/57 L 101/54 L Pulse Oximetry 95 100 95 03/16/18 13:44 03/16/18 15:13 03/16/18 17:00 Temperature 98.3 F Pulse Rate 66 60 60 Respiratory Rate 18 18 21 Blood Pressure 110/56 L 102/66 144/74 H Pulse Oximetry 99 99 91 L 03/16/18 17:38 03/16/18 17:54 03/16/18 18:00 Temperature Pulse Rate 68 63 56 L Respiratory Rate 61 H 23 15 Blood Pressure 110/75 105/59 L Pulse Oximetry 84 L 79 L 87 L 03/16/18 19:00 03/16/18 20:00 03/16/18 21:00 Temperature 98.6 F Pulse Rate 70 70 67 Respiratory Rate 18 18 18 Blood Pressure 100/60 100/60 92/53 L Pulse Oximetry 100 100 100 07/27/18 21:41 03/16/18 22:00 03/16/18 23:00 Temperature Pulse Rate 56 L 59 L Respiratory Rate 23 15 Blood Pressure 117/58 L 106/57 L Pulse Oximetry 100 96 98 03/17/18 00:00 03/17/18 01:00 03/17/18 02:00 Temperature 98.4 F Pulse Rate 53 L 55 L 46 L Respiratory Rate 19 21 14 Blood Pressure 88/53 L 84/52 L 80/53 L Pulse Oximetry 97 98 100 03/17/18 03:00 03/17/18 04:00 03/17/18 05:00 Temperature 98.6 F Pulse Rate 46 L 45 L 44 L Respiratory Rate 23 14 16 Blood Pressure 89/60 L 82/57 L 84/51 L Pulse Oximetry 89 L 100 100 03/17/18 06:00 03/17/18 08:45 Temperature Pulse Rate 50 L Respiratory Rate 28 H Blood Pressure 87/54 L Pulse Oximetry 100 98 Intake & Output 03/16/18 03/17/18 03/17/18 18:59 06:59 18:59 Intake Total 0 / 0 3474 / 3474 50 / 50 Output Total 0 / 0 1250 / 1250 Balance 0 / 0 2224 / 2224 50 / 50 Weight 68.492 kg 73.5 kg Intake: IV 3474 / 3474 50 / 50 Isuprel 200 mcg/50 mL Premix 50 / 50 200 mcg In 50 ml @ 1 MCG/MIN 15 mls/hr IV.CONT .Q3H20M [facility] Rx# :[id number] NS Inj 1,000 ML @ 84 mls/hr IV. 1000 / 1000 CONT .[id number] [facility] Rx#: [id number] Cerebyx Inj 100 MGPE In NS Inj 104 / 104 50 ML @ 208 mls/hr IV.SIG Q8HR [facility] Rx#:[id number] Cerebyx Inj 1,000 MGPE In NS 70 / 70 Inj 50 ML @ 280 mls/hr IV.SIG ONCE ONE Rx#:[id number] NS Inj 1,000 ML @ 999 mls/hr IV 1999 / 1999 .SIG .Q1H1M [facility] Rx#:[id number] Keppra 1000 mg/100 mL Premix 300 / 300 100 ML @ 400 mls/hr IV.SIG Q12H [facility] Rx#:[id number] Oral 0 / 0 0 / 0 Output: Urine 0 / 0 Urine Amount (Catheter) 1250 / 1250 Indwelling Urethral Catheter 1250 / 1250 Other: # Bowel Movements 0 0 Narrative: ox3 vff moves all well x left ip not as good as right follows comands well - Urinary Catheter Management Indwelling Urethral Catheter Cath placed during this visit: yes Reason for continuing: Acute urinary retention Insertion date: 03/17/18 Insertion time: 02:30 Objective Laboratory Results - last 24 hr 03/16/18 03/16/18 03/16/18 12:20 12:20 12:20 CBC w Diff Auto diff final WBC 9.9 RBC 4.40 Hgb 12.7 Hct 39.0 MCV 88.6 MCH 28.8 MCHC 32.5 RDW 14.6 Plt Count 336 MPV 7.4 Neut % (Auto) 73.7 H Lymph % (Auto) 17.0 [place] % (Auto) 5.3 Eos % (Auto) 0.3 Baso % (Auto) 3.7 H Neut # (Auto) 7.3 Lymph # (Auto) 1.7 [place] # (Auto) 0.5 Eos # (Auto) 0.0 Baso # (Auto) 0.4 H WBC Differential . Differential Comment . ESR Sodium 136 Potassium 4.1 Chloride 101 Carbon Dioxide 28.4 Anion Gap 7 BUN 7 Creatinine 0.59 Estimated GFR Greater than 89 Random Glucose 101 Calcium 8.4 L Magnesium 2.3 Total Bilirubin AST ALT Alkaline Phosphatase Total Creatine Kinase CK-MB (CK-2) CK-MB (CK-2) % Troponin I 0.75 H* Total Protein Albumin Vitamin B12 TSH Thyroxine (T4) Ur Collection Type Urine Color Urine Clarity Urine pH Ur Specific [place] Urine Protein Urine Glucose (UA) Urine Ketones Urine Occult Blood Urine Nitrate Urine Bilirubin Urine Urobilinogen Ur Leukocyte Esterase Urine RBC Urine WBC Ur Squamous Epith Cells Micro UA Comment Urine Culture Comments Nasal Screen MRSA (PCR) Urine Opiates Screen Ur Barbiturates Screen Phenytoin Ur Amphetamines Screen U Benzodiazepines Scrn Urine Cocaine Screen U Cannabinoids Screen Serum Alcohol Less than 3 03/16/18 03/16/18 03/16/18 13:15 13:15 17:30 CBC w Diff WBC RBC Hgb Hct MCV MCH MCHC RDW Plt Count MPV Neut % (Auto) Lymph % (Auto) [place] % (Auto) Eos % (Auto) Baso % (Auto) Neut # (Auto) Lymph # (Auto) [place] # (Auto) Eos # (Auto) Baso # (Auto) WBC Differential Differential Comment ESR Sodium Potassium Chloride Carbon Dioxide Anion Gap BUN Creatinine Estimated GFR Random Glucose Calcium Magnesium Total Bilirubin AST ALT Alkaline Phosphatase Total Creatine Kinase CK-MB (CK-2) CK-MB (CK-2) % Troponin I Total Protein Albumin Vitamin B12 TSH Thyroxine (T4) Ur Collection Type Clean catch Urine Color Straw Urine Clarity Clear Urine pH 7.0 Ur Specific [place] Less/equal 1.005 Urine Protein Negative Urine Glucose (UA) Negative Urine Ketones Negative Urine Occult Blood Negative Urine Nitrate Negative Urine Bilirubin Negative Urine Urobilinogen 0.2 Ur Leukocyte Esterase Negative Urine RBC Urine WBC 0-5 Ur Squamous Epith Cells 0-5 Micro UA Comment Culture not ind Urine Culture Comments Culture not ind Nasal Screen MRSA (PCR) Not detected Urine Opiates Screen Pos H Ur Barbiturates Screen Neg Phenytoin Ur Amphetamines Screen Neg U Benzodiazepines Scrn Neg Urine Cocaine Screen Neg U Cannabinoids Screen Neg Serum Alcohol 03/16/18 03/17/18 03/17/18 19:05 03:00 04:40 CBC w Diff WBC RBC Hgb Hct MCV MCH MCHC RDW Plt Count MPV Neut % (Auto) Lymph % (Auto) [place] % (Auto) Eos % (Auto) Baso % (Auto) Neut # (Auto) Lymph # (Auto) [place] # (Auto) Eos # (Auto) Baso # (Auto) WBC Differential Differential Comment ESR 10 Sodium Potassium Chloride Carbon Dioxide Anion Gap BUN Creatinine Estimated GFR Random Glucose Calcium Magnesium Total Bilirubin AST ALT Alkaline Phosphatase Total Creatine Kinase 463 H CK-MB (CK-2) 5.0 H CK-MB (CK-2) % 1.1 Troponin I 0.99 H* D Total Protein Albumin Vitamin B12 310 TSH 1.250 Thyroxine (T4) 7.2 Ur Collection Type Urine Color Yellow Urine Clarity Clear Urine pH 6.0 Ur Specific [place] 1.008 Urine Protein Negative Urine Glucose (UA) Negative Urine Ketones Negative Urine Occult Blood Negative Urine Nitrate Negative Urine Bilirubin Negative Urine Urobilinogen Less than 2 Ur Leukocyte Esterase Negative Urine RBC 1 Urine WBC 1 Ur Squamous Epith Cells Micro UA Comment Cath-culture not ind Urine Culture Comments Cath-cult not ind Nasal Screen MRSA (PCR) Urine Opiates Screen Ur Barbiturates Screen Phenytoin Ur Amphetamines Screen U Benzodiazepines Scrn Urine Cocaine Screen U Cannabinoids Screen Serum Alcohol 03/17/18 03/17/18 04:40 04:40 CBC w Diff WBC 7.7 RBC 3.98 L Hgb 11.6 Hct 34.8 L MCV 87.4 MCH 29.1 MCHC 33.3 RDW 15.4 Plt Count 295 MPV 8.1 Neut % (Auto) 58.5 Lymph % (Auto) 31.3 [place] % (Auto) 8.3 H Eos % (Auto) 1.1 Baso % (Auto) 0.8 Neut # (Auto) 4.5 Lymph # (Auto) 2.4 [place] # (Auto) 0.6 Eos # (Auto) 0.1 Baso # (Auto) 0.1 WBC Differential . Differential Comment Auto diff final ESR Sodium 143 Potassium 3.6 Chloride 108 H Carbon Dioxide 26.5 Anion Gap 9 BUN 7 Creatinine 0.46 L Estimated GFR Greater than 89 Random Glucose 84 Calcium 7.7 L Magnesium 2.1 Total Bilirubin 0.4 AST 31 ALT 28 Alkaline Phosphatase 56 Total Creatine Kinase CK-MB (CK-2) CK-MB (CK-2) % Troponin I 0.67 H* D Total Protein 6.1 L Albumin 2.7 L Vitamin B12 TSH Thyroxine (T4) Ur Collection Type Urine Color Urine Clarity Urine pH Ur Specific [place] Urine Protein Urine Glucose (UA) Urine Ketones Urine Occult Blood Urine Nitrate Urine Bilirubin Urine Urobilinogen Ur Leukocyte Esterase Urine RBC Urine WBC Ur Squamous Epith Cells Micro UA Comment Urine Culture Comments Nasal Screen MRSA (PCR) Urine Opiates Screen Ur Barbiturates Screen Phenytoin 1.5 L Ur Amphetamines Screen U Benzodiazepines Scrn Urine Cocaine Screen U Cannabinoids Screen Serum Alcohol Review/Management - Review/Management Plan: [facility] states she had sz one month ago and now 3 here all since wellbutrin started i told her no wellbutrin nor tramadol can continue keppra for now but glen likely taper off o/p not to drive await mri eeg nl
--- NOTE | 2018-03-17 12:44 | MG ---
cc: Elias Fajardo MD EEG 18-1200 New onset seizure, fibromyalgia, Keppra. DESCRIPTION: Recording shows diffuse theta and beta rhythms. A 6 Hz, 60 microvolt diffuse rhythm is seen at times. The patient falls asleep and reaches some stage II sleep, which is synchronous and symmetric. Photic stimulation is performed without significant posterior driving. IMPRESSION: Diffuse theta slowing consistent with mild diffuse encephalopathy, but normal awake and sleep EEG otherwise. No epileptiform or seizure activity was noted. MD ROMY Wynn/aparna/diogo , 11:02 AM , 11:07 AM
[2018-03-17] MEDS ORDERED: Morphine Sulfate Inj 2 MG/ML Vial ONE (13:24)
--- NOTE | 2018-03-17 13:34 | P.PCN ---
Date of procedure: 03/17/18 Pre-op diagnosis: Hypotension, bradycardia Post-op diagnosis: same Procedure: US guided right IJ central line Central line checklist completed, timeout completed. I wore a surgical cap, mask with protective eyewear, full gown and sterile gloves throughout the procedure. Right neck region was prepped using chlorhexidine scrub and draped in sterile fashion. The right IJ vein was identified using the ultrasound. Anesthesia was achieved over the vein using 1% lidocaine. The introducer needle was inserted into the internal jugular vein under direct ultrasound visualization. Venous blood was withdrawn. The syringe was removed and a guidewire was advanced into the introducer needle. A small incision was made at the skin surface with a scalpel and the introducer needle was exchanged for a dilator over the guidewire. After appropriate dilation was obtained, the dilator was exchanged over the wire for a triple lumen, 7F, antibiotic coated central venous catheter. The wire was removed and the catheter was sutured in place at 16 cm. A sterile central line dressing was placed over the catheter at the insertion site. The patient tolerated the procedure without any hemodynamic compromise. At time of procedure completion, all ports aspirated and flushed properly. Post-procedure chest x-ray is pending at this time. Estimated blood loss (mL): 1 Pathology: none sent Condition: critical Disposition: ICU
--- NOTE | 2018-03-17 14:18 | XR ---
EXAM DATE: 03/17/2018 1:59 PM EDT AGE/SEX: 53 years / Female INDICATIONS: CVL. CLINICAL DATA: This is the patient's initial encounter. Patient reports that signs and symptoms have been present for 1 day and indicates a pain score of Nonresponsive. MEDICAL/SURGICAL HISTORY: None. None. COMPARISON: [facility] [place], CHEST SINGLE AP, 05/28/2017. . FINDINGS: The lungs are clear without infiltrate, nodule, or mass. There is no appreciable pleural effusion fo r technique. Heart and mediastinum are unremarkable. There is evidence for prior median sternotomy. Right IJ line is present with tip overlapping the expected region of the SVC. No definite pneumoth orax is seen for technique. CONCLUSION: No acute cardiopulmonary disease. Electronically signed by: Walter Billingsley MD 03/17/2018 2:17 PM EDT
[2018-03-17] MEDS ORDERED: DOPamine 800 MG/500 ML Premix 800 MG/500 ML PLAST..BAG IV.CONT PRN (14:30)
--- NOTE | 2018-03-17 16:57 | ECG ---
Date Performed: 03/16/2018 Time Performed: 19:32:35 PTAGE: 53 years EKG: INDETERMINANT RHYTHM DUE TO BASELINE ARTIFACT, SUSPECT ATRIAL FIBRILLATION POSSIBLE ANTEROL ATERAL MYOCARDIAL INFARCTION , OF INDETERMINATE AGE ABNORMAL ECG PREVIOUS TRACING : 03/16/2018 13.33 DOCTOR: Tucker Tyler Interpretating Date/Time 03/17/2018 16:57:12
--- NOTE | 2018-03-17 16:57 | ECG ---
Date Performed: 03/16/2018 Time Performed: 13:33:30 PTAGE: 53 years EKG: Sinus rhythm POSSIBLE LEFT ATRIAL ENLARGEMENT POSSIBLE LATERAL MYOCARDIAL INFARCTION Since the previous tracing, no significant change noted ABNORMAL ECG PREVIOUS TRACING : 09/26/2017 11.22 DOCTOR: Tucker Tyler Interpretating Date/Time 03/17/2018 16:56:35
--- NOTE | 2018-03-17 16:58 | ECG ---
Date Performed: 03/16/2018 Time Performed: 22:02:25 PTAGE: 53 years EKG: INDETERMINANT RHYTHM DUE TO BASELINE ARTIFACT, SUSPECT ATRIAL FIBRILLATION POSSIBLE LATERAL MYOCARDIAL INFARCTION , OF INDETERMINATE AGE ABNORMAL ECG PREVIOUS TRACING : 03/16/2018 19.32 DOCTOR: Tucker Tyler Interpretating Date/Time 03/17/2018 16:57:27
--- NOTE | 2018-03-17 17:20 | MR ---
EXAM DATE: 03/17/2018 4:58 PM EDT AGE/SEX: 53 years / Female INDICATIONS: CVA. CLINICAL DATA: This is the patient's initial encounter. Patient reports that signs and symptoms have been present for 1 day and indicates a pain score of 6/10. MEDICAL/SURGICAL HISTORY: Hypertension. Seizures. Discectomy, lumbar. Appendectomy. CABG. R ight hip replacement, Atrial myoma resection. COMPARISON: No prior exams available for comparison. TECHNIQUE: 3D [id number] MRA was performed. Source images, multiplanar STS MIP, and 3D volum e MIP reconstructions were reviewed. FINDINGS: The examination is limited due to motion artifact. There is an area of questionable possible aneurysm coming off the junction of the left [employer] and basilar artery. This is only questionable due to signifi cant artifact. The TRELL and MCA branches appear intact. CONCLUSION: 1. Limited examination due to significant motion artifact and a questionable aneurysm at the junctio n of the left [employer] coming off the basilar artery could be further characterized with CT angiogram of c [place] based on clinical grounds. Electronically signed by: Walter Billingsley MD 03/17/2018 5:18 PM EDT
--- NOTE | 2018-03-17 17:25 | MR ---
EXAM DATE: 03/17/2018 4:56 PM EDT AGE/SEX: 53 years / Female INDICATIONS: Epilepsy. CLINICAL DATA: This is the patient's initial encounter. Patient reports that signs and symptoms have been present for 1 day and indicates a pain score of 6/10. MEDICAL/SURGICAL HISTORY: Hypertension. Appendectomy. CABG. Discectomy, lumbar. Right hip re placement, Atrial myoma resection. COMPARISON: No prior exams available for comparison. TECHNIQUE: Multiplanar, multisequence examination of the brain was performed without and with 20 ml M ultihance (gadobenate) contrast as a single exam dose. Significant motion artifact is present FINDINGS: Significant motion artifact Ventricular size is appropriate. There is no restricted diffusion. There are no extra-axial fluid col lections appreciated. There are no gross parenchymal hemorrhages. Posterior fossa is unremarkable. There is no abnormal contrast enhancement. CONCLUSION: 1. Exam limited by motion. There is no evidence for significant ischemia, mass or hemorrhage. 2. No significant enhancement. 3. Given the motion subtle dural enhancement, ischemia and mass lesions could be missed. Electronically signed by: Joshua Robertson MD 03/17/2018 5:24 PM EDT
--- NOTE | 2018-03-17 18:14 | MR ---
EXAM DATE: 03/17/2018 6:05 PM EDT AGE/SEX: 53 years / Female INDICATIONS: . CVA. CLINICAL DATA: This is the patient's initial encounter. Patient reports that signs and symptoms have been present for 1 day and indicates a pain score of 6/10. MEDICAL/SURGICAL HISTORY: Hypertension. Appendectomy. CABG. Discectomy, lumbar. Right hip re placement, Atrial myxoma resection. COMPARISON: [facility] [place], MRI CERVICAL SPINE W & W/O CONTRAST, 03/15/2012. . TECHNIQUE: 10 ml Gadavist (gadobutrol) contrast infused MRA (single exam dose) of the extracranial circulation was performed using a neurovascular coil. Postprocessing was performed, including rotati ng sub-volume maximum intensity projections of each carotid artery, rotating full-volume maximum inte nsity projections of both carotid arteries, sagittal and coronal sliding thin-slab reformations of ea ch carotid artery, and left oblique sliding thin-slab reformation through the aortic arch to include the origin of the arch branch vessels. FINDINGS: Aortic Arch : There is a three-vessel origin of the great vessels from the aorta. No evidence of o stial narrowing. Right Carotid : The common carotid artery is intact. The carotid bulb has a normal configuration wi thout ulceration or narrowing. The internal carotid artery lumen is smooth without stenosis. The ex ternal carotid artery is intact. Left Carotid : The common carotid artery is intact. The carotid bulb has a normal configuration wit hout ulceration or narrowing. The internal carotid artery lumen is smooth without stenosis. The ext ernal carotid artery is intact. Vertebrals : Both vertebrals are patent. Possible minimal stenosis distal right vertebral artery as i t joins the basilar. CONCLUSION: 1. Negative for hemodynamically significant carotid stenosis. 2. Both vertebral arteries are patent. 3. Basilar artery is patent. Percent stenosis is calculated using the diameter of the stenotic region over the diameter of the nor mal distal internal carotid artery Electronically signed by: Joshua Robertson MD 03/17/2018 6:13 PM [facility]
[2018-03-17] MEDS: Enoxaparin Inj 40 MG/0.4 ML Syringe SQ SCH (18:30)
[2018-03-18] MEDS: Isoproterenol 200mcg/50mL Bag 200 MCG/50 ML BAG IV.CONT SCH ×7 (00:36→23:09)
[2018-03-18] MEDS: Sod Chloride 0.9% Inj 1,000 ML IV.CONT SCH (04:28)
[2018-03-18] MEDS: Chlorhexidine Gluconate 2% 1 Pack (2 Cloths) TOPICAL SCH (04:28)
--- NOTE | 2018-03-18 04:55 | XR ---
EXAM DATE: 03/18/2018 4:35 AM EDT AGE/SEX: 53 years / Female INDICATIONS: Shortness of breath, possible pulmonary disease. CLINICAL DATA: This is the patient's subsequent encounter. Patient reports that signs and symptoms h ave been present for 3 days and indicates a pain score of 0/10. MEDICAL/SURGICAL HISTORY: Hypertension. . Appendectomy. CABG. Discectomy, lumbar. Right hip rep lacement, Atrial myxoma resection. COMPARISON: [facility], CHEST 1V SINGLE AP, 03/17/2018. . FINDINGS: Stable right IJ central line. Postsurgical features of prior median sternotomy. Mild diffuse intersti tial prominence. Cardiomediastinal contours are stable. Remainder of the exam is unchanged. CONCLUSION: 1. No significant interval change or acute abnormality. Electronically signed by: Miguel Sprague MD 03/18/2018 4:54 AM EDT
[2018-03-18] MEDS: Thyroid 60 MG Tablet PO SCH (05:21)
[2018-03-18] MEDS: levETIRAcetam 1000mg/100mL Inj 100 ML IV.SIG SCH (05:21)
[2018-03-18 06:39] LABS: Hematocrit 33.1 % (35.0-46.0); Hemoglobin 10.9 gm/dL (11.6-15.3); Mean Corpuscular Hemoglobin 28.9 pg (27.0-34.0); Mean Corpuscular Volume 87.6 fL (80.0-100.0); Mean Platelet Volume 7.8 fL (7.0-11.0); Platelet Count 283 th/mm3 (150-450); Red Blood Count 3.77 mil/mm3 (4.00-5.30); Red Cell Distribution Width 15.4 % (11.6-17.2)
[2018-03-18 07:04] LABS: Albumin 2.8 g/dL (3.4-5.0); Anion Gap 6 meq/L (5-15); Aspartate Aminotransferase 21 U/L (15-37); Blood Urea Nitrogen 10 mg/dL (7-18); Calcium 7.5 mg/dL (8.5-10.1); Carbon Dioxide 26.6 meq/L (21.0-32.0); Chloride 109 meq/L (98-107); Glomerular Filtration Rate Greater Than 89 mL/min (>89); Glucose,Random 89 mg/dL (74-106); Magnesium 2.1 mg/dL (1.5-2.5); Potassium 3.7 meq/L (3.5-5.1); Sodium 142 meq/L (136-145)
[2018-03-18 07:06] LABS: Alanine Aminotransferase 23 U/L (10-53)
[2018-03-18 07:07] LABS: Alkaline Phosphatase 58 U/L (45-117); Total Protein 6.1 g/dL (6.4-8.2)
[2018-03-18] MEDS ORDERED: Gadobenate Dimeglumine PF Inj 20 ML VIAL (for RAD MRI) IV.PUSH ONE (08:18)
[2018-03-18] MEDS ORDERED: Phenytoin Sodium 100 MG Capsule PO SCH ×2 (09:15→10:00)
--- NOTE | 2018-03-18 09:21 | P.PNCC ---
Subjective Subjective Remarks/Hospital Course: 53-year-old female with past medical history of seizure disorder presents after she was found to have a seizure in her neurologist office. She was transferred to [facility] by EMS for further workup and management. Patient is confused, postictal and crying during my assessment. She also states she has a history of fibromyalgia and takes narcotic pain medicine and always hurts all over. She denies any head or neck injury or pain. She does not remember the event. She states that she had 2 seizures in the past 12 hours and just falls out. She does not take any medications for seizures. SUBJ 03/17: Remains critical with symptomatic bradycardia down to mid 30s and hypotension associated. Troponin peaked at 0.99. I have started patient on Isuprel. Appreciate cardiology and neurology consult. MRI MRA head pending at this time. No further seizures 03/18: Remains on Isuprel 1 mcg/min for symptomatic bradycardia. Probable pacemaker placement tomorrow a.m. I will in the meantime attempt weaning Isuprel. Mentation is improved, normal now Objective Vital Signs / I&O: Vital Signs 03/17/18 11:00 03/17/18 11:15 03/17/18 11:30 Temperature Pulse Rate 75 62 Respiratory Rate 17 31 H Blood Pressure 98/56 L 87/55 L 90/60 L Pulse Oximetry 98 94 L 03/17/18 11:46 03/17/18 12:00 03/17/18 12:15 Temperature Pulse Rate 61 60 66 Respiratory Rate 25 H 15 22 Blood Pressure 88/50 L 82/51 L 80/52 L Pulse Oximetry 91 L 95 99 03/17/18 12:30 03/17/18 12:31 03/17/18 12:45 Temperature Pulse Rate 56 L 60 59 L Respiratory Rate 13 17 20 Blood Pressure 103/59 L 112/51 L 81/54 L Pulse Oximetry 96 95 88 L 03/17/18 13:00 03/17/18 13:13 03/17/18 13:15 Temperature Pulse Rate 76 82 80 Respiratory Rate 19 9 L 19 Blood Pressure 106/54 L 104/52 L Pulse Oximetry 99 100 99 03/17/18 13:21 03/17/18 13:30 03/17/18 13:45 Temperature Pulse Rate 88 80 72 Respiratory Rate 19 19 23 Blood Pressure 115/55 L 124/57 L 127/59 L Pulse Oximetry 90 L 97 91 L 03/17/18 14:00 03/17/18 14:08 03/17/18 14:15 Temperature Pulse Rate 75 70 78 Respiratory Rate 22 17 21 Blood Pressure 111/59 L 118/57 L Pulse Oximetry 91 L 95 94 L 03/17/18 14:30 03/17/18 14:45 03/17/18 15:00 Temperature Pulse Rate 64 62 64 Respiratory Rate 18 20 20 Blood Pressure 111/56 L 127/58 L 108/55 L Pulse Oximetry 87 L 81 L 97 03/17/18 15:12 03/17/18 15:13 03/17/18 15:15 Temperature Pulse Rate 75 81 Respiratory Rate 18 17 Blood Pressure 122/53 L 114/56 L Pulse Oximetry 83 L 03/17/18 16:23 03/17/18 16:27 03/17/18 16:29 Temperature Pulse Rate 61 51 L Respiratory Rate 25 H 18 Blood Pressure 105/52 L 115/52 L Pulse Oximetry 03/17/18 17:00 03/17/18 17:01 03/17/18 18:00 Temperature Pulse Rate 51 L 54 L 44 L Respiratory Rate 15 17 18 Blood Pressure 103/55 L Pulse Oximetry 100 100 97 03/17/18 18:01 03/17/18 19:00 03/17/18 19:01 Temperature Pulse Rate 45 L 68 61 Respiratory Rate 24 16 15 Blood Pressure 95/55 L 125/58 L Pulse Oximetry 97 100 99 03/17/18 20:00 03/17/18 20:01 03/17/18 20:46 Temperature 97.8 F Pulse Rate 70 69 Respiratory Rate 20 17 Blood Pressure 112/53 L Pulse Oximetry 100 100 100 03/17/18 21:00 03/17/18 22:00 03/17/18 23:00 Temperature Pulse Rate 61 83 64 Respiratory Rate 24 27 H 25 H Blood Pressure 120/62 116/60 Pulse Oximetry 03/17/18 23:01 03/18/18 00:00 03/18/18 01:00 Temperature 98.1 F Pulse Rate 70 66 73 Respiratory Rate 17 13 13 Blood Pressure 146/54 H 109/55 L 108/54 L Pulse Oximetry 03/18/18 02:00 03/18/18 02:01 03/18/18 03:00 Temperature Pulse Rate 68 68 69 Respiratory Rate 22 20 18 Blood Pressure 113/55 L 107/57 L Pulse Oximetry 96 03/18/18 04:00 03/18/18 05:00 03/18/18 06:00 Temperature 99.0 F Pulse Rate 65 64 65 Respiratory Rate 12 17 13 Blood Pressure 107/55 L 113/53 L 121/59 L Pulse Oximetry 100 100 100 Intake & Output 03/17/18 03/18/18 03/18/18 18:59 06:59 18:59 Intake Total 1150 / 1150 1450 / 1450 Output Total 700 / 700 Balance 1150 / 1150 750 / 750 Weight 75 kg Intake: IV 1150 / 1150 1350 / 1350 Isuprel 200 mcg/50 mL Premix 150 / 150 250 / 250 200 mcg In 50 ml @ 1 MCG/MIN 15 mls/hr IV.CONT .Q3H20M [facility] Rx# :[id number] NS Inj 1,000 ML @ 84 mls/hr IV. 1000 / 1000 1000 / 1000 CONT .[id number] [facility] Rx#: [id number] Keppra 1000 mg/100 mL Premix 100 / 100 100 ML @ 400 mls/hr IV.SIG Q12H [facility] Rx#:[id number] Oral 100 / 100 Output: Urine Amount (Catheter) 700 / 700 Indwelling Urethral Catheter 700 / 700 Other: Date of Last Bowel Movement 03/18/18 # Bowel Movements 1 Result Diagrams: 03/18/18 05:25 03/18/18 05:25 Objective Remarks: - Constitutional Lying in bed - HEENT Exam Head: normocephalic, atraumatic Eye: PERRL. No scleral injection, conjunctivae pink ENT: mucous membranes moist - Routine Neck Exam supple, full ROM. No JVD, carotid bruit - Routine Respiratory Exam No accessory muscle use, rhonchi, stridor, wheezes - Routine Cardiovascular Exam Intermittent bradycardia to mid 30's with hypotension. On Isuprel - Routine Abdominal Exam Soft, normoactive bowel sounds. tenderness, distended - Routine Extremities Exam No cyanosis, clubbing, edema - Routine Neurological Exam Alert, awake, oriented. No sensory deficit, motor deficit Assessment and Plan - Assessment and Plan Plan: ASSESSMENT/PLAN: Recurrent seizures Seizure disorder -Loaded with Keppra and fosphenytoin -Seizures are well controlled, continue Keppra and change Cerebyx to p.o. Dilantin -CT head negative, MRA brain a questionable aneurysm at the junction of the left SVP DIGITAL AD SALES coming off the basilar artery -CTA brain ordered, neurology Dr. Fajardo informed -Seizure precautions -Further per neurology -Ativan as needed Non-STEMI -No ST changes on EKG -Continue Aspirin, atorvastatin -Monitor trend of troponin and EKGs -2D echo, Cardiology consultation Symptomatic bradycardia and hypotension -Heart rate drops to mid 30s -Isuprel started 03/17/18 with improved heart rate and blood pressure -Discussed with Dr. Call, plan for pacemaker placement likely tomorrow Fibromyalgia -Lyrica, as needed oxycodone Hypothyroid -Thyroid ([place] Thyroid) DVT GI prophylaxis -Teds SCDs -Subcu Lovenox -Pepcid Critical Care: Level 3 Code Status: Full
[2018-03-18] MEDS: Famotidine PF Inj 20 MG/2 ML Vial IV.PUSH SCH ×2 (09:46→21:16)
[2018-03-18] MEDS: Senna/Docusate Sodium 8.6/50 MG Tablet PO SCH ×2 (09:47→21:11)
--- NOTE | 2018-03-18 09:57 | P.PNCA ---
Subjective Interval history: Denies dizziness, CP, dyspnea, palpitations. Slept poorly. Physical Exam Vital signs: Vital Signs 03/17/18 11:00 03/17/18 11:15 03/17/18 11:30 Temperature Pulse Rate 75 62 Respiratory Rate 17 31 H Blood Pressure 98/56 L 87/55 L 90/60 L Pulse Oximetry 98 94 L 03/17/18 11:46 03/17/18 12:00 03/17/18 12:15 Temperature Pulse Rate 61 60 66 Respiratory Rate 25 H 15 22 Blood Pressure 88/50 L 82/51 L 80/52 L Pulse Oximetry 91 L 95 99 03/17/18 12:30 03/17/18 12:31 03/17/18 12:45 Temperature Pulse Rate 56 L 60 59 L Respiratory Rate 13 17 20 Blood Pressure 103/59 L 112/51 L 81/54 L Pulse Oximetry 96 95 88 L 03/17/18 13:00 03/17/18 13:13 03/17/18 13:15 Temperature Pulse Rate 76 82 80 Respiratory Rate 19 9 L 19 Blood Pressure 106/54 L 104/52 L Pulse Oximetry 99 100 99 03/17/18 13:21 03/17/18 13:30 03/17/18 13:45 Temperature Pulse Rate 88 80 72 Respiratory Rate 19 19 23 Blood Pressure 115/55 L 124/57 L 127/59 L Pulse Oximetry 90 L 97 91 L 03/17/18 14:00 03/17/18 14:08 03/17/18 14:15 Temperature Pulse Rate 75 70 78 Respiratory Rate 22 17 21 Blood Pressure 111/59 L 118/57 L Pulse Oximetry 91 L 95 94 L 03/17/18 14:30 03/17/18 14:45 03/17/18 15:00 Temperature Pulse Rate 64 62 64 Respiratory Rate 18 20 20 Blood Pressure 111/56 L 127/58 L 108/55 L Pulse Oximetry 87 L 81 L 97 03/17/18 15:12 03/17/18 15:13 03/17/18 15:15 Temperature Pulse Rate 75 81 Respiratory Rate 18 17 Blood Pressure 122/53 L 114/56 L Pulse Oximetry 83 L 03/17/18 16:23 03/17/18 16:27 03/17/18 16:29 Temperature Pulse Rate 61 51 L Respiratory Rate 25 H 18 Blood Pressure 105/52 L 115/52 L Pulse Oximetry 03/17/18 17:00 03/17/18 17:01 03/17/18 18:00 Temperature Pulse Rate 51 L 54 L 44 L Respiratory Rate 15 17 18 Blood Pressure 103/55 L Pulse Oximetry 100 100 97 03/17/18 18:01 03/17/18 19:00 03/17/18 19:01 Temperature Pulse Rate 45 L 68 61 Respiratory Rate 24 16 15 Blood Pressure 95/55 L 125/58 L Pulse Oximetry 97 100 99 03/17/18 20:00 03/17/18 20:01 03/17/18 20:46 Temperature 97.8 F Pulse Rate 70 69 Respiratory Rate 20 17 Blood Pressure 112/53 L Pulse Oximetry 100 100 100 03/17/18 21:00 03/17/18 22:00 03/17/18 23:00 Temperature Pulse Rate 61 83 64 Respiratory Rate 24 27 H 25 H Blood Pressure 120/62 116/60 Pulse Oximetry 03/17/18 23:01 03/18/18 00:00 03/18/18 01:00 Temperature 98.1 F Pulse Rate 70 66 73 Respiratory Rate 17 13 13 Blood Pressure 146/54 H 109/55 L 108/54 L Pulse Oximetry 03/18/18 02:00 03/18/18 02:01 03/18/18 03:00 Temperature Pulse Rate 68 68 69 Respiratory Rate 22 20 18 Blood Pressure 113/55 L 107/57 L Pulse Oximetry 96 03/18/18 04:00 03/18/18 05:00 03/18/18 06:00 Temperature 99.0 F Pulse Rate 65 64 65 Respiratory Rate 12 17 13 Blood Pressure 107/55 L 113/53 L 121/59 L Pulse Oximetry 100 100 100 03/18/18 09:39 03/18/18 09:43 Temperature Pulse Rate Respiratory Rate 18 Blood Pressure Pulse Oximetry 100 Intake & Output 03/17/18 03/18/18 03/18/18 18:59 06:59 18:59 Intake Total 1150 / 1150 1450 / 1450 Output Total 700 / 700 Balance 1150 / 1150 750 / 750 Weight 75 kg Intake: IV 1150 / 1150 1350 / 1350 Isuprel 200 mcg/50 mL Premix 150 / 150 250 / 250 200 mcg In 50 ml @ 1 MCG/MIN 15 mls/hr IV.CONT .Q3H20M [facility] Rx# :[id number] NS Inj 1,000 ML @ 84 mls/hr IV. 1000 / 1000 1000 / 1000 CONT .[id number] [facility] Rx#: [id number] Keppra 1000 mg/100 mL Premix 100 / 100 100 ML @ 400 mls/hr IV.SIG Q12H [facility] Rx#:[id number] Oral 100 / 100 Output: Urine Amount (Catheter) 700 / 700 Indwelling Urethral Catheter 700 / 700 Other: Date of Last Bowel Movement 03/18/18 # Bowel Movements 1 - Constitutional no acute distress - Routine Neck Exam Absent: JVD - Routine Respiratory Exam Present: CTA bilaterally - Routine Cardiovascular Exam Present: S1, S2, bradycardia. Absent: murmur, gallop - Routine Abdominal Exam Present: soft, normoactive bowel sounds. Absent: tenderness, organomegaly - Routine Extremities Exam Absent: cyanosis, clubbing, edema - Urinary Catheter Management Indwelling Urethral Catheter Cath placed during this visit: yes Reason for continuing: Acute urinary retention Insertion date: 03/17/18 Insertion time: 02:30 Assessment and Plan - Assessment (1) Bradycardia Code(s): R00.1 - Bradycardia, unspecified Status: Chronic Plan: Stable overnight. Trying off Isuprel again. Rhythm sinus bradycardia, occasional to frequent junctional escape rhythm. Patient so far normotensive. REC observe today, probable DDD pacemaker implant tomorrow (2) Elevated troponin Code(s): R74.8 - Abnormal levels of other serum enzymes Status: Acute Plan: Stable overnight. No CP symptoms. 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 Await Lexiscan nuclear stress test. (3) History of atrial myxoma Code(s): Z86.018 - Personal history of other benign neoplasm Status: Resolved Plan: Status post surgical excision last year. (4) Paroxysmal atrial flutter Code(s): I48.92 - Unspecified atrial flutter Status: Resolved Plan: History of ablation. Stable. No recurrences. - Plan Code Status: full code Discussed Condition With: patient
[2018-03-18] MEDS ORDERED: Mupirocin 2% Nasal Oint Topical Syringe EACH NARE SCH (10:00)
[2018-03-18] MEDS ORDERED: Chlorhexidine Gluconate 2% 1 Pack (2 Cloths) TOPICAL SCH (10:00)
[2018-03-18 10:39] LABS: INR 1.2 Ratio; Prothrombin Time 12.4 sec (9.8-11.6)
--- NOTE | 2018-03-18 11:48 | CT ---
EXAM DATE: 03/18/2018 11:38 AM EDT AGE/SEX: 53 years / Female INDICATIONS: Abnormal MRI. CLINICAL DATA: This is the patient's initial encounter. Patient reports that signs and symptoms have been present for 1 day and indicates a pain score of 0/10. MEDICAL/SURGICAL HISTORY: Stroke. Hypothyroidism. section. cardiac surgery RADIATION DOSE: 25.19 CTDI (mGy) COMPARISON: No prior exams available for comparison. TECHNIQUE: Volumetric scanning was performed using a multi-row detector CT scanner during bolus infu breanne of 85 ml Omnipaque 350 (iohexol) nonionic water-soluble contrast as a single exam dose. The d mitchel was post processed with a variety of visualization algorithms including full volume maximum inten sity projection, multi-planar sliding thin slab reformation, curved planar reformation, and surface r endering techniques. Using automated exposure control and adjustment of the mA and/or kV according t o patient size, radiation dose was kept as low as reasonably achievable to obtain optimal diagnostic quality images. DICOM format image data is available electronically for review and comparison. FINDINGS: The previously questioned possible aneurysm at the junction of the left FINISHING TECHNICIAN and basilar ar garrick on the patient's prior MR angiography is a tortuous blood vessel left this site. No definite ane urysm is seen. CONCLUSION: 1. Tortuous blood vessel accounting for the question aneurysm on the patient's prior examination. No definite aneurysm. Electronically signed by: Walter Billignsley MD 03/18/2018 11:47 AM EDT
--- NOTE | 2018-03-18 11:57 | P.PNNEU ---
Subjective Subjective Comments: No acute events reported no new sz Active Medications: Active Medications Al Hydroxide/Mg Hydroxide (Milk Of Ranjith Liq) 30 ml PO Q12HR PRN PRN Reason: Mild Constipation Albuterol (Duoneb Neb (Prn)) 1 ampul NEB Q2HR NEB PRN PRN Reason: WHEEZING Aspirin (Aspirin Chew) 81 mg PO DAILY [facility] Last Admin: 03/18/18 09:43 Dose: 81 mg Atorvastatin Calcium (Lipitor) 40 mg PO DAILY [facility] Last Admin: 03/18/18 09:45 Dose: 40 mg Bisacodyl (Dulcolax Supp) 10 mg RECTAL DAILY PRN PRN Reason: SEVERE CONSITIPATION Chlorhexidine Gluconate (Chlorhexidine 2% Cloth) 3 pack TOPICAL DAILY@0400 [facility] Stop: 03/22/18 03:59 Last Admin: 03/18/18 04:28 Dose: 3 pack Chlorhexidine Gluconate (Chlorhexidine 2% Cloth) 3 pack TOPICAL DAILY@0400 PRN PRN Reason: Extra cloth needed Stop: 03/22/18 03:59 Chlorhexidine Gluconate (Chlorhexidine 2% Cloth) 3 pack TOPICAL BODY FORMER [facility] Stop: 03/21/18 09:57 Enoxaparin Sodium (Lovenox Inj) 40 mg SQ Q24H [facility] Last Admin: 03/17/18 18:30 Dose: 40 mg Famotidine (Pepcid Pf Inj) 20 mg IV.PUSH Q12HR [facility] Last Admin: 03/18/18 09:46 Dose: 20 mg Levetiracetam (Keppra 1000 Mg/100 Ml Premix) 100 mls @ 400 mls/hr IV.SIG Q12H [facility] Last Admin: 03/18/18 05:21 Dose: 420 mls/hr Isoproterenol HCl (Isuprel 200 Mcg/50 Ml Premix) 200 mcg in 50 mls @ 15 mls/hr IV.CONT .Q3H20M [facility] Last Admin: 03/18/18 06:06 Dose: 1 mcg/min, 15 mls/hr Dopamine HCl/Dextrose (Dopamine 800 Mg/500 Ml Premix) 800 mg in 500 mls @ 8.269 mls/hr IV.CONT TITRATE PRN; Protocol PRN Reason: Per Protocol Cefazolin Sodium 2,000 mg/ (Sodium Chloride) 100 mls @ 200 mls/hr IV.SIG BODY FORMER [facility] Stop: 03/21/18 09:58 Sodium Chloride (Ns Inj) 1,000 mls @ 125 mls/hr IV.CONT .Q8H [facility] Vancomycin HCl 1,000 mg/ (Sodium Chloride) 250 mls @ 250 mls/hr IV.SIG BODY [facility]MER [facility] Stop: 03/21/18 09:58 Lactulose (Lactulose Liq) 30 ml PO DAILY PRN PRN Reason: SEVERE CONSITIPATION Lorazepam (Ativan Inj) 2 mg IV.PUSH Q2H PRN PRN Reason: SEIZURES Last Admin: 03/17/18 15:45 Dose: 2 mg Mupirocin (Bactroban 2% Nasal Oint) 1 applicatio EACH NARE BODY [facility] Stop: 03/21/18 09:57 Oxycodone HCl (Roxicodone) 30 mg PO Q4H PRN PRN Reason: PAIN SCALE 1 TO 10 Last Admin: 03/18/18 09:47 Dose: 30 mg Phenytoin Sodium (Dilantin) 100 mg PO BID [facility] Last Admin: 03/18/18 10:51 Dose: 100 mg Povidone Iodine (Betadine 5% Antisepsis Kit) 1 applicatio EACH NARE BODY [facility] Stop: 03/21/18 09:57 Pregabalin (Lyrica) 200 mg PO Q8HR [facility] Last Admin: 03/18/18 05:21 Dose: 200 mg Senna/Docusate Sodium (Tere-Colace) 1 tab PO BID [facility] Last Admin: 03/18/18 09:47 Dose: 1 tab Sennosides (Senokot) 17.2 mg PO Q12HR PRN PRN Reason: Moderate Constipation Sodium Chloride (Ns Flush) 2 ml IV.FLUSH PRN PRN PRN Reason: FLUSH AFTER USING IV ACCESS Sodium Chloride (Ns Flush) 2 ml IV.FLUSH BID [facility] Last Admin: 03/18/18 09:46 Dose: 2 ml Terbutaline Sulfate (Brethine Inj) 1 mg SQ ONCE PRN PRN Reason: Extravasation Thyroid ([place] Thyroid) 60 mg PO DAILY@0600 [facility] Last Admin: 03/18/18 05:21 Dose: 60 mg Allergies/Adverse Reactions: Allergies Allergy/AdvReac Type Severity Reaction Status Date / Time No Known Allergies Allergy Unknown Uncoded 12/09/17 14:19 Physical Exam Vital signs: Vital Signs 03/17/18 12:00 03/17/18 12:15 03/17/18 12:30 Temperature Pulse Rate 60 66 56 L Respiratory Rate 15 22 13 Blood Pressure 82/51 L 80/52 L 103/59 L Pulse Oximetry 95 99 96 03/17/18 12:31 03/17/18 12:45 03/17/18 13:00 Temperature Pulse Rate 60 59 L 76 Respiratory Rate 17 20 19 Blood Pressure 112/51 L 81/54 L Pulse Oximetry 95 88 L 99 03/17/18 13:13 03/17/18 13:15 03/17/18 13:21 Temperature Pulse Rate 82 80 88 Respiratory Rate 9 L 19 19 Blood Pressure 106/54 L 104/52 L 115/55 L Pulse Oximetry 100 99 90 L 03/17/18 13:30 03/17/18 13:45 03/17/18 14:00 Temperature Pulse Rate 80 72 75 Respiratory Rate 19 23 22 Blood Pressure 124/57 L 127/59 L Pulse Oximetry 97 91 L 91 L 03/17/18 14:08 03/17/18 14:15 03/17/18 14:30 Temperature Pulse Rate 70 78 64 Respiratory Rate 17 21 18 Blood Pressure 111/59 L 118/57 L 111/56 L Pulse Oximetry 95 94 L 87 L 03/17/18 14:45 03/17/18 15:00 03/17/18 15:12 Temperature Pulse Rate 62 64 75 Respiratory Rate 20 20 18 Blood Pressure 127/58 L 108/55 L 122/53 L Pulse Oximetry 81 L 97 83 L 03/17/18 15:13 03/17/18 15:15 03/17/18 16:23 Temperature Pulse Rate 81 Respiratory Rate 17 Blood Pressure 114/56 L 105/52 L Pulse Oximetry 03/17/18 16:27 03/17/18 16:29 03/17/18 17:00 Temperature Pulse Rate 61 51 L 51 L Respiratory Rate 25 H 18 15 Blood Pressure 115/52 L Pulse Oximetry 100 03/17/18 17:01 03/17/18 18:00 03/17/18 18:01 Temperature Pulse Rate 54 L 44 L 45 L Respiratory Rate 17 18 24 Blood Pressure 103/55 L 95/55 L Pulse Oximetry 100 97 97 03/17/18 19:00 03/17/18 19:01 03/17/18 20:00 Temperature 97.8 F Pulse Rate 68 61 70 Respiratory Rate 16 15 20 Blood Pressure 125/58 L Pulse Oximetry 100 99 100 03/17/18 20:01 03/17/18 20:46 03/17/18 21:00 Temperature Pulse Rate 69 61 Respiratory Rate 17 24 Blood Pressure 112/53 L 120/62 Pulse Oximetry 100 100 03/17/18 22:00 03/17/18 23:00 03/17/18 23:01 Temperature Pulse Rate 83 64 70 Respiratory Rate 27 H 25 H 17 Blood Pressure 116/60 146/54 H Pulse Oximetry 03/18/18 00:00 03/18/18 01:00 03/18/18 02:00 Temperature 98.1 F Pulse Rate 66 73 68 Respiratory Rate 13 13 22 Blood Pressure 109/55 L 108/54 L Pulse Oximetry 03/18/18 02:01 03/18/18 03:00 03/18/18 04:00 Temperature 99.0 F Pulse Rate 68 69 65 Respiratory Rate 20 18 12 Blood Pressure 113/55 L 107/57 L 107/55 L Pulse Oximetry 96 100 03/18/18 05:00 03/18/18 06:00 03/18/18 09:39 Temperature Pulse Rate 64 65 Respiratory Rate 17 13 Blood Pressure 113/53 L 121/59 L Pulse Oximetry 100 100 100 03/18/18 09:43 Temperature Pulse Rate Respiratory Rate 18 Blood Pressure Pulse Oximetry Intake & Output 03/17/18 03/18/18 03/18/18 18:59 06:59 18:59 Intake Total 1150 / 1150 1450 / 1450 Output Total 700 / 700 Balance 1150 / 1150 750 / 750 Weight 75 kg Intake: IV 1150 / 1150 1350 / 1350 Isuprel 200 mcg/50 mL Premix 150 / 150 250 / 250 200 mcg In 50 ml @ 1 MCG/MIN 15 mls/hr IV.CONT .Q3H20M [facility] Rx# :[id number] Inj 1,000 ML @ 84 mls/hr IV. 1000 / 1000 1000 / 1000 CONT .[id number] [facility] Rx#: [id number] Keppra 1000 mg/100 mL Premix 100 / 100 100 ML @ 400 mls/hr IV.SIG Q12H [facility] Rx#:[id number] Oral 100 / 100 Output: Urine Amount (Catheter) 700 / 700 Indwelling Urethral Catheter 700 / 700 Other: Date of Last Bowel Movement 03/18/18 # Bowel Movements 1 Narrative: awake alertr nl speech moves all well x r ip sp hip surgery but can lift off bed - Urinary Catheter Management Indwelling Urethral Catheter Cath placed during this visit: yes Reason for continuing: Acute urinary retention Insertion date: 03/17/18 Insertion time: 02:30 Objective Laboratory Results - last 24 hr 03/17/18 03/17/18 03/18/18 12:00 12:00 05:25 WBC 8.0 RBC 3.77 L Hgb 10.9 L Hct 33.1 L MCV 87.6 MCH 28.9 MCHC 33.0 RDW 15.4 Plt Count 283 MPV 7.8 PT INR APTT Sodium Potassium Chloride Carbon Dioxide Anion Gap BUN Creatinine Estimated GFR Random Glucose Calcium Magnesium Total Bilirubin AST ALT Alkaline Phosphatase Troponin I 0.51 H D Total Protein Albumin Beta HCG, Quant 1 03/18/18 03/18/18 05:25 09:53 WBC RBC Hgb Hct MCV MCH MCHC RDW Plt Count MPV PT 12.4 H INR 1.2 APTT 28.0 Sodium 142 Potassium 3.7 Chloride 109 H Carbon Dioxide 26.6 Anion Gap 6 BUN 10 Creatinine 0.57 Estimated GFR Greater than 89 Random Glucose 89 Calcium 7.5 L Magnesium 2.1 Total Bilirubin 0.3 AST 21 ALT 23 Alkaline Phosphatase 58 Troponin I Total Protein 6.1 L Albumin 2.8 L Beta HCG, Quant Review/Management - Review/Management Plan: [facility] states she had sz one month ago and now 3 here all since wellbutrin started i told her no wellbutrin nor tramadol can continue keppra for now but glen likely taper off o/p not to drive await mri eeg nl 03/18/18 mri/a neg cow ? car refinisher aneurism cta ordered labs so far neg ow neurowise fine will sign off if cta neg dc dilantin changed keppra to po
[2018-03-18] MEDS: Enoxaparin Inj 40 MG/0.4 ML Syringe SQ SCH (17:33)
[2018-03-18] MEDS: levETIRAcetam 500 MG Tablet PO SCH (21:11)
[2018-03-19] MEDS ORDERED: Chlorhexidine Gluconate 2% 1 Pack (2 Cloths) TOPICAL SCH (03:30)
[2018-03-19] MEDS ORDERED: Sodium Chlor 0.9% Inj 500 ML IV.SIG SCH (04:00)
[2018-03-19] MEDS ORDERED: ceFAZolin 2 GM Premix Inj 2 GM/50 ML PIGGYBACK IV.SIG PRN (04:00)
[2018-03-19] MEDS ORDERED: Vancomycin Inj 1,000 MG in Sodium Chlor 0.9% Inj 250 ML IV.SIG SCH (04:00)
[2018-03-19] MEDS: Thyroid 60 MG Tablet PO SCH (06:20)
[2018-03-19] MEDS: Chlorhexidine Gluconate 2% 1 Pack (2 Cloths) TOPICAL SCH (07:31)
[2018-03-19] MEDS: Isoproterenol 200mcg/50mL Bag 200 MCG/50 ML BAG IV.CONT SCH (07:32)
[2018-03-19] MEDS: Senna/Docusate Sodium 8.6/50 MG Tablet PO SCH ×2 (08:56→21:42)
--- NOTE | 2018-03-19 08:56 | P.PNCA ---
Subjective Interval history: Denies dizziness, palpitations, CP, dyspnea. Slept well. Physical Exam Vital signs: Vital Signs 03/18/18 09:00 03/18/18 09:39 03/18/18 09:43 Temperature Pulse Rate 56 L Respiratory Rate 15 18 Blood Pressure 111/58 L Pulse Oximetry 100 100 03/18/18 10:00 03/18/18 10:57 03/18/18 11:00 Temperature Pulse Rate 50 L 49 L 47 L Respiratory Rate 18 15 15 Blood Pressure 121/62 125/58 L 121/59 L Pulse Oximetry 100 100 100 03/18/18 11:23 03/18/18 11:27 03/18/18 12:00 Temperature Pulse Rate 56 L 49 L 46 L Respiratory Rate 16 14 15 Blood Pressure 123/60 122/58 L Pulse Oximetry 80 L 94 L 100 03/18/18 12:01 03/18/18 13:00 03/18/18 14:00 Temperature 98.8 F Pulse Rate 50 L 53 L 56 L Respiratory Rate 14 15 13 Blood Pressure 122/58 L 124/60 138/62 Pulse Oximetry 100 100 100 03/18/18 14:01 03/18/18 14:03 03/18/18 15:00 Temperature Pulse Rate 63 52 L Respiratory Rate 13 18 13 Blood Pressure 121/62 117/58 L Pulse Oximetry 100 98 03/18/18 16:00 03/18/18 16:01 03/18/18 17:00 Temperature 98.5 F Pulse Rate 48 L 48 L 48 L Respiratory Rate 14 17 12 Blood Pressure 135/60 106/51 L 110/58 L Pulse Oximetry 98 99 100 03/18/18 17:03 03/18/18 18:00 03/18/18 19:00 Temperature Pulse Rate 47 L 58 L Respiratory Rate 5 L 14 17 Blood Pressure 110/58 L 108/55 L Pulse Oximetry 100 98 03/18/18 20:00 03/18/18 23:00 03/19/18 00:00 Temperature 98.8 F 97.3 F L Pulse Rate 52 L 42 L 56 L Respiratory Rate 14 16 Blood Pressure 127/58 L 127/60 Pulse Oximetry 98 100 03/19/18 01:00 03/19/18 02:00 03/19/18 03:00 Temperature Pulse Rate 46 L 44 L 45 L Respiratory Rate Blood Pressure Pulse Oximetry 03/19/18 04:00 03/19/18 05:00 03/19/18 06:00 Temperature Pulse Rate 42 L 56 L 62 Respiratory Rate 16 Blood Pressure 135/70 Pulse Oximetry 99 Intake & Output 03/18/18 03/19/18 03/19/18 18:59 06:59 18:59 Intake Total 900 / 900 480 / 480 1150 / 1150 Output Total 900 / 900 1100 / 1100 Balance 0 / 0 -620 / -620 1150 / 1150 Intake: IV 1150 / 1150 Isuprel 200 mcg/50 mL Premix 50 / 50 200 mcg In 50 ml @ 1 MCG/MIN 15 mls/hr IV.CONT .Q3H20M [facility] Rx# :[id number] Oral 900 / 900 480 / 480 Output: Urine 1100 / 1100 Urine Amount (Catheter) 900 / 900 Indwelling Urethral Catheter 900 / 900 Other: Date of Last Bowel Movement 03/18/18 03/18/18 # Bowel Movements 0 - Constitutional no acute distress - Routine Neck Exam Absent: JVD - Routine Respiratory Exam Present: CTA bilaterally - Routine Cardiovascular Exam Present: RRR, S1, S2. Absent: murmur, gallop - Routine Abdominal Exam Present: soft, normoactive bowel sounds. Absent: tenderness, organomegaly - Routine Extremities Exam Absent: cyanosis, clubbing, edema - Urinary Catheter Management Indwelling Urethral Catheter Cath placed during this visit: yes, but has since been removed by the nurse Reason for continuing: Decision to DC catheter Insertion date: 03/17/18 Insertion time: 02:30 Removal date: 03/18/18 Removal time: 20:00 Assessment and Plan - Assessment (1) Bradycardia Code(s): R00.1 - Bradycardia, unspecified Status: Chronic Plan: Stable remains normotensive, asymptomatic off Isuprel. Rhythm sinus bradycardia , occasional to frequent junctional escape rhythm. REC no pacemaker implant at this time, will f/u as needed as below (2) Elevated troponin Code(s): R74.8 - Abnormal levels of other serum enzymes Status: Acute Plan: Stable overnight. No CP symptoms. 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 Await Lexiscan nuclear stress test. Will f/u PRN any abnormality seen on nuclear imaging. (3) History of atrial myxoma Code(s): Z86.018 - Personal history of other benign neoplasm Status: Resolved Plan: Status post surgical excision last year. (4) Paroxysmal atrial flutter Code(s): I48.92 - Unspecified atrial flutter Status: Resolved Plan: History of ablation. Stable. No recurrences. - Plan Code Status: full code Discussed Condition With: patient
[2018-03-19] MEDS: levETIRAcetam 500 MG Tablet PO SCH ×2 (08:57→21:42)
[2018-03-19] MEDS: Famotidine PF Inj 20 MG/2 ML Vial IV.PUSH SCH ×2 (08:58→21:42)
[2018-03-19] MEDS: Sod Chloride 0.9% Inj 1,000 ML IV.CONT SCH ×2 (10:02→17:07)
--- NOTE | 2018-03-19 11:05 | P.PNIM ---
Subjective Interval history: 53-year-old female with past medical history of seizure disorder presents after she was found to have a seizure in her neurologist office. She was transferred to [facility] by EMS for further workup and management. Patient is confused, postictal and crying during my assessment. She also states she has a history of fibromyalgia and takes narcotic pain medicine and always hurts all over. She denies any head or neck injury or pain. She does not remember the event. She states that she had 2 seizures in the past 12 hours and just falls out. She does not take any medications for seizures. SUBJ 03/17: Remains critical with symptomatic bradycardia down to mid 30s and hypotension associated. Troponin peaked at 0.99. I have started patient on Isuprel. Appreciate cardiology and neurology consult. MRI MRA head pending at this time. No further seizures 03/18: Remains on Isuprel 1 mcg/min for symptomatic bradycardia. Probable pacemaker placement tomorrow a.m. I will in the meantime attempt weaning Isuprel. Mentation is improved, normal now 03-19 PATIENT STATES TAKES MORPHINE 100MG TID FROM HER PAIN MANAGEMENT DR IN [facility] WILL RESTART SUMEET RN AND PT AND CM AWAIT CARDIAC INPUT TODAY HAVING STESS TEST TODAY NO NEED FOR PACEMAKER AT THIS TIME Physical Exam Vital signs: Vital Signs 03/18/18 11:00 03/18/18 11:23 03/18/18 11:27 Temperature Pulse Rate 47 L 56 L 49 L Respiratory Rate 15 16 14 Blood Pressure 121/59 L 123/60 122/58 L Pulse Oximetry 100 80 L 94 L 03/18/18 12:00 03/18/18 12:01 03/18/18 13:00 Temperature Pulse Rate 46 L 50 L 53 L Respiratory Rate 15 14 15 Blood Pressure 122/58 L 124/60 Pulse Oximetry 100 100 100 03/18/18 14:00 03/18/18 14:01 03/18/18 14:03 Temperature 98.8 F Pulse Rate 56 L 63 Respiratory Rate 13 13 18 Blood Pressure 138/62 121/62 Pulse Oximetry 100 100 03/18/18 15:00 03/18/18 16:00 03/18/18 16:01 Temperature 98.5 F Pulse Rate 52 L 48 L 48 L Respiratory Rate 13 14 17 Blood Pressure 117/58 L 135/60 106/51 L Pulse Oximetry 98 98 99 03/18/18 17:00 03/18/18 17:03 03/18/18 18:00 Temperature Pulse Rate 48 L 47 L Respiratory Rate 12 5 L 14 Blood Pressure 110/58 L 110/58 L Pulse Oximetry 100 100 03/18/18 19:00 03/18/18 20:00 03/18/18 23:00 Temperature 98.8 F Pulse Rate 58 L 52 L 42 L Respiratory Rate 17 14 Blood Pressure 108/55 L 127/58 L Pulse Oximetry 98 98 03/19/18 00:00 03/19/18 01:00 03/19/18 02:00 Temperature 97.3 F L Pulse Rate 56 L 46 L 44 L Respiratory Rate 16 Blood Pressure 127/60 Pulse Oximetry 100 03/19/18 03:00 03/19/18 04:00 03/19/18 05:00 Temperature Pulse Rate 45 L 42 L 56 L Respiratory Rate 16 Blood Pressure 135/70 Pulse Oximetry 99 03/19/18 06:00 03/19/18 08:00 03/19/18 09:00 Temperature 98.1 F Pulse Rate 62 44 L 45 L Respiratory Rate 18 Blood Pressure 145/71 H Pulse Oximetry 97 03/19/18 09:59 03/19/18 10:00 Temperature Pulse Rate 45 L Respiratory Rate 20 Blood Pressure Pulse Oximetry Intake & Output 03/18/18 03/19/18 03/19/18 18:59 06:59 18:59 Intake Total 900 / 900 480 / 480 1150 / 1150 Output Total 900 / 900 1100 / 1100 Balance 0 / 0 -620 / -620 1150 / 1150 Intake: IV 1150 / 1150 Isuprel 200 mcg/50 mL Premix 50 / 50 200 mcg In 50 ml @ 1 MCG/MIN 15 mls/hr IV.CONT .Q3H20M [facility] Rx# :[id number] Oral 900 / 900 480 / 480 Output: Urine 1100 / 1100 Urine Amount (Catheter) 900 / 900 Indwelling Urethral Catheter 900 / 900 Other: Date of Last Bowel Movement 03/18/18 03/18/18 # Bowel Movements 0 Narrative: GENERAL: Awake alert and oriented 3 talkative and cooperative smells of tobacco SKIN: Warm and dry. HEAD: Atraumatic. Normocephalic. EYES: Pupils equal and round. No scleral icterus. No injection or drainage. Extraocular muscles intact ENT: No nasal bleeding or discharge. Mucous membranes pink and moist. Tongue is midline NECK: Trachea midline. No JVD. Supple CARDIOVASCULAR: Regular rate and rhythm. S1-S2 no S3 or S4 RESPIRATORY: No accessory muscle use. Clear to auscultation. Breath sounds equal bilaterally. GASTROINTESTINAL: Abdomen soft, non-tender, nondistended. Hepatic and splenic margins not palpable. MUSCULOSKELETAL: Extremities without clubbing, cyanosis, or edema. No obvious deformities. NEUROLOGICAL: Awake and alert. No obvious cranial nerve deficits. Motor grossly within normal limits. Five out of 5 muscle strength in the arms and legs. Normal speech. PSYCHIATRIC: Appropriate mood and affect; insight and judgment normal. - Urinary Catheter Management Indwelling Urethral Catheter Cath placed during this visit: yes, but has since been removed by the nurse Reason for continuing: Decision to DC catheter Insertion date: 03/17/18 Insertion time: 02:30 Removal date: 03/18/18 Removal time: 20:00 Results - Labs CBC & Chem 7: 03/18/18 05:25 03/18/18 05:25 Laboratory Results - last 24 hr 03/17/18 04:40 RPR Nonreactive - Imaging Impressions Head CTA 03/18/18 00:00 CONCLUSION: 1. Tortuous blood vessel accounting for the question aneurysm on the patient's prior examination. No definite aneurysm. Assessment and Plan - Plan Seizure disorder -Loaded with Keppra and fosphenytoin -Seizures are well controlled, continue Keppra and change Cerebyx to p.o. 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 Fajardo informed--negative for aneurysm -Seizure precautions -Further per neurology -Ativan as needed --Only on Keppra No driving for 6 months Non-STEMI -No ST changes on EKG -Continue Aspirin, atorvastatin -Monitor trend of troponin and EKGs -2D echo, Cardiology consultation -Patient not a candidate for permanent pacemaker at this time -Stress test is pending today-await results Symptomatic bradycardia and hypotension -Heart rate drops to mid 30s -Isuprel started 03/17/18 with improved heart rate and blood pressure -Cleared by Dr. 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
--- NOTE | 2018-03-19 12:01 | ECHRPT ---
Indication: CORONARY ATHEROSCLEROSIS CONCLUSIONS Normal left ventricular size. Wall thickness is normal. The left ventricular systolic function is normal with an estimated ejection fraction in the range of 55-60%. The right atrial size is mildly dilated. Trace mitral valve regurgitation. There is mild to moderate tricuspid valve regurgitation. The estimated pulmonary arterial pressure is 40.9 mmHg. Trivial pulmonary valve regurgitation. BP: / HR: Rhythm: Sinus MEASUREMENTS (Male / Female) Normal Values Technical Quality:Fair 2D ECHO LV Diastolic Diameter PLAX 5.5 cm 4.2 - 5.9 / 3.9 - 5.3 cm LV Systolic Diameter PLAX 3.8 cm IVS Diastolic Thickness 0.8 cm 0.6 - 1.0 / 0.6 - 0.9 cm LVPW Diastolic Thickness 0.8 cm 0.6 - 1.0 / 0.6 - 0.9 cm LV Relative Wall Thickness 0.3 RV Internal Dim ED PLAX 3.0 cm LVOT Diameter 2.0 cm Aortic Root Diameter 3.1 cm LA Systolic Diameter LX 3.7 cm 3.0 - 4.0 / 2.7 - 3.8 cm M-MODE AV Cusp Separation MM 2.3 cm DOPPLER AV Peak Velocity 154.0 cm/s AV Peak Gradient 9.5 mmHg AV Mean Gradient 5.0 mmHg AV Velocity Time Integral 27.1 cm LVOT Peak Velocity 144.0 cm/s LVOT Peak Gradient 8.3 mmHg LVOT Velocity Time Integral 25.1 cm AV Area Cont Eq vti 2.9 cm AV Area Cont Eq pk 2.9 cm Mitral E Point Velocity 109.0 cm/s Mitral A Point Velocity 65.2 cm/s Mitral E to A Ratio 1.7 LV E' Lateral Velocity 10.6 cm/s Mitral E to LV E' Lateral Ratio 10.3 LV E' Septal Velocity 7.2 cm/s Mitral E to LV E' Septal Ratio 15.1 TR Peak Velocity 278.0 cm/s TR Peak Gradient 30.9 mmHg Right Atrial Pressure 10.0 mmHg Pulmonary Artery Systolic Pressu 40.9 mmHg Right Ventricular Systolic Press 40.9 mmHg PV Peak Velocity 41.1 cm/s PV Peak Gradient 0.7 mmHg FINDINGS LEFT VENTRICLE Normal left ventricular size. Wall thickness is normal. The left ventricular systolic function is normal with an estimated ejection fraction in the range of 55-60%. RIGHT VENTRICLE Normal right ventricular size and systolic function. LEFT ATRIUM The left atrial size is normal. RIGHT ATRIUM The right atrial size is mildly dilated. ATRIAL SEPTUM No atrial level shunt is demonstrated by color flow Doppler interrogation. AORTA The aortic root and proximal ascending aorta are normal in size on limited imaging. MITRAL VALVE Trace mitral valve regurgitation. AORTIC VALVE Trileaflet aortic valve. No aortic valve stenosis or regurgitation. TRICUSPID VALVE There is mild to moderate tricuspid valve regurgitation. The estimated pulmonary arterial pressure is 40.9 mmHg. PULMONARY VALVE Trivial pulmonary valve regurgitation. VESSELS The inferior vena cava is normal in size. PERICARDIUM No pericardial effusion. Tucker Tyler MD, FACC, [facility] [place] (Electronically Signed) Final Date:19 March 2018 12:01
[2018-03-19] MEDS ORDERED: Regadenoson Inj 0.4 MG/5 ML Syringe IV.PUSH ONE (15:22)
[2018-03-19] MEDS: Morphine Sulfate 100 MG SR Tablet PO SCH ×2 (16:24→17:04)
[2018-03-19 16:57] LABS: Anti-Nuclear Antibody Screen Neg (Neg)
--- NOTE | 2018-03-19 17:01 | NM ---
EXAM DATE: 03/19/2018 4:18 PM EDT AGE/SEX: 53 years / Female INDICATIONS:Angina. . Chest pain with elevated troponins. CLINICAL DATA: This is the patient's initial encounter. Patient reports that signs and symptoms have been present for 1 day and indicates a pain score of 0/10. MEDICAL/SURGICAL HISTORY: Cardiovascular disease. Cerebrovascular disease. CABG. sec tion. COMPARISON: No prior exams available for comparison. No external comparison. DOSE: 8.5 mCi Tc 99m Myoview at rest 27.2 mCi [id number] at stress 0.4 mg Lexiscan STRESS SYMPTOMS: Heart racing. EJECTION FRACTION: 65 % TECHNIQUE: The patient underwent pharmacologic stress with infusion of prescribed dose. Continuous ECG tracing was monitored during stress. Gated SPECT imaging was performed after stress and conventi onal SPECT imaging was performed at rest. The examination was performed on a SPECT/CT scanner, both attenuation and non-corrected datasets were reviewed. FINDINGS: Distribution: The maximum perfused segment at stress is in the wall. Perfusion Study: There is a small size mild severity fixed defect at the apex. No reversible ischem ic segments are identified. Gated Study: There is hypokinesis at the apex with the remainder of the ventricle demonstrating norm al wall motion. The ejection fraction is calculated at 65%. RISK CATEGORY: Low (<1% Annual Motality Rate) CONCLUSION: No reversible ischemic segments are identified. Small fixed defect at the apex with associated hypoki nesis Electronically signed by: Elias Quevedo MD 03/19/2018 5:00 PM EDT
[2018-03-19] MEDS: Enoxaparin Inj 40 MG/0.4 ML Syringe SQ SCH (17:04)
--- NOTE | 2018-03-19 19:57 | P.PNADD ---
Addendum to Inpatient Note Reason for Addendum: Additional Documentation (Nuclear stress test imaging reviewed. The small fixed apical defect is artefact. Will follow up as needed the rest of her hospital stay. She is cleared for discharge from my standpoint. )
[2018-03-20] MEDS: Sod Chloride 0.9% Inj 1,000 ML IV.CONT SCH ×3 (05:33→18:24)
[2018-03-20] MEDS: Chlorhexidine Gluconate 2% 1 Pack (2 Cloths) TOPICAL SCH (05:33)
[2018-03-20 06:50] LABS: Baso # (Auto) 0.1 th/mm3 (0.0-0.2); Baso % (Auto) 0.8 % (0.0-2.0); Eos # (Auto) 0.2 th/mm3 (0.0-0.4); Eos % (Auto) 3.1 % (0.0-4.0); Hematocrit 36.7 % (35.0-46.0); Hemoglobin 11.8 gm/dL (11.6-15.3); Lymph # (Auto) 2.5 th/mm3 (1.0-4.8); Lymph % (Auto) 36.2 % (9.0-44.0); Mean Corpuscular HGB Conc 32.2 % (32.0-36.0); Mean Corpuscular Hemoglobin 28.4 pg (27.0-34.0); Mean Corpuscular Volume 88.1 fL (80.0-100.0); Mean Platelet Volume 8.4 fL (7.0-11.0); Mono # (Auto) 0.3 th/mm3 (0.0-0.9); Mono % (Auto) 4.1 % (0.0-8.0); Neut # (Auto) 3.9 th/mm3 (1.8-7.7); Neut % (Auto) 55.8 % (16.0-70.0); Platelet Count 295 th/mm3 (150-450); Red Blood Count 4.16 mil/mm3 (4.00-5.30); Red Cell Distribution Width 15.7 % (11.6-17.2); White Blood Count 6.9 th/mm3 (4.0-11.0)
[2018-03-20 07:00] LABS: INR 1.2 Ratio; Prothrombin Time 12.3 sec (9.8-11.6)
[2018-03-20] MEDS: Thyroid 60 MG Tablet PO SCH (07:10)
[2018-03-20 07:14] LABS: Alanine Aminotransferase 19 U/L (10-53); Albumin 2.8 g/dL (3.4-5.0); Anion Gap 4 meq/L (5-15); Blood Urea Nitrogen 6 mg/dL (7-18); Calcium 8.1 mg/dL (8.5-10.1); Carbon Dioxide 29.7 meq/L (21.0-32.0); Chloride 109 meq/L (98-107); Cholesterol 106 mg/dL (120-200); Glomerular Filtration Rate Greater Than 89 mL/min (>89); Glucose,Random 92 mg/dL (74-106); Magnesium 2.1 mg/dL (1.5-2.5); Phosphorus 3.6 mg/dL (2.5-4.9); Potassium 3.7 meq/L (3.5-5.1); Sodium 143 meq/L (136-145); Triglycerides 108 mg/dL (42-150)
[2018-03-20 07:29] LABS: Alkaline Phosphatase 55 U/L (45-117); Aspartate Aminotransferase 14 U/L (15-37); Chol/HDL Ratio 2.39 Ratio; Free T4 (Free Thyroxine) 0.67 ng/dL (0.76-1.46); HDL Cholesterol 44.3 mg/dL (40.0-60.0); LDL Cholesterol,Calculated 40 mg/dL (0-99); Total Protein 5.9 g/dL (6.4-8.2)
[2018-03-20] MEDS: Senna/Docusate Sodium 8.6/50 MG Tablet PO SCH ×2 (09:08→21:41)
[2018-03-20] MEDS: Morphine Sulfate 100 MG SR Tablet PO SCH ×3 (09:09→18:20)
[2018-03-20] MEDS: Famotidine PF Inj 20 MG/2 ML Vial IV.PUSH SCH ×2 (09:09→21:41)
[2018-03-20] MEDS: levETIRAcetam 500 MG Tablet PO SCH ×2 (09:10→21:40)
--- NOTE | 2018-03-20 17:00 | P.PNIM ---
Subjective Interval history: 53-year-old female with past medical history of seizure disorder presents after she was found to have a seizure in her neurologist office. She was transferred to [facility] by EMS for further workup and management. Patient is confused, postictal and crying during my assessment. She also states she has a history of fibromyalgia and takes narcotic pain medicine and always hurts all over. She denies any head or neck injury or pain. She does not remember the event. She states that she had 2 seizures in the past 12 hours and just falls out. She does not take any medications for seizures. SUBJ 03/17: Remains critical with symptomatic bradycardia down to mid 30s and hypotension associated. Troponin peaked at 0.99. I have started patient on Isuprel. Appreciate cardiology and neurology consult. MRI MRA head pending at this time. No further seizures 03/18: Remains on Isuprel 1 mcg/min for symptomatic bradycardia. Probable pacemaker placement tomorrow a.m. I will in the meantime attempt weaning Isuprel. Mentation is improved, normal now 03-19 PATIENT STATES TAKES MORPHINE 100MG TID FROM HER PAIN MANAGEMENT DR IN [facility] WILL RESTART SUMEET RN AND PT AND CM AWAIT CARDIAC INPUT TODAY HAVING STESS TEST TODAY NO NEED FOR PACEMAKER AT THIS TIME 03-20 CLEARED BY CARDIOLOGY FELL YESTERDAY WILL GET [facility] SUMEET RN AND PT NEEDS FACE TO FACE DC TO HOME TODAY STRESS TEST NEGATIVE Physical Exam Vital signs: Vital Signs 03/19/18 18:00 03/19/18 19:00 03/19/18 20:00 Temperature 97.8 F Pulse Rate 48 L 52 L 48 L Respiratory Rate 16 Blood Pressure 102/66 Pulse Oximetry 97 03/19/18 21:00 03/19/18 21:37 03/19/18 22:00 Temperature Pulse Rate 48 L 46 L Respiratory Rate Blood Pressure Pulse Oximetry 98 03/19/18 23:00 03/20/18 00:00 03/20/18 01:00 Temperature 97.9 F Pulse Rate 46 L 52 L 46 L Respiratory Rate 16 Blood Pressure 106/70 Pulse Oximetry 100 03/20/18 02:00 03/20/18 03:00 03/20/18 04:00 Temperature 97.9 F Pulse Rate 41 L 42 L 57 L Respiratory Rate 16 Blood Pressure 111/78 Pulse Oximetry 98 03/20/18 05:00 03/20/18 06:00 03/20/18 06:08 Temperature Pulse Rate 48 L 41 L Respiratory Rate 16 Blood Pressure Pulse Oximetry 03/20/18 07:00 03/20/18 08:00 03/20/18 09:00 Temperature 97.5 F L Pulse Rate 41 L 44 L 47 L Respiratory Rate 18 Blood Pressure 113/69 Pulse Oximetry 100 03/20/18 10:00 03/20/18 10:24 03/20/18 11:00 Temperature Pulse Rate 72 46 L Respiratory Rate Blood Pressure Pulse Oximetry 100 03/20/18 12:00 03/20/18 13:00 03/20/18 14:00 Temperature 97.8 F Pulse Rate 50 L 48 L 54 L Respiratory Rate 16 Blood Pressure 110/75 Pulse Oximetry 100 03/20/18 15:00 Temperature Pulse Rate 55 L Respiratory Rate Blood Pressure Pulse Oximetry Intake & Output 03/19/18 03/20/18 03/20/18 18:59 06:59 18:59 Intake Total 1390 / 1390 480 / 480 Output Total 500 / 500 620 / 620 Balance 890 / 890 -140 / -140 Weight 70.4 kg Intake: IV 1150 / 1150 Isuprel 200 mcg/50 mL Premix 50 / 50 200 mcg In 50 ml @ 1 MCG/MIN 15 mls/hr IV.CONT .Q3H20M [facility] Rx# :[id number] Oral 240 / 240 480 / 480 Output: Urine 500 / 500 620 / 620 Other: Date of Last Bowel Movement 03/18/18 03/19/18 03/19/18 # Bowel Movements 1 Narrative: GENERAL: Awake alert and oriented 3 talkative and cooperative smells of tobacco SKIN: Warm and dry. HEAD: Atraumatic. Normocephalic. EYES: Pupils equal and round. No scleral icterus. No injection or drainage. Extraocular muscles intact ENT: No nasal bleeding or discharge. Mucous membranes pink and moist. Tongue is midline NECK: Trachea midline. No JVD. Supple CARDIOVASCULAR: Regular rate and rhythm. S1-S2 no S3 or S4 RESPIRATORY: No accessory muscle use. Clear to auscultation. Breath sounds equal bilaterally. GASTROINTESTINAL: Abdomen soft, non-tender, nondistended. Hepatic and splenic margins not palpable. MUSCULOSKELETAL: Extremities without clubbing, cyanosis, or edema. No obvious deformities. NEUROLOGICAL: Awake and alert. No obvious cranial nerve deficits. Motor grossly within normal limits. Five out of 5 muscle strength in the arms and legs. Normal speech. PSYCHIATRIC: Appropriate mood and affect; insight and judgment normal. - Urinary Catheter Management Indwelling Urethral Catheter Cath placed during this visit: yes, but has since been removed by the nurse Reason for continuing: Decision to DC catheter Insertion date: 03/17/18 Insertion time: 02:30 Removal date: 03/18/18 Removal time: 20:00 Results - Labs CBC & Chem 7: 03/20/18 06:26 03/20/18 06:26 Laboratory Results - last 24 hr 03/20/18 03/20/18 03/20/18 06:26 06:26 06:26 WBC 6.9 RBC 4.16 Hgb 11.8 Hct 36.7 MCV 88.1 MCH 28.4 MCHC 32.2 RDW 15.7 Plt Count 295 MPV 8.4 Neut % (Auto) 55.8 Lymph % (Auto) 36.2 [place] % (Auto) 4.1 Eos % (Auto) 3.1 Baso % (Auto) 0.8 Neut # (Auto) 3.9 Lymph # (Auto) 2.5 [place] # (Auto) 0.3 Eos # (Auto) 0.2 Baso # (Auto) 0.1 WBC Differential . Differential Comment Auto diff final PT 12.3 H INR 1.2 Sodium 143 Potassium 3.7 Chloride 109 H Carbon Dioxide 29.7 Anion Gap 4 L BUN 6 L Creatinine 0.62 Estimated GFR Greater than 89 Random Glucose 92 Calcium 8.1 L Phosphorus 3.6 Magnesium 2.1 Total Bilirubin 0.4 AST 14 L ALT 19 Alkaline Phosphatase 55 Total Protein 5.9 L Albumin 2.8 L Triglycerides 108 Cholesterol 106 L LDL Cholesterol, Calc 40 HDL Cholesterol 44.3 Cholesterol/HDL Ratio 2.39 TSH 8.210 H Free T4 0.67 L - Imaging Impressions Myocardial Perfusion Scan Nuc Med 03/19/18 00:00 CONCLUSION: No reversible ischemic segments are identified. Small fixed defect at the apex with associated hypokinesis - Procedures STRESS TEST Assessment and Plan - Plan Seizure disorder -Loaded with Keppra and fosphenytoin -Seizures are well controlled, continue Keppra and change Cerebyx to p.o. 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 Fajardo informed--negative for aneurysm -Seizure precautions -Further per neurology -Ativan as needed --Only on Keppra No driving for 6 months Non-STEMI -No ST changes on EKG -Continue Aspirin, atorvastatin -Monitor trend of troponin and EKGs -2D echo, Cardiology consultation -Patient not a candidate for permanent pacemaker at this time -Stress test is pending today-await results Symptomatic bradycardia and hypotension -Heart rate drops to mid 30s -Isuprel started 03/17/18 with improved heart rate and blood pressure -Cleared by Dr. 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
--- NOTE | 2018-03-20 17:02 | P.DCO ---
- Physical Therapy Order: Evaluate and treat, Improve ambulation, Strength and gait training - Occupational Therapy Order: Evaluate and treat, Improve ADL, Gross motor coordination, Fine motor coordination - Home Health Nursing Order: Medical education, Signs/symptoms of disease process, Medication education-adverse effect, Nursing assessment with vital signs - Home Health Aide Order: To assist in: Bathing and personal care, debrander and meal prep - Certification I have seen patient Graciela Dolan on 03/20/18. My clinical findings support the need for the requested home health care services because: Limited mobility due to disease progression, Deconditioned with increased weakness, Limited ability to care for self, High risk of falls I certify that my clinical findings support that this patient is homebound because: Unsteady gait/balance, Unsafe to leave home unassisted, Need for psychosocial assistance
--- NOTE | 2018-03-20 17:11 | P.DS ---
Date of admission: 03/16/18 15:51 Primary care physician: No Primary Care Physician Attending physician on discharge: Joshua Woodard Anticipated date of discharge: 03/20/18 Brief History from admission: 53-year-old female with past medical history of seizure disorder presents after she was found to have a seizure in her neurologist office. She was transferred to [facility] by EMS for further workup and management. Patient is confused, postictal and crying during my assessment. She also states she has a history of fibromyalgia and takes narcotic pain medicine and always hurts all over. She denies any head or neck injury or pain. She does not remember the event. She states that she had 2 seizures in the past 12 hours and just falls out. She does not take any medications for seizures. DS: Diagnosis - Discharge Diagnosis (1) Acute alteration in mental status Status: Acute (2) Convulsive status epilepticus Status: Acute (3) Elevated troponin Status: Acute (4) Generalized seizure Status: Acute (5) Opiate dependence Status: Chronic (6) Bradycardia Status: Chronic (7) History of atrial myxoma Status: Resolved (8) Paroxysmal atrial flutter Status: Resolved DS: Medications - Discharge Medications Prescriptions: aspirin 81 mg PO DAILY #30 tab levetiracetam [Keppra] 500 mg PO BID #60 tab rosuvastatin [Crestor] 20 mg PO DAILY #30 tab sennosides-docusate sodium [Senna Plus] 1 tab PO BID #120 tab DS: Summary Hospital Course: 53-year-old female with past medical history of seizure disorder presents after she was found to have a seizure in her neurologist office. She was transferred to [facility] by EMS for further workup and management. Patient is confused, postictal and crying during my assessment. She also states she has a history of fibromyalgia and takes narcotic pain medicine and always hurts all over. She denies any head or neck injury or pain. She does not remember the event. She states that she had 2 seizures in the past 12 hours and just falls out. She does not take any medications for seizures. SUBJ 03/17: Remains critical with symptomatic bradycardia down to mid 30s and hypotension associated. Troponin peaked at 0.99. I have started patient on Isuprel. Appreciate cardiology and neurology consult. MRI MRA head pending at this time. No further seizures 03/18: Remains on Isuprel 1 mcg/min for symptomatic bradycardia. Probable pacemaker placement tomorrow a.m. I will in the meantime attempt weaning Isuprel. Mentation is improved, normal now 03-19 PATIENT STATES TAKES MORPHINE 100MG TID FROM HER PAIN [facility]NAGEMENT DR IN [facility] WILL RESTART SUMEET RN AND PT AND CM AWAIT CARDIAC INPUT TODAY HAVING STESS TEST TODAY NO NEED FOR PACEMAKER AT THIS TIME 03-20 CLEARED BY CARDIOLOGY FELL YESTERDAY WILL GET [facility] SUMEET RN AND PT NEEDS FACE TO FACE DC TO HOME TODAY STRESS TEST NEGATIVE NO DRIVING A TEST GRADER - Time Spent with Patient Total time spent providing and/or coordinating discharge services: - Quality: VTE Deep Vein Thrombosis/Pulmonary Embolism Present on Admission: No Exam Vital signs: Vital Signs 03/19/18 18:00 03/19/18 19:00 03/19/18 20:00 Temperature 97.8 F Pulse Rate 48 L 52 L 48 L Respiratory Rate 16 Blood Pressure 102/66 Pulse Oximetry 97 03/19/18 21:00 03/19/18 21:37 03/19/18 22:00 Temperature Pulse Rate 48 L 46 L Respiratory Rate Blood Pressure Pulse Oximetry 98 03/19/18 23:00 03/20/18 00:00 03/20/18 01:00 Temperature 97.9 F Pulse Rate 46 L 52 L 46 L Respiratory Rate 16 Blood Pressure 106/70 Pulse Oximetry 100 03/20/18 02:00 03/20/18 03:00 03/20/18 04:00 Temperature 97.9 F Pulse Rate 41 L 42 L 57 L Respiratory Rate 16 Blood Pressure 111/78 Pulse Oximetry 98 03/20/18 05:00 03/20/18 06:00 03/20/18 06:08 Temperature Pulse Rate 48 L 41 L Respiratory Rate 16 Blood Pressure Pulse Oximetry 03/20/18 07:00 03/20/18 08:00 03/20/18 09:00 Temperature 97.5 F L Pulse Rate 41 L 44 L 47 L Respiratory Rate 18 Blood Pressure 113/69 Pulse Oximetry 100 03/20/18 10:00 03/20/18 10:24 03/20/18 11:00 Temperature Pulse Rate 72 46 L Respiratory Rate Blood Pressure Pulse Oximetry 100 03/20/18 12:00 03/20/18 13:00 03/20/18 14:00 Temperature 97.8 F Pulse Rate 50 L 48 L 54 L Respiratory Rate 16 Blood Pressure 110/75 Pulse Oximetry 100 03/20/18 15:00 Temperature Pulse Rate 55 L Respiratory Rate Blood Pressure Pulse Oximetry Intake & Output 03/19/18 03/20/18 03/20/18 18:59 06:59 18:59 Intake Total 1390 / 1390 480 / 480 Output Total 500 / 500 620 / 620 Balance 890 / 890 -140 / -140 Weight 70.4 kg Intake: IV 1150 / 1150 Isuprel 200 mcg/50 mL Premix 50 / 50 200 mcg In 50 ml @ 1 MCG/MIN 15 mls/hr IV.CONT .Q3H20M ZEUS Rx# :[id number] Oral 240 / 240 480 / 480 Output: Urine 500 / 500 620 / 620 Other: Date of Last Bowel Movement 03/18/18 03/19/18 03/19/18 # Bowel Movements 1 Narrative: GENERAL: Awake alert and oriented 3 talkative and cooperative smells of tobacco SKIN: Warm and dry. HEAD: Atraumatic. Normocephalic. EYES: Pupils equal and round. No scleral icterus. No injection or drainage. Extraocular muscles intact ENT: No nasal bleeding or discharge. Mucous membranes pink and moist. Tongue is midline NECK: Trachea midline. No JVD. Supple CARDIOVASCULAR: Regular rate and rhythm. S1-S2 no S3 or S4 RESPIRATORY: No accessory muscle use. Clear to auscultation. Breath sounds equal bilaterally. GASTROINTESTINAL: Abdomen soft, non-tender, nondistended. Hepatic and splenic margins not palpable. MUSCULOSKELETAL: Extremities without clubbing, cyanosis, or edema. No obvious deformities. NEUROLOGICAL: Awake and alert. No obvious cranial nerve deficits. Motor grossly within normal limits. Five out of 5 muscle strength in the arms and legs. Normal speech. PSYCHIATRIC: Appropriate mood and affect; insight and judgment normal. Results Procedures completed during hospitalization: STRESS TEST Completed studies during hospitalization: Laboratory Results CBC w Diff Auto diff final 03/16/18 12:20 WBC 6.9 th/mm3 (4.0-11.0) 03/20/18 06:26 RBC 4.16 mil/mm3 (4.00-5.30) 03/20/18 06:26 Hgb 11.8 gm/dL (11.6-15.3) 03/20/18 06:26 Hct 36.7 % (35.0-46.0) 03/20/18 06:26 MCV 88.1 fL (80.0-100.0) 03/20/18 06:26 MCH 28.4 pg (27.0-34.0) 03/20/18 06:26 MCHC 32.2 % (32.0-36.0) 03/20/18 06:26 RDW 15.7 % (11.6-17.2) 03/20/18 06:26 Plt Count 295 th/mm3 (150-450) 03/20/18 06:26 MPV 8.4 fL (7.0-11.0) 03/20/18 06:26 Neut % (Auto) 55.8 % (16.0-70.0) 03/20/18 06:26 Lymph % (Auto) 36.2 % (9.0-44.0) 03/20/18 06:26 [place] % (Auto) 4.1 % (0.0-8.0) 03/20/18 06:26 Eos % (Auto) 3.1 % (0.0-4.0) 03/20/18 06:26 Baso % (Auto) 0.8 % (0.0-2.0) 03/20/18 06:26 Neut # (Auto) 3.9 th/mm3 (1.8-7.7) 03/20/18 06:26 Lymph # (Auto) 2.5 th/mm3 (1.0-4.8) 03/20/18 06:26 [place] # (Auto) 0.3 th/mm3 (0.0-0.9) 03/20/18 06:26 Eos # (Auto) 0.2 th/mm3 (0.0-0.4) 03/20/18 06:26 Baso # (Auto) 0.1 th/mm3 (0.0-0.2) 03/20/18 06:26 WBC Differential . 03/20/18 06:26 Differential Comment Auto diff final 03/20/18 06:26 ESR 10 mm/hr (0-30) 03/17/18 04:40 PT 12.3 sec (9.8-11.6) H 03/20/18 06:26 INR 1.2 Ratio 03/20/18 06:26 APTT 28.0 sec (24.3-30.1) 03/18/18 09:53 Sodium 143 meq/L (136-145) 03/20/18 06:26 Potassium 3.7 meq/L (3.5-5.1) 03/20/18 06:26 Chloride 109 meq/L (98-107) H 03/20/18 06:26 Carbon Dioxide 29.7 meq/L (21.0-32.0) 03/20/18 06:26 Anion Gap 4 meq/L (5-15) L 03/20/18 06:26 BUN 6 mg/dL (7-18) L 03/20/18 06:26 Creatinine 0.62 mg/dL (0.50-1.00) 03/20/18 06:26 Estimated GFR Greater than 89 mL/min (>89) 03/20/18 06:26 Random Glucose 92 mg/dL (74-106) 03/20/18 06:26 Calcium 8.1 mg/dL (8.5-10.1) L 03/20/18 06:26 Phosphorus 3.6 mg/dL (2.5-4.9) 03/20/18 06:26 Magnesium 2.1 mg/dL (1.5-2.5) 03/20/18 06:26 Total Bilirubin 0.4 mg/dL (0.2-1.0) 03/20/18 06:26 AST 14 U/L (15-37) L 03/20/18 06:26 ALT 19 U/L (10-53) 03/20/18 06:26 Alkaline Phosphatase 55 U/L (45-117) 03/20/18 06:26 Total Creatine Kinase 463 U/L (26-192) H 03/16/18 19:05 CK-MB (CK-2) 5.0 ng/mL (0.5-3.6) H 03/16/18 19:05 CK-MB (CK-2) % 1.1 % (0.0-4.0) 03/16/18 19:05 Troponin I 0.51 ng/mL (0.02-0.05) H D 03/17/18 12:00 Total Protein 5.9 g/dL (6.4-8.2) L 03/20/18 06:26 Albumin 2.8 g/dL (3.4-5.0) L 03/20/18 06:26 Triglycerides 108 mg/dL (42-150) 03/20/18 06:26 Cholesterol 106 mg/dL (120-200) L 03/20/18 06:26 LDL Cholesterol, Calc 40 mg/dL (0-99) 03/20/18 06:26 HDL Cholesterol 44.3 mg/dL (40.0-60.0) 03/20/18 06:26 Cholesterol/HDL Ratio 2.39 Ratio 03/20/18 06:26 Vitamin B12 310 pg/mL (193-986) 03/16/18 19:05 TSH 8.210 uIU/mL (0.358-3.740) H 03/20/18 06:26 Free T4 0.67 ng/dL (0.76-1.46) L 03/20/18 06:26 Thyroxine (T4) 7.2 mcg/dL (4.8-13.9) 03/16/18 19:05 Beta HCG, Quant 1 mIU/mL (0-5) 03/17/18 12:00 Ur Collection Type Clean catch 03/16/18 13:15 Urine Color Yellow (Yellw/Straw) 03/17/18 03:00 Urine Clarity Clear (Clear) 03/17/18 03:00 Urine pH 6.0 (5.0-8.5) 03/17/18 03:00 Ur Specific [place] 1.008 (1.002-1.035) 03/17/18 03:00 Urine Protein Negative mg/dL (Neg-Trace) 03/17/18 03:00 Urine Glucose (UA) Negative mg/dL (Negative) 03/17/18 03:00 Urine Ketones Negative mg/dL (Negative) 03/17/18 03:00 Urine Occult Blood Negative (Negative) 03/17/18 03:00 Urine Nitrate Negative (Negative) 03/17/18 03:00 Urine Bilirubin Negative (Negative) 03/17/18 03:00 Urine Urobilinogen Less than 2 mg/dL (Less than 2) 03/17/18 03:00 Ur Leukocyte Esterase Negative (Negative) 03/17/18 03:00 Urine RBC 1 /hpf (0-3) 03/17/18 03:00 Urine WBC 1 /hpf (0-5) 03/17/18 03:00 Ur Squamous Epith Cells 0-5 /hpf (0-5) 03/16/18 13:15 Micro UA Comment Cath-culture not ind 03/17/18 03:00 Urine Culture Comments Cath-cult not ind 03/17/18 03:00 Nasal Screen MRSA (PCR) Not detected (Negative) 03/16/18 17:30 Urine Opiates Screen Pos (Neg) H 03/16/18 13:15 Ur Barbiturates Screen Neg (Neg) 03/16/18 13:15 Phenytoin 1.5 mcg/mL (10.0-20.0) L 03/17/18 04:40 Ur Amphetamines Screen Neg (Neg) 03/16/18 13:15 U Benzodiazepines Scrn Neg (Neg) 03/16/18 13:15 Urine Cocaine Screen Neg (Neg) 03/16/18 13:15 U Cannabinoids Screen Neg (Neg) 03/16/18 13:15 Serum Alcohol Less than 3 mg/dL (0-5) 03/16/18 12:20 JODY Screen Neg (Neg) 03/17/18 04:40 RPR Nonreactive (Nonreactive) 03/17/18 04:[address] 03/16/18 12:53 CONCLUSION: No evidence of acute intracranial pathology. No masses are identified. . Head MRI 03/17/18 00:00 CONCLUSION: 1. Exam limited by motion. There is no evidence for significant ischemia, mass or hemorrhage. 2. No significant enhancement. 3. Given the motion subtle dural enhancement, ischemia and mass lesions could be missed. Head MRA 03/17/18 00:00 CONCLUSION: 1. Limited examination due to significant motion artifact and a questionable aneurysm at the junction of the left [employer] coming off the basilar artery could be further characterized with CT angiogram of [place] based on clinical grounds. Neck MRA 03/17/18 00:00 CONCLUSION: 1. Negative for hemodynamically significant carotid stenosis. 2. Both vertebral arteries are patent. 3. Basilar artery is patent. Percent stenosis is calculated using the diameter of the stenotic region over the diameter of the normal distal internal carotid artery Head CTA 03/18/18 00:00 CONCLUSION: 1. Tortuous blood vessel accounting for the question aneurysm on the patient's prior examination. No definite aneurysm. Chest X-Ray 03/18/18 06:00 CONCLUSION: 1. No significant interval change or acute abnormality. Myocardial Perfusion Scan Nuc Med 03/19/18 00:00 CONCLUSION: No reversible ischemic segments are identified. Small fixed defect at the apex with associated hypokinesis Labs on day of discharge: Labs from last 24 hours 03/20/18 03/20/18 03/20/18 06:26 06:26 06:26 WBC RBC Hgb Hct MCV MCH MCHC RDW Plt Count MPV Neut % (Auto) Lymph % (Auto) [place] % (Auto) Eos % (Auto) Baso % (Auto) Neut # (Auto) Lymph # (Auto) [place] # (Auto) Eos # (Auto) Baso # (Auto) WBC Differential Differential Comment PT 12.3 H INR 1.2 Sodium 143 Potassium 3.7 Chloride 109 H Carbon Dioxide 29.7 Anion Gap 4 L BUN 6 L Creatinine 0.62 Estimated GFR Greater than 89 Random Glucose 92 Hemoglobin A1c Pending Calcium 8.1 L Phosphorus 3.6 Magnesium 2.1 Total Bilirubin 0.4 AST 14 L ALT 19 Alkaline Phosphatase 55 Total Protein 5.9 L Albumin 2.8 L Triglycerides 108 Cholesterol 106 L LDL Cholesterol, Calc 40 HDL Cholesterol 44.3 Cholesterol/HDL Ratio 2.39 TSH 8.210 H Free T4 0.67 L 03/20/18 06:26 WBC 6.9 RBC 4.16 Hgb 11.8 Hct 36.7 MCV 88.1 MCH 28.4 MCHC 32.2 RDW 15.7 Plt Count 295 MPV 8.4 Neut % (Auto) 55.8 Lymph % (Auto) 36.2 [place] % (Auto) 4.1 Eos % (Auto) 3.1 Baso % (Auto) 0.8 Neut # (Auto) 3.9 Lymph # (Auto) 2.5 [place] # (Auto) 0.3 Eos # (Auto) 0.2 Baso # (Auto) 0.1 WBC Differential . Differential Comment Auto diff final PT INR Sodium Potassium Chloride Carbon Dioxide Anion Gap BUN Creatinine Estimated GFR Random Glucose Hemoglobin A1c Calcium Phosphorus Magnesium Total Bilirubin AST ALT Alkaline Phosphatase Total Protein Albumin Triglycerides Cholesterol LDL Cholesterol, Calc HDL Cholesterol Cholesterol/HDL Ratio TSH Free T4 - Impressions ITS Impressions Head CT 03/16/18 12:53 CONCLUSION: No evidence of acute intracranial pathology. No masses are identified. . Head MRI 03/17/18 00:00 CONCLUSION: 1. Exam limited by motion. There is no evidence for significant ischemia, mass or hemorrhage. 2. No significant enhancement. 3. Given the motion subtle dural enhancement, ischemia and mass lesions could be missed. Head MRA 03/17/18 00:00 CONCLUSION: 1. Limited examination due to significant motion artifact and a questionable aneurysm at the junction of the left [employer] coming off the basilar artery could be further characterized with CT angiogram of [place] based on clinical grounds. Neck MRA 03/17/18 00:00 CONCLUSION: 1. Negative for hemodynamically significant carotid stenosis. 2. Both vertebral arteries are patent. 3. Basilar artery is patent. Percent stenosis is calculated using the diameter of the stenotic region over the diameter of the normal distal internal carotid artery Head CTA 03/18/18 00:00 CONCLUSION: 1. Tortuous blood vessel accounting for the question aneurysm on the patient's prior examination. No definite aneurysm. Chest X-Ray 03/18/18 06:00 CONCLUSION: 1. No significant interval change or acute abnormality. Myocardial Perfusion Scan Nuc Med 03/19/18 00:00 CONCLUSION: No reversible ischemic segments are identified. Small fixed defect at the apex with associated hypokinesis Discharge Plan - Discharge Disposition Patient Disposition: W/Home Health Service - Discharge Condition Condition: Stable - Discharge Order Discharge Orders: Discharge Order (Routine); Ordered 03/20/18 Ordered By: Joshua Woodard - Discharge Details Anticipated Discharge Date: 03/20/18 Discharge Comment: DC HOME WITH [facility] - Physicians Team Primary Care Provider: Primary Care Roxanna Eckert Attending Provider: Joshua Woodard Other Providers: Luis Call MD ; Elias Norton MD ; Mario Martin - Rxs /Orders / Referrals /Forms Prescriptions: New levetiracetam [Keppra] 500 mg Tablet 500 mg PO BID Qty: 60 RF: 0 sennosides-docusate sodium [Senna Plus] 8.6-50 mg Tablet 1 tab PO BID Qty: 120 RF: 0 Continue aspirin 81 mg Tablet,Chewable 81 mg PO DAILY Qty: 30 morphine 100 mg Tablet Extended Release 100 mg PO TID oxycodone 30 mg Tablet 30 mg PO Q4-6H PRN (Reason: Pain) pregabalin [Lyrica] 200 mg Capsule 200 mg PO TID rosuvastatin [Crestor] 20 mg Tablet 20 mg PO DAILY Qty: 30 thyroid (pork) [[place]ackey Thyroid] 60 mg Tablet 180 mg PO DAILY Discontinued bupropion HCl [Wellbutrin SR] 100 mg Tablet Extended Release 12 Hr 100 mg PO BID Ambulatory Orders / Order Sets / DME: Walker With Front Wheels (1 each) (Routine) Timeframe: 99 Months Location: Determined by Patient Ordered By: Joshua Woodard Referrals: Elias Norton MD [Physician] - See Instructions (2 TO 3 WEEKS) Primary Care Roxanna Eckert [Primary Care Provider] - See Instructions (FOLLOW UP WITH PCP IN 3 TO 5 DAYS FOLLOW UP WITH PAIN MANAGEMENT SCHEDULED) Liu Lewis DO [Physician] - See Instructions (1 TO 2 WEEKS)
[2018-03-20] MEDS: Enoxaparin Inj 40 MG/0.4 ML Syringe SQ SCH (18:21)
[2018-03-20 18:34] LABS: Hemoglobin A1c 5.3 % (4.3-6.0)
[2018-03-20 20:10] VITALS: RESP 16
[2018-03-21] MEDS: Sod Chloride 0.9% Inj 1,000 ML IV.CONT SCH ×2 (04:20→11:09)
[2018-03-21] MEDS: Chlorhexidine Gluconate 2% 1 Pack (2 Cloths) TOPICAL SCH (05:21)
[2018-03-21] MEDS: Thyroid 60 MG Tablet PO SCH (06:50)
[2018-03-21 08:20] VITALS: BP 106/71; TEMP 98.5
[2018-03-21] MEDS: levETIRAcetam 500 MG Tablet PO SCH (09:13)
[2018-03-21] MEDS: Famotidine PF Inj 20 MG/2 ML Vial IV.PUSH SCH (09:14)
[2018-03-21] MEDS: Morphine Sulfate 100 MG SR Tablet PO SCH (09:14)
[2018-03-21] MEDS: Senna/Docusate Sodium 8.6/50 MG Tablet PO SCH (09:14)
[2018-03-21 11:00] VITALS: O2SAT 95
[2018-03-21 11:12] VITALS: PULSE 40
[2018-03-22 08:49] LABS: Methylmalonic Acid 0.14 nmol/mL (<=0.40)
== END 2018-03-21 13:00 | disposition home health service (06) ==
LOC: PHED 11:06 → PHEDA 15:51 → HIMC 16:45 → HCIS 03-18 21:44
PROVIDERS: ADMIT Hospitalist; ATTEND Hospitalist